=== PATIENT | female | born 1945 | race Caucasian/White ===

== ENCOUNTER 2016-10-13 21:28 | Inpatient (IN) | payer MEDICARE, MEDICAID ==
[2016-10-13 22:49] VITALS: BP 110/52
[2016-10-13] MEDS ORDERED: Pneumococcal Vaccine 0.5 mL Vial IM ONE (23:46)
[2016-10-13] MEDS ORDERED: Influenza Vaccine 0.5 mL Syr IM ONE (23:46)
[2016-10-14] MEDS ORDERED: Guaifenesin DM 10 ML UDC PO PRN (10:22)
[2016-10-14] MEDS ORDERED: PROCHLORPERAZINE MALEATE 10 MG PO PRN (10:22)
[2016-10-14 11:06] LABS: HEMATOCRIT 29.3 % (35.0-45.0); HEMOGLOBIN 9.6 gm/dL (11.7-16.1); MEAN CELL VOLUME 95.2 fl (81-100); MEAN CORPUSCULAR HEMOGLOBIN 31.3 pg (27.0-31.0); MEAN CORPUSCULAR HGB CONC 32.8 pg (28.0-36.0); PLATELET COUNT 193 Th/cmm (150-400); RED BLOOD COUNT 3.08 Mil/cmm (3.80-5.20); RED CELL DISTRIBUTION WIDTH 22.4 % (11.5-20.0); WHITE BLOOD COUNT 9.4 Th/cmm (4.8-10.8)
[2016-10-14 11:29] LABS: ALB/GLOB RATIO 1.5 (1.0-1.8); ANION GAP 11.7 (7.0-16.0); BILIRUBIN,TOTAL 0.9 mg/dL (0.3-1.0); BUN/CREATININE RATIO 9.5; CALCIUM SERUM 7.9 mg/dL (8.6-10.3); CARBON DIOXIDE 28.8 mEq/L (21.0-31.0); CREATININE - SERUM 2.1 mg/dL (0.6-1.2); POTASSIUM SERUM 4.5 mEq/L (3.5-5.1)
[2016-10-14] MEDS ORDERED: INSULIN ASPART, RECOMBINANT 100 UNITS/ML SUBQ SCH (11:30)
[2016-10-14 12:05] LABS: TSH 7.87 uIU/ml (0.34-5.60)
[2016-10-14] MEDS: Hydrocodone/APAP 5mg/325mg Tab PO PRN ×2 (12:50→16:39)
[2016-10-14 13:22] LABS: URINE COLOR BROWN; URINE GLUCOSE (UA) NEGATIVE (NEGATIVE)
[2016-10-14 13:23] LABS: URINE AMORPHOUS SEDIMENT FEW URATES (NONE SEEN); URINE BACTERIA NONE SEEN /hpf (NONE SEEN); URINE BILIRUBIN SMALL (NEGATIVE); URINE BLOOD TRACE (NEGATIVE); URINE EPITHELIAL CELLS OCCASIONAL /lpf (FEW); URINE KETONE TRACE mg/dL (NEGATIVE); URINE PH 5.5; URINE PROTEIN 100 mg/dL (NEGATIVE); URINE RBC 0-1 /hpf (0-5); URINE UROBILINOGEN 0.2 E.U./dL (0.2 - 1.0)
[2016-10-14 13:58] LABS: ANISOCYTOSIS 1+; BAND NEUTROPHILE 7 % (0-10); NEUTROPHILS 80 % (40-80); PLATELET ESTIMATE ADEQUATE (NORMAL); PLATELET MORPHOLOGY GIANT PLATELETS SEEN (NORMAL); TOTAL CELLS COUNTED 100
[2016-10-14] MEDS: cefTRIAXone 1 GM in Sodium Chloride 0.9% 50 ML IV SCH (17:30)
[2016-10-14] MEDS: metroNIDAZOLE 500mg/NS 100mL 500 MG/100 ML BAG IV SCH ×2 (18:00→23:27)
[2016-10-14] MEDS: INSULIN ASPART SLIDING SCALE 100 UNITS/ML UNIT SUBQ SCH ×2 (18:52→21:00)
[2016-10-15] MEDS: Hydrocodone/APAP 5mg/325mg Tab PO PRN ×4 (01:15→21:26)
--- NOTE | 2016-10-15 01:35 | Consultation ---
ATTENDING: Bienvenido Zhang M.D. SET UP MECHANIC HEADING MACHINES: Benson Harvey M.D. REASON FOR CONSULTATION: Electrolyte imbalance and fluid management. HISTORY OF PRESENT ILLNESS: This is a 70-year-old female with past medical history of end-stage renal disease, on hemodialysis, who was transferred from [place] to [facility] for further management of decompensating CHF. A few hours prior to admission, the patient developed shortness of breath. ____ were notified. Her O2 sat in the field was 80% with a blood sugar of 37. She was placed on 5 liter oxygen, but remained hypoxic. She was then transported to [place] [facility]. Chest x-ray revealed bilateral effusions, left greater than right, suggestive of congestive heart failure. She was placed on non-rebreather mask at 10 liters. She was started on Fortaz/gentamicin/vancomycin/Flagyl. She was dialyzed at [place]. Her condition then stabilized, and she was transported to [facility]. PAST MEDICAL HISTORY: 1. End-stage renal disease, on hemodialysis. 2. Type 2 diabetes mellitus. 3. Essential hypertension. 4. Anemia of chronic kidney disease. 5. Right toe gangrene. 6. History is decompensating CHF. 7. Hypothyroidism. 8. GERD. 9. Diabetic neuropathy. 10. Peripheral arterial disease. PAST SURGICAL HISTORY: Status post creation of left AV fistula. CURRENT MEDICATIONS: She is currently on prochlorperazine, acetaminophen, aspirin, docusate sodium, Epogen, folic acid, guaifenesin, hydrocodone APAP, insulin aspart, levothyroxine, pantoprazole, senna, and vitamin B complex with C. ALLERGIES: No known drug allergies. SOCIAL AND FAMILY HISTORY: I was unable to obtain directly from the patient because of language problem. At the same time, the patient also is quite drowsy. REVIEW OF SYSTEMS: CONSTITUTIONAL: Again, I was unable to decipher directly from the patient. The patient has been weak. Appetite had been poor. HEENT: No mention of headaches, no dizziness. CARDIORESPIRATORY: The patient came in because of respiratory distress. There was no mention of any cough, chest pain, or palpitations. No diaphoresis. She has a history of hypertension and decompensating CHF in the past. GASTROINTESTINAL: No nausea or vomiting, abdominal pain or cramping, hematemesis, melena, hematochezia, and no diarrhea. ENDOCRINE: She has a history of diabetes and hypothyroidism. GENITOURINARY: No dyslipidemia. HEMATOLOGIC: She has anemia, more likely of chronic kidney disease. She also has peripheral arterial disease. NEUROPSYCH: No syncopal episode, no seizure activity. She has diabetic neuropathy. PHYSICAL EXAMINATION: GENERAL: The patient is arousable, but drowsy, not in any form of distress. VITAL SIGNS: Blood pressure is 97/47, pulse 75, and temperature 97.1 degrees. SKIN: Good turgor, warm, no rash, no jaundice appreciated. HEENT: Head is normocephalic and atraumatic. Eyes: Extraocular muscles intact. Pupils are equal, round, and reactive to light and accommodates. Anicteric sclerae, pale conjunctivae. Nose: Midline nasal septum. Mouth: Moist mucosa with poor dentition. NECK: Supple, no adenopathy, no thyromegaly, no bruits. Trachea palpated in the midline. CHEST AND CVS: S1, S2. No rub, murmur, nor gallop appreciated. Point of maximal impulse in fifth intercostal space, left midclavicular line. No abdominal or femoral bruits appreciated. LUNGS: Equal expansion. Minimal use of accessory muscles. No supraclavicular retractions. Few rhonchi, some rales at the bases, but no wheezes appreciated. BREASTS: Symmetrical, without any discharge. ABDOMEN: Flat, soft. Positive for bowel sounds. No bruits either diastolic or systolic. RECTAL: Deferred because she is ruled out ____. MUSCULOSKELETAL: No effusions present in her joints, but unable to assess her range of motion. EXTREMITIES: She has edema on her left upper extremity, very good bruits and thrill over her left AV fistula. She has +1 bilateral feet edema. NEUROLOGIC: As mentioned, the patient is quite drowsy and also due to communication, unable to proceed with my neuro exam. LABORATORY DATA: Revealed sodium 129, potassium 4.5, chloride 93, bicarbonate 28, BUN 20, creatinine 2.1, glucose 149, albumin 3.2, calcium 7.9, ammonia 50, and TSH 7.87. White count 9.4, hemoglobin 9.6, hematocrit 29.3, polys 80%, platelets 193,000. Recent chest x-ray showed stable bilateral pulmonary edema, bilateral effusions with left lower consolidation versus atelectasis. IMPRESSION: 1. End-stage renal disease, on hemodialysis. 2. Acute decompensation of chronic congestive heart failure. 3. Acute respiratory failure secondary to end-stage renal disease, on hemodialysis. 4. Type 2 diabetes mellitus with chronic kidney disease. 5. Essential hypertension with chronic kidney disease. 6. Anemia of chronic kidney disease. 7. Left lower lobe hospital-acquired pneumonia. 8. Hypothyroidism. 9. Gastroesophageal reflux disease. 10. Diabetic neuropathy. 11. Peripheral arterial disease. 12. Chronic hyponatremia secondary to end-stage renal disease. PLAN: 1. Hemodialysis in a.m. 2. Fluid restriction. 3. Serial chest x-ray. 4. Follow up echo. 5. Follow up cultures. 6. Continue antibiotics. 7. Increase levothyroxine dose. Thank you Dr. Zhang for this consult. I will follow the patient closely with you. JOB# [id number]
[2016-10-15] MEDS: metroNIDAZOLE 500mg/NS 100mL 500 MG/100 ML BAG IV SCH ×3 (05:34→21:12)
[2016-10-15 05:46] LABS: HEMATOCRIT 30.8 % (35.0-45.0); HEMOGLOBIN 10.1 gm/dL (11.7-16.1); MEAN CELL VOLUME 94.4 fl (81-100); MEAN CORPUSCULAR HEMOGLOBIN 30.9 pg (27.0-31.0); MEAN CORPUSCULAR HGB CONC 32.7 pg (28.0-36.0); MEAN PLATELET VOLUME 9.1 fl; PLATELET COUNT 191 Th/cmm (150-400); RED BLOOD COUNT 3.26 Mil/cmm (3.80-5.20); RED CELL DISTRIBUTION WIDTH 21.5 % (11.5-20.0); WHITE BLOOD COUNT 9.8 Th/cmm (4.8-10.8)
[2016-10-15 06:12] LABS: ANION GAP 13.3 (7.0-16.0); BUN/CREATININE RATIO 9.6; CALCIUM SERUM 8.6 mg/dL (8.6-10.3); CARBON DIOXIDE 27.5 mEq/L (21.0-31.0); CREATININE - SERUM 2.4 mg/dL (0.6-1.2); POTASSIUM SERUM 4.8 mEq/L (3.5-5.1)
[2016-10-15] MEDS ORDERED: Levothyroxine 0.025 Mg Tab PO SCH (06:30)
[2016-10-15] MEDS: Vitamin B Complex w/Vitamin C Tab PO SCH (08:25)
[2016-10-15] MEDS: Pantoprazole 40 mg EC Tab PO SCH (08:25)
[2016-10-15] MEDS: INSULIN ASPART SLIDING SCALE 100 UNITS/ML UNIT SUBQ SCH ×4 (08:33→21:23)
[2016-10-15] MEDS ORDERED: Non-Formulary Item 1 EA (Pantoprazole Sodium [Protonix] 20 MG) PO SCH (09:00)
[2016-10-15] MEDS ORDERED: Non-Formulary Item 1 EA (Epoetin Alfa [Procrit] 10,000 UNIT) SQ SCH (09:00)
[2016-10-15 09:14] LABS: BAND NEUTROPHILE 2 % (0-10); NEUTROPHILS 79 % (40-80); TOTAL CELLS COUNTED 100
[2016-10-15 09:15] LABS: ANISOCYTOSIS 1+; PLATELET ESTIMATE ADEQUATE (NORMAL); PLATELET MORPHOLOGY NORMAL (NORMAL)
--- NOTE | 2016-10-15 09:44 | Diagnostic Imaging Report ---
CHEST X-RAY: AP view INDICATION: CHF, pneumonia COMPARISON: None FINDINGS: Moderate to large left effusion and moderate right effusion is noted with multifocal bilateral infiltrates. Right midlung opacity is noted. Cardiomegaly is noted with atherosclerosis. Left upper extremity vascular stent is noted. Degenerative changes of the spine are noted. IMPRESSION: Bilateral effusions, left larger the right, with extensive multifocal infiltrates. Findings may be due to a combination of CHF and/or pneumonia. Follow-up is recommended to ensure resolution. Right midlung opacity possibly due to fluid in the fission adjacent infiltrates. Other etiologies such as a pulmonary nodule is considered less slightly, however, follow-up is recommended to ensure resolution. Cardiomegaly and atherosclerotic vascular disease.
--- NOTE | 2016-10-15 13:10 | Diagnostic Imaging Report ---
Right lower extremity arterial Doppler study HISTORY: Peripheral arterial disease COMPARISON: None Technique: Longitudinal and transverse sonographic images of the right lower extremity arteries were obtained with doppler analysis. FINDINGS: Exam of the right side demonstrates diffuse moderate to severe atherosclerotic vascular disease. There is monophasic flow extending from the right mid superficial femoral artery to the tibialis arteries. The right dorsalis pedis artery was not detected. There is a right lower extremity subcutaneous edema is noted. Right ankle brachial index was not able to be obtained as blood pressures were not able to be obtained in the ankle region. IMPRESSION: Findings sales donor recruitment representative of moderate to severe atherosclerotic vascular disease, greatest distally. The right dorsalis pedis artery was not visualized. Severe stenosis or occlusion cannot be excluded. Please correlate clinically. If indicated. CT angiography of the lower extremities may also be obtained.
[2016-10-15] MEDS: Epoetin Alfa 20000 Units/mL Vial SUBQ SCH (15:06)
[2016-10-15] MEDS: cefTRIAXone 1 GM in Sodium Chloride 0.9% 50 ML IV SCH (16:21)
--- NOTE | 2016-10-15 18:32 | General Progress Note ---
Subjective - Review of Systems Service Date: 10/15/16 Subjective: awake, nauseaus Objective - Results Result Diagrams: 10/15/16 05:17 10/15/16 05:17 Recent Labs: Laboratory Last Values WBC 9.8 Th/cmm (4.8-10.8) 10/15/16 05:17 RBC 3.26 Mil/cmm (3.80-5.20) L 10/15/16 05:17 Hgb 10.1 gm/dL (11.7-16.1) L 10/15/16 05:17 Hct 30.8 % (35.0-45.0) L 10/15/16 05:17 MCV 94.4 fl (81-100) 10/15/16 05:17 MCH 30.9 pg (27.0-31.0) 10/15/16 05:17 MCHC Differential 32.7 pg (28.0-36.0) 10/15/16 05:17 RDW 21.5 % (11.5-20.0) H 10/15/16 05:17 Plt Count 191 Th/cmm (150-400) 10/15/16 05:17 MPV 9.1 fl 10/15/16 05:17 Band Neutrophils % 2 % (0-10) 10/15/16 05:17 Neutrophils (Manual) 79 % (40-80) 10/15/16 05:17 Lymphocytes 7 % (20-50) L 10/15/16 05:17 Monocytes 12 % (2-10) H 10/15/16 05:17 Eosinophils Not Reportable 10/15/16 05:17 Nucleated RBCs 1.0 % (0-0) H 10/14/16 10:40 Platelet Estimate ADEQUATE (NORMAL) 10/15/16 05:17 Platelet Morphology NORMAL (NORMAL) 10/15/16 05:17 Anisocytosis 1+ 10/15/16 05:17 RBC Morph Micro Appear ABNORMAL (NORMAL) 10/15/16 05:17 Sodium 129 mEq/L (136-145) L 10/15/16 05:17 Potassium 4.8 mEq/L (3.5-5.1) 10/15/16 05:17 Chloride 93 mEq/L (98-107) L 10/15/16 05:17 Carbon Dioxide 27.5 mEq/L (21.0-31.0) 10/15/16 05:17 Anion Gap 13.3 (7.0-16.0) 10/15/16 05:17 BUN 23 mg/dL (7-25) 10/15/16 05:17 Creatinine 2.4 mg/dL (0.6-1.2) H 10/15/16 05:17 Est GFR ( Amer) 25.7 ml/min 10/15/16 05:17 Est GFR (Non-Af Amer) 21.3 ml/min 10/15/16 05:17 BUN/Creatinine Ratio 9.6 10/15/16 05:17 Glucose 84 mg/dL (70-105) 10/15/16 05:17 POC Glucose 106 MG/DL (70 - 105) H 10/15/16 16:18 Hemoglobin A1c % 6.9 % (4.0-6.0) H 10/15/16 05:17 Calcium 8.6 mg/dL (8.6-10.3) 10/15/16 05:17 Total Bilirubin 0.9 mg/dL (0.3-1.0) 10/14/16 10:40 AST 12 U/L (13-39) L 10/14/16 10:40 ALT 7 U/L (7-52) 10/14/16 10:40 Alkaline Phosphatase 87 U/L (34-104) 10/14/16 10:40 Ammonia 50 umol/L (16-53) 10/14/16 10:40 Total Protein 5.4 gm/dL (6.0-8.3) L 10/14/16 10:40 Albumin 3.2 gm/dL (3.7-5.3) L 10/14/16 10:40 Globulin 2.2 gm/dL 10/14/16 10:40 Albumin/Globulin Ratio 1.5 (1.0-1.8) 10/14/16 10:40 Triglycerides 119 mg/dL (<150) 10/14/16 10:40 Cholesterol 80 mg/dL (<200) 10/14/16 10:40 LDL Cholesterol Direct 26 mg/dL (75-193) L 10/14/16 10:40 HDL Cholesterol 33 mg/dL (23-92) 10/14/16 10:40 TSH 7.87 uIU/ml (0.34-5.60) H 10/14/16 10:40 Urine Source CATH 10/14/16 06:00 Urine Color BROWN 10/14/16 06:00 Urine Clarity SL. CLOUDY (CLEAR) 10/14/16 06:00 Urine pH 5.5 10/14/16 06:00 Ur Specific [place] 1.025 (1.005-1.030) 10/14/16 06:00 Urine Protein 100 mg/dL (NEGATIVE) H 10/14/16 06:00 Urine Glucose (UA) NEGATIVE mg/dL (NEGATIVE) 10/14/16 06:00 Urine Ketones TRACE mg/dL (NEGATIVE) 10/14/16 06:00 Urine Blood TRACE (NEGATIVE) 10/14/16 06:00 Urine Nitrate NEGATIVE (NEGATIVE) 10/14/16 06:00 Urine Bilirubin SMALL (NEGATIVE) H 10/14/16 06:00 Urine Urobilinogen 0.2 E.U./dL (0.2 - 1.0) 10/14/16 06:00 Ur Leukocyte Esterase NEGATIVE (NEGATIVE) 10/14/16 06:00 Urine RBC 0-1 /hpf (0-5) 10/14/16 06:00 Urine WBC 2-5 /hpf (0-5) 10/14/16 06:00 Ur Epithelial Cells OCCASIONAL /lpf (FEW) 10/14/16 06:00 Amorphous Sediment FEW URATES (NONE SEEN) 10/14/16 06:00 Urine Bacteria NONE SEEN /hpf (NONE SEEN) 10/14/16 06:00 - Physical Exam Vitals and I&O: Vital Signs Temp 97.7 F 10/15/16 15:44 Pulse 76 10/15/16 15:44 Resp 18 10/15/16 15:44 BP 107/49 10/15/16 15:44 Pulse Ox 99 10/15/16 12:47 Intake & Output 10/14/16 10/15/16 10/15/16 18:59 06:59 18:59 Intake Total 150 450 Output Total 75 Balance 75 450 Intake: Intake, IV Amount 50 300 cefTRIAXone 1 gm In 50 Sodium Chloride 0.9% 50 ml @ 100 mls/hr IV Q24HR [facility] Rx#:[id number] metroNIDAZOLE 500mg/NS 300 100mL 500 mg In 100 ml @ 100 mls/hr IV Q8HR [facility] Rx #:[id number] Oral 100 150 Output: Urine 75 Other: # Voids 1 1 # Bowel Movements 0 0 Active Medications: Current Medications Acetaminophen (Tylenol) 650 mg PO Q4HR PRN PRN Reason: fever/pain Stop: 12/13/16 01:20 Last Admin: 10/14/16 09:03 Dose: 650 mg Acetaminophen/Hydrocodone Bitart (Dexter 5mg/325mg) 1 tab PO Q3H PRN PRN Reason: moderate pain (4-6) Stop: 12/13/16 10:21 Last Admin: 10/15/16 10:43 Dose: 1 tab Aspirin (Ecotrin) 81 mg PO QAM [facility] Stop: 12/14/16 08:59 Last Admin: 10/15/16 08:25 Dose: 81 mg Docusate Sodium (Colace) 100 mg PO BID [facility] Stop: 12/13/16 16:59 Last Admin: 10/15/16 16:21 Dose: 100 mg Epoetin [place] (Epogen) 10,000 units SUBQ MWF@1500 [facility] Stop: 12/14/16 14:59 Last Admin: 10/15/16 15:06 Dose: 10,000 units Folic Acid (Folate) 1 mg PO DAILY [facility] Stop: 12/14/16 08:59 Last Admin: 10/15/16 08:25 Dose: 1 mg Guaifenesin/Dextromethorphan (Robitussin Dm) 10 ml PO Q4HR PRN PRN Reason: Cough Stop: 12/13/16 10:21 Ceftriaxone Sodium 1 gm/ (Sodium Chloride) 50 mls @ 100 mls/hr IV Q24HR [facility] Stop: 12/13/16 15:59 Last Admin: 10/15/16 16:21 Dose: 100 mls/hr Metronidazole (Flagyl) 500 mg in 100 mls @ 100 mls/hr IV Q8HR [facility] Stop: 12/13/16 15:59 Last Admin: 10/15/16 13:03 Dose: 100 mls/hr Insulin Aspart (Novolog Insulin Sliding Scale) 0 units SUBQ ACHS [facility] PRN Reason: Protocol Stop: 12/13/16 16:29 Last Admin: 10/15/16 16:30 Dose: Not Given Levothyroxine Sodium (Synthroid) 0.05 mg PO QDAC [facility] Stop: 12/14/16 06:29 Miscellaneous (Clinical Monitoring) 1 ea [facility] PRN PRN PRN Reason: RENAL DOSING Stop: 12/13/16 13:45 Miscellaneous (Vancomycin Iv Per Pharmacy) 1 ea [facility] PRN [facility] Stop: 12/14/16 09:29 Pantoprazole Sodium (Protonix) 40 mg PO DAILY [facility] Stop: 12/14/16 08:59 Last Admin: 10/15/16 08:25 Dose: 40 mg Prochlorperazine Maleate (Compazine) 10 mg PO Q6H PRN PRN Reason: Nausea / Vomiting Stop: 12/13/16 10:39 Last Admin: 10/15/16 18:26 Dose: 10 mg Senna (Senna) 17.2 mg PO HS [facility] Stop: 12/13/16 20:59 Last Admin: 10/14/16 21:29 Dose: 17.2 mg Vitamin B Complex/Vit C/Folic Acid (Vitamin B Complex W/Vitamin C) 1 tab PO DAILY [facility] Stop: 12/14/16 08:59 Last Admin: 10/15/16 08:25 Dose: 1 tab General: Alert, Cooperative, Mild distress HEENT: Atraumatic, PERRLA, EOMI Neck: Supple, +2 carotid pulse wo bruit Cardiovascular: Regular rate, Normal S1, Normal S2 Lungs: Other (scattered rhonchi) Abdomen: Bowel sounds, Soft Extremities: no Edema Neurological: Normal speech, Strength at 5/5 X4 ext Skin: no Rash Psych/Mental Status: Mood NL Assessment/Plan - Assessment Assessment: ESRD on HD acute decomp CHF acute resp failure type 2 dm ess htn anemia of ckd LLL HAP hypothyroid PAD chronic hyponatremia - Plan Plan: HD as scheduled serial CXR fluid restriction f/u echo
--- NOTE | 2016-10-15 19:35 | History & Physical ---
HISTORY OF PRESENT ILLNESS: A 70-year-old female, well-known to me. The patient is known to have history of hypertension, history of heart failure, history of diabetes, history of anemia, history of toe gangrene, history of hypothyroidism, history of GERD, history of neuropathy, history of peripheral ____ desaturated, pneumonia and CHF. She was taken to [facility]. From there, she has been admitted to [facility] for further continuation of care. The patient has bilateral pleural effusion. PAST MEDICAL HISTORY: As enumerated above. PAST SURGICAL HISTORY: Left AV fistula. MEDICATIONS: The patient is on multiple medications, see the reconciliation sheet. PHYSICAL EXAMINATION: GENERAL: Alert, oriented, emaciated female patient. VITAL SIGNS: Noted in the chart. HEAD: Normal. ENT: Normal. LUNGS: Bilateral rales. CARDIOVASCULAR SYSTEM: S1, S2 heard. ABDOMEN: Soft. EXTREMITIES: ____ pitting edema. LABORATORY DATA: BUN was 20, creatinine 2.1, sodium was 129. The patient's chest x-ray, bilateral pleural effusion. DIAGNOSES: 1. Congestive heart failure. 2. Bilateral pleural effusion. 3. End-stage renal disease. 4. Acute on chronic congestive heart failure, systolic failure. 5. History of diabetes. 6. History of hypertension. 7. History of anemia. 8. History of hypothyroidism. 9. History of gastroesophageal reflux disease. 10. History of ____ neuropathy. 11. Peripheral ____ disease. 12. Hyponatremia secondary to volume expansion. PLAN: The patient is going to be treated with dialysis as well as we will call ID doctor, Dr. Nick Abdalla to see the patient, we will follow the patient ____. JOB# [id number]
--- NOTE | 2016-10-15 21:36 | Cardiology ---
ECHOCARDIOGRAM The patient of Dr. Zhang. M-MODE ECHOCARDIOGRAM: Mitral valve, anterior leaflet of the mitral valve shows decreased excursion, EF velocity. Posterior leaflet of the mitral valve shows decreased excursion. Left ventricular posterior wall shows increased thickness, decreased excursion. Interventricular septum shows increased thickness, decreased excursion, ejection fraction 15%. Left atrium normal. Aortic root showed normal dimension, normal excursion of aortic leaflets. CONCLUSION: Cardiomyopathy, ejection fraction 15%, mild hypertrophy of the left ventricle. 2D ECHO: Long-axis view shows enlarged left ventricular cavity with minimal hypertrophy of the left ventricle, ejection fraction 15%. Left atrium normal. Aortic root showed normal dimension, normal excursion of aortic leaflets. Short-axis view of mitral valve normal. Short-axis view of aortic valve normal. Apical four-chamber view shows enlarged left ventricular cavity with decreased ejection fraction, minimal hypertrophy of the left ventricle, left atrium normal, right ventricular cavity, right atrium normal, no pericardial effusion. CONCLUSION: Minimal hypertrophy of the left ventricle, ejection fraction 15%. Doppler study shows mild mitral regurgitation, tricuspid regurgitation, moderate aortic regurgitation, and moderate mitral regurgitation. JOB# [id number]
[2016-10-16] MEDS: Hydrocodone/APAP 5mg/325mg Tab PO PRN ×4 (01:20→22:22)
--- NOTE | 2016-10-16 04:35 | Consultation ---
REFERRING PHYSICIAN: Dr. Zhang. REASON FOR CONSULTATION: Pneumonia. HISTORY OF PRESENT ILLNESS: The patient is a 70-year-old female with a past medical history of diabetes mellitus type 2, CKD stage V, on hemodialysis, CHF, hypothyroidism, was getting treatment for pneumonia at nursing facility. At the nursing facility, she became hypoxic with a shortness of breath. Her oxygen saturation dropped to 80% and accucheck glucose was 37. The patient was put on 5 L/minute nasal cannula and her oxygen saturation went up to 88% to 89%. She was taken to the [facility]. On initial evaluation, the patient's temperature was 95.1 degree Fahrenheit and WBC count was 12,300. Lactate was 1.9. A chest x-ray showed bilateral pleural effusion, cannot rule out underlying consolidation or atelectasis. The patient was diagnosed with pneumonia versus CHF and the patient was transferred to [facility] for further care. The patient was resumed on Rocephin. So far, the patient has no fever. ID consult was called for further antibiotic management. PAST MEDICAL HISTORY: Includes CKD stage V, on hemodialysis, diabetes mellitus type 2, cardiomyopathy, hypertension, right toe gangrene, CHF, hypothyroidism, GERD, neuropathic pain, peripheral vascular disease, recent diagnosis of pneumonia. PAST SURGICAL HISTORY: AV shunt in left upper extremity. SOCIAL HISTORY: The patient lives in a nursing facility. No history of smoking, alcohol or drug use. FAMILY HISTORY: Not available. ALLERGIES: NKDA. MEDICATIONS: As per medication reconciliation sheet. Current antibiotic includes Rocephin. REVIEW OF SYSTEMS: The patient is a poor historian. So far, the patient has no fever, no chills. The patient had hypoxic episode with shortness of breath. PHYSICAL EXAMINATION: CURRENT VITAL SIGNS: Shows temperature is 97 degrees Fahrenheit, pulse 78, respirations 18, blood pressure is 117/53. GENERAL: The patient is comfortable, lying in the bed, not in acute distress. HEENT: Head is normocephalic, atraumatic. Oral cavity moist, pink tongue. Eyes: Pallor is present, no icterus. Pupils PERRLA, EOMI. NECK: Supple, no JVD, no carotid bruit. Trachea in midline. CHEST: Bilateral breath sounds. No crackles, no wheezing. HEART: S1, S2 within normal limits. Regular rhythm. No murmur, no gallop. ABDOMEN: Soft, nontender, nondistended. Bowel sounds present. EXTREMITIES: No cyanosis, no clubbing, no edema. SKIN: The patient has darkening of the toe of the right foot. The patient has an AV shunt in the left arm. NEUROLOGIC: Alert and awake. LABORATORY DATA: Her current lab shows WBC count is 9800, hemoglobin 10.1, platelets are 191,000. Sodium is 129, potassium 4.8, chloride 93, bicarbonate is 27, BUN is 23, creatinine 2.4, glucose is 84. Urinalysis showed nitrite negative, leukoesterase negative. Blood cultures show no growth. Chest x-ray from [facility] showed bilateral pleural effusion, was on the left, cannot rule out underlying consolidation or atelectasis. Probable pseudotumor along the right minor fissure due to fluid collection, suspect CHF. IMPRESSION: 1. Right toe cellulitis, likely due to peripheral arterial disease. 2. Suspect pneumonia. 3. Congestive heart failure. 4. Respiratory failure, improved. 5. Diabetes mellitus, type 2. 6. Hypertension. 7. Chronic kidney disease, stage V, on hemodialysis. 8. Anemia of chronic disease. RECOMMENDATIONS: We will check Doppler ultrasound of right lower extremity. Continue vancomycin IV and continue Rocephin. Thank you, Dr. Zhang, for involving me taking care of this patient. JOB# [id number] [place]
--- NOTE | 2016-10-16 04:56 | Consultation ---
The patient of Dr. Zhang. HISTORY AND PHYSICAL: This is a 70-year-old female patient brought to the Emergency Room at [place] for shortness of breath, was gradually deteriorated. The patient was found to have congestive heart failure. The patient is transferred to [facility]. PAST MEDICAL HISTORY: Congestive heart failure, systolic dysfunction, cardiomyopathy, ejection fraction 15%-20%, diabetes mellitus type 2, diabetic CKD stage V, end-stage renal disease on dialysis, diabetic peripheral vascular disease with right toe gangrene, hypertension, iron deficiency anemia, hypothyroidism, diabetic peripheral neuropathy, and left lower lobe pneumonia. FAMILY HISTORY: Unremarkable. SOCIAL HISTORY: No history of smoking, alcohol abuse. ALLERGIES: No known allergies. PHYSICAL EXAMINATION: VITAL SIGNS: Blood pressure 150/80, pulse 88, and respirations 28. HEAD: Normocephalic. No lumps or bumps. EYES: Pupils are equal and reactive to light. Fundi show AV nicking, sclerae white, and conjunctivae pink. NECK: Carotid 2+. Normal upstroke. JVD 10 cm above the sternal angle. Thyroid not palpable. Lymph nodes not palpable. CHEST: Shows increased AP diameter. No kyphosis, scoliosis. LUNGS: Bilateral rales. Decreased breath sounds in both the bases. HEART: PMI in sixth intercostal space with lateral to midclavicular line. S1, S2, S3, S4, systolic murmur grade 2/6, lower left sternal border radiating to the left axilla. ABDOMEN: Soft. Liver and spleen not palpable. No organomegaly. Bowel sounds active. NEUROLOGIC: Peripheral neuropathy. EXTREMITIES: Peripheral pulses feeble. Right toe gangrene. CLINICAL IMPRESSION: Congestive heart failure, systolic dysfunction, cardiomyopathy, ischemic, diabetes mellitus type 2, diabetic chronic kidney disease stage V, end-stage renal disease on dialysis, diabetic peripheral vascular disease with right toe gangrene, diabetic peripheral neuropathy, hypertension, iron deficiency anemia, secondary to chronic kidney disease stage V, hypothyroidism, and left lower lobe pneumonia. The patient had an echocardiogram which showed ejection fraction 10%-15% with mild LVH, mild tricuspid regurgitation, moderate mitral regurgitation, and moderate aortic regurgitation. The patient to have aggressive dialysis. JOB# [id number]
[2016-10-16] MEDS: metroNIDAZOLE 500mg/NS 100mL 500 MG/100 ML BAG IV SCH ×3 (05:11→20:52)
[2016-10-16] MEDS: Levothyroxine 0.025 Mg Tab PO SCH (06:49)
[2016-10-16 07:30] LABS: ANION GAP 13.5 (7.0-16.0); CALCIUM SERUM 8.7 mg/dL (8.6-10.3); CARBON DIOXIDE 26.6 mEq/L (21.0-31.0); POTASSIUM SERUM 4.1 mEq/L (3.5-5.1)
[2016-10-16 08:11] LABS: HEP B CORE IGM Negative (Negative); HEP C ANTIBODY <0.1 s/co ratio (0.0-0.9)
--- NOTE | 2016-10-16 08:45 | Diagnostic Imaging Report ---
Portable chest x-ray HISTORY: Shortness of breath Compared with the prior exam of 10/15/2016, persistent cardiomegaly and bilateral pleural effusions. Additional findings consistent cardiac decompensation. Increasing density seen in the right perihilar region. Superimposed pneumonia cannot be excluded. Clinical correlation needed. IMPRESSION: 1. Persistent cardiomegaly with bilateral pleural effusions and findings consistent with congestive heart failure 2. Increasing density in the right perihilar region. Pneumonia cannot be excluded. Clinical correlation and follow-up is needed.
[2016-10-16] MEDS: Vitamin B Complex w/Vitamin C Tab PO SCH (09:12)
[2016-10-16] MEDS: Pantoprazole 40 mg EC Tab PO SCH (09:12)
[2016-10-16] MEDS: INSULIN ASPART SLIDING SCALE 100 UNITS/ML UNIT SUBQ SCH ×4 (09:14→20:52)
--- NOTE | 2016-10-16 10:58 | General Progress Note ---
Subjective - Review of Systems Service Date: 10/16/16 Objective - Results Result Diagrams: 10/15/16 05:17 10/16/16 06:50 Recent Labs: Laboratory Last Values WBC 9.8 Th/cmm (4.8-10.8) 10/15/16 05:17 RBC 3.26 Mil/cmm (3.80-5.20) L 10/15/16 05:17 Hgb 10.1 gm/dL (11.7-16.1) L 10/15/16 05:17 Hct 30.8 % (35.0-45.0) L 10/15/16 05:17 MCV 94.4 fl (81-100) 10/15/16 05:17 MCH 30.9 pg (27.0-31.0) 10/15/16 05:17 MCHC Differential 32.7 pg (28.0-36.0) 10/15/16 05:17 RDW 21.5 % (11.5-20.0) H 10/15/16 05:17 Plt Count 191 Th/cmm (150-400) 10/15/16 05:17 MPV 9.1 fl 10/15/16 05:17 Band Neutrophils % 2 % (0-10) 10/15/16 05:17 Neutrophils (Manual) 79 % (40-80) 10/15/16 05:17 Lymphocytes 7 % (20-50) L 10/15/16 05:17 Monocytes 12 % (2-10) H 10/15/16 05:17 Eosinophils Not Reportable 10/15/16 05:17 Nucleated RBCs 1.0 % (0-0) H 10/14/16 10:40 Platelet Estimate ADEQUATE (NORMAL) 10/15/16 05:17 Platelet Morphology NORMAL (NORMAL) 10/15/16 05:17 Anisocytosis 1+ 10/15/16 05:17 RBC Morph Micro Appear ABNORMAL (NORMAL) 10/15/16 05:17 Sodium 136 mEq/L (136-145) 10/16/16 06:50 Potassium 4.1 mEq/L (3.5-5.1) 10/16/16 06:50 Chloride 100 mEq/L (98-107) 10/16/16 06:50 Carbon Dioxide 26.6 mEq/L (21.0-31.0) 10/16/16 06:50 Anion Gap 13.5 (7.0-16.0) 10/16/16 06:50 BUN 16 mg/dL (7-25) 10/16/16 06:50 Creatinine 2.0 mg/dL (0.6-1.2) H 10/16/16 06:50 Est GFR ( Amer) 31.8 ml/min 10/16/16 06:50 Est GFR (Non-Af Amer) 26.3 ml/min 10/16/16 06:50 BUN/Creatinine Ratio 8.0 10/16/16 06:50 Glucose 82 mg/dL (70-105) 10/16/16 06:50 POC Glucose 91 MG/DL (70 - 105) 10/16/16 06:51 Hemoglobin A1c % 6.9 % (4.0-6.0) H 10/15/16 05:17 Calcium 8.7 mg/dL (8.6-10.3) 10/16/16 06:50 Total Bilirubin 0.9 mg/dL (0.3-1.0) 10/14/16 10:40 AST 12 U/L (13-39) L 10/14/16 10:40 ALT 7 U/L (7-52) 10/14/16 10:40 Alkaline Phosphatase 87 U/L (34-104) 10/14/16 10:40 Ammonia 50 umol/L (16-53) 10/14/16 10:40 Total Protein 5.4 gm/dL (6.0-8.3) L 10/14/16 10:40 Albumin 3.2 gm/dL (3.7-5.3) L 10/14/16 10:40 Globulin 2.2 gm/dL 10/14/16 10:40 Albumin/Globulin Ratio 1.5 (1.0-1.8) 10/14/16 10:40 Triglycerides 119 mg/dL (<150) 10/14/16 10:40 Cholesterol 80 mg/dL (<200) 10/14/16 10:40 LDL Cholesterol Direct 26 mg/dL (75-193) L 10/14/16 10:40 HDL Cholesterol 33 mg/dL (23-92) 10/14/16 10:40 TSH 7.87 uIU/ml (0.34-5.60) H 10/14/16 10:40 Urine Source CATH 10/14/16 06:00 Urine Color BROWN 10/14/16 06:00 Urine Clarity SL. CLOUDY (CLEAR) 10/14/16 06:00 Urine pH 5.5 10/14/16 06:00 Ur Specific [place] 1.025 (1.005-1.030) 10/14/16 06:00 Urine Protein 100 mg/dL (NEGATIVE) H 10/14/16 06:00 Urine Glucose (UA) NEGATIVE mg/dL (NEGATIVE) 10/14/16 06:00 Urine Ketones TRACE mg/dL (NEGATIVE) 10/14/16 06:00 Urine Blood TRACE (NEGATIVE) 10/14/16 06:00 Urine Nitrate NEGATIVE (NEGATIVE) 10/14/16 06:00 Urine Bilirubin SMALL (NEGATIVE) H 10/14/16 06:00 Urine Urobilinogen 0.2 E.U./dL (0.2 - 1.0) 10/14/16 06:00 Ur Leukocyte Esterase NEGATIVE (NEGATIVE) 10/14/16 06:00 Urine RBC 0-1 /hpf (0-5) 10/14/16 06:00 Urine WBC 2-5 /hpf (0-5) 10/14/16 06:00 Ur Epithelial Cells OCCASIONAL /lpf (FEW) 10/14/16 06:00 Amorphous Sediment FEW URATES (NONE SEEN) 10/14/16 06:00 Urine Bacteria NONE SEEN /hpf (NONE SEEN) 10/14/16 06:00 Random Vancomycin 20.8 ug/mL (5.0-40.0) 10/16/16 06:50 Hepatitis A IgM Ab Negative (Negative) 10/15/16 05:17 Hep Bs Antigen Negative (Negative) 10/15/16 05:17 Hep B Core IgM Ab Negative (Negative) 10/15/16 05:17 Hepatitis C Antibody <0.1 s/co ratio (0.0-0.9) 10/15/16 05:17 - Physical Exam Vitals and I&O: Vital Signs Temp 97 F 10/16/16 04:00 Pulse 81 10/16/16 04:00 Resp 18 10/16/16 04:00 BP 124/54 10/16/16 04:00 Pulse Ox 99 10/16/16 04:00 Intake & Output 10/15/16 10/16/16 10/16/16 18:59 06:59 18:59 Intake Total 900 200 Output Total 2700 Balance -1800 200 Intake: Intake, IV Amount 100 200 metroNIDAZOLE 500mg/NS 100 200 100mL 500 mg In 100 ml @ 100 mls/hr IV Q8HR [facility] Rx #:[id number] Oral 800 Output: Other 2700 Active Medications: Current Medications Acetaminophen (Tylenol) 650 mg PO Q4HR PRN PRN Reason: fever/pain Stop: 12/13/16 01:20 Last Admin: 10/14/16 09:03 Dose: 650 mg Acetaminophen/Hydrocodone Bitart ([place] 5mg/325mg) 1 tab PO Q3H PRN PRN Reason: moderate pain (4-6) Stop: 12/13/16 10:21 Last Admin: 10/16/16 09:12 Dose: 1 tab Aspirin (Ecotrin) 81 mg PO QAM [facility] Stop: 12/14/16 08:59 Last Admin: 10/16/16 09:12 Dose: 81 mg Docusate Sodium (Colace) 100 mg PO BID [facility] Stop: 12/13/16 16:59 Last Admin: 10/16/16 09:12 Dose: 100 mg Epoetin [place] (Epogen) 10,000 units SUBQ MWF@1500 [facility] Stop: 12/14/16 14:59 Last Admin: 10/15/16 15:06 Dose: 10,000 units Folic Acid (Folate) 1 mg PO DAILY [facility] Stop: 12/14/16 08:59 Last Admin: 10/16/16 09:12 Dose: 1 mg Guaifenesin/Dextromethorphan (Robitussin Dm) 10 ml PO Q4HR PRN PRN Reason: Cough Stop: 12/13/16 10:21 Ceftriaxone Sodium 1 gm/ (Sodium Chloride) 50 mls @ 100 mls/hr IV Q24HR [facility] Stop: 12/13/16 15:59 Last Admin: 10/15/16 16:21 Dose: 100 mls/hr Metronidazole (Flagyl) 500 mg in 100 mls @ 100 mls/hr IV Q8HR [facility] Stop: 12/13/16 15:59 Last Infusion: 10/16/16 06:11 Dose: Infused Vancomycin HCl 1 gm/ Sodium (Chloride) 250 mls @ 165 mls/hr IV ONCE ONE Stop: 12/24/16 22:30 Insulin Aspart (Novolog Insulin Sliding Scale) 0 units SUBQ ACHS [facility] PRN Reason: Protocol Stop: 12/13/16 16:29 Last Admin: 10/16/16 09:14 Dose: Not Given Levothyroxine Sodium (Synthroid) 0.05 mg PO QDAC [facility] Stop: 12/14/16 06:29 Last Admin: 10/16/16 06:49 Dose: 0.05 mg Miscellaneous (Clinical Monitoring) 1 [facility] PRN PRN PRN Reason: RENAL DOSING Stop: 12/13/16 13:45 Miscellaneous (Vancomycin Iv Per Pharmacy) 1 [facility] PRN [facility] Stop: 12/14/16 09:29 Pantoprazole Sodium (Protonix) 40 mg PO DAILY [facility] Stop: 12/14/16 08:59 Last Admin: 10/16/16 09:12 Dose: 40 mg Prochlorperazine Maleate (Compazine) 10 mg PO Q6H PRN PRN Reason: Nausea / Vomiting Stop: 12/13/16 10:39 Last Admin: 10/15/16 18:26 Dose: 10 mg Senna (Senna) 17.2 mg PO HS [facility] Stop: 12/13/16 20:59 Last Admin: 10/15/16 21:30 Dose: 17.2 mg Vitamin B Complex/Vit C/Folic Acid (Vitamin B Complex W/Vitamin C) 1 tab PO DAILY [facility] Stop: 12/14/16 08:59 Last Admin: 10/16/16 09:12 Dose: 1 tab
--- NOTE | 2016-10-16 14:44 | General Progress Note ---
Subjective - Review of Systems Service Date: 10/16/16 Subjective: awake, nauseaus, still w/ abd. pain Objective - Results Result Diagrams: 10/15/16 05:17 10/16/16 06:50 Recent Labs: Laboratory Last Values WBC 9.8 Th/cmm (4.8-10.8) 10/15/16 05:17 RBC 3.26 Mil/cmm (3.80-5.20) L 10/15/16 05:17 Hgb 10.1 gm/dL (11.7-16.1) L 10/15/16 05:17 Hct 30.8 % (35.0-45.0) L 10/15/16 05:17 MCV 94.4 fl (81-100) 10/15/16 05:17 MCH 30.9 pg (27.0-31.0) 10/15/16 05:17 MCHC Differential 32.7 pg (28.0-36.0) 10/15/16 05:17 RDW 21.5 % (11.5-20.0) H 10/15/16 05:17 Plt Count 191 Th/cmm (150-400) 10/15/16 05:17 MPV 9.1 fl 10/15/16 05:17 Band Neutrophils % 2 % (0-10) 10/15/16 05:17 Neutrophils (Manual) 79 % (40-80) 10/15/16 05:17 Lymphocytes 7 % (20-50) L 10/15/16 05:17 Monocytes 12 % (2-10) H 10/15/16 05:17 Eosinophils Not Reportable 10/15/16 05:17 Nucleated RBCs 1.0 % (0-0) H 10/14/16 10:40 Platelet Estimate ADEQUATE (NORMAL) 10/15/16 05:17 Platelet Morphology NORMAL (NORMAL) 10/15/16 05:17 Anisocytosis 1+ 10/15/16 05:17 RBC Morph Micro Appear ABNORMAL (NORMAL) 10/15/16 05:17 Sodium 136 mEq/L (136-145) 10/16/16 06:50 Potassium 4.1 mEq/L (3.5-5.1) 10/16/16 06:50 Chloride 100 mEq/L (98-107) 10/16/16 06:50 Carbon Dioxide 26.6 mEq/L (21.0-31.0) 10/16/16 06:50 Anion Gap 13.5 (7.0-16.0) 10/16/16 06:50 BUN 16 mg/dL (7-25) 10/16/16 06:50 Creatinine 2.0 mg/dL (0.6-1.2) H 10/16/16 06:50 Est GFR ( Amer) 31.8 ml/min 10/16/16 06:50 Est GFR (Non-Af Amer) 26.3 ml/min 10/16/16 06:50 BUN/Creatinine Ratio 8.0 10/16/16 06:50 Glucose 82 mg/dL (70-105) 10/16/16 06:50 POC Glucose 157 MG/DL (70 - 105) H 10/16/16 13:02 Hemoglobin A1c % 6.9 % (4.0-6.0) H 10/15/16 05:17 Calcium 8.7 mg/dL (8.6-10.3) 10/16/16 06:50 Total Bilirubin 0.9 mg/dL (0.3-1.0) 10/14/16 10:40 AST 12 U/L (13-39) L 10/14/16 10:40 ALT 7 U/L (7-52) 10/14/16 10:40 Alkaline Phosphatase 87 U/L (34-104) 10/14/16 10:40 Ammonia 50 umol/L (16-53) 10/14/16 10:40 Total Protein 5.4 gm/dL (6.0-8.3) L 10/14/16 10:40 Albumin 3.2 gm/dL (3.7-5.3) L 10/14/16 10:40 Globulin 2.2 gm/dL 10/14/16 10:40 Albumin/Globulin Ratio 1.5 (1.0-1.8) 10/14/16 10:40 Triglycerides 119 mg/dL (<150) 10/14/16 10:40 Cholesterol 80 mg/dL (<200) 10/14/16 10:40 LDL Cholesterol Direct 26 mg/dL (75-193) L 10/14/16 10:40 HDL Cholesterol 33 mg/dL (23-92) 10/14/16 10:40 TSH 7.87 uIU/ml (0.34-5.60) H 10/14/16 10:40 Urine Source CATH 10/14/16 06:00 Urine Color BROWN 10/14/16 06:00 Urine Clarity SL. CLOUDY (CLEAR) 10/14/16 06:00 Urine pH 5.5 10/14/16 06:00 Ur Specific [place] 1.025 (1.005-1.030) 10/14/16 06:00 Urine Protein 100 mg/dL (NEGATIVE) H 10/14/16 06:00 Urine Glucose (UA) NEGATIVE mg/dL (NEGATIVE) 10/14/16 06:00 Urine Ketones TRACE mg/dL (NEGATIVE) 10/14/16 06:00 Urine Blood TRACE (NEGATIVE) 10/14/16 06:00 Urine Nitrate NEGATIVE (NEGATIVE) 10/14/16 06:00 Urine Bilirubin SMALL (NEGATIVE) H 10/14/16 06:00 Urine Urobilinogen 0.2 E.U./dL (0.2 - 1.0) 10/14/16 06:00 Ur Leukocyte Esterase NEGATIVE (NEGATIVE) 10/14/16 06:00 Urine RBC 0-1 /hpf (0-5) 10/14/16 06:00 Urine WBC 2-5 /hpf (0-5) 10/14/16 06:00 Ur Epithelial Cells OCCASIONAL /lpf (FEW) 10/14/16 06:00 Amorphous Sediment FEW URATES (NONE SEEN) 10/14/16 06:00 Urine Bacteria NONE SEEN /hpf (NONE SEEN) 10/14/16 06:00 Random Vancomycin 20.8 ug/mL (5.0-40.0) 10/16/16 06:50 Hepatitis A IgM Ab Negative (Negative) 10/15/16 05:17 Hep Bs Antigen Negative (Negative) 10/15/16 05:17 Hep B Core IgM Ab Negative (Negative) 10/15/16 05:17 Hepatitis C Antibody <0.1 s/co ratio (0.0-0.9) 10/15/16 05:17 - Physical Exam Vitals and I&O: Vital Signs Temp 97 F 10/16/16 12:00 Pulse 79 10/16/16 12:00 Resp 19 10/16/16 12:00 BP 118/56 10/16/16 12:00 Pulse Ox 100 10/16/16 12:00 Intake & Output 10/15/16 10/16/16 10/16/16 18:59 06:59 18:59 Intake Total 900 200 150 Output Total 2700 Balance -1800 200 150 Intake: Intake, IV Amount 100 200 metroNIDAZOLE 500mg/NS 100 200 100mL 500 mg In 100 ml @ 100 mls/hr IV Q8HR [facility] Rx #:[id number] Oral 800 150 Output: Other 2700 Active Medications: Current Medications Acetaminophen (Tylenol) 650 mg PO Q4HR PRN PRN Reason: fever/pain Stop: 12/13/16 01:20 Last Admin: 10/14/16 09:03 Dose: 650 mg Acetaminophen/Hydrocodone Bitart ([place] 5mg/325mg) 1 tab PO Q3H PRN PRN Reason: moderate pain (4-6) Stop: 12/13/16 10:21 Last Admin: 10/16/16 09:12 Dose: 1 tab Aspirin (Ecotrin) 81 mg PO QAM [facility] Stop: 12/14/16 08:59 Last Admin: 10/16/16 09:12 Dose: 81 mg Docusate Sodium (Colace) 100 mg PO BID [facility] Stop: 12/13/16 16:59 Last Admin: 10/16/16 09:12 Dose: 100 mg Epoetin [place] (Epogen) 10,000 units SUBQ MWF@1500 [facility] Stop: 12/14/16 14:59 Last Admin: 10/15/16 15:06 Dose: 10,000 units Folic Acid (Folate) 1 mg PO DAILY [facility] Stop: 12/14/16 08:59 Last Admin: 10/16/16 09:12 Dose: 1 mg Guaifenesin/Dextromethorphan (Robitussin Dm) 10 ml PO Q4HR PRN PRN Reason: Cough Stop: 12/13/16 10:21 Ceftriaxone Sodium 1 gm/ (Sodium Chloride) 50 mls @ 100 mls/hr IV Q24HR [facility] Stop: 12/13/16 15:59 Last Admin: 10/15/16 16:21 Dose: 100 mls/hr Metronidazole (Flagyl) 500 mg in 100 mls @ 100 mls/hr IV Q8HR [facility] Stop: 12/13/16 15:59 Last Admin: 10/16/16 12:59 Dose: 100 mls/hr Vancomycin HCl 1 gm/ Sodium (Chloride) 250 mls @ 165 mls/hr IV ONCE ONE Stop: 10/16/16 22:30 Insulin Aspart (Novolog Insulin Sliding Scale) 0 units SUBQ ACHS [facility] PRN Reason: Protocol Stop: 12/13/16 16:29 Last Admin: 10/16/16 13:04 Dose: 2 units Levothyroxine Sodium (Synthroid) 0.05 mg PO QDAC [facility] Stop: 12/14/16 06:29 Last Admin: 10/16/16 06:49 Dose: 0.05 mg Miscellaneous (Clinical Monitoring) 1 [facility] PRN PRN PRN Reason: RENAL DOSING Stop: 12/13/16 13:45 Miscellaneous (Vancomycin Iv Per Pharmacy) 1 [facility] PRN [facility] Stop: 12/14/16 09:29 Pantoprazole Sodium (Protonix) 40 mg PO DAILY [facility] Stop: 12/14/16 08:59 Last Admin: 10/16/16 09:12 Dose: 40 mg Prochlorperazine Maleate (Compazine) 10 mg PO Q6H PRN PRN Reason: Nausea / Vomiting Stop: 12/13/16 10:39 Last Admin: 10/15/16 18:26 Dose: 10 mg Senna (Senna) 17.2 mg PO HS [facility] Stop: 12/13/16 20:59 Last Admin: 10/15/16 21:30 Dose: 17.2 mg Vitamin B Complex/Vit C/Folic Acid (Vitamin B Complex W/Vitamin C) 1 tab PO DAILY [facility] Stop: 12/14/16 08:59 Last Admin: 10/16/16 09:12 Dose: 1 tab General: Alert, Moderate distress HEENT: Atraumatic, PERRLA, EOMI, Mucous membr. moist/pink Neck: Supple, +2 carotid pulse wo bruit Cardiovascular: Normal S1, Normal S2 Lungs: Other (occ. rhonchi) Abdomen: Bowel sounds, Soft Extremities: Edema Neurological: Sensation intact Skin: no Rash Psych/Mental Status: Other (confused) Assessment/Plan - Assessment Assessment: ESRD on HD acute decomp CHF acute resp failure type 2 dm ess htn anemia of ckd LLL HAP hypothyroid PAD chronic hyponatremia abd. pain - Plan Plan: HD in am due to persistent chf on cxr serial CXR fluid restriction f/u echo
[2016-10-16] MEDS: cefTRIAXone 1 GM in Sodium Chloride 0.9% 50 ML IV SCH (15:50)
--- NOTE | 2016-10-16 23:59 | Admit Criteria Form ---
Admit Criteria Forms - Admit Criteria Diagnosis: HEART FAILURE: COMMON COMPLICATIONS Clinical Indications for Inpatient Care (Place 'X' for any and all applicable criteria): Ongoing inpatient care may be indicated for heart failure with ANY ONE of the following (1)(2)(3)(4)(5): [ ]I. Ongoing need for care for primary condition requiring frequent therapy adjustments because of changes in cardiac function (eg, drug dosage changes for drugs that are renally metabolized) [ ]II. New-onset heart failure [ ]III. Heart failure with decreased urine output not responsive to attempts to optimize volume status [ ]IV. Acute cardiac ischemia causing or associated with failure [ x]V. Complications of heart failure, including ANY ONE of the following: [ ]a) Pericardial effusion [ x]b) Symptomatic pleural effusion [ ]c) O2 saturation <90% or PO2 < 60 mm Hg (8.0 kPa) on room air or require baseline supplemental O2 [ ]d) Tachypnea [ ]e) Dyspnea [ ]f) Syncope [ ]g) Change in mental status [ ]h) Acute renal insufficiency that is severe (reduction of more than 50% in estimated glomerular filtration rate from baseline) or progressive reduction of more than 25% in estimated glomerular filtration rate from baseline, with creatinine continuing to rise) [ ]i) Hemodynamic instability [ ]j) Anasarca [ ]k) Clinically significant metabolic abnormalities due to heart failure (eg, new-onset metabolic acidosis) Extended stay beyond goal length of stay for primary condition may be needed until ALL of the following are present(1)(3): [ ]a) Stable and effective diuretic regimen established (or patient on stable dialysis regimen if in chronic renal failure) [ ]b) Breathing comfortably at rest [ ]c) Saturation of arterial oxygen greater than 90% or at acceptable baseline [ ]d) Pulmonary edema absent or improved [ ]e) Hemodynamic stability [ ]f) Volume status acceptable on oral medication [ ]g) Peripheral or sacral edema absent or improved [ ]h) Renal function stable and manageable at a lower level of care [ ]i) Complications (eg, pleural effusion) resolved or manageable at a lower level of care [ ]j) Patient or caregiver has received written discharge instructions or educational material addressing activity level, diet, discharge medications, follow-up appointment, weight monitoring, and what to do if symptoms worsen The original [facility] [employer] content created by Hilario Adams has been revised. The portions of the content which have been revised are identified through the use of italic text or in bold, and Hilario Adams has neither reviewed nor approved the modified material.All other unmodified content is copyright Hilario Adams. Please see references footnoted in the original Hilario Adams edition 2016
[2016-10-17] MEDS: metroNIDAZOLE 500mg/NS 100mL 500 MG/100 ML BAG IV SCH ×3 (05:19→21:47)
[2016-10-17] MEDS: Levothyroxine 0.025 Mg Tab PO SCH (05:50)
[2016-10-17] MEDS: INSULIN ASPART SLIDING SCALE 100 UNITS/ML UNIT SUBQ SCH ×3 (06:34→16:36)
[2016-10-17 07:19] LABS: BNP > 5000.0 pg/mL (5.0-100.0)
[2016-10-17 07:20] LABS: ANION GAP 13.2 (7.0-16.0); BUN - UREA NITROGEN 22 mg/dL (7-25); BUN/CREATININE RATIO 9.2; CALCIUM SERUM 8.8 mg/dL (8.6-10.3); CARBON DIOXIDE 24.1 mEq/L (21.0-31.0); CHLORIDE 100 mEq/L (98-107); CREATININE - SERUM 2.4 mg/dL (0.6-1.2); GLUCOSE 106 mg/dL (70-105); POTASSIUM SERUM 4.3 mEq/L (3.5-5.1); SODIUM SERUM 133 mEq/L (136-145)
[2016-10-17] MEDS: Vitamin B Complex w/Vitamin C Tab PO SCH (08:28)
[2016-10-17] MEDS: Pantoprazole 40 mg EC Tab PO SCH (08:28)
--- NOTE | 2016-10-17 10:44 | Diagnostic Imaging Report ---
KUB abdominal film HISTORY: Pain Exam demonstrates a nonspecific gas pattern of nondilated bowel. Stool noted within the colon. No free intraperitoneal air. Small calcifications seen in the lower pelvis most likely related phleboliths. Atherosclerotic vascular calcification also noted. IMPRESSION: 1. No acute radiographic abnormalities 2. Atherosclerotic vascular
--- NOTE | 2016-10-17 12:23 | General Progress Note ---
Subjective - Review of Systems Service Date: 10/17/16 Subjective: right big toe pain and discoloration for several months (info by patient) arterial study: severe PVD right lower extremity needs CT angiogram, but creatinine is 2.4 suggest Nephrology clearance prior to CTA Objective - Results Result Diagrams: 10/15/16 05:17 10/17/16 06:50 Recent Labs: Laboratory Last Values WBC 9.8 Th/cmm (4.8-10.8) 10/15/16 05:17 RBC 3.26 Mil/cmm (3.80-5.20) L 10/15/16 05:17 Hgb 10.1 gm/dL (11.7-16.1) L 10/15/16 05:17 Hct 30.8 % (35.0-45.0) L 10/15/16 05:17 MCV 94.4 fl (81-100) 10/15/16 05:17 MCH 30.9 pg (27.0-31.0) 10/15/16 05:17 MCHC Differential 32.7 pg (28.0-36.0) 10/15/16 05:17 RDW 21.5 % (11.5-20.0) H 10/15/16 05:17 Plt Count 191 Th/cmm (150-400) 10/15/16 05:17 MPV 9.1 fl 10/15/16 05:17 Band Neutrophils % 2 % (0-10) 10/15/16 05:17 Neutrophils (Manual) 79 % (40-80) 10/15/16 05:17 Lymphocytes 7 % (20-50) L 10/15/16 05:17 Monocytes 12 % (2-10) H 10/15/16 05:17 Eosinophils Not Reportable 10/15/16 05:17 Nucleated RBCs 1.0 % (0-0) H 10/14/16 10:40 Platelet Estimate ADEQUATE (NORMAL) 10/15/16 05:17 Platelet Morphology NORMAL (NORMAL) 10/15/16 05:17 Anisocytosis 1+ 10/15/16 05:17 RBC Morph Micro Appear ABNORMAL (NORMAL) 10/15/16 05:17 Sodium 133 mEq/L (136-145) L 10/17/16 06:50 Potassium 4.3 mEq/L (3.5-5.1) 10/17/16 06:50 Chloride 100 mEq/L (98-107) 10/17/16 06:50 Carbon Dioxide 24.1 mEq/L (21.0-31.0) 10/17/16 06:50 Anion Gap 13.2 (7.0-16.0) 10/17/16 06:50 BUN 22 mg/dL (7-25) 10/17/16 06:50 Creatinine 2.4 mg/dL (0.6-1.2) H 10/17/16 06:50 Est GFR ( Amer) 25.7 ml/min 10/17/16 06:50 Est GFR (Non-Af Amer) 21.3 ml/min 10/17/16 06:50 BUN/Creatinine Ratio 9.2 10/17/16 06:50 Glucose 106 mg/dL (70-105) H 10/17/16 06:50 POC Glucose 163 MG/DL (70 - 105) H 10/17/16 11:11 Hemoglobin A1c % 6.9 % (4.0-6.0) H 10/15/16 05:17 Calcium 8.8 mg/dL (8.6-10.3) 10/17/16 06:50 Total Bilirubin 0.9 mg/dL (0.3-1.0) 10/14/16 10:40 AST 12 U/L (13-39) L 10/14/16 10:40 ALT 7 U/L (7-52) 10/14/16 10:40 Alkaline Phosphatase 87 U/L (34-104) 10/14/16 10:40 Ammonia 50 umol/L (16-53) 10/14/16 10:40 B-Natriuretic Peptide > 5000.0 pg/mL (5.0-100.0) H 10/17/16 06:50 Total Protein 5.4 gm/dL (6.0-8.3) L 10/14/16 10:40 Albumin 3.2 gm/dL (3.7-5.3) L 10/14/16 10:40 Globulin 2.2 gm/dL 10/14/16 10:40 Albumin/Globulin Ratio 1.5 (1.0-1.8) 10/14/16 10:40 Triglycerides 119 mg/dL (<150) 10/14/16 10:40 Cholesterol 80 mg/dL (<200) 10/14/16 10:40 LDL Cholesterol Direct 26 mg/dL (75-193) L 10/14/16 10:40 HDL Cholesterol 33 mg/dL (23-92) 10/14/16 10:40 TSH 7.87 uIU/ml (0.34-5.60) H 10/14/16 10:40 Urine Source CATH 10/14/16 06:00 Urine Color BROWN 10/14/16 06:00 Urine Clarity SL. CLOUDY (CLEAR) 10/14/16 06:00 Urine pH 5.5 10/14/16 06:00 Ur Specific [place] 1.025 (1.005-1.030) 10/14/16 06:00 Urine Protein 100 mg/dL (NEGATIVE) H 10/14/16 06:00 Urine Glucose (UA) NEGATIVE mg/dL (NEGATIVE) 10/14/16 06:00 Urine Ketones TRACE mg/dL (NEGATIVE) 10/14/16 06:00 Urine Blood TRACE (NEGATIVE) 10/14/16 06:00 Urine Nitrate NEGATIVE (NEGATIVE) 10/14/16 06:00 Urine Bilirubin SMALL (NEGATIVE) H 10/14/16 06:00 Urine Urobilinogen 0.2 E.U./dL (0.2 - 1.0) 10/14/16 06:00 Ur Leukocyte Esterase NEGATIVE (NEGATIVE) 10/14/16 06:00 Urine RBC 0-1 /hpf (0-5) 10/14/16 06:00 Urine WBC 2-5 /hpf (0-5) 10/14/16 06:00 Ur Epithelial Cells OCCASIONAL /lpf (FEW) 10/14/16 06:00 Amorphous Sediment FEW URATES (NONE SEEN) 10/14/16 06:00 Urine Bacteria NONE SEEN /hpf (NONE SEEN) 10/14/16 06:00 Random Vancomycin 20.8 ug/mL (5.0-40.0) 10/16/16 06:50 Hepatitis A IgM Ab Negative (Negative) 10/15/16 05:17 Hep Bs Antigen Negative (Negative) 10/15/16 05:17 Hep B Core IgM Ab Negative (Negative) 10/15/16 05:17 Hepatitis C Antibody <0.1 s/co ratio (0.0-0.9) 10/15/16 05:17 - Physical Exam Vitals and I&O: Vital Signs Temp 98.8 F 10/17/16 11:21 Pulse 79 10/17/16 11:21 Resp 19 10/17/16 11:21 BP 119/69 10/17/16 11:21 Pulse Ox 98 10/17/16 11:21 Intake & Output 10/16/16 10/17/16 10/17/16 18:59 06:59 18:59 Intake Total 250 320 Balance 250 320 Intake: Intake, IV Amount 100 200 metroNIDAZOLE 500mg/NS 100 200 100mL 500 mg In 100 ml @ 100 mls/hr IV Q8HR [facility] Rx #:[id number] Oral 150 120 Other: # Voids 0 Stool Characteristics Soft Formed Brown Active Medications: Current Medications Acetaminophen (Tylenol) 650 mg PO Q4HR PRN PRN Reason: fever/pain Stop: 12/13/16 01:20 Last Admin: 10/14/16 09:03 Dose: 650 mg Acetaminophen/Hydrocodone Bitart ([place] 5mg/325mg) 1 tab PO Q3H PRN PRN Reason: moderate pain (4-6) Stop: 12/13/16 10:21 Last Admin: 10/16/16 22:22 Dose: 1 tab Aspirin (Ecotrin) 81 mg PO QAM [facility] Stop: 12/14/16 08:59 Last Admin: 10/17/16 08:28 Dose: 81 mg Docusate Sodium (Colace) 100 mg PO BID [facility] Stop: 12/13/16 16:59 Last Admin: 10/17/16 08:28 Dose: 100 mg Epoetin [place] (Epogen) 10,000 units SUBQ MWF@1500 [facility] Stop: 12/14/16 14:59 Last Admin: 10/15/16 15:06 Dose: 10,000 units Folic Acid (Folate) 1 mg PO DAILY [facility] Stop: 12/14/16 08:59 Last Admin: 10/17/16 08:28 Dose: 1 mg Guaifenesin/Dextromethorphan (Robitussin Dm) 10 ml PO Q4HR PRN PRN Reason: Cough Stop: 12/13/16 10:21 Ceftriaxone Sodium 1 gm/ (Sodium Chloride) 50 mls @ 100 mls/hr IV Q24HR [facility] Stop: 12/13/16 15:59 Last Admin: 10/16/16 15:50 Dose: 100 mls/hr Metronidazole (Flagyl) 500 mg in 100 mls @ 100 mls/hr IV Q8HR [facility] Stop: 12/13/16 15:59 Last Infusion: 10/17/16 06:19 Dose: Infused Insulin Aspart (Novolog Insulin Sliding Scale) 0 units SUBQ ACHS [facility] PRN Reason: Protocol Stop: 12/13/16 16:29 Last Admin: 10/17/16 06:34 Dose: Not Given Levothyroxine Sodium (Synthroid) 0.05 mg PO QDAC [facility] Stop: 12/14/16 06:29 Last Admin: 10/17/16 05:50 Dose: 0.05 mg Miscellaneous (Clinical Monitoring) 1 ea MC PRN PRN PRN Reason: RENAL DOSING Stop: 12/13/16 13:45 Pantoprazole Sodium (Protonix) 40 mg PO DAILY [facility] Stop: 12/14/16 08:59 Last Admin: 10/17/16 08:28 Dose: 40 mg Prochlorperazine Maleate (Compazine) 10 mg PO Q6H PRN PRN Reason: Nausea / Vomiting Stop: 12/13/16 10:39 Last Admin: 10/15/16 18:26 Dose: 10 mg Senna (Senna) 17.2 mg PO HS [facility] Stop: 12/13/16 20:59 Last Admin: 10/16/16 20:52 Dose: 17.2 mg Vitamin B Complex/Vit C/Folic Acid (Vitamin B Complex W/Vitamin C) 1 tab PO DAILY [facility] Stop: 12/14/16 08:59 Last Admin: 10/17/16 08:28 Dose: 1 tab
[2016-10-17] MEDS: Hydrocodone/APAP 5mg/325mg Tab PO PRN ×2 (14:52→21:48)
--- NOTE | 2016-10-17 16:37 | General Progress Note ---
Subjective - Review of Systems Service Date: 10/17/16 Objective - Results Result Diagrams: 10/15/16 05:17 10/17/16 06:50 Recent Labs: Laboratory Last Values WBC 9.8 Th/cmm (4.8-10.8) 10/15/16 05:17 RBC 3.26 Mil/cmm (3.80-5.20) L 10/15/16 05:17 Hgb 10.1 gm/dL (11.7-16.1) L 10/15/16 05:17 Hct 30.8 % (35.0-45.0) L 10/15/16 05:17 MCV 94.4 fl (81-100) 10/15/16 05:17 MCH 30.9 pg (27.0-31.0) 10/15/16 05:17 MCHC Differential 32.7 pg (28.0-36.0) 10/15/16 05:17 RDW 21.5 % (11.5-20.0) H 10/15/16 05:17 Plt Count 191 Th/cmm (150-400) 10/15/16 05:17 MPV 9.1 fl 10/15/16 05:17 Band Neutrophils % 2 % (0-10) 10/15/16 05:17 Neutrophils (Manual) 79 % (40-80) 10/15/16 05:17 Lymphocytes 7 % (20-50) L 10/15/16 05:17 Monocytes 12 % (2-10) H 10/15/16 05:17 Eosinophils Not Reportable 10/15/16 05:17 Nucleated RBCs 1.0 % (0-0) H 10/14/16 10:40 Platelet Estimate ADEQUATE (NORMAL) 10/15/16 05:17 Platelet Morphology NORMAL (NORMAL) 10/15/16 05:17 Anisocytosis 1+ 10/15/16 05:17 RBC Morph Micro Appear ABNORMAL (NORMAL) 10/15/16 05:17 Sodium 133 mEq/L (136-145) L 10/17/16 06:50 Potassium 4.3 mEq/L (3.5-5.1) 10/17/16 06:50 Chloride 100 mEq/L (98-107) 10/17/16 06:50 Carbon Dioxide 24.1 mEq/L (21.0-31.0) 10/17/16 06:50 Anion Gap 13.2 (7.0-16.0) 10/17/16 06:50 BUN 22 mg/dL (7-25) 10/17/16 06:50 Creatinine 2.4 mg/dL (0.6-1.2) H 10/17/16 06:50 Est GFR ( Amer) 25.7 ml/min 10/17/16 06:50 Est GFR (Non-Af Amer) 21.3 ml/min 10/17/16 06:50 BUN/Creatinine Ratio 9.2 10/17/16 06:50 Glucose 106 mg/dL (70-105) H 10/17/16 06:50 POC Glucose 152 MG/DL (70 - 105) H 10/17/16 16:22 Hemoglobin A1c % 6.9 % (4.0-6.0) H 10/15/16 05:17 Calcium 8.8 mg/dL (8.6-10.3) 10/17/16 06:50 Total Bilirubin 0.9 mg/dL (0.3-1.0) 10/14/16 10:40 AST 12 U/L (13-39) L 10/14/16 10:40 ALT 7 U/L (7-52) 10/14/16 10:40 Alkaline Phosphatase 87 U/L (34-104) 10/14/16 10:40 Ammonia 50 umol/L (16-53) 10/14/16 10:40 B-Natriuretic Peptide > 5000.0 pg/mL (5.0-100.0) H 10/17/16 06:50 Total Protein 5.4 gm/dL (6.0-8.3) L 10/14/16 10:40 Albumin 3.2 gm/dL (3.7-5.3) L 10/14/16 10:40 Globulin 2.2 gm/dL 10/14/16 10:40 Albumin/Globulin Ratio 1.5 (1.0-1.8) 10/14/16 10:40 Triglycerides 119 mg/dL (<150) 10/14/16 10:40 Cholesterol 80 mg/dL (<200) 10/14/16 10:40 LDL Cholesterol Direct 26 mg/dL (75-193) L 10/14/16 10:40 HDL Cholesterol 33 mg/dL (23-92) 10/14/16 10:40 TSH 7.87 uIU/ml (0.34-5.60) H 10/14/16 10:40 Urine Source CATH 10/14/16 06:00 Urine Color BROWN 10/14/16 06:00 Urine Clarity SL. CLOUDY (CLEAR) 10/14/16 06:00 Urine pH 5.5 10/14/16 06:00 Ur Specific [place] 1.025 (1.005-1.030) 10/14/16 06:00 Urine Protein 100 mg/dL (NEGATIVE) H 10/14/16 06:00 Urine Glucose (UA) NEGATIVE mg/dL (NEGATIVE) 10/14/16 06:00 Urine Ketones TRACE mg/dL (NEGATIVE) 10/14/16 06:00 Urine Blood TRACE (NEGATIVE) 10/14/16 06:00 Urine Nitrate NEGATIVE (NEGATIVE) 10/14/16 06:00 Urine Bilirubin SMALL (NEGATIVE) H 10/14/16 06:00 Urine Urobilinogen 0.2 E.U./dL (0.2 - 1.0) 10/14/16 06:00 Ur Leukocyte Esterase NEGATIVE (NEGATIVE) 10/14/16 06:00 Urine RBC 0-1 /hpf (0-5) 10/14/16 06:00 Urine WBC 2-5 /hpf (0-5) 10/14/16 06:00 Ur Epithelial Cells OCCASIONAL /lpf (FEW) 10/14/16 06:00 Amorphous Sediment FEW URATES (NONE SEEN) 10/14/16 06:00 Urine Bacteria NONE SEEN /hpf (NONE SEEN) 10/14/16 06:00 Random Vancomycin 20.8 ug/mL (5.0-40.0) 10/16/16 06:50 Hepatitis A IgM Ab Negative (Negative) 10/15/16 05:17 Hep Bs Antigen Negative (Negative) 10/15/16 05:17 Hep B Core IgM Ab Negative (Negative) 10/15/16 05:17 Hepatitis C Antibody <0.1 s/co ratio (0.0-0.9) 10/15/16 05:17 - Physical Exam Vitals and I&O: Vital Signs Temp 98.6 F 10/17/16 15:34 Pulse 81 10/17/16 15:34 Resp 19 10/17/16 15:34 BP 105/54 10/17/16 15:34 Pulse Ox 97 10/17/16 15:34 Intake & Output 10/16/16 10/17/16 10/17/16 18:59 06:59 18:59 Intake Total 250 320 100 Balance 250 320 100 Intake: Intake, IV Amount 100 200 100 metroNIDAZOLE 500mg/NS 100 200 100 100mL 500 mg In 100 ml @ 100 mls/hr IV Q8HR COUNT INCLUDES THE [facility] Rx #:[id number] Oral 150 120 Other: # Voids 0 Stool Characteristics Soft Formed Brown Active Medications: Current Medications Acetaminophen (Tylenol) 650 mg PO Q4HR PRN PRN Reason: fever/pain Stop: 12/13/16 01:20 Last Admin: 10/14/16 09:03 Dose: 650 mg Acetaminophen/Hydrocodone Bitart ([place] 5mg/325mg) 1 tab PO Q3H PRN PRN Reason: moderate pain (4-6) Stop: 12/13/16 10:21 Last Admin: 10/17/16 14:52 Dose: 1 tab Aspirin (Ecotrin) 81 mg PO QAM COUNT INCLUDES THE [facility] Stop: 12/14/16 08:59 Last Admin: 10/17/16 08:28 Dose: 81 mg Docusate Sodium (Colace) 100 mg PO BID COUNT INCLUDES THE [facility] Stop: 12/13/16 16:59 Last Admin: 10/17/16 08:28 Dose: 100 mg Epoetin [place] (Epogen) 10,000 units SUBQ MWF@1500 COUNT [facility]CLUDES [facility] Stop: 12/14/16 14:59 Last Admin: 10/15/16 15:06 Dose: 10,000 units Folic Acid (Folate) 1 mg PO DAILY COUNT INCLUDES [facility] Stop: 12/14/16 08:59 Last Admin: 10/17/16 08:28 Dose: 1 mg Guaifenesin/Dextromethorphan (Robitussin Dm) 10 ml PO Q4HR PRN PRN Reason: Cough Stop: 12/13/16 10:21 Ceftriaxone Sodium 1 gm/ (Sodium Chloride) 50 mls @ 100 mls/hr IV Q24HR COUNT INCLUDES THE [facility] Stop: 12/13/16 15:59 Last Admin: 10/16/16 15:50 Dose: 100 mls/hr Metronidazole (Flagyl) 500 mg in 100 mls @ 100 mls/hr IV Q8HR COUNT INCLUDES THE [facility] Stop: 12/13/16 15:59 Last Infusion: 10/17/16 13:57 Dose: Infused Insulin Aspart (Novolog Insulin Sliding Scale) 0 units SUBQ ACHS [facility] PRN Reason: Protocol Stop: 12/13/16 16:29 Last Admin: 10/17/16 12:27 Dose: 2 units Levothyroxine Sodium (Synthroid) 0.05 mg PO QDAC [facility] Stop: 12/14/16 06:29 Last Admin: 10/17/16 05:50 Dose: 0.05 mg Miscellaneous (Clinical Monitoring) 1 ea MC PRN PRN PRN Reason: RENAL DOSING Stop: 12/13/16 13:45 Pantoprazole Sodium (Protonix) 40 mg PO DAILY [facility] Stop: 12/14/16 08:59 Last Admin: 10/17/16 08:28 Dose: 40 mg Prochlorperazine Maleate (Compazine) 10 mg PO Q6H PRN PRN Reason: Nausea / Vomiting Stop: 12/13/16 10:39 Last Admin: 10/15/16 18:26 Dose: 10 mg Senna (Senna) 17.2 mg PO HS [facility] Stop: 12/13/16 20:59 Last Admin: 10/16/16 20:52 Dose: 17.2 mg Vitamin B Complex/Vit C/Folic Acid (Vitamin B Complex W/Vitamin C) 1 tab PO DAILY [facility] Stop: 12/14/16 08:59 Last Admin: 10/17/16 08:28 Dose: 1 tab General: No acute distress HEENT: Atraumatic Neck: Supple, JVD Cardiovascular: Regular rate Lungs: Clear to auscultation
--- NOTE | 2016-10-17 17:06 | General Progress Note ---
Subjective - Review of Systems Service Date: 10/17/16 Subjective: sleeping, comfortable today, being dialyzed Objective - Results Result Diagrams: 10/15/16 05:17 10/17/16 06:50 Recent Labs: Laboratory Last Values WBC 9.8 Th/cmm (4.8-10.8) 10/15/16 05:17 RBC 3.26 Mil/cmm (3.80-5.20) L 10/15/16 05:17 Hgb 10.1 gm/dL (11.7-16.1) L 10/15/16 05:17 Hct 30.8 % (35.0-45.0) L 10/15/16 05:17 MCV 94.4 fl (81-100) 10/15/16 05:17 MCH 30.9 pg (27.0-31.0) 10/15/16 05:17 MCHC Differential 32.7 pg (28.0-36.0) 10/15/16 05:17 RDW 21.5 % (11.5-20.0) H 10/15/16 05:17 Plt Count 191 Th/cmm (150-400) 10/15/16 05:17 MPV 9.1 fl 10/15/16 05:17 Band Neutrophils % 2 % (0-10) 10/15/16 05:17 Neutrophils (Manual) 79 % (40-80) 10/15/16 05:17 Lymphocytes 7 % (20-50) L 10/15/16 05:17 Monocytes 12 % (2-10) H 10/15/16 05:17 Eosinophils Not Reportable 10/15/16 05:17 Nucleated RBCs 1.0 % (0-0) H 10/14/16 10:40 Platelet Estimate ADEQUATE (NORMAL) 10/15/16 05:17 Platelet Morphology NORMAL (NORMAL) 10/15/16 05:17 Anisocytosis 1+ 10/15/16 05:17 RBC Morph Micro Appear ABNORMAL (NORMAL) 10/15/16 05:17 Sodium 133 mEq/L (136-145) L 10/17/16 06:50 Potassium 4.3 mEq/L (3.5-5.1) 10/17/16 06:50 Chloride 100 mEq/L (98-107) 10/17/16 06:50 Carbon Dioxide 24.1 mEq/L (21.0-31.0) 10/17/16 06:50 Anion Gap 13.2 (7.0-16.0) 10/17/16 06:50 BUN 22 mg/dL (7-25) 10/17/16 06:50 Creatinine 2.4 mg/dL (0.6-1.2) H 10/17/16 06:50 Est GFR ( Amer) 25.7 ml/min 10/17/16 06:50 Est GFR (Non-Af Amer) 21.3 ml/min 10/17/16 06:50 BUN/Creatinine Ratio 9.2 10/17/16 06:50 Glucose 106 mg/dL (70-105) H 10/17/16 06:50 POC Glucose 152 MG/DL (70 - 105) H 10/17/16 16:22 Hemoglobin A1c % 6.9 % (4.0-6.0) H 10/15/16 05:17 Calcium 8.8 mg/dL (8.6-10.3) 10/17/16 06:50 Total Bilirubin 0.9 mg/dL (0.3-1.0) 10/14/16 10:40 AST 12 U/L (13-39) L 10/14/16 10:40 ALT 7 U/L (7-52) 10/14/16 10:40 Alkaline Phosphatase 87 U/L (34-104) 10/14/16 10:40 Ammonia 50 umol/L (16-53) 10/14/16 10:40 B-Natriuretic Peptide > 5000.0 pg/mL (5.0-100.0) H 10/17/16 06:50 Total Protein 5.4 gm/dL (6.0-8.3) L 10/14/16 10:40 Albumin 3.2 gm/dL (3.7-5.3) L 10/14/16 10:40 Globulin 2.2 gm/dL 10/14/16 10:40 Albumin/Globulin Ratio 1.5 (1.0-1.8) 10/14/16 10:40 Triglycerides 119 mg/dL (<150) 10/14/16 10:40 Cholesterol 80 mg/dL (<200) 10/14/16 10:40 LDL Cholesterol Direct 26 mg/dL (75-193) L 10/14/16 10:40 HDL Cholesterol 33 mg/dL (23-92) 10/14/16 10:40 TSH 7.87 uIU/ml (0.34-5.60) H 10/14/16 10:40 Urine Source CATH 10/14/16 06:00 Urine Color BROWN 10/14/16 06:00 Urine Clarity SL. CLOUDY (CLEAR) 10/14/16 06:00 Urine pH 5.5 10/14/16 06:00 Ur Specific [place] 1.025 (1.005-1.030) 10/14/16 06:00 Urine Protein 100 mg/dL (NEGATIVE) H 10/14/16 06:00 Urine Glucose (UA) NEGATIVE mg/dL (NEGATIVE) 10/14/16 06:00 Urine Ketones TRACE mg/dL (NEGATIVE) 10/14/16 06:00 Urine Blood TRACE (NEGATIVE) 10/14/16 06:00 Urine Nitrate NEGATIVE (NEGATIVE) 10/14/16 06:00 Urine Bilirubin SMALL (NEGATIVE) H 10/14/16 06:00 Urine Urobilinogen 0.2 E.U./dL (0.2 - 1.0) 10/14/16 06:00 Ur Leukocyte Esterase NEGATIVE (NEGATIVE) 10/14/16 06:00 Urine RBC 0-1 /hpf (0-5) 10/14/16 06:00 Urine WBC 2-5 /hpf (0-5) 10/14/16 06:00 Ur Epithelial Cells OCCASIONAL /lpf (FEW) 10/14/16 06:00 Amorphous Sediment FEW URATES (NONE SEEN) 10/14/16 06:00 Urine Bacteria NONE SEEN /hpf (NONE SEEN) 10/14/16 06:00 Random Vancomycin 20.8 ug/mL (5.0-40.0) 10/16/16 06:50 Hepatitis A IgM Ab Negative (Negative) 10/15/16 05:17 Hep Bs Antigen Negative (Negative) 10/15/16 05:17 Hep B Core IgM Ab Negative (Negative) 10/15/16 05:17 Hepatitis C Antibody <0.1 s/co ratio (0.0-0.9) 10/15/16 05:17 - Physical Exam Vitals and I&O: Vital Signs Temp 98.6 F 10/17/16 15:34 Pulse 81 10/17/16 15:34 Resp 19 10/17/16 15:34 BP 105/54 10/17/16 15:34 Pulse Ox 97 10/17/16 15:34 Intake & Output 10/16/16 10/17/16 10/17/16 18:59 06:59 18:59 Intake Total 250 320 100 Balance 250 320 100 Intake: Intake, IV Amount 100 200 100 metroNIDAZOLE 500mg/NS 100 200 100 100mL 500 mg In 100 ml @ 100 mls/hr IV Q8HR [facility] Rx #:[id number] Oral 150 120 Other: # Voids 0 Stool Characteristics Soft Formed Brown Active Medications: Current Medications Acetaminophen (Tylenol) 650 mg PO Q4HR PRN PRN Reason: fever/pain Stop: 12/13/16 01:20 Last Admin: 10/14/16 09:03 Dose: 650 mg Acetaminophen/Hydrocodone Bitart ([place] 5mg/325mg) 1 tab PO Q3H PRN PRN Reason: moderate pain (4-6) Stop: 12/13/16 10:21 Last Admin: 10/17/16 14:52 Dose: 1 tab Aspirin (Ecotrin) 81 mg PO QAM [facility] Stop: 12/14/16 08:59 Last Admin: 10/17/16 08:28 Dose: 81 mg Docusate Sodium (Colace) 100 mg PO BID [facility] Stop: 12/13/16 16:59 Last Admin: 10/17/16 08:28 Dose: 100 mg Epoetin [place] (Epogen) 10,000 units SUBQ MWF@1500 [facility] Stop: 12/14/16 14:59 Last Admin: 10/15/16 15:06 Dose: 10,000 units Folic Acid (Folate) 1 mg PO DAILY [facility] Stop: 12/14/16 08:59 Last Admin: 10/17/16 08:28 Dose: 1 mg Guaifenesin/Dextromethorphan (Robitussin Dm) 10 ml PO Q4HR PRN PRN Reason: Cough Stop: 12/13/16 10:21 Ceftriaxone Sodium 1 gm/ (Sodium Chloride) 50 mls @ 100 mls/hr IV Q24HR [facility] Stop: 12/13/16 15:59 Last Admin: 10/16/16 15:50 Dose: 100 mls/hr Metronidazole (Flagyl) 500 mg in 100 mls @ 100 mls/hr IV Q8HR [facility] Stop: 12/13/16 15:59 Last Infusion: 10/17/16 13:57 Dose: Infused Insulin Aspart (Novolog Insulin Sliding Scale) 0 units SUBQ ACHS [facility] PRN Reason: Protocol Stop: 12/13/16 16:29 Last Admin: 10/17/16 16:36 Dose: 2 units Levothyroxine Sodium (Synthroid) 0.05 mg PO QDAC [facility] Stop: 12/14/16 06:29 Last Admin: 10/17/16 05:50 Dose: 0.05 mg Miscellaneous (Clinical Monitoring) 1 ea MC PRN PRN PRN Reason: RENAL DOSING Stop: 12/13/16 13:45 Pantoprazole Sodium (Protonix) 40 mg PO DAILY [facility] Stop: 12/14/16 08:59 Last Admin: 10/17/16 08:28 Dose: 40 mg Prochlorperazine Maleate (Compazine) 10 mg PO Q6H PRN PRN Reason: Nausea / Vomiting Stop: 12/13/16 10:39 Last Admin: 10/15/16 18:26 Dose: 10 mg Senna (Senna) 17.2 mg PO HS [facility] Stop: 12/13/16 20:59 Last Admin: 10/16/16 20:52 Dose: 17.2 mg Vitamin B Complex/Vit C/Folic Acid (Vitamin B Complex W/Vitamin C) 1 tab PO DAILY [facility] Stop: 12/14/16 08:59 Last Admin: 10/17/16 08:28 Dose: 1 tab General: No acute distress HEENT: Atraumatic, PERRLA, EOMI Neck: Supple, +2 carotid pulse wo bruit Cardiovascular: Regular rate, Normal S1, Normal S2 Lungs: Other (scattered rhonchi) Abdomen: Bowel sounds, Soft Extremities: no Edema Neurological: Normal gait Skin: no Rash Psych/Mental Status: Mood NL Assessment/Plan - Assessment Assessment: ESRD on HD acute decomp CHF acute resp failure type 2 dm ess htn anemia of ckd LLL HAP hypothyroid PAD w/ right toe discoloration chronic hyponatremia abd. pain - Plan Plan: HD in am due to persistent chf on cxr serial CXR fluid restriction f/u echo
[2016-10-17] MEDS: cefTRIAXone 1 GM in Sodium Chloride 0.9% 50 ML IV SCH (17:11)
[2016-10-18] MEDS: Hydrocodone/APAP 5mg/325mg Tab PO PRN ×4 (03:50→21:52)
[2016-10-18] MEDS: metroNIDAZOLE 500mg/NS 100mL 500 MG/100 ML BAG IV SCH ×3 (05:35→21:52)
[2016-10-18] MEDS: Levothyroxine 0.025 Mg Tab PO SCH (05:36)
[2016-10-18] MEDS: INSULIN ASPART SLIDING SCALE 100 UNITS/ML UNIT SUBQ SCH ×5 (05:47→21:25)
--- NOTE | 2016-10-18 08:56 | Infectious Disease Prog Note ---
Infectious Disease Subjective - Review of Systems Service Date: 10/18/16 Subjective: There is no fever. reviewed the previous notes. Infectious Disease Objective - Results Result Diagrams: 10/15/16 05:17 10/17/16 06:50 Recent Labs: Laboratory Last Values WBC 9.8 Th/cmm (4.8-10.8) 10/15/16 05:17 RBC 3.26 Mil/cmm (3.80-5.20) L 10/15/16 05:17 Hgb 10.1 gm/dL (11.7-16.1) L 10/15/16 05:17 Hct 30.8 % (35.0-45.0) L 10/15/16 05:17 MCV 94.4 fl (81-100) 10/15/16 05:17 MCH 30.9 pg (27.0-31.0) 10/15/16 05:17 MCHC Differential 32.7 pg (28.0-36.0) 10/15/16 05:17 RDW 21.5 % (11.5-20.0) H 10/15/16 05:17 Plt Count 191 Th/cmm (150-400) 10/15/16 05:17 MPV 9.1 fl 10/15/16 05:17 Band Neutrophils % 2 % (0-10) 10/15/16 05:17 Neutrophils (Manual) 79 % (40-80) 10/15/16 05:17 Lymphocytes 7 % (20-50) L 10/15/16 05:17 Monocytes 12 % (2-10) H 10/15/16 05:17 Eosinophils Not Reportable 10/15/16 05:17 Nucleated RBCs 1.0 % (0-0) H 10/14/16 10:40 Platelet Estimate ADEQUATE (NORMAL) 10/15/16 05:17 Platelet Morphology NORMAL (NORMAL) 10/15/16 05:17 Anisocytosis 1+ 10/15/16 05:17 RBC Morph Micro Appear ABNORMAL (NORMAL) 10/15/16 05:17 Sodium 133 mEq/L (136-145) L 10/17/16 06:50 Potassium 4.3 mEq/L (3.5-5.1) 10/17/16 06:50 Chloride 100 mEq/L (98-107) 10/17/16 06:50 Carbon Dioxide 24.1 mEq/L (21.0-31.0) 10/17/16 06:50 Anion Gap 13.2 (7.0-16.0) 10/17/16 06:50 BUN 22 mg/dL (7-25) 10/17/16 06:50 Creatinine 2.4 mg/dL (0.6-1.2) H 10/17/16 06:50 Est GFR ( Amer) 25.7 ml/min 10/17/16 06:50 Est GFR (Non-Af Amer) 21.3 ml/min 10/17/16 06:50 BUN/Creatinine Ratio 9.2 10/17/16 06:50 Glucose 106 mg/dL (70-105) H 10/17/16 06:50 POC Glucose 80 MG/DL (70 - 105) 10/18/16 07:40 Hemoglobin A1c % 6.9 % (4.0-6.0) H 10/15/16 05:17 Calcium 8.8 mg/dL (8.6-10.3) 10/17/16 06:50 Total Bilirubin 0.9 mg/dL (0.3-1.0) 10/14/16 10:40 AST 12 U/L (13-39) L 10/14/16 10:40 ALT 7 U/L (7-52) 10/14/16 10:40 Alkaline Phosphatase 87 U/L (34-104) 10/14/16 10:40 Ammonia 50 umol/L (16-53) 10/14/16 10:40 B-Natriuretic Peptide > 5000.0 pg/mL (5.0-100.0) H 10/17/16 06:50 Total Protein 5.4 gm/dL (6.0-8.3) L 10/14/16 10:40 Albumin 3.2 gm/dL (3.7-5.3) L 10/14/16 10:40 Globulin 2.2 gm/dL 10/14/16 10:40 Albumin/Globulin Ratio 1.5 (1.0-1.8) 10/14/16 10:40 Triglycerides 119 mg/dL (<150) 10/14/16 10:40 Cholesterol 80 mg/dL (<200) 10/14/16 10:40 LDL Cholesterol Direct 26 mg/dL (75-193) L 10/14/16 10:40 HDL Cholesterol 33 mg/dL (23-92) 10/14/16 10:40 TSH 7.87 uIU/ml (0.34-5.60) H 10/14/16 10:40 Urine Source CATH 10/14/16 06:00 Urine Color BROWN 10/14/16 06:00 Urine Clarity SL. CLOUDY (CLEAR) 10/14/16 06:00 Urine pH 5.5 10/14/16 06:00 Ur Specific [place] 1.025 (1.005-1.030) 10/14/16 06:00 Urine Protein 100 mg/dL (NEGATIVE) H 10/14/16 06:00 Urine Glucose (UA) NEGATIVE mg/dL (NEGATIVE) 10/14/16 06:00 Urine Ketones TRACE mg/dL (NEGATIVE) 10/14/16 06:00 Urine Blood TRACE (NEGATIVE) 10/14/16 06:00 Urine Nitrate NEGATIVE (NEGATIVE) 10/14/16 06:00 Urine Bilirubin SMALL (NEGATIVE) H 10/14/16 06:00 Urine Urobilinogen 0.2 E.U./dL (0.2 - 1.0) 10/14/16 06:00 Ur Leukocyte Esterase NEGATIVE (NEGATIVE) 10/14/16 06:00 Urine RBC 0-1 /hpf (0-5) 10/14/16 06:00 Urine WBC 2-5 /hpf (0-5) 10/14/16 06:00 Ur Epithelial Cells OCCASIONAL /lpf (FEW) 10/14/16 06:00 Amorphous Sediment FEW URATES (NONE SEEN) 10/14/16 06:00 Urine Bacteria NONE SEEN /hpf (NONE SEEN) 10/14/16 06:00 Random Vancomycin 20.8 ug/mL (5.0-40.0) 10/16/16 06:50 Hepatitis A IgM Ab Negative (Negative) 10/15/16 05:17 Hep Bs Antigen Negative (Negative) 10/15/16 05:17 Hep B Core IgM Ab Negative (Negative) 10/15/16 05:17 Hepatitis C Antibody <0.1 s/co ratio (0.0-0.9) 10/15/16 05:17 - Physical Exam Vitals and I&O: Vital Signs Temp 97.0 F 10/18/16 08:00 Pulse 82 12/26/16 08:00 Resp 16 10/18/16 08:00 BP 112/52 10/18/16 08:00 Pulse Ox 100 10/18/16 08:00 Intake & Output 10/17/16 10/18/16 10/18/16 18:59 06:59 18:59 Intake Total 450 250 Balance 450 250 Intake: Intake, IV Amount 150 100 cefTRIAXone 1 gm In 50 Sodium Chloride 0.9% 50 ml @ 100 mls/hr IV Q24HR [facility] Rx#:[id number] metroNIDAZOLE 500mg/NS 100 100 100mL 500 mg In 100 ml @ 100 mls/hr IV Q8HR [facility] Rx #:[id number] Oral 300 150 Other: # Voids 2 Active Medications: Current Medications Acetaminophen (Tylenol) 650 mg PO Q4HR PRN PRN Reason: fever/pain Stop: 12/13/16 01:20 Last Admin: 10/14/16 09:03 Dose: 650 mg Acetaminophen/Hydrocodone Bitart ([place] 5mg/325mg) 1 tab PO Q3H PRN PRN Reason: moderate pain (4-6) Stop: 12/13/16 10:21 Last Admin: 10/18/16 03:50 Dose: 1 tab Aspirin (Ecotrin) 81 mg PO QAM [facility] Stop: 12/14/16 08:59 Last Admin: 10/17/16 08:28 Dose: 81 mg Docusate Sodium (Colace) 100 mg PO BID [facility] Stop: 12/13/16 16:59 Last Admin: 10/17/16 17:11 Dose: 100 mg Epoetin [place] (Epogen) 10,000 units SUBQ MWF@1500 [facility] Stop: 12/14/16 14:59 Last Admin: 10/15/16 15:06 Dose: 10,000 units Folic Acid (Folate) 1 mg PO DAILY [facility] Stop: 12/14/16 08:59 Last Admin: 10/17/16 08:28 Dose: 1 mg Guaifenesin/Dextromethorphan (Robitussin Dm) 10 ml PO Q4HR PRN PRN Reason: Cough Stop: 12/13/16 10:21 Ceftriaxone Sodium 1 gm/ (Sodium Chloride) 50 mls @ 100 mls/hr IV Q24HR [facility] Stop: 12/13/16 15:59 Last Infusion: 10/17/16 18:15 Dose: Infused Metronidazole (Flagyl) 500 mg in 100 mls @ 100 mls/hr IV Q8HR [facility] Stop: 12/13/16 15:59 Last Admin: 10/18/16 05:35 Dose: 100 mls/hr Insulin Aspart (Novolog Insulin Sliding Scale) 0 units SUBQ ACHS [facility] PRN Reason: Protocol Stop: 12/13/16 16:29 Last Admin: 10/18/16 08:23 Dose: Not Given Levothyroxine Sodium (Synthroid) 0.05 mg PO QDAC [facility] Stop: 12/14/16 06:29 Last Admin: 10/18/16 05:36 Dose: 0.05 mg Miscellaneous (Clinical Monitoring) 1 ea MC PRN PRN PRN Reason: RENAL DOSING Stop: 12/13/16 13:45 Pantoprazole Sodium (Protonix) 40 mg PO DAILY FILIBERTO Stop: 12/14/16 08:59 Last Admin: 10/17/16 08:28 Dose: 40 mg Prochlorperazine Maleate (Compazine) 10 mg PO Q6H PRN PRN Reason: Nausea / Vomiting Stop: 12/13/16 10:39 Last Admin: 10/15/16 18:26 Dose: 10 mg Senna (Senna) 17.2 mg PO HS FILIBERTO Stop: 12/13/16 20:59 Last Admin: 10/17/16 21:48 Dose: 17.2 mg Vitamin B Complex/Vit C/Folic Acid (Vitamin B Complex W/Vitamin C) 1 tab PO DAILY FILIBERTO Stop: 12/14/16 08:59 Last Admin: 10/17/16 08:28 Dose: 1 tab General: no acute distress, well developed, well nourished HEENT: atraumatic, normocephalic, PERRLA, EOMI, moist mucous membrane Neck: supple Cardiovascular: S1S2, regular Lungs: clear to auscultation bilaterally, clear to percussion Abdomen: soft, no tender, no guarding Extremities: other (Right big toe necrotic ulcer.), no cyanosis, no clubbing, no edema Neurological: awake, alert Skin: intact Infectious Disease Assmt/Plan - Assessment Assessment: Impression: 1. Right big toe cellulitis. 2/2 PAD. 2. R pneumonia. 3. CHF. 4. CKD 5 on HD. 5. DM2 - Plan Plan: Continue vanco IV and rocephin. CTA suggested by Dr Martinez. Surgery consultation is appreciated.
[2016-10-18] MEDS: Vitamin B Complex w/Vitamin C Tab PO SCH (09:48)
[2016-10-18] MEDS: Pantoprazole 40 mg EC Tab PO SCH (09:48)
--- NOTE | 2016-10-18 12:56 | General Progress Note ---
Subjective - Review of Systems Service Date: 10/18/16 Subjective: patient lethargic, arousable, no sob. Objective - Results Result Diagrams: 10/15/16 05:17 10/17/16 06:50 Recent Labs: Laboratory Last Values WBC 9.8 Th/cmm (4.8-10.8) 10/15/16 05:17 RBC 3.26 Mil/cmm (3.80-5.20) L 10/15/16 05:17 Hgb 10.1 gm/dL (11.7-16.1) L 10/15/16 05:17 Hct 30.8 % (35.0-45.0) L 10/15/16 05:17 MCV 94.4 fl (81-100) 10/15/16 05:17 MCH 30.9 pg (27.0-31.0) 10/15/16 05:17 MCHC Differential 32.7 pg (28.0-36.0) 10/15/16 05:17 RDW 21.5 % (11.5-20.0) H 10/15/16 05:17 Plt Count 191 Th/cmm (150-400) 10/15/16 05:17 MPV 9.1 fl 10/15/16 05:17 Band Neutrophils % 2 % (0-10) 10/15/16 05:17 Neutrophils (Manual) 79 % (40-80) 10/15/16 05:17 Lymphocytes 7 % (20-50) L 10/15/16 05:17 Monocytes 12 % (2-10) H 10/15/16 05:17 Eosinophils Not Reportable 10/15/16 05:17 Nucleated RBCs 1.0 % (0-0) H 10/14/16 10:40 Platelet Estimate ADEQUATE (NORMAL) 10/15/16 05:17 Platelet Morphology NORMAL (NORMAL) 10/15/16 05:17 Anisocytosis 1+ 10/15/16 05:17 RBC Morph Micro Appear ABNORMAL (NORMAL) 10/15/16 05:17 Sodium 133 mEq/L (136-145) L 10/17/16 06:50 Potassium 4.3 mEq/L (3.5-5.1) 10/17/16 06:50 Chloride 100 mEq/L (98-107) 10/17/16 06:50 Carbon Dioxide 24.1 mEq/L (21.0-31.0) 10/17/16 06:50 Anion Gap 13.2 (7.0-16.0) 10/17/16 06:50 BUN 22 mg/dL (7-25) 10/17/16 06:50 Creatinine 2.4 mg/dL (0.6-1.2) H 10/17/16 06:50 Est GFR ( Amer) 25.7 ml/min 10/17/16 06:50 Est GFR (Non-Af Amer) 21.3 ml/min 10/17/16 06:50 BUN/Creatinine Ratio 9.2 10/17/16 06:50 Glucose 106 mg/dL (70-105) H 10/17/16 06:50 POC Glucose 102 MG/DL (70 - 105) 10/18/16 12:27 Hemoglobin A1c % 6.9 % (4.0-6.0) H 10/15/16 05:17 Calcium 8.8 mg/dL (8.6-10.3) 10/17/16 06:50 Total Bilirubin 0.9 mg/dL (0.3-1.0) 10/14/16 10:40 AST 12 U/L (13-39) L 10/14/16 10:40 ALT 7 U/L (7-52) 10/14/16 10:40 Alkaline Phosphatase 87 U/L (34-104) 10/14/16 10:40 Ammonia 50 umol/L (16-53) 10/14/16 10:40 B-Natriuretic Peptide > 5000.0 pg/mL (5.0-100.0) H 10/17/16 06:50 Total Protein 5.4 gm/dL (6.0-8.3) L 10/14/16 10:40 Albumin 3.2 gm/dL (3.7-5.3) L 10/14/16 10:40 Globulin 2.2 gm/dL 10/14/16 10:40 Albumin/Globulin Ratio 1.5 (1.0-1.8) 10/14/16 10:40 Triglycerides 119 mg/dL (<150) 10/14/16 10:40 Cholesterol 80 mg/dL (<200) 10/14/16 10:40 LDL Cholesterol Direct 26 mg/dL (75-193) L 10/14/16 10:40 HDL Cholesterol 33 mg/dL (23-92) 10/14/16 10:40 TSH 7.87 uIU/ml (0.34-5.60) H 10/14/16 10:40 Urine Source CATH 10/14/16 06:00 Urine Color BROWN 10/14/16 06:00 Urine Clarity SL. CLOUDY (CLEAR) 10/14/16 06:00 Urine pH 5.5 10/14/16 06:00 Ur Specific [place] 1.025 (1.005-1.030) 10/14/16 06:00 Urine Protein 100 mg/dL (NEGATIVE) H 10/14/16 06:00 Urine Glucose (UA) NEGATIVE mg/dL (NEGATIVE) 10/14/16 06:00 Urine Ketones TRACE mg/dL (NEGATIVE) 10/14/16 06:00 Urine Blood TRACE (NEGATIVE) 10/14/16 06:00 Urine Nitrate NEGATIVE (NEGATIVE) 10/14/16 06:00 Urine Bilirubin SMALL (NEGATIVE) H 10/14/16 06:00 Urine Urobilinogen 0.2 E.U./dL (0.2 - 1.0) 10/14/16 06:00 Ur Leukocyte Esterase NEGATIVE (NEGATIVE) 10/14/16 06:00 Urine RBC 0-1 /hpf (0-5) 10/14/16 06:00 Urine WBC 2-5 /hpf (0-5) 10/14/16 06:00 Ur Epithelial Cells OCCASIONAL /lpf (FEW) 10/14/16 06:00 Amorphous Sediment FEW URATES (NONE SEEN) 10/14/16 06:00 Urine Bacteria NONE SEEN /hpf (NONE SEEN) 10/14/16 06:00 Random Vancomycin 20.8 ug/mL (5.0-40.0) 10/16/16 06:50 Hepatitis A IgM Ab Negative (Negative) 10/15/16 05:17 Hep Bs Antigen Negative (Negative) 10/15/16 05:17 Hep B Core IgM Ab Negative (Negative) 10/15/16 05:17 Hepatitis C Antibody <0.1 s/co ratio (0.0-0.9) 10/15/16 05:17 - Physical Exam Vitals and I&O: Vital Signs Temp 97.7 F 10/18/16 12:00 Pulse 87 10/18/16 12:00 Resp 16 10/18/16 12:00 BP 114/49 10/18/16 12:00 Pulse Ox 100 10/18/16 12:00 Intake & Output 10/17/16 10/18/16 10/18/16 18:59 06:59 18:59 Intake Total 450 250 Balance 450 250 Intake: Intake, IV Amount 150 100 cefTRIAXone 1 gm In 50 Sodium Chloride 0.9% 50 ml @ 100 mls/hr IV Q24HR [facility] Rx#:[id number] metroNIDAZOLE 500mg/NS 100 100 100mL 500 mg In 100 ml @ 100 mls/hr IV Q8HR [facility] Rx #:[id number] Oral 300 150 Other: # Voids 2 Stool Characteristics Soft Active Medications: Current Medications Acetaminophen (Tylenol) 650 mg PO Q4HR PRN PRN Reason: fever/pain Stop: 12/13/16 01:20 Last Admin: 10/14/16 09:03 Dose: 650 mg Acetaminophen/Hydrocodone Bitart ([place] 5mg/325mg) 1 tab PO Q3H PRN PRN Reason: moderate pain (4-6) Stop: 12/13/16 10:21 Last Admin: 10/18/16 11:21 Dose: 1 tab Aspirin (Ecotrin) 81 mg PO QAM [facility] Stop: 12/14/16 08:59 Last Admin: 10/18/16 09:48 Dose: 81 mg Docusate Sodium (Colace) 100 mg PO BID [facility] Stop: 12/13/16 16:59 Last Admin: 10/18/16 09:48 Dose: 100 mg Epoetin [place] (Epogen) 10,000 units SUBQ MWF@1500 [facility] Stop: 12/14/16 14:59 Last Admin: 10/15/16 15:06 Dose: 10,000 units Folic Acid (Folate) 1 mg PO DAILY [facility] Stop: 12/14/16 08:59 Last Admin: 10/18/16 09:48 Dose: 1 mg Guaifenesin/Dextromethorphan (Robitussin Dm) 10 ml PO Q4HR PRN PRN Reason: Cough Stop: 12/13/16 10:21 Ceftriaxone Sodium 1 gm/ (Sodium Chloride) 50 mls @ 100 mls/hr IV Q24HR [facility] Stop: 12/13/16 15:59 Last Infusion: 10/17/16 18:15 Dose: Infused Metronidazole (Flagyl) 500 mg in 100 mls @ 100 mls/hr IV Q8HR [facility] Stop: 12/13/16 15:59 Last Admin: 10/18/16 05:35 Dose: 100 mls/hr Insulin Aspart (Novolog Insulin Sliding Scale) 0 units SUBQ ACHS [facility] PRN Reason: Protocol Stop: 12/13/16 16:29 Last Admin: 10/18/16 08:23 Dose: Not Given Levothyroxine Sodium (Synthroid) 0.05 mg PO QDAC [facility] Stop: 12/14/16 06:29 Last Admin: 10/18/16 05:36 Dose: 0.05 mg Miscellaneous (Clinical Monitoring) 1 ea MC PRN PRN PRN Reason: RENAL DOSING Stop: 12/13/16 13:45 Pantoprazole Sodium (Protonix) 40 mg PO DAILY [facility] Stop: 12/14/16 08:59 Last Admin: 10/18/16 09:48 Dose: 40 mg Prochlorperazine Maleate (Compazine) 10 mg PO Q6H PRN PRN Reason: Nausea / Vomiting Stop: 12/13/16 10:39 Last Admin: 10/15/16 18:26 Dose: 10 mg Senna (Senna) 17.2 mg PO HS [facility] Stop: 12/13/16 20:59 Last Admin: 10/17/16 21:48 Dose: 17.2 mg Vitamin B Complex/Vit C/Folic Acid (Vitamin B Complex W/Vitamin C) 1 tab PO DAILY [facility] Stop: 12/14/16 08:59 Last Admin: 10/18/16 09:48 Dose: 1 tab General: Other (lethargic) HEENT: Atraumatic Neck: Supple Cardiovascular: Regular rate, Normal S1, Normal S2 Lungs: Clear to auscultation, Normal air movement Abdomen: Bowel sounds Assessment/Plan - Assessment Assessment: 1. Right big toe cellulitis. 2/2 PAD. 2. R pneumonia. 3. CHF. 4. CKD 5 on HD. 5. DM2 - Plan Plan: if cta cannot be done, consider vq scan, appreciate consults reccomendation continue ivabx as per id cbc/bmp in am continue current plan of care
[2016-10-18] MEDS: Epoetin Alfa 20000 Units/mL Vial SUBQ SCH (14:57)
--- NOTE | 2016-10-18 15:08 | General Progress Note ---
Subjective - Review of Systems Service Date: 10/18/16 Subjective: sleeping, comfortable today, being dialyzed Objective - Results Result Diagrams: 10/15/16 05:17 10/17/16 06:50 Recent Labs: Laboratory Last Values WBC 9.8 Th/cmm (4.8-10.8) 10/15/16 05:17 RBC 3.26 Mil/cmm (3.80-5.20) L 10/15/16 05:17 Hgb 10.1 gm/dL (11.7-16.1) L 10/15/16 05:17 Hct 30.8 % (35.0-45.0) L 10/15/16 05:17 MCV 94.4 fl (81-100) 10/15/16 05:17 MCH 30.9 pg (27.0-31.0) 10/15/16 05:17 MCHC Differential 32.7 pg (28.0-36.0) 10/15/16 05:17 RDW 21.5 % (11.5-20.0) H 10/15/16 05:17 Plt Count 191 Th/cmm (150-400) 10/15/16 05:17 MPV 9.1 fl 10/15/16 05:17 Band Neutrophils % 2 % (0-10) 10/15/16 05:17 Neutrophils (Manual) 79 % (40-80) 10/15/16 05:17 Lymphocytes 7 % (20-50) L 10/15/16 05:17 Monocytes 12 % (2-10) H 10/15/16 05:17 Eosinophils Not Reportable 10/15/16 05:17 Nucleated RBCs 1.0 % (0-0) H 10/14/16 10:40 Platelet Estimate ADEQUATE (NORMAL) 10/15/16 05:17 Platelet Morphology NORMAL (NORMAL) 10/15/16 05:17 Anisocytosis 1+ 10/15/16 05:17 RBC Morph Micro Appear ABNORMAL (NORMAL) 10/15/16 05:17 Sodium 133 mEq/L (136-145) L 10/17/16 06:50 Potassium 4.3 mEq/L (3.5-5.1) 10/17/16 06:50 Chloride 100 mEq/L (98-107) 10/17/16 06:50 Carbon Dioxide 24.1 mEq/L (21.0-31.0) 10/17/16 06:50 Anion Gap 13.2 (7.0-16.0) 10/17/16 06:50 BUN 22 mg/dL (7-25) 10/17/16 06:50 Creatinine 2.4 mg/dL (0.6-1.2) H 10/17/16 06:50 Est GFR ( Amer) 25.7 ml/min 10/17/16 06:50 Est GFR (Non-Af Amer) 21.3 ml/min 10/17/16 06:50 BUN/Creatinine Ratio 9.2 10/17/16 06:50 Glucose 106 mg/dL (70-105) H 10/17/16 06:50 POC Glucose 102 MG/DL (70 - 105) 10/18/16 12:27 Hemoglobin A1c % 6.9 % (4.0-6.0) H 10/15/16 05:17 Calcium 8.8 mg/dL (8.6-10.3) 10/17/16 06:50 Total Bilirubin 0.9 mg/dL (0.3-1.0) 10/14/16 10:40 AST 12 U/L (13-39) L 10/14/16 10:40 ALT 7 U/L (7-52) 10/14/16 10:40 Alkaline Phosphatase 87 U/L (34-104) 10/14/16 10:40 Ammonia 50 umol/L (16-53) 10/14/16 10:40 B-Natriuretic Peptide > 5000.0 pg/mL (5.0-100.0) H 10/17/16 06:50 Total Protein 5.4 gm/dL (6.0-8.3) L 10/14/16 10:40 Albumin 3.2 gm/dL (3.7-5.3) L 10/14/16 10:40 Globulin 2.2 gm/dL 10/14/16 10:40 Albumin/Globulin Ratio 1.5 (1.0-1.8) 10/14/16 10:40 Triglycerides 119 mg/dL (<150) 10/14/16 10:40 Cholesterol 80 mg/dL (<200) 10/14/16 10:40 LDL Cholesterol Direct 26 mg/dL (75-193) L 10/14/16 10:40 HDL Cholesterol 33 mg/dL (23-92) 10/14/16 10:40 TSH 7.87 uIU/ml (0.34-5.60) H 10/14/16 10:40 Urine Source CATH 10/14/16 06:00 Urine Color BROWN 10/14/16 06:00 Urine Clarity SL. CLOUDY (CLEAR) 10/14/16 06:00 Urine pH 5.5 10/14/16 06:00 Ur Specific [place] 1.025 (1.005-1.030) 10/14/16 06:00 Urine Protein 100 mg/dL (NEGATIVE) H 10/14/16 06:00 Urine Glucose (UA) NEGATIVE mg/dL (NEGATIVE) 10/14/16 06:00 Urine Ketones TRACE mg/dL (NEGATIVE) 10/14/16 06:00 Urine Blood TRACE (NEGATIVE) 10/14/16 06:00 Urine Nitrate NEGATIVE (NEGATIVE) 10/14/16 06:00 Urine Bilirubin SMALL (NEGATIVE) H 10/14/16 06:00 Urine Urobilinogen 0.2 E.U./dL (0.2 - 1.0) 10/14/16 06:00 Ur Leukocyte Esterase NEGATIVE (NEGATIVE) 10/14/16 06:00 Urine RBC 0-1 /hpf (0-5) 10/14/16 06:00 Urine WBC 2-5 /hpf (0-5) 10/14/16 06:00 Ur Epithelial Cells OCCASIONAL /lpf (FEW) 10/14/16 06:00 Amorphous Sediment FEW URATES (NONE SEEN) 10/14/16 06:00 Urine Bacteria NONE SEEN /hpf (NONE SEEN) 10/14/16 06:00 Random Vancomycin 20.8 ug/mL (5.0-40.0) 10/16/16 06:50 Hepatitis A IgM Ab Negative (Negative) 10/15/16 05:17 Hep Bs Antigen Negative (Negative) 10/15/16 05:17 Hep B Core IgM Ab Negative (Negative) 10/15/16 05:17 Hepatitis C Antibody <0.1 s/co ratio (0.0-0.9) 10/15/16 05:17 - Physical Exam Vitals and I&O: Vital Signs Temp 97.7 F 10/18/16 12:00 Pulse 87 10/18/16 12:00 Resp 16 10/18/16 12:00 BP 114/49 10/18/16 12:00 Pulse Ox 100 10/18/16 12:00 Intake & Output 10/17/16 10/18/16 10/18/16 18:59 06:59 18:59 Intake Total 450 250 Balance 450 250 Intake: Intake, IV Amount 150 100 cefTRIAXone 1 gm In 50 Sodium Chloride 0.9% 50 ml @ 100 mls/hr IV Q24HR [facility] Rx#:[id number] metroNIDAZOLE 500mg/NS 100 100 100mL 500 mg In 100 ml @ 100 mls/hr IV Q8HR [facility] Rx #:[id number] Oral 300 150 Other: # Voids 2 Stool Characteristics Soft Active Medications: Current Medications Acetaminophen (Tylenol) 650 mg PO Q4HR PRN PRN Reason: fever/pain Stop: 12/13/16 01:20 Last Admin: 10/14/16 09:03 Dose: 650 mg Acetaminophen/Hydrocodone Bitart ([place] 5mg/325mg) 1 tab PO Q3H PRN PRN Reason: moderate pain (4-6) Stop: 12/13/16 10:21 Last Admin: 10/18/16 11:21 Dose: 1 tab Aspirin (Ecotrin) 81 mg PO QAM [facility] Stop: 12/14/16 08:59 Last Admin: 10/18/16 09:48 Dose: 81 mg Docusate Sodium (Colace) 100 mg PO BID [facility] Stop: 12/13/16 16:59 Last Admin: 10/18/16 09:48 Dose: 100 mg Epoetin [place] (Epogen) 10,000 units SUBQ MWF@1500 [facility] Stop: 12/14/16 14:59 Last Admin: 10/15/16 15:06 Dose: 10,000 units Folic Acid (Folate) 1 mg PO DAILY [facility] Stop: 12/14/16 08:59 Last Admin: 10/18/16 09:48 Dose: 1 mg Guaifenesin/Dextromethorphan (Robitussin Dm) 10 ml PO Q4HR PRN PRN Reason: Cough Stop: 12/13/16 10:21 Ceftriaxone Sodium 1 gm/ (Sodium Chloride) 50 mls @ 100 mls/hr IV Q24HR [facility] Stop: 12/13/16 15:59 Last Infusion: 10/17/16 18:15 Dose: Infused Metronidazole (Flagyl) 500 mg in 100 mls @ 100 mls/hr IV Q8HR [facility] Stop: 12/13/16 15:59 Last Admin: 10/18/16 05:35 Dose: 100 mls/hr Insulin Aspart (Novolog Insulin Sliding Scale) 0 units SUBQ ACHS [facility] PRN Reason: Protocol Stop: 12/13/16 16:29 Last Admin: 10/18/16 11:32 Dose: Not Given Levothyroxine Sodium (Synthroid) 0.05 mg PO QDAC [facility] Stop: 12/14/16 06:29 Last Admin: 10/18/16 05:36 Dose: 0.05 mg Miscellaneous (Clinical Monitoring) 1 ea MC PRN PRN PRN Reason: RENAL DOSING Stop: 12/13/16 13:45 Pantoprazole Sodium (Protonix) 40 mg PO DAILY [facility] Stop: 12/14/16 08:59 Last Admin: 10/18/16 09:48 Dose: 40 mg Prochlorperazine Maleate (Compazine) 10 mg PO Q6H PRN PRN Reason: Nausea / Vomiting Stop: 12/13/16 10:39 Last Admin: 10/15/16 18:26 Dose: 10 mg Senna (Senna) 17.2 mg PO HS [facility] Stop: 12/13/16 20:59 Last Admin: 10/17/16 21:48 Dose: 17.2 mg Vitamin B Complex/Vit C/Folic Acid (Vitamin B Complex W/Vitamin C) 1 tab PO DAILY [facility] Stop: 12/14/16 08:59 Last Admin: 10/18/16 09:48 Dose: 1 tab General: No acute distress HEENT: Atraumatic, Mucous membr. moist/pink Neck: Supple, +2 carotid pulse wo bruit Cardiovascular: Regular rate, Normal S1, Normal S2 Lungs: Other (rhonchi) Abdomen: Bowel sounds, Soft Extremities: no Edema Neurological: Normal tone Skin: no Rash Psych/Mental Status: Mood NL Assessment/Plan - Assessment Assessment: ESRD on HD acute decomp CHF acute resp failure type 2 dm ess htn anemia of ckd LLL HAP hypothyroid PAD w/ right toe discoloration chronic hyponatremia abd. pain - Plan Plan: currnetly being dialyzed & tolerating it well serial CXR fluid restriction f/u echo OK for CTA on dialysis days, next on tue
[2016-10-18] MEDS: cefTRIAXone 1 GM in Sodium Chloride 0.9% 50 ML IV SCH (18:07)
[2016-10-19] MEDS: Hydrocodone/APAP 5mg/325mg Tab PO PRN ×3 (00:51→21:18)
[2016-10-19] MEDS: metroNIDAZOLE 500mg/NS 100mL 500 MG/100 ML BAG IV SCH ×3 (05:50→21:18)
[2016-10-19] MEDS: Levothyroxine 0.025 Mg Tab PO SCH (06:12)
[2016-10-19] MEDS: INSULIN ASPART SLIDING SCALE 100 UNITS/ML UNIT SUBQ SCH ×2 (07:05→21:36)
[2016-10-19 07:18] LABS: HEMATOCRIT 32.8 % (35.0-45.0); HEMOGLOBIN 10.8 gm/dL (11.7-16.1); MEAN CELL VOLUME 95.6 fl (81-100); MEAN CORPUSCULAR HEMOGLOBIN 31.5 pg (27.0-31.0); MEAN CORPUSCULAR HGB CONC 32.9 pg (28.0-36.0); MEAN PLATELET VOLUME 9.1 fl; PLATELET COUNT 173 Th/cmm (150-400); RED BLOOD COUNT 3.43 Mil/cmm (3.80-5.20); RED CELL DISTRIBUTION WIDTH 21.6 % (11.5-20.0); WHITE BLOOD COUNT 9.2 Th/cmm (4.8-10.8)
[2016-10-19 07:29] LABS: BUN/CREATININE RATIO 7.8; CALCIUM SERUM 8.7 mg/dL (8.6-10.3); CARBON DIOXIDE 26.1 mEq/L (21.0-31.0); CREATININE - SERUM 1.8 mg/dL (0.6-1.2); POTASSIUM SERUM 4.1 mEq/L (3.5-5.1)
[2016-10-19 08:33] LABS: BAND NEUTROPHILE 3 % (0-10); BASOPHIL 2 % (0-3); EOSINOPHIL 3 % (0-5); NEUTROPHILS 81 % (40-80); TOTAL CELLS COUNTED 100
[2016-10-19 08:34] LABS: ANISOCYTOSIS 1+; PLATELET ESTIMATE ADEQUATE (NORMAL); PLATELET MORPHOLOGY GIANT PLATELETS SEEN (NORMAL)
--- NOTE | 2016-10-19 11:56 | Diagnostic Imaging Report ---
Portable chest x-ray HISTORY: Shortness of breath Compared with prior exam of 10/16/2016, persistent opacification of the left lower hemithorax consistent with a pleural effusion. Evidence of a persistent small right pleural effusion. The heart is enlarged. There does appear to be pulmonary vascular redistribution consistent cardiac consultation. Slight decrease in right perihilar density that appears related to fluid within the minor fissure. IMPRESSION: 1. Little change in findings consistent with congestive heart failure associated with bilateral pleural effusions.
--- NOTE | 2016-10-19 12:45 | Infectious Disease Prog Note ---
Infectious Disease Subjective - Review of Systems Service Date: 10/19/16 Subjective: There is no fever. Infectious Disease Objective - Results Result Diagrams: 10/19/16 06:40 10/19/16 06:40 Recent Labs: Laboratory Last Values WBC 9.2 Th/cmm (4.8-10.8) 10/19/16 06:40 RBC 3.43 Mil/cmm (3.80-5.20) L 10/19/16 06:40 Hgb 10.8 gm/dL (11.7-16.1) L 10/19/16 06:40 Hct 32.8 % (35.0-45.0) L 10/19/16 06:40 MCV 95.6 fl (81-100) 10/19/16 06:40 MCH 31.5 pg (27.0-31.0) H 10/19/16 06:40 MCHC Differential 32.9 pg (28.0-36.0) 10/19/16 06:40 RDW 21.6 % (11.5-20.0) H 10/19/16 06:40 Plt Count 173 Th/cmm (150-400) 10/19/16 06:40 MPV 9.1 fl 10/19/16 06:40 Band Neutrophils % 3 % (0-10) 10/19/16 06:40 Neutrophils (Manual) 81 % (40-80) H 10/19/16 06:40 Lymphocytes 5 % (20-50) L 10/19/16 06:40 Monocytes 6 % (2-10) 10/19/16 06:40 Eosinophils 3 % (0-5) 10/19/16 06:40 Basophils 2 % (0-3) 10/19/16 06:40 Nucleated RBCs 1.0 % (0-0) H 10/14/16 10:40 Platelet Estimate ADEQUATE (NORMAL) 10/19/16 06:40 Platelet Morphology GIANT PLATELETS SEEN (NORMAL) 10/19/16 06:40 Anisocytosis 1+ 10/19/16 06:40 RBC Morph Micro Appear ABNORMAL (NORMAL) 10/19/16 06:40 Sodium 134 mEq/L (136-145) L 10/19/16 06:40 Potassium 4.1 mEq/L (3.5-5.1) 10/19/16 06:40 Chloride 99 mEq/L (98-107) 10/19/16 06:40 Carbon Dioxide 26.1 mEq/L (21.0-31.0) 10/19/16 06:40 Anion Gap 13.0 (7.0-16.0) 10/19/16 06:40 BUN 14 mg/dL (7-25) 10/19/16 06:40 Creatinine 1.8 mg/dL (0.6-1.2) H 10/19/16 06:40 Est GFR ( Amer) 35.9 ml/min 10/19/16 06:40 Est GFR (Non-Af Amer) 29.7 ml/min 10/19/16 06:40 BUN/Creatinine Ratio 7.8 10/19/16 06:40 Glucose 117 mg/dL (70-105) H 10/19/16 06:40 POC Glucose 114 MG/DL (70 - 105) H 10/19/16 12:18 Hemoglobin A1c % 6.9 % (4.0-6.0) H 10/15/16 05:17 Calcium 8.7 mg/dL (8.6-10.3) 10/19/16 06:40 Total Bilirubin 0.9 mg/dL (0.3-1.0) 10/14/16 10:40 AST 12 U/L (13-39) L 10/14/16 10:40 ALT 7 U/L (7-52) 10/14/16 10:40 Alkaline Phosphatase 87 U/L (34-104) 10/14/16 10:40 Ammonia 50 umol/L (16-53) 10/14/16 10:40 B-Natriuretic Peptide > 5000.0 pg/mL (5.0-100.0) H 10/17/16 06:50 Total Protein 5.4 gm/dL (6.0-8.3) L 10/14/16 10:40 Albumin 3.2 gm/dL (3.7-5.3) L 10/14/16 10:40 Globulin 2.2 gm/dL 10/14/16 10:40 Albumin/Globulin Ratio 1.5 (1.0-1.8) 10/14/16 10:40 Triglycerides 119 mg/dL (<150) 10/14/16 10:40 Cholesterol 80 mg/dL (<200) 10/14/16 10:40 LDL Cholesterol Direct 26 mg/dL (75-193) L 10/14/16 10:40 HDL Cholesterol 33 mg/dL (23-92) 10/14/16 10:40 TSH 7.87 uIU/ml (0.34-5.60) H 10/14/16 10:40 Urine Source CATH 10/14/16 06:00 Urine Color BROWN 10/14/16 06:00 Urine Clarity SL. CLOUDY (CLEAR) 10/14/16 06:00 Urine pH 5.5 10/14/16 06:00 Ur Specific [place] 1.025 (1.005-1.030) 10/14/16 06:00 Urine Protein 100 mg/dL (NEGATIVE) H 10/14/16 06:00 Urine Glucose (UA) NEGATIVE mg/dL (NEGATIVE) 10/14/16 06:00 Urine Ketones TRACE mg/dL (NEGATIVE) 10/14/16 06:00 Urine Blood TRACE (NEGATIVE) 10/14/16 06:00 Urine Nitrate NEGATIVE (NEGATIVE) 10/14/16 06:00 Urine Bilirubin SMALL (NEGATIVE) H 10/14/16 06:00 Urine Urobilinogen 0.2 E.U./dL (0.2 - 1.0) 10/14/16 06:00 Ur Leukocyte Esterase NEGATIVE (NEGATIVE) 10/14/16 06:00 Urine RBC 0-1 /hpf (0-5) 10/14/16 06:00 Urine WBC 2-5 /hpf (0-5) 10/14/16 06:00 Ur Epithelial Cells OCCASIONAL /lpf (FEW) 10/14/16 06:00 Amorphous Sediment FEW URATES (NONE SEEN) 10/14/16 06:00 Urine Bacteria NONE SEEN /hpf (NONE SEEN) 10/14/16 06:00 Random Vancomycin 20.8 ug/mL (5.0-40.0) 10/16/16 06:50 Hepatitis A IgM Ab Negative (Negative) 10/15/16 05:17 Hep Bs Antigen Negative (Negative) 10/15/16 05:17 Hep B Core IgM Ab Negative (Negative) 10/15/16 05:17 Hepatitis C Antibody <0.1 s/co ratio (0.0-0.9) 10/15/16 05:17 - Physical Exam Vitals and I&O: Vital Signs Temp 97.6 F 10/19/16 12:00 Pulse 86 10/19/16 12:00 Resp 17 10/19/16 12:00 BP 109/68 10/19/16 12:00 Pulse Ox 100 10/19/16 12:00 Intake & Output 10/18/16 10/19/16 10/19/16 18:59 06:59 18:59 Intake Total 820 250 Output Total 3000 Balance -2180 250 Intake: Intake, IV Amount 100 100 metroNIDAZOLE 500mg/NS 100 100 100mL 500 mg In 100 ml @ 100 mls/hr IV Q8HR [facility] Rx #:[id number] Oral 720 150 Output: Hemodialysis 3000 Other: # Voids 2 3 # Bowel Movements 2 Stool Characteristics Soft Soft Formed Formed Active Medications: Current Medications Acetaminophen (Tylenol) 650 mg PO Q4HR PRN PRN Reason: fever/pain Stop: 12/13/16 01:20 Last Admin: 10/14/16 09:03 Dose: 650 mg Acetaminophen/Hydrocodone Bitart ([place] 5mg/325mg) 1 tab PO Q3H PRN PRN Reason: moderate pain (4-6) Stop: 12/13/16 10:21 Last Admin: 10/19/16 00:51 Dose: 1 tab Aspirin (Ecotrin) 81 mg PO QAM [facility] Stop: 12/14/16 08:59 Last Admin: 10/18/16 09:48 Dose: 81 mg Docusate Sodium (Colace) 100 mg PO BID [facility] Stop: 12/13/16 16:59 Last Admin: 10/18/16 17:58 Dose: 100 mg Epoetin [place] (Epogen) 10,000 units SUBQ MWF@1500 [facility] Stop: 12/14/16 14:59 Last Admin: 10/18/16 14:57 Dose: 10,000 units Folic Acid (Folate) 1 mg PO DAILY [facility] Stop: 12/14/16 08:59 Last Admin: 10/18/16 09:48 Dose: 1 mg Guaifenesin/Dextromethorphan (Robitussin Dm) 10 ml PO Q4HR PRN PRN Reason: Cough Stop: 12/13/16 10:21 Ceftriaxone Sodium 1 gm/ (Sodium Chloride) 50 mls @ 100 mls/hr IV Q24HR [facility] Stop: 12/13/16 15:59 Last Admin: 10/18/16 18:07 Dose: 100 mls/hr Metronidazole (Flagyl) 500 mg in 100 mls @ 100 mls/hr IV Q8HR [facility] Stop: 12/13/16 15:59 Last Admin: 10/19/16 05:50 Dose: 100 mls/hr Insulin Aspart (Novolog Insulin Sliding Scale) 0 units SUBQ ACHS [facility] PRN Reason: Protocol Stop: 12/13/16 16:29 Last Admin: 10/19/16 07:05 Dose: Not Given Levothyroxine Sodium (Synthroid) 0.05 mg PO QDAC [facility] Stop: 12/19/16 06:29 Miscellaneous (Clinical Monitoring) 1 ea MC PRN PRN PRN Reason: RENAL DOSING Stop: 12/13/16 13:45 Pantoprazole Sodium (Protonix) 40 mg PO DAILY [facility] Stop: 12/14/16 08:59 Last Admin: 10/18/16 09:48 Dose: 40 mg Prochlorperazine Maleate (Compazine) 10 mg PO Q6H PRN PRN Reason: Nausea / Vomiting Stop: 12/13/16 10:39 Last Admin: 10/18/16 17:58 Dose: 10 mg Senna (Senna) 17.2 mg PO HS [facility] Stop: 12/13/16 20:59 Last Admin: 10/18/16 21:52 Dose: 17.2 mg Vitamin B Complex/Vit C/Folic Acid (Vitamin B Complex W/Vitamin C) 1 tab PO DAILY [facility] Stop: 12/14/16 08:59 Last Admin: 10/18/16 09:48 Dose: 1 tab General: no acute distress, well developed, well nourished HEENT: atraumatic, normocephalic, PERRLA, EOMI, moist mucous membrane Neck: supple, no thyromegaly, no lymphadenopathy Cardiovascular: S1S2, regular Lungs: clear to auscultation bilaterally, clear to percussion Abdomen: soft, no tender, no distended Extremities: no cyanosis, no clubbing, no edema Neurological: awake, alert Skin: intact Infectious Disease Assmt/Plan - Assessment Assessment: Impression: 1. Right big toe cellulitis. 2/2 PAD. 2. R pneumonia. 3. CHF. 4. CKD 5 on HD. 5. DM2 - Plan Plan: Continue vanco IV and rocephin. CTA suggested by Dr Martinez.
[2016-10-19] MEDS: cefTRIAXone 1 GM in Sodium Chloride 0.9% 50 ML IV SCH (15:00)
--- NOTE | 2016-10-19 15:59 | Diagnostic Imaging Report ---
Radionuclide perfusion/ventilation lung scan HISTORY: Shortness of breath 4.9 mCi technetium macroaggregated albumin was used for the perfusion portion of the study. 40.0 mCi technetium DTPA aerosol was used for the ventilation portion of the exam. The exam demonstrates evidence of cardiomegaly that corresponds to changes noted on today's earlier chest radiograph. Perfusion images demonstrate uniform activity throughout both lungs. No segmental defects identified on the ventilation images. There are no perfusion/ventilation mismatches. No definite evidence of pulmonary embolism. IMPRESSION: 1. No definite scintigraphic evidence of pulmonary embolism 2. Findings consistent with radiographically reported cardiomegaly
[2016-10-19] MEDS ORDERED: IOHEXOL 350mg/mL 100mL Bottle IVP ONE (16:09)
--- NOTE | 2016-10-19 16:38 | General Progress Note ---
Subjective - Review of Systems Service Date: 10/19/16 Subjective: sleeping, still has abd discomfort Objective - Results Result Diagrams: 10/19/16 06:40 10/19/16 06:40 Recent Labs: Laboratory Last Values WBC 9.2 Th/cmm (4.8-10.8) 10/19/16 06:40 RBC 3.43 Mil/cmm (3.80-5.20) L 10/19/16 06:40 Hgb 10.8 gm/dL (11.7-16.1) L 10/19/16 06:40 Hct 32.8 % (35.0-45.0) L 10/19/16 06:40 MCV 95.6 fl (81-100) 10/19/16 06:40 MCH 31.5 pg (27.0-31.0) H 10/19/16 06:40 MCHC Differential 32.9 pg (28.0-36.0) 10/19/16 06:40 RDW 21.6 % (11.5-20.0) H 10/19/16 06:40 Plt Count 173 Th/cmm (150-400) 10/19/16 06:40 MPV 9.1 fl 10/19/16 06:40 Band Neutrophils % 3 % (0-10) 10/19/16 06:40 Neutrophils (Manual) 81 % (40-80) H 10/19/16 06:40 Lymphocytes 5 % (20-50) L 10/19/16 06:40 Monocytes 6 % (2-10) 10/19/16 06:40 Eosinophils 3 % (0-5) 10/19/16 06:40 Basophils 2 % (0-3) 10/19/16 06:40 Nucleated RBCs 1.0 % (0-0) H 10/14/16 10:40 Platelet Estimate ADEQUATE (NORMAL) 10/19/16 06:40 Platelet Morphology GIANT PLATELETS SEEN (NORMAL) 10/19/16 06:40 Anisocytosis 1+ 10/19/16 06:40 RBC Morph Micro Appear ABNORMAL (NORMAL) 10/19/16 06:40 Sodium 134 mEq/L (136-145) L 10/19/16 06:40 Potassium 4.1 mEq/L (3.5-5.1) 10/19/16 06:40 Chloride 99 mEq/L (98-107) 10/19/16 06:40 Carbon Dioxide 26.1 mEq/L (21.0-31.0) 10/19/16 06:40 Anion Gap 13.0 (7.0-16.0) 10/19/16 06:40 BUN 14 mg/dL (7-25) 10/19/16 06:40 Creatinine 1.8 mg/dL (0.6-1.2) H 10/19/16 06:40 Est GFR ( Amer) 35.9 ml/min 10/19/16 06:40 Est GFR (Non-Af Amer) 29.7 ml/min 10/19/16 06:40 BUN/Creatinine Ratio 7.8 10/19/16 06:40 Glucose 117 mg/dL (70-105) H 10/19/16 06:40 POC Glucose 114 MG/DL (70 - 105) H 10/19/16 12:18 Hemoglobin A1c % 6.9 % (4.0-6.0) H 10/15/16 05:17 Calcium 8.7 mg/dL (8.6-10.3) 10/19/16 06:40 Total Bilirubin 0.9 mg/dL (0.3-1.0) 10/14/16 10:40 AST 12 U/L (13-39) L 10/14/16 10:40 ALT 7 U/L (7-52) 10/14/16 10:40 Alkaline Phosphatase 87 U/L (34-104) 10/14/16 10:40 Ammonia 50 umol/L (16-53) 10/14/16 10:40 B-Natriuretic Peptide > 5000.0 pg/mL (5.0-100.0) H 10/17/16 06:50 Total Protein 5.4 gm/dL (6.0-8.3) L 10/14/16 10:40 Albumin 3.2 gm/dL (3.7-5.3) L 10/14/16 10:40 Globulin 2.2 gm/dL 10/14/16 10:40 Albumin/Globulin Ratio 1.5 (1.0-1.8) 10/14/16 10:40 Triglycerides 119 mg/dL (<150) 10/14/16 10:40 Cholesterol 80 mg/dL (<200) 12/22/16 10:40 LDL Cholesterol Direct 26 mg/dL (75-193) L 10/14/16 10:40 HDL Cholesterol 33 mg/dL (23-92) 10/14/16 10:40 TSH 7.87 uIU/ml (0.34-5.60) H 10/14/16 10:40 Urine Source CATH 10/14/16 06:00 Urine Color BROWN 10/14/16 06:00 Urine Clarity SL. CLOUDY (CLEAR) 10/14/16 06:00 Urine pH 5.5 10/14/16 06:00 Ur Specific [place] 1.025 (1.005-1.030) 10/14/16 06:00 Urine Protein 100 mg/dL (NEGATIVE) H 10/14/16 06:00 Urine Glucose (UA) NEGATIVE mg/dL (NEGATIVE) 10/14/16 06:00 Urine Ketones TRACE mg/dL (NEGATIVE) 10/14/16 06:00 Urine Blood TRACE (NEGATIVE) 10/14/16 06:00 Urine Nitrate NEGATIVE (NEGATIVE) 10/14/16 06:00 Urine Bilirubin SMALL (NEGATIVE) H 10/14/16 06:00 Urine Urobilinogen 0.2 E.U./dL (0.2 - 1.0) 10/14/16 06:00 Ur Leukocyte Esterase NEGATIVE (NEGATIVE) 10/14/16 06:00 Urine RBC 0-1 /hpf (0-5) 10/14/16 06:00 Urine WBC 2-5 /hpf (0-5) 10/14/16 06:00 Ur Epithelial Cells OCCASIONAL /lpf (FEW) 10/14/16 06:00 Amorphous Sediment FEW URATES (NONE SEEN) 10/14/16 06:00 Urine Bacteria NONE SEEN /hpf (NONE SEEN) 10/14/16 06:00 Random Vancomycin 20.8 ug/mL (5.0-40.0) 10/16/16 06:50 Hepatitis A IgM Ab Negative (Negative) 10/15/16 05:17 Hep Bs Antigen Negative (Negative) 10/15/16 05:17 Hep B Core IgM Ab Negative (Negative) 10/15/16 05:17 Hepatitis C Antibody <0.1 s/co ratio (0.0-0.9) 10/15/16 05:17 - Physical Exam Vitals and I&O: Vital Signs Temp 98.0 F 10/19/16 16:00 Pulse 88 10/19/16 16:00 Resp 17 10/19/16 16:00 BP 107/49 10/19/16 16:00 Pulse Ox 100 10/19/16 16:00 Intake & Output 10/18/16 10/19/16 10/19/16 18:59 06:59 18:59 Intake Total 870 350 Output Total 3000 Balance -2130 350 Intake: Intake, IV Amount 150 200 cefTRIAXone 1 gm In 50 Sodium Chloride 0.9% 50 ml @ 100 mls/hr IV Q24HR [facility] Rx#:[id number] metroNIDAZOLE 500mg/NS 100 200 100mL 500 mg In 100 ml @ 100 mls/hr IV Q8HR [facility] Rx #:[id number] Oral 720 150 Output: Hemodialysis 3000 Other: # Voids 2 3 # Bowel Movements 2 Stool Characteristics Soft Soft Formed Formed Active Medications: Current Medications Acetaminophen (Tylenol) 650 mg PO Q4HR PRN PRN Reason: fever/pain Stop: 12/13/16 01:20 Last Admin: 10/14/16 09:03 Dose: 650 mg Acetaminophen/Hydrocodone Bitart ([place] 5mg/325mg) 1 tab PO Q3H PRN PRN Reason: moderate pain (4-6) Stop: 12/13/16 10:21 Last Admin: 10/19/16 00:51 Dose: 1 tab Aspirin (Ecotrin) 81 mg PO QAM [facility] Stop: 12/14/16 08:59 Last Admin: 10/18/16 09:48 Dose: 81 mg Docusate Sodium (Colace) 100 mg PO BID [facility] Stop: 12/13/16 16:59 Last Admin: 10/18/16 17:58 Dose: 100 mg Epoetin [place] (Epogen) 10,000 units SUBQ MWF@1500 [facility] Stop: 12/14/16 14:59 Last Admin: 10/18/16 14:57 Dose: 10,000 units Folic Acid (Folate) 1 mg PO DAILY [facility] Stop: 12/14/16 08:59 Last Admin: 10/18/16 09:48 Dose: 1 mg Guaifenesin/Dextromethorphan (Robitussin Dm) 10 ml PO Q4HR PRN PRN Reason: Cough Stop: 12/13/16 10:21 Ceftriaxone Sodium 1 gm/ (Sodium Chloride) 50 mls @ 100 mls/hr IV Q24HR [facility] Stop: 12/13/16 15:59 Last Admin: 10/19/16 15:00 Dose: 100 mls/hr Metronidazole (Flagyl) 500 mg in 100 mls @ 100 mls/hr IV Q8HR [facility] Stop: 12/13/16 15:59 Last Admin: 10/19/16 13:00 Dose: 100 mls/hr Insulin Aspart (Novolog Insulin Sliding Scale) 0 units SUBQ ACHS [facility] PRN Reason: Protocol Stop: 12/13/16 16:29 Last Admin: 10/19/16 07:05 Dose: Not Given Levothyroxine Sodium (Synthroid) 0.05 mg PO QDAC [facility] Stop: 12/19/16 06:29 Miscellaneous (Clinical Monitoring) 1 ea MC PRN PRN PRN Reason: RENAL DOSING Stop: 12/13/16 13:45 Pantoprazole Sodium (Protonix) 40 mg PO DAILY [facility] Stop: 12/14/16 08:59 Last Admin: 10/18/16 09:48 Dose: 40 mg Prochlorperazine Maleate (Compazine) 10 mg PO Q6H PRN PRN Reason: Nausea / Vomiting Stop: 12/13/16 10:39 Last Admin: 10/18/16 17:58 Dose: 10 mg Senna (Senna) 17.2 mg PO HS [facility] Stop: 12/13/16 20:59 Last Admin: 10/18/16 21:52 Dose: 17.2 mg Vitamin B Complex/Vit C/Folic Acid (Vitamin B Complex W/Vitamin C) 1 tab PO DAILY [facility] Stop: 12/14/16 08:59 Last Admin: 10/18/16 09:48 Dose: 1 tab General: Mild distress HEENT: Atraumatic, Mucous membr. moist/pink Neck: Supple, +2 carotid pulse wo bruit Cardiovascular: Regular rate, Normal S1, Normal S2 Lungs: Other (few rhonchi) Abdomen: Bowel sounds, Soft, no Tender Extremities: no Edema Neurological: Other (drowsy) Skin: no Rash Assessment/Plan - Assessment Assessment: ESRD on HD acute decomp CHF acute resp failure type 2 dm ess htn anemia of ckd LLL HAP hypothyroid PAD w/ right toe discoloration chronic hyponatremia abd. pain etio? - Plan Plan: schedule for dialysis in am serial CXR fluid restriction f/u echo for CTA today had BM x2 yesterday lung scan negative
[2016-10-20] MEDS: Hydrocodone/APAP 5mg/325mg Tab PO PRN ×3 (00:10→21:28)
--- NOTE | 2016-10-20 05:03 | Infectious Disease Prog Note ---
Infectious Disease Subjective - Review of Systems Service Date: 10/20/16 Subjective: There is no fever. Infectious Disease Objective - Results Result Diagrams: 10/19/16 06:40 10/19/16 06:40 Recent Labs: Laboratory Last Values WBC 9.2 Th/cmm (4.8-10.8) 10/19/16 06:40 RBC 3.43 Mil/cmm (3.80-5.20) L 10/19/16 06:40 Hgb 10.8 gm/dL (11.7-16.1) L 10/19/16 06:40 Hct 32.8 % (35.0-45.0) L 10/19/16 06:40 MCV 95.6 fl (81-100) 10/19/16 06:40 MCH 31.5 pg (27.0-31.0) H 10/19/16 06:40 MCHC Differential 32.9 pg (28.0-36.0) 10/19/16 06:40 RDW 21.6 % (11.5-20.0) H 10/19/16 06:40 Plt Count 173 Th/cmm (150-400) 10/19/16 06:40 MPV 9.1 fl 10/19/16 06:40 Band Neutrophils % 3 % (0-10) 10/19/16 06:40 Neutrophils (Manual) 81 % (40-80) H 10/19/16 06:40 Lymphocytes 5 % (20-50) L 10/19/16 06:40 Monocytes 6 % (2-10) 10/19/16 06:40 Eosinophils 3 % (0-5) 10/19/16 06:40 Basophils 2 % (0-3) 10/19/16 06:40 Nucleated RBCs 1.0 % (0-0) H 10/14/16 10:40 Platelet Estimate ADEQUATE (NORMAL) 10/19/16 06:40 Platelet Morphology GIANT PLATELETS SEEN (NORMAL) 10/19/16 06:40 Anisocytosis 1+ 10/19/16 06:40 RBC Morph Micro Appear ABNORMAL (NORMAL) 10/19/16 06:40 Sodium 134 mEq/L (136-145) L 10/19/16 06:40 Potassium 4.1 mEq/L (3.5-5.1) 10/19/16 06:40 Chloride 99 mEq/L (98-107) 10/19/16 06:40 Carbon Dioxide 26.1 mEq/L (21.0-31.0) 10/19/16 06:40 Anion Gap 13.0 (7.0-16.0) 10/19/16 06:40 BUN 14 mg/dL (7-25) 10/19/16 06:40 Creatinine 1.8 mg/dL (0.6-1.2) H 10/19/16 06:40 Est GFR ( Amer) 35.9 ml/min 10/19/16 06:40 Est GFR (Non-Af Amer) 29.7 ml/min 10/19/16 06:40 BUN/Creatinine Ratio 7.8 10/19/16 06:40 Glucose 117 mg/dL (70-105) H 10/19/16 06:40 POC Glucose 162 MG/DL (70 - 105) H 10/19/16 21:31 Hemoglobin A1c % 6.9 % (4.0-6.0) H 10/15/16 05:17 Calcium 8.7 mg/dL (8.6-10.3) 10/19/16 06:40 Total Bilirubin 0.9 mg/dL (0.3-1.0) 10/14/16 10:40 AST 12 U/L (13-39) L 10/14/16 10:40 ALT 7 U/L (7-52) 10/14/16 10:40 Alkaline Phosphatase 87 U/L (34-104) 10/14/16 10:40 Ammonia 50 umol/L (16-53) 10/14/16 10:40 B-Natriuretic Peptide > 5000.0 pg/mL (5.0-100.0) H 10/17/16 06:50 Total Protein 5.4 gm/dL (6.0-8.3) L 10/14/16 10:40 Albumin 3.2 gm/dL (3.7-5.3) L 10/14/16 10:40 Globulin 2.2 gm/dL 10/14/16 10:40 Albumin/Globulin Ratio 1.5 (1.0-1.8) 10/14/16 10:40 Triglycerides 119 mg/dL (<150) 10/14/16 10:40 Cholesterol 80 mg/dL (<200) 10/14/16 10:40 LDL Cholesterol Direct 26 mg/dL (75-193) L 10/14/16 10:40 HDL Cholesterol 33 mg/dL (23-92) 10/14/16 10:40 TSH 7.87 uIU/ml (0.34-5.60) H 10/14/16 10:40 Urine Source CATH 10/14/16 06:00 Urine Color BROWN 10/14/16 06:00 Urine Clarity SL. CLOUDY (CLEAR) 10/14/16 06:00 Urine pH 5.5 10/14/16 06:00 Ur Specific [place] 1.025 (1.005-1.030) 10/14/16 06:00 Urine Protein 100 mg/dL (NEGATIVE) H 10/14/16 06:00 Urine Glucose (UA) NEGATIVE mg/dL (NEGATIVE) 10/14/16 06:00 Urine Ketones TRACE mg/dL (NEGATIVE) 10/14/16 06:00 Urine Blood TRACE (NEGATIVE) 10/14/16 06:00 Urine Nitrate NEGATIVE (NEGATIVE) 10/14/16 06:00 Urine Bilirubin SMALL (NEGATIVE) H 10/14/16 06:00 Urine Urobilinogen 0.2 E.U./dL (0.2 - 1.0) 10/14/16 06:00 Ur Leukocyte Esterase NEGATIVE (NEGATIVE) 10/14/16 06:00 Urine RBC 0-1 /hpf (0-5) 10/14/16 06:00 Urine WBC 2-5 /hpf (0-5) 10/14/16 06:00 Ur Epithelial Cells OCCASIONAL /lpf (FEW) 10/14/16 06:00 Amorphous Sediment FEW URATES (NONE SEEN) 10/14/16 06:00 Urine Bacteria NONE SEEN /hpf (NONE SEEN) 10/14/16 06:00 Random Vancomycin 20.8 ug/mL (5.0-40.0) 10/16/16 06:50 Hepatitis A IgM Ab Negative (Negative) 10/15/16 05:17 Hep Bs Antigen Negative (Negative) 10/15/16 05:17 Hep B Core IgM Ab Negative (Negative) 10/15/16 05:17 Hepatitis C Antibody <0.1 s/co ratio (0.0-0.9) 10/15/16 05:17 - Physical Exam Vitals and I&O: Vital Signs Temp 97.9 F 10/20/16 04:00 Pulse 89 10/20/16 04:00 Resp 19 10/20/16 04:00 BP 112/58 10/20/16 04:00 Pulse Ox 98 10/20/16 00:00 Intake & Output 10/19/16 10/19/16 10/20/16 06:59 18:59 06:59 Intake Total 350 450 Balance 350 450 Intake: Intake, IV Amount 200 100 metroNIDAZOLE 500mg/NS 200 100 100mL 500 mg In 100 ml @ 100 mls/hr IV Q8HR [facility] Rx #:[id number] Oral 150 350 Other: # Voids 3 2 # Bowel Movements 1 Stool Characteristics Soft Soft Formed Active Medications: Current Medications Acetaminophen (Tylenol) 650 mg PO Q4HR PRN PRN Reason: fever/pain Stop: 12/13/16 01:20 Last Admin: 10/14/16 09:03 Dose: 650 mg Acetaminophen/Hydrocodone Bitart ([place] 5mg/325mg) 1 tab PO Q3H PRN PRN Reason: moderate pain (4-6) Stop: 12/13/16 10:21 Last Admin: 10/20/16 00:10 Dose: 1 tab Aspirin (Ecotrin) 81 mg PO QAM [facility] Stop: 12/14/16 08:59 Last Admin: 10/18/16 09:48 Dose: 81 mg Docusate Sodium (Colace) 100 mg PO BID [facility] Stop: 12/13/16 16:59 Last Admin: 10/19/16 16:40 Dose: 100 mg Epoetin [place] (Epogen) 10,000 units SUBQ MWF@1500 [facility] Stop: 12/14/16 14:59 Last Admin: 10/18/16 14:57 Dose: 10,000 units Folic Acid (Folate) 1 mg PO DAILY [facility] Stop: 12/14/16 08:59 Last Admin: 10/18/16 09:48 Dose: 1 mg Guaifenesin/Dextromethorphan (Robitussin Dm) 10 ml PO Q4HR PRN PRN Reason: Cough Stop: 12/13/16 10:21 Ceftriaxone Sodium 1 gm/ (Sodium Chloride) 50 mls @ 100 mls/hr IV Q24HR [facility] Stop: 12/13/16 15:59 Last Admin: 10/19/16 15:00 Dose: 100 mls/hr Metronidazole (Flagyl) 500 mg in 100 mls @ 100 mls/hr IV Q8HR [facility] Stop: 12/13/16 15:59 Last Admin: 10/19/16 21:18 Dose: 100 mls/hr Insulin Aspart (Novolog Insulin Sliding Scale) 0 units SUBQ ACHS [facility] PRN Reason: Protocol Stop: 12/13/16 16:29 Last Admin: 10/19/16 21:36 Dose: Not Given Levothyroxine Sodium (Synthroid) 0.05 mg PO QDAC [facility] Stop: 12/19/16 06:29 Miscellaneous (Clinical Monitoring) 1 ea MC PRN PRN PRN Reason: RENAL DOSING Stop: 12/13/16 13:45 Pantoprazole Sodium (Protonix) 40 mg PO DAILY [facility] Stop: 12/14/16 08:59 Last Admin: 10/18/16 09:48 Dose: 40 mg Prochlorperazine Maleate (Compazine) 10 mg PO Q6H PRN PRN Reason: Nausea / Vomiting Stop: 12/13/16 10:39 Last Admin: 10/18/16 17:58 Dose: 10 mg Senna (Senna) 17.2 mg PO HS [facility] Stop: 12/13/16 20:59 Last Admin: 10/19/16 21:18 Dose: 17.2 mg Vitamin B Complex/Vit C/Folic Acid (Vitamin B Complex W/Vitamin C) 1 tab PO DAILY [facility] Stop: 12/14/16 08:59 Last Admin: 10/18/16 09:48 Dose: 1 tab General: no acute distress, well developed, well nourished HEENT: atraumatic, normocephalic, PERRLA, EOMI Neck: supple Cardiovascular: S1S2, regular Lungs: clear to auscultation bilaterally, clear to percussion Abdomen: soft, no tender, no distended Extremities: other (right Big discolored distally.), no cyanosis, no clubbing, no edema Neurological: awake, alert, other (confused.) Infectious Disease Assmt/Plan - Assessment Assessment: Impression: 1. Right big toe cellulitis. 2/2 PAD. 2. R pneumonia. 3. CHF. 4. CKD 5 on HD. 5. DM2 - Plan Plan: Continue vanco IV and rocephin. CTA suggested by Dr Martinez.
[2016-10-20] MEDS: metroNIDAZOLE 500mg/NS 100mL 500 MG/100 ML BAG IV SCH ×3 (05:30→21:24)
[2016-10-20] MEDS: Levothyroxine 0.05 Mg Tab PO SCH (06:04)
[2016-10-20] MEDS: INSULIN ASPART SLIDING SCALE 100 UNITS/ML UNIT SUBQ SCH ×4 (06:51→21:25)
[2016-10-20] MEDS: Pantoprazole 40 mg EC Tab PO SCH (09:04)
[2016-10-20] MEDS: Vitamin B Complex w/Vitamin C Tab PO SCH (09:05)
--- NOTE | 2016-10-20 14:03 | General Progress Note ---
Subjective - Review of Systems Service Date: 10/20/16 Subjective: awake, less tacypnea, still has abd pain Objective - Results Result Diagrams: 10/19/16 06:40 10/19/16 06:40 Recent Labs: Laboratory Last Values WBC 9.2 Th/cmm (4.8-10.8) 10/19/16 06:40 RBC 3.43 Mil/cmm (3.80-5.20) L 10/19/16 06:40 Hgb 10.8 gm/dL (11.7-16.1) L 10/19/16 06:40 Hct 32.8 % (35.0-45.0) L 10/19/16 06:40 MCV 95.6 fl (81-100) 10/19/16 06:40 MCH 31.5 pg (27.0-31.0) H 10/19/16 06:40 MCHC Differential 32.9 pg (28.0-36.0) 10/19/16 06:40 RDW 21.6 % (11.5-20.0) H 10/19/16 06:40 Plt Count 173 Th/cmm (150-400) 10/19/16 06:40 MPV 9.1 fl 10/19/16 06:40 Band Neutrophils % 3 % (0-10) 10/19/16 06:40 Neutrophils (Manual) 81 % (40-80) H 10/19/16 06:40 Lymphocytes 5 % (20-50) L 10/19/16 06:40 Monocytes 6 % (2-10) 10/19/16 06:40 Eosinophils 3 % (0-5) 10/19/16 06:40 Basophils 2 % (0-3) 10/19/16 06:40 Nucleated RBCs 1.0 % (0-0) H 10/14/16 10:40 Platelet Estimate ADEQUATE (NORMAL) 10/19/16 06:40 Platelet Morphology GIANT PLATELETS SEEN (NORMAL) 10/19/16 06:40 Anisocytosis 1+ 10/19/16 06:40 RBC Morph Micro Appear ABNORMAL (NORMAL) 10/19/16 06:40 Sodium 134 mEq/L (136-145) L 10/19/16 06:40 Potassium 4.1 mEq/L (3.5-5.1) 10/19/16 06:40 Chloride 99 mEq/L (98-107) 10/19/16 06:40 Carbon Dioxide 26.1 mEq/L (21.0-31.0) 10/19/16 06:40 Anion Gap 13.0 (7.0-16.0) 10/19/16 06:40 BUN 14 mg/dL (7-25) 10/19/16 06:40 Creatinine 1.8 mg/dL (0.6-1.2) H 10/19/16 06:40 Est GFR ( Amer) 35.9 ml/min 10/19/16 06:40 Est GFR (Non-Af Amer) 29.7 ml/min 10/19/16 06:40 BUN/Creatinine Ratio 7.8 10/19/16 06:40 Glucose 117 mg/dL (70-105) H 10/19/16 06:40 POC Glucose 141 MG/DL (70 - 105) H 10/20/16 11:41 Hemoglobin A1c % 6.9 % (4.0-6.0) H 10/15/16 05:17 Calcium 8.7 mg/dL (8.6-10.3) 10/19/16 06:40 Total Bilirubin 0.9 mg/dL (0.3-1.0) 10/14/16 10:40 AST 12 U/L (13-39) L 10/14/16 10:40 ALT 7 U/L (7-52) 10/14/16 10:40 Alkaline Phosphatase 87 U/L (34-104) 10/14/16 10:40 Ammonia 50 umol/L (16-53) 10/14/16 10:40 B-Natriuretic Peptide > 5000.0 pg/mL (5.0-100.0) H 10/17/16 06:50 Total Protein 5.4 gm/dL (6.0-8.3) L 10/14/16 10:40 Albumin 3.2 gm/dL (3.7-5.3) L 10/14/16 10:40 Globulin 2.2 gm/dL 10/14/16 10:40 Albumin/Globulin Ratio 1.5 (1.0-1.8) 10/14/16 10:40 Triglycerides 119 mg/dL (<150) 10/14/16 10:40 Cholesterol 80 mg/dL (<200) 10/14/16 10:40 LDL Cholesterol Direct 26 mg/dL (75-193) L 10/14/16 10:40 HDL Cholesterol 33 mg/dL (23-92) 10/14/16 10:40 TSH 7.87 uIU/ml (0.34-5.60) H 10/14/16 10:40 Urine Source CATH 10/14/16 06:00 Urine Color BROWN 10/14/16 06:00 Urine Clarity SL. CLOUDY (CLEAR) 10/14/16 06:00 Urine pH 5.5 10/14/16 06:00 Ur Specific [place] 1.025 (1.005-1.030) 10/14/16 06:00 Urine Protein 100 mg/dL (NEGATIVE) H 10/14/16 06:00 Urine Glucose (UA) NEGATIVE mg/dL (NEGATIVE) 10/14/16 06:00 Urine Ketones TRACE mg/dL (NEGATIVE) 10/14/16 06:00 Urine Blood TRACE (NEGATIVE) 10/14/16 06:00 Urine Nitrate NEGATIVE (NEGATIVE) 10/14/16 06:00 Urine Bilirubin SMALL (NEGATIVE) H 10/14/16 06:00 Urine Urobilinogen 0.2 E.U./dL (0.2 - 1.0) 10/14/16 06:00 Ur Leukocyte Esterase NEGATIVE (NEGATIVE) 10/14/16 06:00 Urine RBC 0-1 /hpf (0-5) 10/14/16 06:00 Urine WBC 2-5 /hpf (0-5) 10/14/16 06:00 Ur Epithelial Cells OCCASIONAL /lpf (FEW) 10/14/16 06:00 Amorphous Sediment FEW URATES (NONE SEEN) 10/14/16 06:00 Urine Bacteria NONE SEEN /hpf (NONE SEEN) 10/14/16 06:00 Random Vancomycin 20.8 ug/mL (5.0-40.0) 10/16/16 06:50 Hepatitis A IgM Ab Negative (Negative) 10/15/16 05:17 Hep Bs Antigen Negative (Negative) 10/15/16 05:17 Hep B Core IgM Ab Negative (Negative) 10/15/16 05:17 Hepatitis C Antibody <0.1 s/co ratio (0.0-0.9) 10/15/16 05:17 - Physical Exam Vitals and I&O: Vital Signs Temp 97.0 F 10/20/16 11:53 Pulse 81 10/20/16 11:53 Resp 17 10/20/16 12:00 BP 114/55 10/20/16 11:53 Pulse Ox 100 10/20/16 11:53 Intake & Output 10/19/16 10/20/16 10/20/16 18:59 06:59 18:59 Intake Total 450 350 Balance 450 350 Intake: Intake, IV Amount 100 200 metroNIDAZOLE 500mg/NS 100 200 100mL 500 mg In 100 ml @ 100 mls/hr IV Q8HR [facility] Rx #:[id number] Oral 350 150 Other: # Voids 2 # Bowel Movements 1 Stool Characteristics Soft Active Medications: Current Medications Acetaminophen (Tylenol) 650 mg PO Q4HR PRN PRN Reason: fever/pain Stop: 12/13/16 01:20 Last Admin: 10/14/16 09:03 Dose: 650 mg Acetaminophen/Hydrocodone Bitart ([place] 5mg/325mg) 1 tab PO Q3H PRN PRN Reason: moderate pain (4-6) Stop: 12/13/16 10:21 Last Admin: 10/20/16 09:04 Dose: 1 tab Aspirin (Ecotrin) 81 mg PO QAM [facility] Stop: 12/14/16 08:59 Last Admin: 10/20/16 09:04 Dose: 81 mg Docusate Sodium (Colace) 100 mg PO BID [facility] Stop: 12/13/16 16:59 Last Admin: 10/20/16 09:05 Dose: 100 mg Epoetin [place] (Epogen) 10,000 units SUBQ MWF@1500 [facility] Stop: 12/14/16 14:59 Last Admin: 10/18/16 14:57 Dose: 10,000 units Folic Acid (Folate) 1 mg PO DAILY [facility] Stop: 12/14/16 08:59 Last Admin: 10/20/16 09:05 Dose: 1 mg Guaifenesin/Dextromethorphan (Robitussin Dm) 10 ml PO Q4HR PRN PRN Reason: Cough Stop: 12/13/16 10:21 Ceftriaxone Sodium 1 gm/ (Sodium Chloride) 50 mls @ 100 mls/hr IV Q24HR [facility] Stop: 12/13/16 15:59 Last Admin: 10/19/16 15:00 Dose: 100 mls/hr Metronidazole (Flagyl) 500 mg in 100 mls @ 100 mls/hr IV Q8HR [facility] Stop: 12/13/16 15:59 Last Admin: 10/20/16 13:00 Dose: 100 mls/hr Insulin Aspart (Novolog Insulin Sliding Scale) 0 units SUBQ ACHS [facility] PRN Reason: Protocol Stop: 12/13/16 16:29 Last Admin: 10/20/16 13:00 Dose: Not Given Levothyroxine Sodium (Synthroid) 0.05 mg PO QDAC [facility] Stop: 12/19/16 06:29 Last Admin: 10/20/16 06:04 Dose: 0.05 mg Miscellaneous (Clinical Monitoring) 1 ea MC PRN PRN PRN Reason: RENAL DOSING Stop: 12/13/16 13:45 Pantoprazole Sodium (Protonix) 40 mg PO DAILY [facility] Stop: 12/14/16 08:59 Last Admin: 10/20/16 09:04 Dose: 40 mg Prochlorperazine Maleate (Compazine) 10 mg PO Q6H PRN PRN Reason: Nausea / Vomiting Stop: 12/13/16 10:39 Last Admin: 10/18/16 17:58 Dose: 10 mg Senna (Senna) 17.2 mg PO HS [facility] Stop: 12/13/16 20:59 Last Admin: 10/19/16 21:18 Dose: 17.2 mg Vitamin B Complex/Vit C/Folic Acid (Vitamin B Complex W/Vitamin C) 1 tab PO DAILY [facility] Stop: 12/14/16 08:59 Last Admin: 10/20/16 09:05 Dose: 1 tab General: Alert, Mild distress HEENT: Atraumatic, Mucous membr. moist/pink Neck: Supple, +2 carotid pulse wo bruit Cardiovascular: Regular rate, Normal S1, Normal S2 Lungs: Other (scattered rhonchi) Abdomen: Bowel sounds, Soft, Tender Extremities: no Edema Neurological: Normal tone Skin: no Rash Assessment/Plan - Assessment Assessment: ESRD on HD acute decomp CHF acute resp failure type 2 dm ess htn anemia of ckd LLL HAP hypothyroid PAD w/ right toe discoloration chronic hyponatremia abd. pain etio? - Plan Plan: schedule for dialysis today serial CXR fluid restriction f/u echo for abd ct scan had BM x2 yesterday lung scan negative
[2016-10-20] MEDS: Epoetin Alfa 20000 Units/mL Vial SUBQ SCH (15:46)
[2016-10-20] MEDS: cefTRIAXone 1 GM in Sodium Chloride 0.9% 50 ML IV SCH (16:33)
[2016-10-21] MEDS: metroNIDAZOLE 500mg/NS 100mL 500 MG/100 ML BAG IV SCH ×3 (04:38→20:39)
[2016-10-21] MEDS: Levothyroxine 0.05 Mg Tab PO SCH (05:46)
[2016-10-21] MEDS: INSULIN ASPART SLIDING SCALE 100 UNITS/ML UNIT SUBQ SCH ×4 (06:32→20:40)
[2016-10-21] MEDS: Vitamin B Complex w/Vitamin C Tab PO SCH (08:29)
[2016-10-21] MEDS: Pantoprazole 40 mg EC Tab PO SCH (08:29)
--- NOTE | 2016-10-21 10:46 | Diagnostic Imaging Report ---
CT scan abdomen without intravenous contrast HISTORY: Pain Total DLP equals 323 CTDI equals 8.8 Axial sections were obtained from the xiphoid process down to the iliac crest. Limited sections through the lower chest demonstrate cardiomegaly. Atherosclerotic and severe coronary artery calcification is noted. There are bilateral pleural effusions (left greater than right). Parenchymal density with air bronchograms noted in the right lower lobe associated with a loculated air collection in the right lower hemithorax. Etiology uncertain. Neoplastic or inflammatory change cannot be excluded. The liver exhibits a homogeneous parenchyma. No focal lesions. The spleen appears normal. Small amount of ascites is seen. No definite abnormality seen in the region of the pancreas. Extensive atherosclerotic vascular calcification noted. Vascular calcification seen in the medullary regions of the kidneys. No hydronephrosis. IMPRESSION: 1. Evidence of bilateral pleural effusions and infiltrates with loculated air collections in the right lower hemithorax. Inflammatory or neoplastic change cannot be excluded. A dedicated CT scan of the chest with provide for further assessment and evaluation. 2. Cardiomegaly with evidence of severe coronary artery and after hepatic vascular disease 3. Small amount of ascites 4. Haziness throughout the subcutaneous fatty tissues of the abdomen consistent with anasarca.
[2016-10-21] MEDS: Hydrocodone/APAP 5mg/325mg Tab PO PRN (12:03)
[2016-10-21] MEDS ORDERED: IOHEXOL 350mg/mL 100mL Bottle IVP ONE (12:13)
--- NOTE | 2016-10-21 12:29 | Consultation ---
REFERRING PHYSICIAN: Bienvenido Zhang M.D. REASON FOR CONSULTATION: Gangrene, right big toe. Thank you for referring this patient to me. HISTORY OF PRESENT ILLNESS: This is a 70-year-old female who was admitted. I was consulted for gangrene of the right big toe. Per information from the patient, this has been going on for several months. She claims pain in the area. PAST MEDICAL HISTORY: Includes hypertension, heart failure, diabetes, anemia, hypothyroidism, GERD, neuropathy. LABORATORY STUDIES: On this admission, the laboratory studies showed the WBC known to be normal, hemoglobin is 10.1 grams. The chemistry shows elevation in both BUN and creatinine. The patient underwent a Doppler arterial study and this shows severe peripheral vascular disease bilaterally, worse on the right side. PHYSICAL EXAMINATION: There is early gangrene of the right big toe with loss of the nail. There is dusky discoloration of dorsal and plantar aspect of the forefoot. Pedal pulses are not palpable. The femoral pulses are weakly palpable, ____ bilaterally negative. IMPRESSION: 1. Peripheral vascular disease. 2. Gangrene, right big toe. RECOMMENDATION: CT angiogram will be recommended and depending on the results of the study, will recommend appropriate treatment. Thank you for this consultation. [facility] [id number]
[2016-10-21] MEDS: cefTRIAXone 1 GM in Sodium Chloride 0.9% 50 ML IV SCH (15:43)
--- NOTE | 2016-10-21 16:29 | General Progress Note ---
Subjective - Review of Systems Service Date: 10/21/16 Subjective: awake, less tacypnea, still has abd pain nonspecific Objective - Results Result Diagrams: 10/19/16 06:40 10/19/16 06:40 Recent Labs: Laboratory Last Values WBC 9.2 Th/cmm (4.8-10.8) 10/19/16 06:40 RBC 3.43 Mil/cmm (3.80-5.20) L 10/19/16 06:40 Hgb 10.8 gm/dL (11.7-16.1) L 10/19/16 06:40 Hct 32.8 % (35.0-45.0) L 10/19/16 06:40 MCV 95.6 fl (81-100) 10/19/16 06:40 MCH 31.5 pg (27.0-31.0) H 10/19/16 06:40 MCHC Differential 32.9 pg (28.0-36.0) 10/19/16 06:40 RDW 21.6 % (11.5-20.0) H 10/19/16 06:40 Plt Count 173 Th/cmm (150-400) 10/19/16 06:40 MPV 9.1 fl 10/19/16 06:40 Band Neutrophils % 3 % (0-10) 10/19/16 06:40 Neutrophils (Manual) 81 % (40-80) H 10/19/16 06:40 Lymphocytes 5 % (20-50) L 10/19/16 06:40 Monocytes 6 % (2-10) 10/19/16 06:40 Eosinophils 3 % (0-5) 10/19/16 06:40 Basophils 2 % (0-3) 10/19/16 06:40 Nucleated RBCs 1.0 % (0-0) H 10/14/16 10:40 Platelet Estimate ADEQUATE (NORMAL) 10/19/16 06:40 Platelet Morphology GIANT PLATELETS SEEN (NORMAL) 10/19/16 06:40 Anisocytosis 1+ 10/19/16 06:40 RBC Morph Micro Appear ABNORMAL (NORMAL) 10/19/16 06:40 Sodium 134 mEq/L (136-145) L 10/19/16 06:40 Potassium 4.1 mEq/L (3.5-5.1) 10/19/16 06:40 Chloride 99 mEq/L (98-107) 10/19/16 06:40 Carbon Dioxide 26.1 mEq/L (21.0-31.0) 10/19/16 06:40 Anion Gap 13.0 (7.0-16.0) 10/19/16 06:40 BUN 14 mg/dL (7-25) 10/19/16 06:40 Creatinine 1.8 mg/dL (0.6-1.2) H 10/19/16 06:40 Est GFR ( Amer) 35.9 ml/min 10/19/16 06:40 Est GFR (Non-Af Amer) 29.7 ml/min 10/19/16 06:40 BUN/Creatinine Ratio 7.8 10/19/16 06:40 Glucose 117 mg/dL (70-105) H 10/19/16 06:40 POC Glucose 228 MG/DL (70 - 105) H 10/21/16 16:19 Hemoglobin A1c % 6.9 % (4.0-6.0) H 10/15/16 05:17 Calcium 8.7 mg/dL (8.6-10.3) 10/19/16 06:40 Total Bilirubin 0.9 mg/dL (0.3-1.0) 10/14/16 10:40 AST 12 U/L (13-39) L 10/14/16 10:40 ALT 7 U/L (7-52) 10/14/16 10:40 Alkaline Phosphatase 87 U/L (34-104) 10/14/16 10:40 Ammonia 50 umol/L (16-53) 10/14/16 10:40 B-Natriuretic Peptide > 5000.0 pg/mL (5.0-100.0) H 10/17/16 06:50 Total Protein 5.4 gm/dL (6.0-8.3) L 10/14/16 10:40 Albumin 3.2 gm/dL (3.7-5.3) L 10/14/16 10:40 Globulin 2.2 gm/dL 10/14/16 10:40 Albumin/Globulin Ratio 1.5 (1.0-1.8) 10/14/16 10:40 Triglycerides 119 mg/dL (<150) 10/14/16 10:40 Cholesterol 80 mg/dL (<200) 10/14/16 10:40 LDL Cholesterol Direct 26 mg/dL (75-193) L 10/14/16 10:40 HDL Cholesterol 33 mg/dL (23-92) 10/14/16 10:40 TSH 7.87 uIU/ml (0.34-5.60) H 10/14/16 10:40 Urine Source CATH 10/14/16 06:00 Urine Color BROWN 10/14/16 06:00 Urine Clarity SL. CLOUDY (CLEAR) 10/14/16 06:00 Urine pH 5.5 10/14/16 06:00 Ur Specific [place] 1.025 (1.005-1.030) 10/14/16 06:00 Urine Protein 100 mg/dL (NEGATIVE) H 10/14/16 06:00 Urine Glucose (UA) NEGATIVE mg/dL (NEGATIVE) 10/14/16 06:00 Urine Ketones TRACE mg/dL (NEGATIVE) 10/14/16 06:00 Urine Blood TRACE (NEGATIVE) 10/14/16 06:00 Urine Nitrate NEGATIVE (NEGATIVE) 10/14/16 06:00 Urine Bilirubin SMALL (NEGATIVE) H 10/14/16 06:00 Urine Urobilinogen 0.2 E.U./dL (0.2 - 1.0) 10/14/16 06:00 Ur Leukocyte Esterase NEGATIVE (NEGATIVE) 10/14/16 06:00 Urine RBC 0-1 /hpf (0-5) 10/14/16 06:00 Urine WBC 2-5 /hpf (0-5) 10/14/16 06:00 Ur Epithelial Cells OCCASIONAL /lpf (FEW) 10/14/16 06:00 Amorphous Sediment FEW URATES (NONE SEEN) 10/14/16 06:00 Urine Bacteria NONE SEEN /hpf (NONE SEEN) 10/14/16 06:00 Random Vancomycin 20.8 ug/mL (5.0-40.0) 10/16/16 06:50 Hepatitis A IgM Ab Negative (Negative) 10/15/16 05:17 Hep Bs Antigen Negative (Negative) 10/15/16 05:17 Hep B Core IgM Ab Negative (Negative) 10/15/16 05:17 Hepatitis C Antibody <0.1 s/co ratio (0.0-0.9) 10/15/16 05:17 - Physical Exam Vitals and I&O: Vital Signs Temp 99.4 F 10/21/16 15:34 Pulse 87 10/21/16 15:34 Resp 20 10/21/16 15:34 BP 116/51 10/21/16 15:34 Pulse Ox 99 10/21/16 15:34 Intake & Output 10/20/16 10/21/16 10/21/16 18:59 06:59 18:59 Intake Total 500 320 100 Balance 500 320 100 Intake: Intake, IV Amount 150 200 100 cefTRIAXone 1 gm In 50 Sodium Chloride 0.9% 50 ml @ 100 mls/hr IV Q24HR [facility] Rx#:[id number] metroNIDAZOLE 500mg/NS 100 200 100 100mL 500 mg In 100 ml @ 100 mls/hr IV Q8HR [facility] Rx #:[id number] Oral 350 120 Other: # Voids 1 # Bowel Movements 0 Active Medications: Current Medications Acetaminophen (Tylenol) 650 mg PO Q4HR PRN PRN Reason: fever/pain Stop: 12/13/16 01:20 Last Admin: 10/14/16 09:03 Dose: 650 mg Acetaminophen/Hydrocodone Bitart ([place] 5mg/325mg) 1 tab PO Q3H PRN PRN Reason: moderate pain (4-6) Stop: 12/13/16 10:21 Last Admin: 10/21/16 12:03 Dose: 1 tab Aspirin (Ecotrin) 81 mg PO QAM [facility] Stop: 12/14/16 08:59 Last Admin: 10/21/16 08:29 Dose: 81 mg Docusate Sodium (Colace) 100 mg PO BID [facility] Stop: 12/13/16 16:59 Last Admin: 10/21/16 08:29 Dose: 100 mg Epoetin [place] (Epogen) 10,000 units SUBQ MWF@1500 [facility] Stop: 12/14/16 14:59 Last Admin: 10/20/16 15:46 Dose: 10,000 units Folic Acid (Folate) 1 mg PO DAILY [facility] Stop: 12/14/16 08:59 Last Admin: 10/21/16 08:29 Dose: 1 mg Guaifenesin/Dextromethorphan (Robitussin Dm) 10 ml PO Q4HR PRN PRN Reason: Cough Stop: 12/13/16 10:21 Ceftriaxone Sodium 1 gm/ (Sodium Chloride) 50 mls @ 100 mls/hr IV Q24HR [facility] Stop: 12/13/16 15:59 Last Admin: 10/21/16 15:43 Dose: 100 mls/hr Metronidazole (Flagyl) 500 mg in 100 mls @ 100 mls/hr IV Q8HR [facility] Stop: 12/13/16 15:59 Last Infusion: 10/21/16 13:50 Dose: Infused Insulin Aspart (Novolog Insulin Sliding Scale) 0 units SUBQ ACHS [facility] PRN Reason: Protocol Stop: 12/13/16 16:29 Last Admin: 10/21/16 12:03 Dose: 4 units Levothyroxine Sodium (Synthroid) 0.05 mg PO QDAC [facility] Stop: 12/19/16 06:29 Last Admin: 10/21/16 05:46 Dose: 0.05 mg Miscellaneous (Clinical Monitoring) 1 ea MC PRN PRN PRN Reason: RENAL DOSING Stop: 12/13/16 13:45 Pantoprazole Sodium (Protonix) 40 mg PO DAILY [facility] Stop: 12/14/16 08:59 Last Admin: 10/21/16 08:29 Dose: 40 mg Prochlorperazine Maleate (Compazine) 10 mg PO Q6H PRN PRN Reason: Nausea / Vomiting Stop: 12/13/16 10:39 Last Admin: 10/18/16 17:58 Dose: 10 mg Senna (Senna) 17.2 mg PO HS [facility] Stop: 12/13/16 20:59 Last Admin: 10/20/16 21:24 Dose: 17.2 mg Vitamin B Complex/Vit C/Folic Acid (Vitamin B Complex W/Vitamin C) 1 tab PO DAILY [facility] Stop: 12/14/16 08:59 Last Admin: 10/21/16 08:29 Dose: 1 tab General: Alert, Mild distress HEENT: Atraumatic, Mucous membr. moist/pink Neck: Supple, +2 carotid pulse wo bruit Cardiovascular: Regular rate, Normal S1, Normal S2 Lungs: Other (few rhonchi) Abdomen: Bowel sounds, Soft, no Tender Extremities: no Edema Neurological: Normal tone, Sensation intact Skin: no Rash Assessment/Plan - Assessment Assessment: ESRD on HD acute decomp systolic CHF acute resp failure type 2 dm ess htn anemia of ckd LLL HAP hypothyroid PAD w/ right toe discoloration chronic hyponatremia abd. pain etio? - Plan Plan: schedule for dialysis in am serial CXR fluid restriction
--- NOTE | 2016-10-21 20:57 | Infectious Disease Prog Note ---
Infectious Disease Subjective - Review of Systems Service Date: 10/21/16 Subjective: There is no fever. Infectious Disease Objective - Results Result Diagrams: 10/19/16 06:40 10/19/16 06:40 Recent Labs: Laboratory Last Values WBC 9.2 Th/cmm (4.8-10.8) 10/19/16 06:40 RBC 3.43 Mil/cmm (3.80-5.20) L 10/19/16 06:40 Hgb 10.8 gm/dL (11.7-16.1) L 10/19/16 06:40 Hct 32.8 % (35.0-45.0) L 10/19/16 06:40 MCV 95.6 fl (81-100) 10/19/16 06:40 MCH 31.5 pg (27.0-31.0) H 10/19/16 06:40 MCHC Differential 32.9 pg (28.0-36.0) 10/19/16 06:40 RDW 21.6 % (11.5-20.0) H 10/19/16 06:40 Plt Count 173 Th/cmm (150-400) 10/19/16 06:40 MPV 9.1 fl 10/19/16 06:40 Band Neutrophils % 3 % (0-10) 10/19/16 06:40 Neutrophils (Manual) 81 % (40-80) H 10/19/16 06:40 Lymphocytes 5 % (20-50) L 10/19/16 06:40 Monocytes 6 % (2-10) 10/19/16 06:40 Eosinophils 3 % (0-5) 10/19/16 06:40 Basophils 2 % (0-3) 10/19/16 06:40 Nucleated RBCs 1.0 % (0-0) H 10/14/16 10:40 Platelet Estimate ADEQUATE (NORMAL) 10/19/16 06:40 Platelet Morphology GIANT PLATELETS SEEN (NORMAL) 10/19/16 06:40 Anisocytosis 1+ 10/19/16 06:40 RBC Morph Micro Appear ABNORMAL (NORMAL) 10/19/16 06:40 Sodium 134 mEq/L (136-145) L 10/19/16 06:40 Potassium 4.1 mEq/L (3.5-5.1) 10/19/16 06:40 Chloride 99 mEq/L (98-107) 10/19/16 06:40 Carbon Dioxide 26.1 mEq/L (21.0-31.0) 10/19/16 06:40 Anion Gap 13.0 (7.0-16.0) 10/19/16 06:40 BUN 14 mg/dL (7-25) 10/19/16 06:40 Creatinine 1.8 mg/dL (0.6-1.2) H 10/19/16 06:40 Est GFR ( Amer) 35.9 ml/min 10/19/16 06:40 Est GFR (Non-Af Amer) 29.7 ml/min 10/19/16 06:40 BUN/Creatinine Ratio 7.8 10/19/16 06:40 Glucose 117 mg/dL (70-105) H 10/19/16 06:40 POC Glucose 129 MG/DL (70 - 105) H 10/21/16 20:14 Hemoglobin A1c % 6.9 % (4.0-6.0) H 10/15/16 05:17 Calcium 8.7 mg/dL (8.6-10.3) 10/19/16 06:40 Total Bilirubin 0.9 mg/dL (0.3-1.0) 10/14/16 10:40 AST 12 U/L (13-39) L 10/14/16 10:40 ALT 7 U/L (7-52) 10/14/16 10:40 Alkaline Phosphatase 87 U/L (34-104) 10/14/16 10:40 Ammonia 50 umol/L (16-53) 10/14/16 10:40 B-Natriuretic Peptide > 5000.0 pg/mL (5.0-100.0) H 10/17/16 06:50 Total Protein 5.4 gm/dL (6.0-8.3) L 10/14/16 10:40 Albumin 3.2 gm/dL (3.7-5.3) L 10/14/16 10:40 Globulin 2.2 gm/dL 10/14/16 10:40 Albumin/Globulin Ratio 1.5 (1.0-1.8) 10/14/16 10:40 Triglycerides 119 mg/dL (<150) 10/14/16 10:40 Cholesterol 80 mg/dL (<200) 10/14/16 10:40 LDL Cholesterol Direct 26 mg/dL (75-193) L 10/14/16 10:40 HDL Cholesterol 33 mg/dL (23-92) 10/14/16 10:40 TSH 7.87 uIU/ml (0.34-5.60) H 10/14/16 10:40 Urine Source CATH 10/14/16 06:00 Urine Color BROWN 10/14/16 06:00 Urine Clarity SL. CLOUDY (CLEAR) 10/14/16 06:00 Urine pH 5.5 10/14/16 06:00 Ur Specific [place] 1.025 (1.005-1.030) 10/14/16 06:00 Urine Protein 100 mg/dL (NEGATIVE) H 10/14/16 06:00 Urine Glucose (UA) NEGATIVE mg/dL (NEGATIVE) 10/14/16 06:00 Urine Ketones TRACE mg/dL (NEGATIVE) 10/14/16 06:00 Urine Blood TRACE (NEGATIVE) 10/14/16 06:00 Urine Nitrate NEGATIVE (NEGATIVE) 10/14/16 06:00 Urine Bilirubin SMALL (NEGATIVE) H 10/14/16 06:00 Urine Urobilinogen 0.2 E.U./dL (0.2 - 1.0) 10/14/16 06:00 Ur Leukocyte Esterase NEGATIVE (NEGATIVE) 10/14/16 06:00 Urine RBC 0-1 /hpf (0-5) 10/14/16 06:00 Urine WBC 2-5 /hpf (0-5) 10/14/16 06:00 Ur Epithelial Cells OCCASIONAL /lpf (FEW) 10/14/16 06:00 Amorphous Sediment FEW URATES (NONE SEEN) 10/14/16 06:00 Urine Bacteria NONE SEEN /hpf (NONE SEEN) 10/14/16 06:00 Random Vancomycin 20.8 ug/mL (5.0-40.0) 10/16/16 06:50 Hepatitis A IgM Ab Negative (Negative) 10/15/16 05:17 Hep Bs Antigen Negative (Negative) 10/15/16 05:17 Hep B Core IgM Ab Negative (Negative) 10/15/16 05:17 Hepatitis C Antibody <0.1 s/co ratio (0.0-0.9) 10/15/16 05:17 - Physical Exam Vitals and I&O: Vital Signs Temp 99.4 F 10/21/16 15:34 Pulse 87 10/21/16 15:34 Resp 18 10/21/16 16:00 BP 116/51 10/21/16 15:34 Pulse Ox 99 10/21/16 15:34 Intake & Output 10/21/16 10/21/16 10/22/16 06:59 18:59 06:59 Intake Total 320 150 Balance 320 150 Intake: Intake, IV Amount 200 150 cefTRIAXone 1 gm In 50 Sodium Chloride 0.9% 50 ml @ 100 mls/hr IV Q24HR [facility] Rx#:[id number] metroNIDAZOLE 500mg/NS 200 100 100mL 500 mg In 100 ml @ 100 mls/hr IV Q8HR [facility] Rx #:[id number] Oral 120 Active Medications: Current Medications Acetaminophen (Tylenol) 650 mg PO Q4HR PRN PRN Reason: fever/pain Stop: 12/13/16 01:20 Last Admin: 10/14/16 09:03 Dose: 650 mg Acetaminophen/Hydrocodone Bitart ([place] 5mg/325mg) 1 tab PO Q3H PRN PRN Reason: moderate pain (4-6) Stop: 12/13/16 10:21 Last Admin: 10/21/16 12:03 Dose: 1 tab Aspirin (Ecotrin) 81 mg PO QAM [facility] Stop: 12/14/16 08:59 Last Admin: 10/21/16 08:29 Dose: 81 mg Docusate Sodium (Colace) 100 mg PO BID [facility] Stop: 12/13/16 16:59 Last Admin: 10/21/16 16:34 Dose: 100 mg Epoetin [place] (Epogen) 10,000 units SUBQ MWF@1500 [facility] Stop: 12/14/16 14:59 Last Admin: 10/20/16 15:46 Dose: 10,000 units Folic Acid (Folate) 1 mg PO DAILY [facility] Stop: 12/14/16 08:59 Last Admin: 10/21/16 08:29 Dose: 1 mg Guaifenesin/Dextromethorphan (Robitussin Dm) 10 ml PO Q4HR PRN PRN Reason: Cough Stop: 12/13/16 10:21 Ceftriaxone Sodium 1 gm/ (Sodium Chloride) 50 mls @ 100 mls/hr IV Q24HR [facility] Stop: 12/13/16 15:59 Last Infusion: 10/21/16 16:45 Dose: Infused Metronidazole (Flagyl) 500 mg in 100 mls @ 100 mls/hr IV Q8HR [facility] Stop: 12/13/16 15:59 Last Admin: 10/21/16 20:39 Dose: 100 mls/hr Insulin Aspart (Novolog Insulin Sliding Scale) 0 units SUBQ ACHS [facility] PRN Reason: Protocol Stop: 12/13/16 16:29 Last Admin: 10/21/16 20:40 Dose: Not Given Levothyroxine Sodium (Synthroid) 0.05 mg PO QDAC [facility] Stop: 12/19/16 06:29 Last Admin: 10/21/16 05:46 Dose: 0.05 mg Miscellaneous (Clinical Monitoring) 1 ea MC PRN PRN PRN Reason: RENAL DOSING Stop: 12/13/16 13:45 Pantoprazole Sodium (Protonix) 40 mg PO DAILY [facility] Stop: 12/14/16 08:59 Last Admin: 10/21/16 08:29 Dose: 40 mg Prochlorperazine Maleate (Compazine) 10 mg PO Q6H PRN PRN Reason: Nausea / Vomiting Stop: 12/13/16 10:39 Last Admin: 10/18/16 17:58 Dose: 10 mg Senna (Senna) 17.2 mg PO HS [facility] Stop: 12/13/16 20:59 Last Admin: 10/21/16 20:39 Dose: 17.2 mg Vitamin B Complex/Vit C/Folic Acid (Vitamin B Complex W/Vitamin C) 1 tab PO DAILY [facility] Stop: 12/14/16 08:59 Last Admin: 10/21/16 08:29 Dose: 1 tab General: no acute distress, well developed, well nourished HEENT: atraumatic, normocephalic, PERRLA, EOMI Neck: supple, other, no thyromegaly, no lymphadenopathy Cardiovascular: S1S2, regular Lungs: no clear to auscultation bilaterally, no clear to percussion, no crackles Abdomen: soft, no tender, no distended Extremities: other (right big toe necrotic change.), no cyanosis, no clubbing, no edema Neurological: awake, alert Infectious Disease Assmt/Plan - Assessment Assessment: Impression: 1. Right big toe cellulitis. 2/2 PAD. 2. R pneumonia with air. 3. CHF. 4. CKD 5 on HD. 5. DM2 - Plan Plan: Continue vanco IV and rocephin. CTA. Pulmonary consult.
[2016-10-22] MEDS: Hydrocodone/APAP 5mg/325mg Tab PO PRN ×5 (00:02→21:32)
[2016-10-22] MEDS: metroNIDAZOLE 500mg/NS 100mL 500 MG/100 ML BAG IV SCH ×3 (04:53→21:32)
[2016-10-22] MEDS: Levothyroxine 0.05 Mg Tab PO SCH (06:05)
[2016-10-22] MEDS: INSULIN ASPART SLIDING SCALE 100 UNITS/ML UNIT SUBQ SCH ×4 (06:33→21:43)
[2016-10-22] MEDS: Pantoprazole 40 mg EC Tab PO SCH (09:01)
[2016-10-22] MEDS: Vitamin B Complex w/Vitamin C Tab PO SCH (09:01)
--- NOTE | 2016-10-22 12:54 | General Progress Note ---
Subjective - Review of Systems Service Date: 10/22/16 (ct angio done with pvd results pending) Objective - Results Result Diagrams: 10/19/16 06:40 10/19/16 06:40 Recent Labs: Laboratory Last Values WBC 9.2 Th/cmm (4.8-10.8) 10/19/16 06:40 RBC 3.43 Mil/cmm (3.80-5.20) L 10/19/16 06:40 Hgb 10.8 gm/dL (11.7-16.1) L 10/19/16 06:40 Hct 32.8 % (35.0-45.0) L 10/19/16 06:40 MCV 95.6 fl (81-100) 10/19/16 06:40 MCH 31.5 pg (27.0-31.0) H 10/19/16 06:40 MCHC Differential 32.9 pg (28.0-36.0) 10/19/16 06:40 RDW 21.6 % (11.5-20.0) H 10/19/16 06:40 Plt Count 173 Th/cmm (150-400) 10/19/16 06:40 MPV 9.1 fl 10/19/16 06:40 Band Neutrophils % 3 % (0-10) 10/19/16 06:40 Neutrophils (Manual) 81 % (40-80) H 10/19/16 06:40 Lymphocytes 5 % (20-50) L 10/19/16 06:40 Monocytes 6 % (2-10) 10/19/16 06:40 Eosinophils 3 % (0-5) 10/19/16 06:40 Basophils 2 % (0-3) 10/19/16 06:40 Nucleated RBCs 1.0 % (0-0) H 10/14/16 10:40 Platelet Estimate ADEQUATE (NORMAL) 10/19/16 06:40 Platelet Morphology GIANT PLATELETS SEEN (NORMAL) 10/19/16 06:40 Anisocytosis 1+ 10/19/16 06:40 RBC Morph Micro Appear ABNORMAL (NORMAL) 10/19/16 06:40 Sodium 134 mEq/L (136-145) L 10/19/16 06:40 Potassium 4.1 mEq/L (3.5-5.1) 10/19/16 06:40 Chloride 99 mEq/L (98-107) 10/19/16 06:40 Carbon Dioxide 26.1 mEq/L (21.0-31.0) 10/19/16 06:40 Anion Gap 13.0 (7.0-16.0) 10/19/16 06:40 BUN 14 mg/dL (7-25) 10/19/16 06:40 Creatinine 1.8 mg/dL (0.6-1.2) H 10/19/16 06:40 Est GFR ( Amer) 35.9 ml/min 10/19/16 06:40 Est GFR (Non-Af Amer) 29.7 ml/min 10/19/16 06:40 BUN/Creatinine Ratio 7.8 10/19/16 06:40 Glucose 117 mg/dL (70-105) H 10/19/16 06:40 POC Glucose 89 MG/DL (70 - 105) 10/22/16 12:34 Hemoglobin A1c % 6.9 % (4.0-6.0) H 10/15/16 05:17 Calcium 8.7 mg/dL (8.6-10.3) 10/19/16 06:40 Total Bilirubin 0.9 mg/dL (0.3-1.0) 10/14/16 10:40 AST 12 U/L (13-39) L 10/14/16 10:40 ALT 7 U/L (7-52) 10/14/16 10:40 Alkaline Phosphatase 87 U/L (34-104) 10/14/16 10:40 Ammonia 50 umol/L (16-53) 10/14/16 10:40 B-Natriuretic Peptide > 5000.0 pg/mL (5.0-100.0) H 10/17/16 06:50 Total Protein 5.4 gm/dL (6.0-8.3) L 10/14/16 10:40 Albumin 3.2 gm/dL (3.7-5.3) L 10/14/16 10:40 Globulin 2.2 gm/dL 10/14/16 10:40 Albumin/Globulin Ratio 1.5 (1.0-1.8) 10/14/16 10:40 Triglycerides 119 mg/dL (<150) 10/14/16 10:40 Cholesterol 80 mg/dL (<200) 10/14/16 10:40 LDL Cholesterol Direct 26 mg/dL (75-193) L 10/14/16 10:40 HDL Cholesterol 33 mg/dL (23-92) 10/14/16 10:40 TSH 7.87 uIU/ml (0.34-5.60) H 10/14/16 10:40 Urine Source CATH 10/14/16 06:00 Urine Color BROWN 10/14/16 06:00 Urine Clarity SL. CLOUDY (CLEAR) 10/14/16 06:00 Urine pH 5.5 10/14/16 06:00 Ur Specific [place] 1.025 (1.005-1.030) 10/14/16 06:00 Urine Protein 100 mg/dL (NEGATIVE) H 10/14/16 06:00 Urine Glucose (UA) NEGATIVE mg/dL (NEGATIVE) 10/14/16 06:00 Urine Ketones TRACE mg/dL (NEGATIVE) 10/14/16 06:00 Urine Blood TRACE (NEGATIVE) 10/14/16 06:00 Urine Nitrate NEGATIVE (NEGATIVE) 10/14/16 06:00 Urine Bilirubin SMALL (NEGATIVE) H 10/14/16 06:00 Urine Urobilinogen 0.2 E.U./dL (0.2 - 1.0) 10/14/16 06:00 Ur Leukocyte Esterase NEGATIVE (NEGATIVE) 10/14/16 06:00 Urine RBC 0-1 /hpf (0-5) 10/14/16 06:00 Urine WBC 2-5 /hpf (0-5) 10/14/16 06:00 Ur Epithelial Cells OCCASIONAL /lpf (FEW) 10/14/16 06:00 Amorphous Sediment FEW URATES (NONE SEEN) 10/14/16 06:00 Urine Bacteria NONE SEEN /hpf (NONE SEEN) 10/14/16 06:00 Random Vancomycin 20.8 ug/mL (5.0-40.0) 10/16/16 06:50 Hepatitis A IgM Ab Negative (Negative) 10/15/16 05:17 Hep Bs Antigen Negative (Negative) 10/15/16 05:17 Hep B Core IgM Ab Negative (Negative) 10/15/16 05:17 Hepatitis C Antibody <0.1 s/co ratio (0.0-0.9) 10/15/16 05:17 - Physical Exam Vitals and I&O: Vital Signs Temp 97.2 F 10/22/16 07:41 Pulse 81 10/22/16 07:41 Resp 18 10/22/16 08:00 BP 126/64 10/22/16 07:41 Pulse Ox 100 10/22/16 07:41 Intake & Output 10/21/16 10/22/16 10/22/16 18:59 06:59 18:59 Intake Total 150 500 Balance 150 500 Intake: Intake, IV Amount 150 200 cefTRIAXone 1 gm In 50 Sodium Chloride 0.9% 50 ml @ 100 mls/hr IV Q24HR [facility] Rx#:[id number] metroNIDAZOLE 500mg/NS 100 200 100mL 500 mg In 100 ml @ 100 mls/hr IV Q8HR [facility] Rx #:[id number] Oral 300 Other: # Voids 1 # Bowel Movements 1 Active Medications: Current Medications Acetaminophen (Tylenol) 650 mg PO Q4HR PRN PRN Reason: fever/pain Stop: 12/13/16 01:20 Last Admin: 10/14/16 09:03 Dose: 650 mg Acetaminophen/Hydrocodone Bitart ([place] 5mg/325mg) 1 tab PO Q3H PRN PRN Reason: moderate pain (4-6) Stop: 12/13/16 10:21 Last Admin: 10/22/16 12:40 Dose: 1 tab Aspirin (Ecotrin) 81 mg PO QAM [facility] Stop: 12/14/16 08:59 Last Admin: 10/22/16 09:01 Dose: 81 mg Docusate Sodium (Colace) 100 mg PO BID [facility] Stop: 12/13/16 16:59 Last Admin: 10/22/16 09:01 Dose: 100 mg Epoetin [place] (Epogen) 10,000 units SUBQ MWF@1500 [facility] Stop: 12/14/16 14:59 Last Admin: 10/20/16 15:46 Dose: 10,000 units Folic Acid (Folate) 1 mg PO DAILY [facility] Stop: 12/14/16 08:59 Last Admin: 10/22/16 09:01 Dose: 1 mg Guaifenesin/Dextromethorphan (Robitussin Dm) 10 ml PO Q4HR PRN PRN Reason: Cough Stop: 12/13/16 10:21 Ceftriaxone Sodium 1 gm/ (Sodium Chloride) 50 mls @ 100 mls/hr IV Q24HR [facility] Stop: 12/13/16 15:59 Last Infusion: 10/21/16 16:45 Dose: Infused Metronidazole (Flagyl) 500 mg in 100 mls @ 100 mls/hr IV Q8HR FILIBERTO Stop: 12/13/16 15:59 Last Admin: 10/22/16 12:40 Dose: 100 mls/hr Insulin Aspart (Novolog Insulin Sliding Scale) 0 units SUBQ ACHS FILIBERTO PRN Reason: Protocol Stop: 12/13/16 16:29 Last Admin: 10/22/16 12:35 Dose: Not Given Levothyroxine Sodium (Synthroid) 0.05 mg PO QDAC FILIBERTO Stop: 12/19/16 06:29 Last Admin: 10/22/16 06:05 Dose: 0.05 mg Miscellaneous (Clinical Monitoring) 1 ea PRN PRN PRN Reason: RENAL DOSING Stop: 12/13/16 13:45 Pantoprazole Sodium (Protonix) 40 mg PO DAILY FILIBERTO Stop: 12/14/16 08:59 Last Admin: 10/22/16 09:01 Dose: 40 mg Prochlorperazine Maleate (Compazine) 10 mg PO Q6H PRN PRN Reason: Nausea / Vomiting Stop: 12/13/16 10:39 Last Admin: 10/22/16 00:02 Dose: 10 mg Senna (Senna) 17.2 mg PO HS [facility] Stop: 12/13/16 20:59 Last Admin: 10/21/16 20:39 Dose: 17.2 mg Vitamin B Complex/Vit C/Folic Acid (Vitamin B Complex W/Vitamin C) 1 tab PO DAILY FILIBERTO Stop: 12/14/16 08:59 Last Admin: 10/22/16 09:01 Dose: 1 tab General: No acute distress Neck: Supple Cardiovascular: Regular rate Abdomen: Bowel sounds (normal) Neurological: Other (bedridden) Assessment/Plan - Plan Plan: hemodialysis today diet adjusted to regular no restriction
--- NOTE | 2016-10-22 14:30 | Diagnostic Imaging Report ---
CT angiogram of the lower extremities with intravenous contrast (CTA) HISTORY: Gangrene right first toe, peripheral vascular disease Total DLP equals 957 CTDI equals 44.0 Following administration of intravenous contrast, axial sections were obtained at the level of the diaphragm down through the ankle regions. The exam demonstrates diffuse multifocal atherosclerotic plaque throughout the abdominal aorta. No aneurysm is seen. Focal calcification noted at the origin of the celiac axis and renal arteries. Calcified atherosclerotic plaque results in moderate to severe narrowing at the origin of the right common iliac artery (70%). Severe narrowing (greater than 80%) noted at the origin of the right superficial femoral artery. Diffuse atherosclerotic plaque noted through the remainder of the superficial femoral artery with moderate to severe generalized narrowing. Focal calcified plaque noted within the right popliteal artery region resulting in greater that 70% narrowing. Diffuse atherosclerotic changes noted through the distal portion of the right posterior tibial artery. Calcified plaque noted at the origin of the left common iliac artery. Severe narrowing noted at the origin of the left superficial femoral artery (greater than 70%). Relatively severe diffuse atherosclerotic changes with a marked decrease in overall caliber seen through the left superficial femoral artery. There is patency of the right popliteal artery. Very little opacification consistent with severe narrowing and possible occlusion noted through the left posterior tibial artery. IMPRESSION: 1. Relatively severe diffuse bilateral atherosclerotic changes through the arterial systems of both legs. Findings somewhat more pronounced at the origins of the superficial femoral arteries particularly on the right side. Severe narrowing also noted at the origin of the right common iliac artery. 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 2. Multifocal diffuse atherosclerotic changes throughout the abdominal aorta
--- NOTE | 2016-10-22 14:39 | Diagnostic Imaging Report ---
CT scan of the chest without intravenous contrast HISTORY: Pneumonia Total DLP equals 315 CTDI equals 11.0 Axial sections were obtained from the level above the clavicles down to level below the diaphragm. There is marked cardiomegaly. Coronary artery and atherosclerotic vascular calcification is noted. There is a moderate left pleural effusion. Small right pleural effusion and pleural thickening noted about the right hemithorax. There is an approximate 4.9 x 3.7 cm somewhat multilocular air collection within the right lower lobe. Somewhat irregular margins. However, a discrete mass cannot be clearly outlined. Adjacent extensive abnormal parenchymal density/infiltrate noted in the right lower lobe. The findings result in obscuration of the margins of the adjacent right hilum. Parenchymal density suggesting atelectasis noted in the left lower lobe with obliteration of the left lower lobe bronchus and narrowing of the right upper lobe bronchus. Additional mild hazy infiltrates seen through the remainder of the lungs. IMPRESSION: 1. Loculated air collection within the right lower lobe consistent with cavitation. Etiology uncertain. Findings may be associated with neoplastic or inflammatory change. Associated extensive parenchymal density/infiltrate noted throughout the right lower lobe along with obscuration of the margins of the right hilum. 2. Parenchymal density within the left perihilar and left lower lobe regions suggesting atelectasis associated with a moderate to large left pleural effusion. Obscuration of the lower margins of the left hilum with virtual complete obscuration of the left lower lobe bronchus. 3. Marked cardiomegaly with evidence of coronary artery and atherosclerotic vascular disease. Congestive heart failure cannot be excluded.
[2016-10-22] MEDS ORDERED: Promethazine DM 6.25/15mg-5mL 5 ML SYR PO PRN (15:20)
[2016-10-22] MEDS: Epoetin Alfa 20000 Units/mL Vial SUBQ SCH (18:10)
[2016-10-22] MEDS: cefTRIAXone 1 GM in Sodium Chloride 0.9% 50 ML IV SCH (18:12)
[2016-10-23] MEDS: Hydrocodone/APAP 5mg/325mg Tab PO PRN ×2 (01:52→17:50)
[2016-10-23] MEDS: HYDROmorphone 1 mg/mL 1mL Syr IVP PRN ×2 (03:00→20:08)
[2016-10-23 05:23] LABS: HEMATOCRIT 31.3 % (35.0-45.0); HEMOGLOBIN 10.2 gm/dL (11.7-16.1); MEAN CELL VOLUME 95.4 fl (81-100); MEAN CORPUSCULAR HEMOGLOBIN 31.1 pg (27.0-31.0); MEAN CORPUSCULAR HGB CONC 32.6 pg (28.0-36.0); MEAN PLATELET VOLUME 9.2 fl; PLATELET COUNT 183 Th/cmm (150-400); RED BLOOD COUNT 3.28 Mil/cmm (3.80-5.20); RED CELL DISTRIBUTION WIDTH 21.2 % (11.5-20.0)
[2016-10-23 05:26] LABS: INR 1.78 (0.5-1.4); PROTHROMBIN TIME (TEST) 18.3 SECONDS (9.5-11.5); WHITE BLOOD COUNT 11.5 Th/cmm (4.8-10.8)
[2016-10-23 05:36] LABS: ALB/GLOB RATIO 0.8 (1.0-1.8); ANION GAP 8.1 (7.0-16.0); BILIRUBIN,TOTAL 0.8 mg/dL (0.3-1.0); BUN/CREATININE RATIO 11.1; CALCIUM SERUM 8.8 mg/dL (8.6-10.3); CARBON DIOXIDE 26.9 mEq/L (21.0-31.0); CREATININE - SERUM 1.9 mg/dL (0.6-1.2)
[2016-10-23] MEDS: metroNIDAZOLE 500mg/NS 100mL 500 MG/100 ML BAG IV SCH ×3 (05:54→20:56)
[2016-10-23] MEDS: Levothyroxine 0.05 Mg Tab PO SCH (05:54)
[2016-10-23 06:06] LABS: BAND NEUTROPHILE 3 % (0-10); NEUTROPHILS 85 % (40-80); TOTAL CELLS COUNTED 100
[2016-10-23 06:09] LABS: PLATELET ESTIMATE ADEQUATE (NORMAL); PLATELET MORPHOLOGY GIANT PLATELETS SEEN (NORMAL)
[2016-10-23] MEDS ORDERED: Thrombin, Bovine 5,000 IU Vial TP ONE ×2 (07:28→07:50)
[2016-10-23] MEDS ORDERED: Dextrose 50% 50 mL Abboject IVP ONE ×2 (07:35→07:38)
[2016-10-23] MEDS ORDERED: Lidocaine Mpf 1% 10 mL Amp EPI ONE (07:50)
[2016-10-23] MEDS ORDERED: Bupivacaine 0.75% 10 mL Vial INJ ONE (07:50)
[2016-10-23] MEDS ORDERED: Gelatin Sponge 100cm Spg TP ONE (07:50)
[2016-10-23] MEDS: INSULIN ASPART SLIDING SCALE 100 UNITS/ML UNIT SUBQ SCH ×3 (07:54→20:58)
[2016-10-23] MEDS ORDERED: Meperidine 25 mg/mL 1mL Syr IVP PRN (08:49)
[2016-10-23] MEDS ORDERED: Lactated Ringer 1,000 ML IV SCH (09:00)
[2016-10-23] MEDS: Vitamin B Complex w/Vitamin C Tab PO SCH (09:32)
[2016-10-23] MEDS: Pantoprazole 40 mg EC Tab PO SCH (09:32)
--- NOTE | 2016-10-23 12:53 | Operative Report ---
PREOPERATIVE DIAGNOSES: 1. Ischemia, right foot. 2. Early gangrenous change, right big toe. 3. Severe peripheral vascular disease, bilateral. 4. 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 5. Diabetes mellitus. 6. Hypertension. 7. Congestive heart failure. POSTOPERATIVE DIAGNOSES: 1. Ischemia, right foot. 2. Early gangrenous change, right big toe. 3. Severe peripheral vascular disease, bilateral. 4. 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 5. Diabetes mellitus. 6. Hypertension. 7. Congestive heart failure. OPERATION DONE: 1. Left femoral to right femoral bypass graft (8 mm [place]-Jac). 2. Exploration of the right popliteal artery. SURGEON: Alexandru Martinez MD ANESTHESIA: Spinal. ANESTHESIOLOGIST: Nicola Gaitan M.D. ESTIMATED BLOOD LOSS: 50 mL. Informed consent discussed with the sister regarding the need to try and improve circulation to the right lower extremity to prevent gangrene of the right foot. Photographs were taken prior to surgery. Informed consent was given regarding possible complications in this elderly female with multiple comorbidities. DETAILS OF PROCEDURE: The patient was given spinal anesthesia. Both groin and right lower extremity were prepped with Betadine and draped in appropriate manner. An incision was made in the right groin exposing the proximal portion of the superficial femoral artery and the common femoral artery. There was ____ spot at the common femoral artery level just proximal to the deep femoral. A separate incision was made in the left groin, exposing the common femoral artery, which had excellent pulsatile flow and was soft in its anterior wall. Then, 3000 units of heparin were given intravenously. The left common femoral artery was occluded proximally and distally and an arteriotomy was made in its anterior wall. The [place]-Jac graft was cut in angle to fit the arteriotomy and 6-0 [place]-Jac suture in continuous fashion was used to complete this anastomosis. Following release of clamps, there was no leaking at the anastomosis and additional Gelfoam silk and thrombin was applied over the region. The right common femoral artery was occluded proximal and distal. An arteriotomy was made in its anterior wall. The [place]-Jac graft was cut in an angle to fit the arteriotomy and 6-0 [place]-Jac suture in continuous fashion was used to complete this anastomosis. The right popliteal artery was exposed, but was found to be heavily calcified and suitable for bypass. Following satisfactory hemostasis, the incisions were closed with running suture of 3-0 Vicryl subcutaneously and the skin was closed with 4-0 Vicryl. Dermabond and 2 x 2 and Op-Site were applied over this. There appeared to be some improvement in the distal circulation, particularly in the foot. [facility]# [id number]
[2016-10-23] MEDS: cefTRIAXone 1 GM in Sodium Chloride 0.9% 50 ML IV SCH (15:22)
--- NOTE | 2016-10-23 15:33 | Infectious Disease Prog Note ---
Infectious Disease Subjective - Review of Systems Service Date: 10/23/16 Subjective: There is no fever. operative note by Dr Martinez reviewed. Patient underwent left to right femoral bypass graft placement. Infectious Disease Objective - Results Result Diagrams: 10/23/16 04:50 10/23/16 04:50 Recent Labs: Laboratory Last Values WBC 11.5 Th/cmm (4.8-10.8) H D 10/23/16 04:50 RBC 3.28 Mil/cmm (3.80-5.20) L 10/23/16 04:50 Hgb 10.2 gm/dL (11.7-16.1) L 10/23/16 04:50 Hct 31.3 % (35.0-45.0) L 10/23/16 04:50 MCV 95.4 fl (81-100) 10/23/16 04:50 MCH 31.1 pg (27.0-31.0) H 10/23/16 04:50 MCHC Differential 32.6 pg (28.0-36.0) 10/23/16 04:50 RDW 21.2 % (11.5-20.0) H 10/23/16 04:50 Plt Count 183 Th/cmm (150-400) 10/23/16 04:50 MPV 9.2 fl 10/23/16 04:50 Band Neutrophils % 3 % (0-10) 10/23/16 04:50 Neutrophils (Manual) 85 % (40-80) H 10/23/16 04:50 Lymphocytes 6 % (20-50) L 10/23/16 04:50 Monocytes 6 % (2-10) 10/23/16 04:50 Eosinophils Not Reportable 10/23/16 04:50 Basophils 2 % (0-3) 10/19/16 06:40 Nucleated RBCs 1.0 % (0-0) H 10/23/16 04:50 Platelet Estimate ADEQUATE (NORMAL) 10/23/16 04:50 Platelet Morphology GIANT PLATELETS SEEN (NORMAL) 10/23/16 04:50 Anisocytosis 1+ 10/19/16 06:40 RBC Morph Micro Appear ABNORMAL (NORMAL) 10/23/16 04:50 PT 18.3 SECONDS (9.5-11.5) H 10/23/16 04:50 INR 1.78 (0.5-1.4) H 10/23/16 04:50 PTT (Actin FS) 34.8 SECONDS (26.0-38.0) 10/23/16 04:50 Sodium 137 mEq/L (136-145) 10/23/16 04:50 Potassium 4.0 mEq/L (3.5-5.1) 10/23/16 04:50 Chloride 106 mEq/L (98-107) 10/23/16 04:50 Carbon Dioxide 26.9 mEq/L (21.0-31.0) 10/23/16 04:50 Anion Gap 8.1 (7.0-16.0) 10/23/16 04:50 BUN 21 mg/dL (7-25) 10/23/16 04:50 Creatinine 1.9 mg/dL (0.6-1.2) H 10/23/16 04:50 Est GFR ( Amer) 33.7 ml/min 10/23/16 04:50 Est GFR (Non-Af Amer) 27.9 ml/min 10/23/16 04:50 BUN/Creatinine Ratio 11.1 10/23/16 04:50 Glucose 67 mg/dL (70-105) L 10/23/16 04:50 POC Glucose 81 MG/DL (70 - 105) 10/23/16 12:16 Hemoglobin A1c % 6.9 % (4.0-6.0) H 10/15/16 05:17 Calcium 8.8 mg/dL (8.6-10.3) 10/23/16 04:50 Total Bilirubin 0.8 mg/dL (0.3-1.0) 10/23/16 04:50 AST 12 U/L (13-39) L 10/23/16 04:50 ALT 6 U/L (7-52) L 10/23/16 04:50 Alkaline Phosphatase 123 U/L (34-104) H 10/23/16 04:50 Ammonia 50 umol/L (16-53) 10/14/16 10:40 B-Natriuretic Peptide > 5000.0 pg/mL (5.0-100.0) H 10/17/16 06:50 Total Protein 6.4 gm/dL (6.0-8.3) 10/23/16 04:50 Albumin 2.9 gm/dL (3.7-5.3) L 10/23/16 04:50 Globulin 3.5 gm/dL 10/23/16 04:50 Albumin/Globulin Ratio 0.8 (1.0-1.8) L 10/23/16 04:50 Triglycerides 119 mg/dL (<150) 10/14/16 10:40 Cholesterol 80 mg/dL (<200) 10/14/16 10:40 LDL Cholesterol Direct 26 mg/dL (75-193) L 10/14/16 10:40 HDL Cholesterol 33 mg/dL (23-92) 10/14/16 10:40 TSH 7.87 uIU/ml (0.34-5.60) H 10/14/16 10:40 Urine Source CATH 10/14/16 06:00 Urine Color BROWN 10/14/16 06:00 Urine Clarity SL. CLOUDY (CLEAR) 10/14/16 06:00 Urine pH 5.5 10/14/16 06:00 Ur Specific [place] 1.025 (1.005-1.030) 10/14/16 06:00 Urine Protein 100 mg/dL (NEGATIVE) H 10/14/16 06:00 Urine Glucose (UA) NEGATIVE mg/dL (NEGATIVE) 10/14/16 06:00 Urine Ketones TRACE mg/dL (NEGATIVE) 10/14/16 06:00 Urine Blood TRACE (NEGATIVE) 10/14/16 06:00 Urine Nitrate NEGATIVE (NEGATIVE) 10/14/16 06:00 Urine Bilirubin SMALL (NEGATIVE) H 10/14/16 06:00 Urine Urobilinogen 0.2 E.U./dL (0.2 - 1.0) 10/14/16 06:00 Ur Leukocyte Esterase NEGATIVE (NEGATIVE) 10/14/16 06:00 Urine RBC 0-1 /hpf (0-5) 10/14/16 06:00 Urine WBC 2-5 /hpf (0-5) 10/14/16 06:00 Ur Epithelial Cells OCCASIONAL /lpf (FEW) 10/14/16 06:00 Amorphous Sediment FEW URATES (NONE SEEN) 10/14/16 06:00 Urine Bacteria NONE SEEN /hpf (NONE SEEN) 10/14/16 06:00 Random Vancomycin 20.8 ug/mL (5.0-40.0) 10/16/16 06:50 Hepatitis A IgM Ab Negative (Negative) 10/15/16 05:17 Hep Bs Antigen Negative (Negative) 10/15/16 05:17 Hep B Core IgM Ab Negative (Negative) 10/15/16 05:17 Hepatitis C Antibody <0.1 s/co ratio (0.0-0.9) 10/15/16 05:17 - Physical Exam Vitals and I&O: Vital Signs Temp 96.8 F 10/23/16 13:00 Pulse 81 10/23/16 13:00 Resp 13 10/23/16 13:00 BP 116/46 10/23/16 13:00 Pulse Ox 98 10/23/16 13:00 Intake & Output 10/22/16 10/23/16 10/23/16 18:59 06:59 18:59 Intake Total 100 850 100 Balance 100 850 100 Intake: Intake, IV Amount 100 250 100 cefTRIAXone 1 gm In 50 Sodium Chloride 0.9% 50 ml @ 100 mls/hr IV Q24HR [facility] Rx#:[id number] metroNIDAZOLE 500mg/NS 100 200 100 100mL 500 mg In 100 ml @ 100 mls/hr IV Q8HR [facility] Rx #:[id number] Oral 600 Active Medications: Current Medications Acetaminophen (Tylenol) 650 mg PO Q4HR PRN PRN Reason: fever/pain Stop: 12/13/16 01:20 Last Admin: 10/14/16 09:03 Dose: 650 mg Acetaminophen/Hydrocodone Bitart ([place] 5mg/325mg) 1 tab PO Q3H PRN PRN Reason: moderate pain (4-6) Stop: 12/13/16 10:21 Last Admin: 10/23/16 01:52 Dose: 1 tab Aspirin (Ecotrin) 81 mg PO QAM [facility] Stop: 12/14/16 08:59 Last Admin: 10/23/16 09:32 Dose: Not Given Cilostazol (Pletal) 100 mg PO BID [facility] Stop: 12/22/16 16:59 Docusate Sodium (Colace) 100 mg PO BID [facility] Stop: 12/13/16 16:59 Last Admin: 10/23/16 09:32 Dose: Not Given Epoetin [place] (Epogen) 10,000 units SUBQ MWF@1500 [facility] Stop: 12/14/16 14:59 Last Admin: 10/22/16 18:10 Dose: 10,000 units Folic Acid (Folate) 1 mg PO DAILY [facility] Stop: 12/14/16 08:59 Last Admin: 10/23/16 09:32 Dose: Not Given Hydromorphone HCl (Dilaudid) 1 mg IVP Q3HR PRN PRN Reason: Severe Pain Stop: 12/22/16 02:42 Last Admin: 10/23/16 03:00 Dose: 1 mg Ceftriaxone Sodium 1 gm/ (Sodium Chloride) 50 mls @ 100 mls/hr IV Q24HR [facility] Stop: 12/13/16 15:59 Last Admin: 10/23/16 15:22 Dose: 100 mls/hr Metronidazole (Flagyl) 500 mg in 100 mls @ 100 mls/hr IV Q8HR [facility] Stop: 12/13/16 15:59 Last Infusion: 10/23/16 14:00 Dose: Infused Lactated Ringer's (Lactated Ringer) 1,000 mls @ 0 mls/hr IV .Q0M [facility] PRN Reason: TKO Stop: 10/24/16 08:59 Insulin Aspart (Novolog Insulin Sliding Scale) 0 units SUBQ ACHS [facility] PRN Reason: Protocol Stop: 12/13/16 16:29 Last Admin: 10/23/16 07:54 Dose: Not Given Levothyroxine Sodium (Synthroid) 0.05 mg PO QDAC [facility] Stop: 12/19/16 06:29 Last Admin: 10/23/16 05:54 Dose: Not Given Meperidine HCl (Demerol) 25 mg IVP UD PRN PRN Reason: POST-OP PAIN Stop: 10/24/16 08:48 Miscellaneous (Clinical Monitoring) 1 ea MC PRN PRN PRN Reason: RENAL DOSING Stop: 12/13/16 13:45 Pantoprazole Sodium (Protonix) 40 mg PO DAILY [facility] Stop: 12/14/16 08:59 Last Admin: 10/23/16 09:32 Dose: Not Given Prochlorperazine Maleate (Compazine) 10 mg PO Q6H PRN PRN Reason: Nausea / Vomiting Stop: 12/13/16 10:39 Last Admin: 10/22/16 00:02 Dose: 10 mg Promethazine HCl/Dextromethorphan (Phenergan Dm 6.25/15mg-5 Ml) 5 ml PO BID PRN PRN Reason: Cough Stop: 12/21/16 15:19 Senna (Senna) 17.2 mg PO HS [facility] Stop: 12/13/16 20:59 Last Admin: 10/22/16 21:32 Dose: 17.2 mg Vitamin B Complex/Vit C/Folic Acid (Vitamin B Complex W/Vitamin C) 1 tab PO DAILY [facility] Stop: 12/14/16 08:59 Last Admin: 10/23/16 09:32 Dose: Not Given General: no acute distress, well developed, well nourished HEENT: atraumatic, normocephalic, PERRLA Neck: supple, no thyromegaly Cardiovascular: S1S2, regular Lungs: clear to percussion, crackles Abdomen: soft, no tender, no distended Extremities: other (gangrenous right big toe.), no cyanosis, no clubbing Neurological: awake, alert Skin: intact Infectious Disease Assmt/Plan - Assessment Assessment: Impression: 1. Right big toe cellulitis. 2/2 PAD. 2. R pneumonia with air. 3. CHF. 4. CKD 5 on HD. 5. DM2 6. 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 - Plan Plan: Continue vanco IV and rocephin. Pulmonary consult.
--- NOTE | 2016-10-23 16:58 | Infectious Disease Prog Note ---
Infectious Disease Subjective - Review of Systems Service Date: 10/23/16 Subjective: There is no fever. operative note by Dr Martinez reviewed. Patient underwent left to right femoral bypass graft placement. Infectious Disease Objective - Results Result Diagrams: 10/23/16 04:50 10/23/16 04:50 Recent Labs: Laboratory Last Values WBC 11.5 Th/cmm (4.8-10.8) H D 10/23/16 04:50 RBC 3.28 Mil/cmm (3.80-5.20) L 10/23/16 04:50 Hgb 10.2 gm/dL (11.7-16.1) L 10/23/16 04:50 Hct 31.3 % (35.0-45.0) L 10/23/16 04:50 MCV 95.4 fl (81-100) 10/23/16 04:50 MCH 31.1 pg (27.0-31.0) H 10/23/16 04:50 MCHC Differential 32.6 pg (28.0-36.0) 10/23/16 04:50 RDW 21.2 % (11.5-20.0) H 10/23/16 04:50 Plt Count 183 Th/cmm (150-400) 10/23/16 04:50 MPV 9.2 fl 10/23/16 04:50 Band Neutrophils % 3 % (0-10) 10/23/16 04:50 Neutrophils (Manual) 85 % (40-80) H 10/23/16 04:50 Lymphocytes 6 % (20-50) L 10/23/16 04:50 Monocytes 6 % (2-10) 10/23/16 04:50 Eosinophils Not Reportable 10/23/16 04:50 Basophils 2 % (0-3) 10/19/16 06:40 Nucleated RBCs 1.0 % (0-0) H 10/23/16 04:50 Platelet Estimate ADEQUATE (NORMAL) 10/23/16 04:50 Platelet Morphology GIANT PLATELETS SEEN (NORMAL) 10/23/16 04:50 Anisocytosis 1+ 10/19/16 06:40 RBC Morph Micro Appear ABNORMAL (NORMAL) 10/23/16 04:50 PT 18.3 SECONDS (9.5-11.5) H 10/23/16 04:50 INR 1.78 (0.5-1.4) H 10/23/16 04:50 PTT (Actin FS) 34.8 SECONDS (26.0-38.0) 10/23/16 04:50 Sodium 137 mEq/L (136-145) 10/23/16 04:50 Potassium 4.0 mEq/L (3.5-5.1) 10/23/16 04:50 Chloride 106 mEq/L (98-107) 10/23/16 04:50 Carbon Dioxide 26.9 mEq/L (21.0-31.0) 10/23/16 04:50 Anion Gap 8.1 (7.0-16.0) 10/23/16 04:50 BUN 21 mg/dL (7-25) 10/23/16 04:50 Creatinine 1.9 mg/dL (0.6-1.2) H 10/23/16 04:50 Est GFR ( Amer) 33.7 ml/min 10/23/16 04:50 Est GFR (Non-Af Amer) 27.9 ml/min 10/23/16 04:50 BUN/Creatinine Ratio 11.1 10/23/16 04:50 Glucose 67 mg/dL (70-105) L 10/23/16 04:50 POC Glucose 81 MG/DL (70 - 105) 10/23/16 12:16 Hemoglobin A1c % 6.9 % (4.0-6.0) H 10/15/16 05:17 Calcium 8.8 mg/dL (8.6-10.3) 10/23/16 04:50 Total Bilirubin 0.8 mg/dL (0.3-1.0) 10/23/16 04:50 AST 12 U/L (13-39) L 10/23/16 04:50 ALT 6 U/L (7-52) L 10/23/16 04:50 Alkaline Phosphatase 123 U/L (34-104) H 10/23/16 04:50 Ammonia 50 umol/L (16-53) 10/14/16 10:40 B-Natriuretic Peptide > 5000.0 pg/mL (5.0-100.0) H 10/17/16 06:50 Total Protein 6.4 gm/dL (6.0-8.3) 10/23/16 04:50 Albumin 2.9 gm/dL (3.7-5.3) L 10/23/16 04:50 Globulin 3.5 gm/dL 10/23/16 04:50 Albumin/Globulin Ratio 0.8 (1.0-1.8) L 10/23/16 04:50 Triglycerides 119 mg/dL (<150) 10/14/16 10:40 Cholesterol 80 mg/dL (<200) 10/14/16 10:40 LDL Cholesterol Direct 26 mg/dL (75-193) L 10/14/16 10:40 HDL Cholesterol 33 mg/dL (23-92) 10/14/16 10:40 TSH 7.87 uIU/ml (0.34-5.60) H 10/14/16 10:40 Urine Source CATH 10/14/16 06:00 Urine Color BROWN 10/14/16 06:00 Urine Clarity SL. CLOUDY (CLEAR) 10/14/16 06:00 Urine pH 5.5 10/14/16 06:00 Ur Specific [place] 1.025 (1.005-1.030) 10/14/16 06:00 Urine Protein 100 mg/dL (NEGATIVE) H 10/14/16 06:00 Urine Glucose (UA) NEGATIVE mg/dL (NEGATIVE) 10/14/16 06:00 Urine Ketones TRACE mg/dL (NEGATIVE) 10/14/16 06:00 Urine Blood TRACE (NEGATIVE) 10/14/16 06:00 Urine Nitrate NEGATIVE (NEGATIVE) 10/14/16 06:00 Urine Bilirubin SMALL (NEGATIVE) H 10/14/16 06:00 Urine Urobilinogen 0.2 E.U./dL (0.2 - 1.0) 10/14/16 06:00 Ur Leukocyte Esterase NEGATIVE (NEGATIVE) 10/14/16 06:00 Urine RBC 0-1 /hpf (0-5) 10/14/16 06:00 Urine WBC 2-5 /hpf (0-5) 10/14/16 06:00 Ur Epithelial Cells OCCASIONAL /lpf (FEW) 10/14/16 06:00 Amorphous Sediment FEW URATES (NONE SEEN) 10/14/16 06:00 Urine Bacteria NONE SEEN /hpf (NONE SEEN) 10/14/16 06:00 Random Vancomycin 20.8 ug/mL (5.0-40.0) 10/16/16 06:50 Hepatitis A IgM Ab Negative (Negative) 10/15/16 05:17 Hep Bs Antigen Negative (Negative) 10/15/16 05:17 Hep B Core IgM Ab Negative (Negative) 10/15/16 05:17 Hepatitis C Antibody <0.1 s/co ratio (0.0-0.9) 10/15/16 05:17 - Physical Exam Vitals and I&O: Vital Signs Temp 96.8 F 10/23/16 16:00 Pulse 84 10/23/16 16:00 Resp 20 10/23/16 16:00 BP 117/54 10/23/16 16:00 Pulse Ox 96 10/23/16 16:00 Intake & Output 10/22/16 10/23/16 10/23/16 18:59 06:59 18:59 Intake Total 100 850 100 Balance 100 850 100 Intake: Intake, IV Amount 100 250 100 cefTRIAXone 1 gm In 50 Sodium Chloride 0.9% 50 ml @ 100 mls/hr IV Q24HR [facility] Rx#:[id number] metroNIDAZOLE 500mg/NS 100 200 100 100mL 500 mg In 100 ml @ 100 mls/hr IV Q8HR [facility] Rx #:[id number] Oral 600 Active Medications: Current Medications Acetaminophen (Tylenol) 650 mg PO Q4HR PRN PRN Reason: fever/pain Stop: 12/13/16 01:20 Last Admin: 10/14/16 09:03 Dose: 650 mg Acetaminophen/Hydrocodone Bitart ([place] 5mg/325mg) 1 tab PO Q3H PRN PRN Reason: moderate pain (4-6) Stop: 12/13/16 10:21 Last Admin: 10/23/16 01:52 Dose: 1 tab Aspirin (Ecotrin) 81 mg PO QAM [facility] Stop: 12/14/16 08:59 Last Admin: 10/23/16 09:32 Dose: Not Given Cilostazol (Pletal) 100 mg PO BID [facility] Stop: 12/22/16 16:59 Docusate Sodium (Colace) 100 mg PO BID [facility] Stop: 12/13/16 16:59 Last Admin: 10/23/16 09:32 Dose: Not Given Epoetin [place] (Epogen) 10,000 units SUBQ MWF@1500 [facility] Stop: 12/14/16 14:59 Last Admin: 10/22/16 18:10 Dose: 10,000 units Folic Acid (Folate) 1 mg PO DAILY [facility] Stop: 12/14/16 08:59 Last Admin: 10/23/16 09:32 Dose: Not Given Hydromorphone HCl (Dilaudid) 1 mg IVP Q3HR PRN PRN Reason: Severe Pain Stop: 12/22/16 02:42 Last Admin: 10/23/16 03:00 Dose: 1 mg Ceftriaxone Sodium 1 gm/ (Sodium Chloride) 50 mls @ 100 mls/hr IV Q24HR [facility] Stop: 12/13/16 15:59 Last Admin: 10/23/16 15:22 Dose: 100 mls/hr Metronidazole (Flagyl) 500 mg in 100 mls @ 100 mls/hr IV Q8HR [facility] Stop: 12/13/16 15:59 Last Infusion: 10/23/16 14:00 Dose: Infused Lactated Ringer's (Lactated Ringer) 1,000 mls @ 0 mls/hr IV .Q0M [facility] PRN Reason: TKO Stop: 10/24/16 08:59 Insulin Aspart (Novolog Insulin Sliding Scale) 0 units SUBQ ACHS [facility] PRN Reason: Protocol Stop: 12/13/16 16:29 Last Admin: 10/23/16 07:54 Dose: Not Given Levothyroxine Sodium (Synthroid) 0.05 mg PO QDAC [facility] Stop: 12/19/16 06:29 Last Admin: 10/23/16 05:54 Dose: Not Given Meperidine HCl (Demerol) 25 mg IVP UD PRN PRN Reason: POST-OP PAIN Stop: 10/24/16 08:48 Miscellaneous (Clinical Monitoring) 1 ea MC PRN PRN PRN Reason: RENAL DOSING Stop: 12/13/16 13:45 Miscellaneous (Vancomycin Iv Per Pharmacy) 1 ea MC PRN PRN PRN Reason: PROTOCOL Stop: 12/22/16 16:17 Pantoprazole Sodium (Protonix) 40 mg PO DAILY [facility] Stop: 12/14/16 08:59 Last Admin: 10/23/16 09:32 Dose: Not Given Prochlorperazine Maleate (Compazine) 10 mg PO Q6H PRN PRN Reason: Nausea / Vomiting Stop: 12/13/16 10:39 Last Admin: 10/22/16 00:02 Dose: 10 mg Promethazine HCl/Dextromethorphan (Phenergan Dm 6.25/15mg-5 Ml) 5 ml PO BID PRN PRN Reason: Cough Stop: 12/21/16 15:19 Senna (Senna) 17.2 mg PO HS [facility] Stop: 12/13/16 20:59 Last Admin: 10/22/16 21:32 Dose: 17.2 mg Vitamin B Complex/Vit C/Folic Acid (Vitamin B Complex W/Vitamin C) 1 tab PO DAILY [facility] Stop: 12/14/16 08:59 Last Admin: 10/23/16 09:32 Dose: Not Given General: no acute distress, well developed, well nourished HEENT: atraumatic, normocephalic, PERRLA, EOMI Neck: supple Cardiovascular: S1S2, regular Lungs: clear to percussion, crackles Abdomen: soft, no tender, no distended Extremities: other (right bit toe cold with avulsionof nail/), no cyanosis, no clubbing, no edema Neurological: other (Sedated.) Skin: intact Infectious Disease Assmt/Plan - Assessment Assessment: Impression: 1. Right big toe cellulitis. 2/2 PAD. 2. R pneumonia with air, cavity. 3. CHF. 4. CKD 5 on HD. 5. DM2 6. 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 - Plan Plan: Continue vanco IV and rocephin. DW Dr Georges and agreed with his plan to rule out TB. Check TB gold quantiferon.
[2016-10-24] MEDS: HYDROmorphone 1 mg/mL 1mL Syr IVP PRN ×3 (00:46→15:21)
[2016-10-24] MEDS: metroNIDAZOLE 500mg/NS 100mL 500 MG/100 ML BAG IV SCH ×3 (05:00→21:24)
[2016-10-24 05:16] LABS: ANION GAP 13.1 (7.0-16.0); BUN/CREATININE RATIO 10.8; CALCIUM SERUM 8.7 mg/dL (8.6-10.3); CARBON DIOXIDE 25.2 mEq/L (21.0-31.0); CREATININE - SERUM 2.4 mg/dL (0.6-1.2); POTASSIUM SERUM 4.3 mEq/L (3.5-5.1)
[2016-10-24] MEDS: Levothyroxine 0.05 Mg Tab PO SCH (06:22)
[2016-10-24] MEDS: INSULIN ASPART SLIDING SCALE 100 UNITS/ML UNIT SUBQ SCH ×5 (07:43→23:36)
[2016-10-24] MEDS: Pantoprazole 40 mg EC Tab PO SCH (08:52)
[2016-10-24] MEDS: Vitamin B Complex w/Vitamin C Tab PO SCH (08:53)
--- NOTE | 2016-10-24 10:26 | Consultation ---
The patient is a patient of Dr. Zhang. Thank you very much for this consultation. HISTORY OF PRESENT ILLNESS: This is a 70-year-old female who was admitted with pneumonia and peripheral vascular disease. She underwent femoral bypass surgery, appears to be doing okay, has some congestion on and off apparently. Had CT of the chest showed possible cavitation in the right lower lobe. The patient has history of hypertension and anemia, peripheral vascular disease and CHF. SOCIAL HISTORY: No history of smoking or drinking. History of end-stage renal disease, on dialysis. PHYSICAL EXAMINATION: GENERAL: Awake and alert, in no acute distress. VITAL SIGNS: Blood pressure is 96.8, pulse 74, respirations 20, blood pressure 117/54 and saturations is 96%. HEENT: Atraumatic and normocephalic. Eyes: Pupils react to light and accommodation. Ear, nose and throat, normal. NECK: Supple. No JVD. CHEST: There are rhonchi bilaterally. HEART: Regular rate and rhythm. ABDOMEN: Soft. EXTREMITIES: No edema. CT of the chest reviewed shows bilateral infiltrates more right lower lobe area. There is no air fluid level, questionable cavitation, not too obvious. The WBC 11.5, hemoglobin 10.2, hematocrit 31.3 and platelets 183. Sodium is 34, potassium 4.0, BUN 21 and creatinine 1.9. IMPRESSION: 1. This is a 70-year-old female with end-stage renal disease, on dialysis. 2. status post femoral bypass surgery. 3. Pneumonia, possibly staph infection likely tuberculosis exacerbation. PLAN: 1. Add vancomycin. 2. Sputum culture. 3. Infectious disease f/u discussed with Dr. Nick Abdalla case. Will get AFB smear as well. Thank you very much. We will follow the patient with you. JOB# [id number] OSWALDO
[2016-10-24] MEDS: Hydrocodone/APAP 5mg/325mg Tab PO PRN (10:27)
[2016-10-24] MEDS: cefTRIAXone 1 GM in Sodium Chloride 0.9% 50 ML IV SCH (17:00)
[2016-10-24] MEDS: D5-0.45NS 1,000 ML IV SCH (18:16)
[2016-10-25] MEDS: metroNIDAZOLE 500mg/NS 100mL 500 MG/100 ML BAG IV SCH (05:18)
[2016-10-25] MEDS: Hydrocodone/APAP 5mg/325mg Tab PO PRN ×3 (05:19→18:16)
[2016-10-25 05:39] LABS: RED BLOOD COUNT 3.16 Mil/cmm (3.80-5.20); WHITE BLOOD COUNT 12.9 Th/cmm (4.8-10.8)
[2016-10-25 05:45] LABS: HEMATOCRIT 29.9 % (35.0-45.0); HEMOGLOBIN 9.8 gm/dL (11.7-16.1); MEAN CELL VOLUME 94.8 fl (81-100); MEAN CORPUSCULAR HEMOGLOBIN 30.9 pg (27.0-31.0); MEAN CORPUSCULAR HGB CONC 32.6 pg (28.0-36.0); MEAN PLATELET VOLUME 9.3 fl; PLATELET COUNT 196 Th/cmm (150-400); RED CELL DISTRIBUTION WIDTH 21.2 % (11.5-20.0)
[2016-10-25 06:02] LABS: ALB/GLOB RATIO 0.8 (1.0-1.8); ANION GAP 13.2 (7.0-16.0); BILIRUBIN,TOTAL 0.8 mg/dL (0.3-1.0); BUN/CREATININE RATIO 11.5; CALCIUM SERUM 8.4 mg/dL (8.6-10.3); CARBON DIOXIDE 23.4 mEq/L (21.0-31.0); CREATININE - SERUM 2.6 mg/dL (0.6-1.2); POTASSIUM SERUM 4.6 mEq/L (3.5-5.1)
[2016-10-25] MEDS: Levothyroxine 0.05 Mg Tab PO SCH (06:02)
[2016-10-25] MEDS: INSULIN ASPART SLIDING SCALE 100 UNITS/ML UNIT SUBQ SCH ×4 (07:08→21:21)
[2016-10-25 07:41] LABS: ANISOCYTOSIS 1+; BAND NEUTROPHILE 1 % (0-10); EOSINOPHIL 0 % (0-5); NEUTROPHILS 78 % (40-80); PLATELET ESTIMATE ADEQUATE (NORMAL); PLATELET MORPHOLOGY GIANT PLATELETS SEEN (NORMAL); TOTAL CELLS COUNTED 100
[2016-10-25 07:45] LABS: POLYCHROMASIA 1+
[2016-10-25] MEDS: Vitamin B Complex w/Vitamin C Tab PO SCH (08:37)
[2016-10-25] MEDS: Pantoprazole 40 mg EC Tab PO SCH (08:37)
--- NOTE | 2016-10-25 09:38 | Diagnostic Imaging Report ---
CHEST X-RAY: AP view INDICATION: Shortness of breath COMPARISON: Chest x-ray 10/19/[address] 10/22/2016 FINDINGS: Findings of CHF are seen with bilateral effusions left larger right and probable fluid within the right seizures. Right basal cavitation is again noted. Cardiomegaly is noted with atherosclerosis. IMPRESSION: Persistent CHF, multifocal infiltrates and bilateral effusions. Right basal cavitation as seen on recent CT chest examination. Cardiomegaly.
[2016-10-25] MEDS: D5-0.45NS 1,000 ML IV SCH (11:14)
--- NOTE | 2016-10-25 11:39 | Infectious Disease Prog Note ---
Infectious Disease Subjective - Review of Systems Service Date: 10/25/16 Subjective: There is no fever. Doing well. Infectious Disease Objective - Results Result Diagrams: 10/25/16 05:20 10/25/16 05:20 Recent Labs: Laboratory Last Values WBC 12.9 Th/cmm (4.8-10.8) H 10/25/16 05:20 RBC 3.16 Mil/cmm (3.80-5.20) L 10/25/16 05:20 Hgb 9.8 gm/dL (11.7-16.1) L 10/25/16 05:20 Hct 29.9 % (35.0-45.0) L 10/25/16 05:20 MCV 94.8 fl (81-100) 10/25/16 05:20 MCH 30.9 pg (27.0-31.0) 10/25/16 05:20 MCHC Differential 32.6 pg (28.0-36.0) 10/25/16 05:20 RDW 21.2 % (11.5-20.0) H 10/25/16 05:20 Plt Count 196 Th/cmm (150-400) 10/25/16 05:20 MPV 9.3 fl 10/25/16 05:20 Band Neutrophils % 1 % (0-10) 10/25/16 05:20 Neutrophils (Manual) 78 % (40-80) 10/25/16 05:20 Lymphocytes 11 % (20-50) L 10/25/16 05:20 Monocytes 10 % (2-10) 10/25/16 05:20 Eosinophils 0 % (0-5) 10/25/16 05:20 Basophils 2 % (0-3) 10/19/16 06:40 Nucleated RBCs 1.0 % (0-0) H 10/25/16 05:20 Platelet Estimate ADEQUATE (NORMAL) 10/25/16 05:20 Platelet Morphology GIANT PLATELETS SEEN (NORMAL) 10/25/16 05:20 Polychromasia 1+ 10/25/16 05:20 Anisocytosis 1+ 10/25/16 05:20 RBC Morph Micro Appear ABNORMAL (NORMAL) 10/25/16 05:20 PT 18.3 SECONDS (9.5-11.5) H 10/23/16 04:50 INR 1.78 (0.5-1.4) H 10/23/16 04:50 PTT (Actin FS) 34.8 SECONDS (26.0-38.0) 10/23/16 04:50 Sodium 132 mEq/L (136-145) L 10/25/16 05:20 Potassium 4.6 mEq/L (3.5-5.1) 10/25/16 05:20 Chloride 100 mEq/L (98-107) 10/25/16 05:20 Carbon Dioxide 23.4 mEq/L (21.0-31.0) 10/25/16 05:20 Anion Gap 13.2 (7.0-16.0) 10/25/16 05:20 BUN 30 mg/dL (7-25) H 10/25/16 05:20 Creatinine 2.6 mg/dL (0.6-1.2) H 10/25/16 05:20 Est GFR ( Amer) 23.5 ml/min 10/25/16 05:20 Est GFR (Non-Af Amer) 19.4 ml/min 10/25/16 05:20 BUN/Creatinine Ratio 11.5 10/25/16 05:20 Glucose 123 mg/dL (70-105) H 10/25/16 05:20 POC Glucose 228 MG/DL (70 - 105) H 10/25/16 11:12 Hemoglobin A1c % 6.9 % (4.0-6.0) H 10/15/16 05:17 Calcium 8.4 mg/dL (8.6-10.3) L 10/25/16 05:20 Total Bilirubin 0.8 mg/dL (0.3-1.0) 10/25/16 05:20 AST 13 U/L (13-39) 10/25/16 05:20 ALT 6 U/L (7-52) L 10/25/16 05:20 Alkaline Phosphatase 99 U/L (34-104) 10/25/16 05:20 Ammonia 50 umol/L (16-53) 10/14/16 10:40 B-Natriuretic Peptide > 5000.0 pg/mL (5.0-100.0) H 10/17/16 06:50 Total Protein 5.8 gm/dL (6.0-8.3) L 10/25/16 05:20 Albumin 2.6 gm/dL (3.7-5.3) L 10/25/16 05:20 Globulin 3.2 gm/dL 10/25/16 05:20 Albumin/Globulin Ratio 0.8 (1.0-1.8) L 10/25/16 05:20 Triglycerides 119 mg/dL (<150) 10/14/16 10:40 Cholesterol 80 mg/dL (<200) 10/14/16 10:40 LDL Cholesterol Direct 26 mg/dL (75-193) L 10/14/16 10:40 HDL Cholesterol 33 mg/dL (23-92) 10/14/16 10:40 TSH 7.87 uIU/ml (0.34-5.60) H 10/14/16 10:40 Urine Source CATH 10/14/16 06:00 Urine Color BROWN 10/14/16 06:00 Urine Clarity SL. CLOUDY (CLEAR) 10/14/16 06:00 Urine pH 5.5 10/14/16 06:00 Ur Specific [place] 1.025 (1.005-1.030) 10/14/16 06:00 Urine Protein 100 mg/dL (NEGATIVE) H 10/14/16 06:00 Urine Glucose (UA) NEGATIVE mg/dL (NEGATIVE) 10/14/16 06:00 Urine Ketones TRACE mg/dL (NEGATIVE) 10/14/16 06:00 Urine Blood TRACE (NEGATIVE) 10/14/16 06:00 Urine Nitrate NEGATIVE (NEGATIVE) 10/14/16 06:00 Urine Bilirubin SMALL (NEGATIVE) H 10/14/16 06:00 Urine Urobilinogen 0.2 E.U./dL (0.2 - 1.0) 10/14/16 06:00 Ur Leukocyte Esterase NEGATIVE (NEGATIVE) 10/14/16 06:00 Urine RBC 0-1 /hpf (0-5) 10/14/16 06:00 Urine WBC 2-5 /hpf (0-5) 10/14/16 06:00 Ur Epithelial Cells OCCASIONAL /lpf (FEW) 10/14/16 06:00 Amorphous Sediment FEW URATES (NONE SEEN) 10/14/16 06:00 Urine Bacteria NONE SEEN /hpf (NONE SEEN) 10/14/16 06:00 Random Vancomycin 34.0 ug/mL (5.0-40.0) 10/25/16 05:30 Hepatitis A IgM Ab Negative (Negative) 10/15/16 05:17 Hep Bs Antigen Negative (Negative) 10/15/16 05:17 Hep B Core IgM Ab Negative (Negative) 10/15/16 05:17 Hepatitis C Antibody <0.1 s/co ratio (0.0-0.9) 10/15/16 05:17 - Physical Exam Vitals and I&O: Vital Signs Temp 96.4 F 10/25/16 08:00 Pulse 83 10/25/16 10:00 Resp 12 10/25/16 10:00 BP 115/37 10/25/16 10:00 Pulse Ox 100 10/25/16 10:00 Intake & Output 10/24/16 10/25/16 10/25/16 18:59 06:59 18:59 Intake Total 608 113 5181 Output Total 0 0 Balance 149 932 8693 Intake: Intake, IV Amount 492 383 6107 D5-0.45NS 1,000 ml @ 75 1000 mls/hr IV .[id number] [facility] Rx #:[id number] cefTRIAXone 1 gm In 50 Sodium Chloride 0.9% 50 ml @ 100 mls/hr IV Q24HR [facility] Rx#:[id number] metroNIDAZOLE 500mg/NS 100 100 100mL 500 mg In 100 ml @ 100 mls/hr IV Q8HR [facility] Rx #:[id number] Oral 600 100 Output: Urine 0 0 Stool 0 Other: # Voids 0 # Bowel Movements 0 106 Active Medications: Current Medications Acetaminophen (Tylenol) 650 mg PO Q4HR PRN PRN Reason: fever/pain Stop: 12/13/16 01:20 Last Admin: 10/14/16 09:03 Dose: 650 mg Acetaminophen/Hydrocodone Bitart ([place] 5mg/325mg) 1 tab PO Q3H PRN PRN Reason: moderate pain (4-6) Stop: 12/13/16 10:21 Last Admin: 10/25/16 11:15 Dose: 1 tab Aspirin (Ecotrin) 81 mg PO QAM [facility] Stop: 12/14/16 08:59 Last Admin: 10/25/16 08:37 Dose: 81 mg Cilostazol (Pletal) 100 mg PO BID [facility] Stop: 12/22/16 16:59 Last Admin: 10/25/16 08:38 Dose: 100 mg Docusate Sodium (Colace) 100 mg PO BID [facility] Stop: 12/13/16 16:59 Last Admin: 10/25/16 08:37 Dose: 100 mg Epoetin [place] (Epogen) 10,000 units SUBQ MWF@1500 [facility] Stop: 12/14/16 14:59 Last Admin: 10/22/16 18:10 Dose: 10,000 units Folic Acid (Folate) 1 mg PO DAILY [facility] Stop: 12/14/16 08:59 Last Admin: 10/25/16 08:37 Dose: 1 mg Hydromorphone HCl (Dilaudid) 1 mg IVP Q3HR PRN PRN Reason: Severe Pain Stop: 12/22/16 02:42 Last Admin: 10/24/16 15:21 Dose: 1 mg Ceftriaxone Sodium 1 gm/ (Sodium Chloride) 50 mls @ 100 mls/hr IV Q24HR [facility] Stop: 12/13/16 15:59 Last Infusion: 10/24/16 18:00 Dose: Infused Dextrose/Sodium Chloride (D5-0.45ns) 1,000 mls @ 75 mls/hr IV .[id number] [facility] Stop: 12/23/16 17:44 Last Admin: 10/25/16 11:14 Dose: 75 mls/hr Insulin Aspart (Novolog Insulin Sliding Scale) 0 units SUBQ ACHS [facility] PRN Reason: Protocol Stop: 12/13/16 16:29 Last Admin: 10/25/16 11:16 Dose: 4 units Levothyroxine Sodium (Synthroid) 0.05 mg PO QDAC [facility] Stop: 12/19/16 06:29 Last Admin: 10/25/16 06:02 Dose: 0.05 mg Miscellaneous (Clinical Monitoring) 1 ea MC PRN PRN PRN Reason: RENAL DOSING Stop: 12/13/16 13:45 Miscellaneous (Vancomycin Iv Per Pharmacy) 1 ea MC PRN PRN PRN Reason: PROTOCOL Stop: 12/22/16 16:17 Pantoprazole Sodium (Protonix) 40 mg PO DAILY [facility] Stop: 12/14/16 08:59 Last Admin: 10/25/16 08:37 Dose: 40 mg Prochlorperazine Maleate (Compazine) 10 mg PO Q6H PRN PRN Reason: Nausea / Vomiting Stop: 12/13/16 10:39 Last Admin: 10/22/16 00:02 Dose: 10 mg Promethazine HCl/Dextromethorphan (Phenergan Dm 6.25/15mg-5 Ml) 5 ml PO BID PRN PRN Reason: Cough Stop: 12/21/16 15:19 Senna (Senna) 17.2 mg PO HS [facility] Stop: 12/13/16 20:59 Last Admin: 10/24/16 21:24 Dose: 17.2 mg Vitamin B Complex/Vit C/Folic Acid (Vitamin B Complex W/Vitamin C) 1 tab PO DAILY [facility] Stop: 12/14/16 08:59 Last Admin: 10/25/16 08:37 Dose: 1 tab General: no acute distress, well developed, well nourished HEENT: atraumatic, normocephalic, PERRLA, EOMI Neck: supple, no thyromegaly, no tracheostomy Cardiovascular: S1S2, regular Lungs: clear to percussion, crackles Abdomen: soft, no tender, no distended Extremities: no cyanosis, no clubbing, no edema Neurological: awake, alert, oriented, CN 2-12 intact Skin: intact Infectious Disease Assmt/Plan - Assessment Assessment: Impression: 1. Right big toe cellulitis. 2/2 PAD. 2. R pneumonia with air, cavity. 3. CHF. 4. CKD 5 on HD. 5. DM2 6. 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 - Plan Plan: Continue vanco IV and rocephin. Follow up AFB and TB quantiferon.
--- NOTE | 2016-10-25 14:05 | General Progress Note ---
Subjective - Review of Systems Service Date: 10/25/16 (low blood pressure) Objective - Results Result Diagrams: 10/25/16 05:20 10/25/16 05:20 Recent Labs: Laboratory Last Values WBC 12.9 Th/cmm (4.8-10.8) H 10/25/16 05:20 RBC 3.16 Mil/cmm (3.80-5.20) L 10/25/16 05:20 Hgb 9.8 gm/dL (11.7-16.1) L 10/25/16 05:20 Hct 29.9 % (35.0-45.0) L 10/25/16 05:20 MCV 94.8 fl (81-100) 10/25/16 05:20 MCH 30.9 pg (27.0-31.0) 10/25/16 05:20 MCHC Differential 32.6 pg (28.0-36.0) 10/25/16 05:20 RDW 21.2 % (11.5-20.0) H 10/25/16 05:20 Plt Count 196 Th/cmm (150-400) 10/25/16 05:20 MPV 9.3 fl 10/25/16 05:20 Band Neutrophils % 1 % (0-10) 10/25/16 05:20 Neutrophils (Manual) 78 % (40-80) 10/25/16 05:20 Lymphocytes 11 % (20-50) L 10/25/16 05:20 Monocytes 10 % (2-10) 10/25/16 05:20 Eosinophils 0 % (0-5) 10/25/16 05:20 Basophils 2 % (0-3) 10/19/16 06:40 Nucleated RBCs 1.0 % (0-0) H 10/25/16 05:20 Platelet Estimate ADEQUATE (NORMAL) 10/25/16 05:20 Platelet Morphology GIANT PLATELETS SEEN (NORMAL) 10/25/16 05:20 Polychromasia 1+ 10/25/16 05:20 Anisocytosis 1+ 10/25/16 05:20 RBC Morph Micro Appear ABNORMAL (NORMAL) 10/25/16 05:20 PT 18.3 SECONDS (9.5-11.5) H 10/23/16 04:50 INR 1.78 (0.5-1.4) H 10/23/16 04:50 PTT (Actin FS) 34.8 SECONDS (26.0-38.0) 10/23/16 04:50 Sodium 132 mEq/L (136-145) L 10/25/16 05:20 Potassium 4.6 mEq/L (3.5-5.1) 10/25/16 05:20 Chloride 100 mEq/L (98-107) 10/25/16 05:20 Carbon Dioxide 23.4 mEq/L (21.0-31.0) 10/25/16 05:20 Anion Gap 13.2 (7.0-16.0) 10/25/16 05:20 BUN 30 mg/dL (7-25) H 10/25/16 05:20 Creatinine 2.6 mg/dL (0.6-1.2) H 10/25/16 05:20 Est GFR ( Amer) 23.5 ml/min 10/25/16 05:20 Est GFR (Non-Af Amer) 19.4 ml/min 10/25/16 05:20 BUN/Creatinine Ratio 11.5 10/25/16 05:20 Glucose 123 mg/dL (70-105) H 10/25/16 05:20 POC Glucose 228 MG/DL (70 - 105) H 10/25/16 11:12 Hemoglobin A1c % 6.9 % (4.0-6.0) H 10/15/16 05:17 Calcium 8.4 mg/dL (8.6-10.3) L 10/25/16 05:20 Total Bilirubin 0.8 mg/dL (0.3-1.0) 10/25/16 05:20 AST 13 U/L (13-39) 10/25/16 05:20 ALT 6 U/L (7-52) L 10/25/16 05:20 Alkaline Phosphatase 99 U/L (34-104) 10/25/16 05:20 Ammonia 50 umol/L (16-53) 10/14/16 10:40 B-Natriuretic Peptide > 5000.0 pg/mL (5.0-100.0) H 10/17/16 06:50 Total Protein 5.8 gm/dL (6.0-8.3) L 10/25/16 05:20 Albumin 2.6 gm/dL (3.7-5.3) L 10/25/16 05:20 Globulin 3.2 gm/dL 10/25/16 05:20 Albumin/Globulin Ratio 0.8 (1.0-1.8) L 10/25/16 05:20 Triglycerides 119 mg/dL (<150) 10/14/16 10:40 Cholesterol 80 mg/dL (<200) 10/14/16 10:40 LDL Cholesterol Direct 26 mg/dL (75-193) L 10/14/16 10:40 HDL Cholesterol 33 mg/dL (23-92) 10/14/16 10:40 TSH 7.87 uIU/ml (0.34-5.60) H 10/14/16 10:40 Urine Source CATH 10/14/16 06:00 Urine Color BROWN 10/14/16 06:00 Urine Clarity SL. CLOUDY (CLEAR) 10/14/16 06:00 Urine pH 5.5 10/14/16 06:00 Ur Specific [place] 1.025 (1.005-1.030) 10/14/16 06:00 Urine Protein 100 mg/dL (NEGATIVE) H 10/14/16 06:00 Urine Glucose (UA) NEGATIVE mg/dL (NEGATIVE) 10/14/16 06:00 Urine Ketones TRACE mg/dL (NEGATIVE) 10/14/16 06:00 Urine Blood TRACE (NEGATIVE) 10/14/16 06:00 Urine Nitrate NEGATIVE (NEGATIVE) 10/14/16 06:00 Urine Bilirubin SMALL (NEGATIVE) H 10/14/16 06:00 Urine Urobilinogen 0.2 E.U./dL (0.2 - 1.0) 10/14/16 06:00 Ur Leukocyte Esterase NEGATIVE (NEGATIVE) 10/14/16 06:00 Urine RBC 0-1 /hpf (0-5) 10/14/16 06:00 Urine WBC 2-5 /hpf (0-5) 10/14/16 06:00 Ur Epithelial Cells OCCASIONAL /lpf (FEW) 10/14/16 06:00 Amorphous Sediment FEW URATES (NONE SEEN) 10/14/16 06:00 Urine Bacteria NONE SEEN /hpf (NONE SEEN) 10/14/16 06:00 Random Vancomycin 34.0 ug/mL (5.0-40.0) 10/25/16 05:30 Hepatitis A IgM Ab Negative (Negative) 10/15/16 05:17 Hep Bs Antigen Negative (Negative) 10/15/16 05:17 Hep B Core IgM Ab Negative (Negative) 10/15/16 05:17 Hepatitis C Antibody <0.1 s/co ratio (0.0-0.9) 10/15/16 05:17 - Physical Exam Vitals and I&O: Vital Signs Temp 97.0 F 10/25/16 12:00 Pulse 84 10/25/16 12:00 Resp 12 10/25/16 12:00 BP 93/40 10/25/16 12:00 Pulse Ox 98 10/25/16 12:00 Intake & Output 10/24/16 10/25/16 10/25/16 18:59 06:59 18:59 Intake Total 762 153 1307 Output Total 0 0 Balance 480 327 9123 Intake: Intake, IV Amount 541 868 5830 D5-0.45NS 1,000 ml @ 75 1000 mls/hr IV .[id number] [facility] Rx #:[id number] cefTRIAXone 1 gm In 50 Sodium Chloride 0.9% 50 ml @ 100 mls/hr IV Q24HR [facility] Rx#:[id number] metroNIDAZOLE 500mg/NS 100 100 100mL 500 mg In 100 ml @ 100 mls/hr IV Q8HR [facility] Rx #:[id number] Oral 600 100 Output: Urine 0 0 Stool 0 Other: # Voids 0 # Bowel Movements 0 106 Active Medications: Current Medications Acetaminophen (Tylenol) 650 mg PO Q4HR PRN PRN Reason: fever/pain Stop: 12/13/16 01:20 Last Admin: 10/14/16 09:03 Dose: 650 mg Acetaminophen/Hydrocodone Bitart ([place] 5mg/325mg) 1 tab PO Q3H PRN PRN Reason: moderate pain (4-6) Stop: 12/13/16 10:21 Last Admin: 10/25/16 11:15 Dose: 1 tab Aspirin (Ecotrin) 81 mg PO QAM [facility] Stop: 12/14/16 08:59 Last Admin: 10/25/16 08:37 Dose: 81 mg Cilostazol (Pletal) 100 mg PO BID [facility] Stop: 12/22/16 16:59 Last Admin: 10/25/16 08:38 Dose: 100 mg Docusate Sodium (Colace) 100 mg PO BID [facility] Stop: 12/13/16 16:59 Last Admin: 10/25/16 08:37 Dose: 100 mg Epoetin [place] (Epogen) 10,000 units SUBQ MWF@1500 [facility] Stop: 12/14/16 14:59 Last Admin: 10/22/16 18:10 Dose: 10,000 units Folic Acid (Folate) 1 mg PO DAILY [facility] Stop: 12/14/16 08:59 Last Admin: 10/25/16 08:37 Dose: 1 mg Hydromorphone HCl (Dilaudid) 1 mg IVP Q3HR PRN PRN Reason: Severe Pain Stop: 12/22/16 02:42 Last Admin: 10/24/16 15:21 Dose: 1 mg Ceftriaxone Sodium 1 gm/ (Sodium Chloride) 50 mls @ 100 mls/hr IV Q24HR [facility] Stop: 12/13/16 15:59 Last Infusion: 10/24/16 18:00 Dose: Infused Dextrose/Sodium Chloride (D5-0.45ns) 1,000 mls @ 75 mls/hr IV .[id number] [facility] Stop: 12/23/16 17:44 Last Admin: 10/25/16 11:14 Dose: 75 mls/hr Albumin Human ([place] 25%) 12.5 gm in 50 mls @ 50 mls/hr IV Q6HR PRN PRN Reason: Flush Stop: 10/27/16 13:53 Insulin Aspart (Novolog Insulin Sliding Scale) 0 units SUBQ ACHS [facility] PRN Reason: Protocol Stop: 12/13/16 16:29 Last Admin: 10/25/16 11:16 Dose: 4 units Levothyroxine Sodium (Synthroid) 0.05 mg PO QDAC [facility] Stop: 12/19/16 06:29 Last Admin: 10/25/16 06:02 Dose: 0.05 mg Miscellaneous (Clinical Monitoring) 1 ea MC PRN PRN PRN Reason: RENAL DOSING Stop: 12/13/16 13:45 Miscellaneous (Vancomycin Iv Per Pharmacy) 1 ea MC PRN PRN PRN Reason: PROTOCOL Stop: 12/22/16 16:17 Pantoprazole Sodium (Protonix) 40 mg PO DAILY [facility] Stop: 12/14/16 08:59 Last Admin: 10/25/16 08:37 Dose: 40 mg Prochlorperazine Maleate (Compazine) 10 mg PO Q6H PRN PRN Reason: Nausea / Vomiting Stop: 12/13/16 10:39 Last Admin: 10/22/16 00:02 Dose: 10 mg Promethazine HCl/Dextromethorphan (Phenergan Dm 6.25/15mg-5 Ml) 5 ml PO BID PRN PRN Reason: Cough Stop: 12/21/16 15:19 Senna (Senna) 17.2 mg PO HS [facility] Stop: 12/13/16 20:59 Last Admin: 10/24/16 21:24 Dose: 17.2 mg Vitamin B Complex/Vit C/Folic Acid (Vitamin B Complex W/Vitamin C) 1 tab PO DAILY [facility] Stop: 12/14/16 08:59 Last Admin: 10/25/16 08:37 Dose: 1 tab General: Cooperative, No acute distress Neck: Supple Cardiovascular: Regular rate Abdomen: Bowel sounds Neurological: Normal gait Assessment/Plan - Plan Plan: hemodialysis today for days patient not taking any fluid intake star to have fluid challencge for her blood pressure
[2016-10-25] MEDS ORDERED: Albumin 5% 12.5gm/250mL 12.5 GM/250 ML BTL IV ONE (14:25)
[2016-10-25] MEDS ORDERED: Albumin 25% 12.5gm/50mL 12.5 GM/50 ML BTL IV ONE (14:30)
[2016-10-25] MEDS: cefTRIAXone 1 GM in Sodium Chloride 0.9% 50 ML IV SCH (17:16)
[2016-10-25] MEDS: Epoetin Alfa 20000 Units/mL Vial SUBQ SCH (18:15)
[2016-10-26] MEDS: D5-0.45NS 1,000 ML IV SCH ×2 (04:05→18:24)
[2016-10-26] MEDS: HYDROmorphone 1 mg/mL 1mL Syr IVP PRN ×2 (04:06→22:31)
[2016-10-26 05:31] LABS: ANION GAP 19.3 (7.0-16.0); BUN/CREATININE RATIO 8.9; CALCIUM SERUM 8.4 mg/dL (8.6-10.3); CREATININE - SERUM 1.8 mg/dL (0.6-1.2); POTASSIUM SERUM 4.3 mEq/L (3.5-5.1)
[2016-10-26 05:34] LABS: HEMATOCRIT 27.8 % (35.0-45.0); HEMOGLOBIN 9.3 gm/dL (11.7-16.1); MEAN CORPUSCULAR HEMOGLOBIN 31.4 pg (27.0-31.0); MEAN CORPUSCULAR HGB CONC 33.4 pg (28.0-36.0); MEAN PLATELET VOLUME 9.8 fl; PLATELET COUNT 181 Th/cmm (150-400); RED BLOOD COUNT 2.95 Mil/cmm (3.80-5.20); RED CELL DISTRIBUTION WIDTH 20.3 % (11.5-20.0)
[2016-10-26] MEDS: Levothyroxine 0.05 Mg Tab PO SCH (07:11)
[2016-10-26] MEDS: INSULIN ASPART SLIDING SCALE 100 UNITS/ML UNIT SUBQ SCH ×5 (07:27→22:13)
[2016-10-26] MEDS: Vitamin B Complex w/Vitamin C Tab PO SCH (08:48)
[2016-10-26] MEDS: Pantoprazole 40 mg EC Tab PO SCH (08:48)
[2016-10-26 09:38] LABS: BAND NEUTROPHILE 3 % (0-10); NEUTROPHILS 82 % (40-80); TOTAL CELLS COUNTED 100
[2016-10-26 09:39] LABS: ANISOCYTOSIS 1+
[2016-10-26 09:40] LABS: PLATELET ESTIMATE ADEQUATE (NORMAL); PLATELET MORPHOLOGY GIANT PLATELETS SEEN (NORMAL)
--- NOTE | 2016-10-26 11:57 | Diagnostic Imaging Report ---
Radionuclide 3 phase bone scan of the feet and ankles HISTORY: Osteomyelitis 22.8 mCi technetium MDP was used in the exam. Initial perfusion and subsequent blood pool and delayed images were obtained. Initial perfusion images demonstrate increased activity throughout the soft tissues of the feet and ankles consistent with hyperemia. No abnormal foci or regions of increased activity seen on blood pool and delayed images about the toes. No definite scintigraphic evidence of osteomyelitis. IMPRESSION: 1. No definite scintigraphic evidence of osteomyelitis 2. Findings suggesting generalized hyperemia throughout the soft tissues of the feet and ankles. Correlation with plain radiographs recommended of the right toes.
--- NOTE | 2016-10-26 11:58 | Diagnostic Imaging Report ---
KUB abdominal film (portable) HISTORY: Pain The exam demonstrates moderate amount of stool projecting over the right abdomen in the region of the ascending colon. Bowel gas pattern otherwise nonspecific. No free peritoneal air. Vascular calcification noted. IMPRESSION: 1. Moderate amount of stool of the right abdomen with an otherwise nonspecific bowel gas pattern. 2. Atherosclerotic vascular changes
[2016-10-26] MEDS: cefTRIAXone 1 GM in Sodium Chloride 0.9% 50 ML IV SCH (16:00)
--- NOTE | 2016-10-27 03:56 | Consultation ---
GASTROINTESTINAL CONSULT REFERRING PHYSICIAN: Dr. Zhang. REASON FOR CONSULTATION: Fecal impaction. HISTORY OF PRESENT ILLNESS: A 70-year-old female with hypertension, heart failure, diabetes, and anemia, came to the hospital with congestive heart failure. The patient's hospital course was complicated. The patient also had aggressive dialysis. She also underwent femoral bypass graft, and per staff, it did not appear to be successful. We are asked to see the patient because of her lack of bowel movement. Imaging studies showed fecal impaction and here to assess in that regard. She denies having any abdominal pain, nausea, vomiting, or GI bleeding. PAST MEDICAL HISTORY: Congestive heart failure, diabetes, chronic kidney disease, peripheral vascular disease, hypertension, iron deficiency anemia, hypothyroidism, neuropathy, and pneumonia. PAST SURGICAL HISTORY: Fem-Pop bypass. No abdominal surgeries recently. FAMILY HISTORY: Noncontributory. SOCIAL HISTORY: No tobacco, alcohol, or IV drug usage. ALLERGIES: None. CURRENT MEDICATIONS: Tylenol, [place], Ecotrin, ceftriaxone, ____, Colace, Epogen, Dilaudid, insulin, Synthroid, vancomycin, Protonix, Compazine, senna, and Phenergan. REVIEW OF SYSTEMS: Ten-point review of systems was performed and pertinent positive was the fecal incontinence, congestive heart failure, and chronic kidney disease. All other systems were otherwise negative. PHYSICAL EXAMINATION: VITAL SIGNS: Temperature 97.5, pulse of 83, breathing at a rate of 15, blood pressure 132/66, and satting 100%. GENERAL: In no apparent distress. EYES: Anicteric, normal conjunctivae. HEENT: Normocephalic and atraumatic. Moist mucous membranes. NECK: Soft, supple. CHEST: Clear. Normal effort. CARDIOVASCULAR: Regular rate and rhythm. ABDOMEN: Soft, nontender, and nondistended. Normal bowel sounds. SKIN: Warm and dry. EXTREMITIES: Reveal no cyanosis. LABORATORY DATA: Show white count 11, hemoglobin 9.3, and platelets of 181,000. T-bilirubin is 0.8. AST is 13, ALT is 6, and alkaline phosphatase is 99. KUB showed stool in the colon. IMPRESSION: This is a 70-year-old female with fecal impaction, likely due to her state with congestive heart failure and the multitude of medications that she is on and her postoperative state. At this point, we will continue her current management with medications to help alleviate her constipation with laxatives. If symptoms do not improve, may have to use more stronger laxatives. With regards to colonoscopy, she may need one, but currently, she is in isolation for possible tuberculosis. This can be planned either as an inpatient or as an outpatient and especially if she has not had one done before. PLAN: 1. Provide with laxatives. 2. Consider colonoscopy when the patient's pulmonary status has improved. Thank you for allowing me to participate. Please call me if you have any questions. JOB# [id number]
[2016-10-27 05:37] LABS: HEMOGLOBIN 11.2 gm/dL (11.7-16.1); MEAN CELL VOLUME 95.5 fl (81-100); MEAN CORPUSCULAR HEMOGLOBIN 31.4 pg (27.0-31.0); MEAN CORPUSCULAR HGB CONC 32.8 pg (28.0-36.0); MEAN PLATELET VOLUME 9.8 fl; PLATELET COUNT 167 Th/cmm (150-400); RED BLOOD COUNT 3.59 Mil/cmm (3.80-5.20); RED CELL DISTRIBUTION WIDTH 21.3 % (11.5-20.0); WHITE BLOOD COUNT 10.6 Th/cmm (4.8-10.8)
[2016-10-27 05:41] LABS: HEMATOCRIT 34.2 % (35.0-45.0)
[2016-10-27 06:09] LABS: ALB/GLOB RATIO 0.9 (1.0-1.8); ANION GAP 13.5 (7.0-16.0); BILIRUBIN,DIRECT 0.26 mg/dL (0.0-0.2); BILIRUBIN,TOTAL 1.1 mg/dL (0.3-1.0); CALCIUM SERUM 8.8 mg/dL (8.6-10.3); CARBON DIOXIDE 22.2 mEq/L (21.0-31.0); POTASSIUM SERUM 4.7 mEq/L (3.5-5.1)
[2016-10-27] MEDS: HYDROmorphone 1 mg/mL 1mL Syr IVP PRN (06:39)
[2016-10-27] MEDS: Levothyroxine 0.05 Mg Tab PO SCH (06:39)
[2016-10-27] MEDS: INSULIN ASPART SLIDING SCALE 100 UNITS/ML UNIT SUBQ SCH ×4 (06:52→21:53)
[2016-10-27 07:55] LABS: ANISOCYTOSIS 1+; BAND NEUTROPHILE 6 % (0-10); EOSINOPHIL 1 % (0-5); METAMYELOCYTE 1 % (0-0); NEUTROPHILS 82 % (40-80); PLATELET ESTIMATE ADEQUATE (NORMAL); PLATELET MORPHOLOGY PLATELET CLUMPS SEEN (NORMAL); TOTAL CELLS COUNTED 100
[2016-10-27] MEDS: Pantoprazole 40 mg EC Tab PO SCH (09:34)
--- NOTE | 2016-10-27 09:43 | Progress Notes ---
PROBLEMS: 1. Abnormal chest x-ray. 2. Possibly congestive heart failure. 3. Mild cachexia, questionable chronic obstructive pulmonary disease. SYMPTOMS: The patient is mumbling, no specific new symptom ____ the patient and the patient is not in any acute respiratory distress, currently on airborne isolation. OBJECTIVE: VITAL SIGNS: The patient's recorded vitals: Temperature is 97.5, pulse is 84. ENT: Shows no new changes. CHEST: Shows diminished air entry with occasional rhonchi. HEART: Regular. ABDOMEN: Soft, nontender. LABORATORY DATA: White count is 11,000, hemoglobin 9.3 and sugar is high side and microbiology, so far there is no growth, no MRSA and acid fast samples, AFB stain and culture is currently pending and x 2 sample smears have been negative. ASSESSMENT: 1. The patient is clinically stable, main problem is chronic obstructive pulmonary disease. 2. Questionable cavitary area. 3. Doubt acid fast as acid fast samples x 3 smears is negative. PLANS AND SUGGESTIONS: We will continue current treatment. We will discontinue isolation. We will leave it up to ID. We will repeat blood gases and ABG tomorrow morning and see how it is and go from there. JOB# [id number]
[2016-10-27 10:10] LABS: ABG SOURCE ARTERIAL; ALLEN TEST Positive; BE(B) -0.5 mmol/L (-3.0-3.0); FIO2 28; HCO3 27.3 mmol/L (20.0-26.0); pH 7.28 (7.35-7.45)
--- NOTE | 2016-10-27 11:13 | Diagnostic Imaging Report ---
CHEST X-RAY: AP view INDICATION: Effusion, pneumonia COMPARISON: 10/25/2016 FINDINGS: Bilateral effusions are seen with CHF and nodular opacity of the right midlung. Cardiomegaly is noted with atherosclerosis. IMPRESSION: No significant change in CHF and bilateral infiltrates. Nodular opacity right midlung is seen possibly fluid within the major fissure. Follow-up is recommended. Cardiomegaly and atherosclerotic vascular disease.
[2016-10-27] MEDS: Hydrocodone/APAP 5mg/325mg Tab PO PRN (11:27)
--- NOTE | 2016-10-27 11:27 | Diagnostic Imaging Report ---
Left upper extremity DVT study HISTORY: Worsening edema COMPARISON: None Technique: Longitudinal and transverse sonographic images of the left upper extremity veins were obtained with doppler analysis. FINDINGS: There is patency of the left jugular, subclavian, axial, brachial and cephalic veins. The left basilic vein was not visualized. Compressibly and augmentation of the visualized veins was demonstrated with no DVT formation. IMPRESSION: Nonvisualization of the left basilic vein, which is a superficial vein. Otherwise no DVT was visualized.
--- NOTE | 2016-10-27 11:59 | Infectious Disease Prog Note ---
Infectious Disease Subjective - Review of Systems Service Date: 10/27/16 Subjective: There is no fever. Doing well. Infectious Disease Objective - Results Result Diagrams: 10/27/16 04:52 10/27/16 04:52 Recent Labs: Laboratory Last Values WBC 10.6 Th/cmm (4.8-10.8) 10/27/16 04:52 RBC 3.59 Mil/cmm (3.80-5.20) L 10/27/16 04:52 Hgb 11.2 gm/dL (11.7-16.1) L 10/27/16 04:52 Hct 34.2 % (35.0-45.0) L D 10/27/16 04:52 MCV 95.5 fl (81-100) 10/27/16 04:52 MCH 31.4 pg (27.0-31.0) H 10/27/16 04:52 MCHC Differential 32.8 pg (28.0-36.0) 10/27/16 04:52 RDW 21.3 % (11.5-20.0) H 10/27/16 04:52 Plt Count 167 Th/cmm (150-400) 10/27/16 04:52 MPV 9.8 fl 10/27/16 04:52 Band Neutrophils % 6 % (0-10) 10/27/16 04:52 Neutrophils (Manual) 82 % (40-80) H 10/27/16 04:52 Lymphocytes 3 % (20-50) L 10/27/16 04:52 Monocytes 7 % (2-10) 10/27/16 04:52 Eosinophils 1 % (0-5) 10/27/16 04:52 Basophils 2 % (0-3) 10/19/16 06:40 Metamyelocytes 1 % (0-0) H 10/27/16 04:52 Nucleated RBCs 2.0 % (0-0) H 10/27/16 04:52 Platelet Estimate ADEQUATE (NORMAL) 10/27/16 04:52 Platelet Morphology PLATELET CLUMPS SEEN (NORMAL) 10/27/16 04:52 Polychromasia 1+ 10/25/16 05:20 Anisocytosis 1+ 10/27/16 04:52 RBC Morph Micro Appear ABNORMAL (NORMAL) 10/27/16 04:52 PT 18.3 SECONDS (9.5-11.5) H 10/23/16 04:50 INR 1.78 (0.5-1.4) H 10/23/16 04:50 PTT (Actin FS) 34.8 SECONDS (26.0-38.0) 10/23/16 04:50 Specimen Source ARTERIAL 10/27/16 09:50 Sample Site RIGHT BRACH 10/27/16 09:50 pH 7.28 (7.35-7.45) L 10/27/16 09:50 pCO2 58.0 mmHg (35.0-45.0) H* 10/27/16 09:50 pO2 82.0 mmHg (80.0-100.0) 10/27/16 09:50 HCO3 27.3 mmol/L (20.0-26.0) H 10/27/16 09:50 Base Excess -0.5 mmol/L (-3.0-3.0) 10/27/16 09:50 O2 Saturation 94.0 % (92.0-100.0) 10/27/16 09:50 Sanjeev Test Positive 10/27/16 09:50 Vent Rate NA 10/27/16 09:50 Inspired O2 28 10/27/16 09:50 Tidal Volume NA 10/27/16 09:50 PEEP NA 10/27/16 09:50 Pressure (ins/psv/peep) NA 10/27/16 09:50 Critical Value DONN TURNER [employer] 10/27/16 09:50 Sodium 129 mEq/L (136-145) L 10/27/16 04:52 Potassium 4.7 mEq/L (3.5-5.1) 10/27/16 04:52 Chloride 98 mEq/L (98-107) 10/27/16 04:52 Carbon Dioxide 22.2 mEq/L (21.0-31.0) 10/27/16 04:52 Anion Gap 13.5 (7.0-16.0) 10/27/16 04:52 BUN 20 mg/dL (7-25) 10/27/16 04:52 Creatinine 2.0 mg/dL (0.6-1.2) H 10/27/16 04:52 Est GFR ( Amer) 31.8 ml/min 10/27/16 04:52 Est GFR (Non-Af Amer) 26.3 ml/min 10/27/16 04:52 BUN/Creatinine Ratio 10.0 10/27/16 04:52 Glucose 126 mg/dL (70-105) H 10/27/16 04:52 POC Glucose 118 MG/DL (70 - 105) H 10/27/16 06:49 Hemoglobin A1c % 6.9 % (4.0-6.0) H 10/15/16 05:17 Calcium 8.8 mg/dL (8.6-10.3) 10/27/16 04:52 Total Bilirubin 1.1 mg/dL (0.3-1.0) H 10/27/16 04:52 Direct Bilirubin 0.26 mg/dL (0.0-0.2) H 10/27/16 04:52 AST 19 U/L (13-39) 10/27/16 04:52 ALT 5 U/L (7-52) L 10/27/16 04:52 Alkaline Phosphatase 102 U/L (34-104) 10/27/16 04:52 Ammonia 50 umol/L (16-53) 10/14/16 10:40 B-Natriuretic Peptide > 5000.0 pg/mL (5.0-100.0) H 10/17/16 06:50 Total Protein 6.4 gm/dL (6.0-8.3) 10/27/16 04:52 Albumin 3.1 gm/dL (3.7-5.3) L 10/27/16 04:52 Globulin 3.3 gm/dL 10/27/16 04:52 Albumin/Globulin Ratio 0.9 (1.0-1.8) L 10/27/16 04:52 Triglycerides 119 mg/dL (<150) 10/14/16 10:40 Cholesterol 80 mg/dL (<200) 10/14/16 10:40 LDL Cholesterol Direct 26 mg/dL (75-193) L 10/14/16 10:40 HDL Cholesterol 33 mg/dL (23-92) 10/14/16 10:40 TSH 7.87 uIU/ml (0.34-5.60) H 10/14/16 10:40 Urine Source CATH 10/14/16 06:00 Urine Color BROWN 10/14/16 06:00 Urine Clarity SL. CLOUDY (CLEAR) 10/14/16 06:00 Urine pH 5.5 10/14/16 06:00 Ur Specific [place] 1.025 (1.005-1.030) 10/14/16 06:00 Urine Protein 100 mg/dL (NEGATIVE) H 10/14/16 06:00 Urine Glucose (UA) NEGATIVE mg/dL (NEGATIVE) 10/14/16 06:00 Urine Ketones TRACE mg/dL (NEGATIVE) 10/14/16 06:00 Urine Blood TRACE (NEGATIVE) 10/14/16 06:00 Urine Nitrate NEGATIVE (NEGATIVE) 10/14/16 06:00 Urine Bilirubin SMALL (NEGATIVE) H 10/14/16 06:00 Urine Urobilinogen 0.2 E.U./dL (0.2 - 1.0) 10/14/16 06:00 Ur Leukocyte Esterase NEGATIVE (NEGATIVE) 10/14/16 06:00 Urine RBC 0-1 /hpf (0-5) 10/14/16 06:00 Urine WBC 2-5 /hpf (0-5) 10/14/16 06:00 Ur Epithelial Cells OCCASIONAL /lpf (FEW) 10/14/16 06:00 Amorphous Sediment FEW URATES (NONE SEEN) 10/14/16 06:00 Urine Bacteria NONE SEEN /hpf (NONE SEEN) 10/14/16 06:00 Vancomycin Trough 20.9 ug/mL (10-20) H 10/26/16 09:35 Random Vancomycin 34.0 ug/mL (5.0-40.0) 10/25/16 05:30 Hepatitis A IgM Ab Negative (Negative) 10/15/16 05:17 Hep Bs Antigen Negative (Negative) 10/15/16 05:17 Hep B Core IgM Ab Negative (Negative) 10/15/16 05:17 Hepatitis C Antibody <0.1 s/co ratio (0.0-0.9) 10/15/16 05:17 TB (QFT) Gold In Tube Negative (Negative) 10/24/16 16:00 TB Test (QFT) Mitogen 3.00 IU/mL 10/24/16 16:00 TB Test (QFT) Antigen 0.05 IU/mL 10/24/16 16:00 TB Test Antigen - Nil <0.00 IU/mL 10/24/16 16:00 TB Test TB - Nil 0.06 IU/mL 10/24/16 16:00 TB Test (QFT) Interp (()) 10/24/16 16:00 - Physical Exam Vitals and I&O: Vital Signs Temp 95.2 F 10/27/16 08:15 Pulse 74 10/27/16 10:25 Resp 20 10/27/16 10:25 BP 164/82 10/27/16 08:15 Pulse Ox 96 10/27/16 10:25 Intake & Output 10/26/16 10/27/16 10/27/16 18:59 06:59 18:59 Intake Total 1370 Output Total 0 Balance 1370 Intake: Intake, IV Amount 1050 D5-0.45NS 1,000 ml @ 75 1000 mls/hr IV .[id number] [facility] Rx #:[id number] cefTRIAXone 1 gm In 50 Sodium Chloride 0.9% 50 ml @ 100 mls/hr IV Q24HR [facility] Rx#:[id number] Oral 320 Output: Urine 0 Other: # Bowel Movements 1 Stool Characteristics Soft Active Medications: Current Medications Acetaminophen (Tylenol) 650 mg PO Q4HR PRN PRN Reason: fever/pain Stop: 12/13/16 01:20 Last Admin: 10/14/16 09:03 Dose: 650 mg Acetaminophen/Hydrocodone Bitart ([place] 5mg/325mg) 1 tab PO Q3H PRN PRN Reason: moderate pain (4-6) Stop: 12/13/16 10:21 Last Admin: 10/27/16 11:27 Dose: 1 tab Aspirin (Ecotrin) 81 mg PO QAM [facility] Stop: 12/14/16 08:59 Last Admin: 10/27/16 09:34 Dose: 81 mg Cilostazol (Pletal) 100 mg PO BID [facility] Stop: 12/22/16 16:59 Last Admin: 10/27/16 09:33 Dose: 100 mg Docusate Sodium (Colace) 100 mg PO BID [facility] Stop: 12/13/16 16:59 Last Admin: 10/27/16 09:33 Dose: 100 mg Epoetin [place] (Epogen) 10,000 units SUBQ MWF@1500 [facility] Stop: 12/14/16 14:59 Last Admin: 10/25/16 18:15 Dose: 10,000 units Folic Acid (Folate) 1 mg PO DAILY [facility] Stop: 12/14/16 08:59 Last Admin: 10/27/16 09:34 Dose: 1 mg Hydromorphone HCl (Dilaudid) 1 mg IVP Q3HR PRN PRN Reason: Severe Pain Stop: 12/22/16 02:42 Last Admin: 10/27/16 06:39 Dose: 1 mg Ceftriaxone Sodium 1 gm/ (Sodium Chloride) 50 mls @ 100 mls/hr IV Q24HR [facility] Stop: 12/13/16 15:59 Last Infusion: 10/26/16 17:00 Dose: Infused Dextrose/Sodium Chloride (D5-0.45ns) 1,000 mls @ 75 mls/hr IV .[id number] [facility] Stop: 12/23/16 17:44 Last Admin: 10/26/16 18:24 Dose: 75 mls/hr Insulin Aspart (Novolog Insulin Sliding Scale) 0 units SUBQ ACHS [facility] PRN Reason: Protocol Stop: 12/13/16 16:29 Last Admin: 10/27/16 11:32 Dose: 2 units Levothyroxine Sodium (Synthroid) 0.05 mg PO QDAC [facility] Stop: 12/19/16 06:29 Last Admin: 10/27/16 06:39 Dose: 0.05 mg Miscellaneous (Clinical Monitoring) 1 ea [facility] PRN PRN PRN Reason: RENAL DOSING Stop: 12/13/16 13:45 Miscellaneous (Vancomycin Iv Per Pharmacy) 1 ea PRN PRN PRN Reason: PROTOCOL Stop: 12/22/16 16:17 Pantoprazole Sodium (Protonix) 40 mg PO DAILY [facility] Stop: 12/14/16 08:59 Last Admin: 10/27/16 09:34 Dose: 40 mg Prochlorperazine Maleate (Compazine) 10 mg PO Q6H PRN PRN Reason: Nausea / Vomiting Stop: 12/13/16 10:39 Last Admin: 10/22/16 00:02 Dose: 10 mg Promethazine HCl/Dextromethorphan (Phenergan Dm 6.25/15mg-5 Ml) 5 ml PO BID PRN PRN Reason: Cough Stop: 12/21/16 15:19 Senna (Senna) 17.2 mg PO HS [facility] Stop: 12/13/16 20:59 Last Admin: 10/26/16 22:00 Dose: 17.2 mg Vitamin B Complex/Vit C/Folic Acid (Vitamin B Complex W/Vitamin C) 1 tab PO DAILY [facility] Stop: 12/14/16 08:59 Last Admin: 10/26/16 08:48 Dose: 1 tab General: no acute distress, well developed, well nourished HEENT: atraumatic, normocephalic, PERRLA, EOMI Neck: supple, other, no thyromegaly, no lymphadenopathy Cardiovascular: S1S2, regular Lungs: clear to percussion, crackles, other (decreased breath osunds./) Abdomen: soft, no tender, no distended Extremities: other (cyanotic right big toe.), no cyanosis, no clubbing, no edema Neurological: awake, alert, oriented - Procedures Procedures: Procedures Procedure Code Date ART BYP FEMORAL-FEMORAL 28775 10/13/16 BYPASS L FEM ART TO R FEMOR A WITH SYNTH SUB, OPEN APPROACH [id number] 10/13/16 COMPOSITE BYP GRFT PROS&VEIN [id number] 10/13/16 Infectious Disease Assmt/Plan - Assessment Assessment: Impression: 1. Right big toe cellulitis. 2/2 PAD. 2. R pneumonia with air, cavity. 3. CHF. 4. CKD 5 on HD. 5. DM2 6. 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 7. abdominal pain. - Plan Plan: Continue vanco IV and rocephin. Follow up AFB and TB quantiferon. Check HIV test. GI consult appreciated.
--- NOTE | 2016-10-27 13:41 | General Progress Note ---
Subjective - Review of Systems Service Date: 10/27/16 Subjective: more awake, less tacypnea, less abd discomfort Objective - Results Result Diagrams: 10/27/16 04:52 10/27/16 04:52 Recent Labs: Laboratory Last Values WBC 10.6 Th/cmm (4.8-10.8) 10/27/16 04:52 RBC 3.59 Mil/cmm (3.80-5.20) L 10/27/16 04:52 Hgb 11.2 gm/dL (11.7-16.1) L 10/27/16 04:52 Hct 34.2 % (35.0-45.0) L D 10/27/16 04:52 MCV 95.5 fl (81-100) 10/27/16 04:52 MCH 31.4 pg (27.0-31.0) H 10/27/16 04:52 MCHC Differential 32.8 pg (28.0-36.0) 10/27/16 04:52 RDW 21.3 % (11.5-20.0) H 10/27/16 04:52 Plt Count 167 Th/cmm (150-400) 10/27/16 04:52 MPV 9.8 fl 10/27/16 04:52 Band Neutrophils % 6 % (0-10) 10/27/16 04:52 Neutrophils (Manual) 82 % (40-80) H 10/27/16 04:52 Lymphocytes 3 % (20-50) L 10/27/16 04:52 Monocytes 7 % (2-10) 10/27/16 04:52 Eosinophils 1 % (0-5) 10/27/16 04:52 Basophils 2 % (0-3) 10/19/16 06:40 Metamyelocytes 1 % (0-0) H 10/27/16 04:52 Nucleated RBCs 2.0 % (0-0) H 10/27/16 04:52 Platelet Estimate ADEQUATE (NORMAL) 10/27/16 04:52 Platelet Morphology PLATELET CLUMPS SEEN (NORMAL) 10/27/16 04:52 Polychromasia 1+ 10/25/16 05:20 Anisocytosis 1+ 10/27/16 04:52 RBC Morph Micro Appear ABNORMAL (NORMAL) 10/27/16 04:52 PT 18.3 SECONDS (9.5-11.5) H 10/23/16 04:50 INR 1.78 (0.5-1.4) H 10/23/16 04:50 PTT (Actin FS) 34.8 SECONDS (26.0-38.0) 10/23/16 04:50 Specimen Source ARTERIAL 10/27/16 09:50 Sample Site RIGHT BRACH 10/27/16 09:50 pH 7.28 (7.35-7.45) L 10/27/16 09:50 pCO2 58.0 mmHg (35.0-45.0) H* 10/27/16 09:50 pO2 82.0 mmHg (80.0-100.0) 10/27/16 09:50 HCO3 27.3 mmol/L (20.0-26.0) H 10/27/16 09:50 Base Excess -0.5 mmol/L (-3.0-3.0) 10/27/16 09:50 O2 Saturation 94.0 % (92.0-100.0) 10/27/16 09:50 Sanjeev Test Positive 10/27/16 09:50 Vent Rate NA 10/27/16 09:50 Inspired O2 28 10/27/16 09:50 Tidal Volume NA 10/27/16 09:50 PEEP NA 10/27/16 09:50 Pressure (ins/psv/peep) NA 10/27/16 09:50 Critical Value DONN TURNER MOVEMAN 10/27/16 09:50 Sodium 129 mEq/L (136-145) L 10/27/16 04:52 Potassium 4.7 mEq/L (3.5-5.1) 10/27/16 04:52 Chloride 98 mEq/L (98-107) 10/27/16 04:52 Carbon Dioxide 22.2 mEq/L (21.0-31.0) 10/27/16 04:52 Anion Gap 13.5 (7.0-16.0) 10/27/16 04:52 BUN 20 mg/dL (7-25) 10/27/16 04:52 Creatinine 2.0 mg/dL (0.6-1.2) H 10/27/16 04:52 Est GFR ( Amer) 31.8 ml/min 10/27/16 04:52 Est GFR (Non-Af Amer) 26.3 ml/min 10/27/16 04:52 BUN/Creatinine Ratio 10.0 10/27/16 04:52 Glucose 126 mg/dL (70-105) H 10/27/16 04:52 POC Glucose 118 MG/DL (70 - 105) H 10/27/16 06:49 Hemoglobin A1c % 6.9 % (4.0-6.0) H 10/15/16 05:17 Calcium 8.8 mg/dL (8.6-10.3) 10/27/16 04:52 Total Bilirubin 1.1 mg/dL (0.3-1.0) H 10/27/16 04:52 Direct Bilirubin 0.26 mg/dL (0.0-0.2) H 10/27/16 04:52 AST 19 U/L (13-39) 10/27/16 04:52 ALT 5 U/L (7-52) L 10/27/16 04:52 Alkaline Phosphatase 102 U/L (34-104) 10/27/16 04:52 Ammonia 50 umol/L (16-53) 10/14/16 10:40 B-Natriuretic Peptide > 5000.0 pg/mL (5.0-100.0) H 10/17/16 06:50 Total Protein 6.4 gm/dL (6.0-8.3) 10/27/16 04:52 Albumin 3.1 gm/dL (3.7-5.3) L 10/27/16 04:52 Globulin 3.3 gm/dL 10/27/16 04:52 Albumin/Globulin Ratio 0.9 (1.0-1.8) L 10/27/16 04:52 Triglycerides 119 mg/dL (<150) 10/14/16 10:40 Cholesterol 80 mg/dL (<200) 10/14/16 10:40 LDL Cholesterol Direct 26 mg/dL (75-193) L 10/14/16 10:40 HDL Cholesterol 33 mg/dL (23-92) 10/14/16 10:40 TSH 7.87 uIU/ml (0.34-5.60) H 10/14/16 10:40 Urine Source CATH 10/14/16 06:00 Urine Color BROWN 10/14/16 06:00 Urine Clarity SL. CLOUDY (CLEAR) 10/14/16 06:00 Urine pH 5.5 10/14/16 06:00 Ur Specific [place] 1.025 (1.005-1.030) 10/14/16 06:00 Urine Protein 100 mg/dL (NEGATIVE) H 10/14/16 06:00 Urine Glucose (UA) NEGATIVE mg/dL (NEGATIVE) 10/14/16 06:00 Urine Ketones TRACE mg/dL (NEGATIVE) 10/14/16 06:00 Urine Blood TRACE (NEGATIVE) 10/14/16 06:00 Urine Nitrate NEGATIVE (NEGATIVE) 10/14/16 06:00 Urine Bilirubin SMALL (NEGATIVE) H 10/14/16 06:00 Urine Urobilinogen 0.2 E.U./dL (0.2 - 1.0) 10/14/16 06:00 Ur Leukocyte Esterase NEGATIVE (NEGATIVE) 10/14/16 06:00 Urine RBC 0-1 /hpf (0-5) 10/14/16 06:00 Urine WBC 2-5 /hpf (0-5) 10/14/16 06:00 Ur Epithelial Cells OCCASIONAL /lpf (FEW) 10/14/16 06:00 Amorphous Sediment FEW URATES (NONE SEEN) 10/14/16 06:00 Urine Bacteria NONE SEEN /hpf (NONE SEEN) 10/14/16 06:00 Vancomycin Trough 20.9 ug/mL (10-20) H 10/26/16 09:35 Random Vancomycin 34.0 ug/mL (5.0-40.0) 10/25/16 05:30 Hepatitis A IgM Ab Negative (Negative) 10/15/16 05:17 Hep Bs Antigen Negative (Negative) 10/15/16 05:17 Hep B Core IgM Ab Negative (Negative) 10/15/16 05:17 Hepatitis C Antibody <0.1 s/co ratio (0.0-0.9) 10/15/16 05:17 HIV 1&2 Antibody Screen NEGATIVE (NEG) 10/27/16 04:52 TB (QFT) Gold In Tube Negative (Negative) 10/24/16 16:00 TB Test (QFT) Mitogen 3.00 IU/mL 10/24/16 16:00 TB Test (QFT) Antigen 0.05 IU/mL 10/24/16 16:00 TB Test Antigen - Nil <0.00 IU/mL 10/24/16 16:00 TB Test TB - Nil 0.06 IU/mL 10/24/16 16:00 TB Test (QFT) Interp (()) 10/24/16 16:00 - Physical Exam Vitals and I&O: Vital Signs Temp 95.2 F 10/27/16 08:15 Pulse 74 10/27/16 10:25 Resp 20 10/27/16 10:25 BP 164/82 10/27/16 08:15 Pulse Ox 96 10/27/16 10:25 Intake & Output 10/26/16 10/27/16 10/27/16 18:59 06:59 18:59 Intake Total 1370 Output Total 0 Balance 1370 Intake: Intake, IV Amount 1050 D5-0.45NS 1,000 ml @ 75 1000 mls/hr IV .[id number] [facility] Rx #:[id number] cefTRIAXone 1 gm In 50 Sodium Chloride 0.9% 50 ml @ 100 mls/hr IV Q24HR [facility] Rx#:[id number] Oral 320 Output: Urine 0 Other: # Bowel Movements 1 Stool Characteristics Soft Active Medications: Current Medications Acetaminophen (Tylenol) 650 mg PO Q4HR PRN PRN Reason: fever/pain Stop: 12/13/16 01:20 Last Admin: 10/14/16 09:03 Dose: 650 mg Acetaminophen/Hydrocodone Bitart ([place] 5mg/325mg) 1 tab PO Q3H PRN PRN Reason: moderate pain (4-6) Stop: 12/13/16 10:21 Last Admin: 10/27/16 11:27 Dose: 1 tab Aspirin (Ecotrin) 81 mg PO QAM [facility] Stop: 12/14/16 08:59 Last Admin: 10/27/16 09:34 Dose: 81 mg Cilostazol (Pletal) 100 mg PO BID [facility] Stop: 12/22/16 16:59 Last Admin: 10/27/16 09:33 Dose: 100 mg Docusate Sodium (Colace) 100 mg PO BID [facility] Stop: 12/13/16 16:59 Last Admin: 10/27/16 09:33 Dose: 100 mg Epoetin [place] (Epogen) 10,000 units SUBQ MWF@1500 [facility] Stop: 12/14/16 14:59 Last Admin: 10/25/16 18:15 Dose: 10,000 units Folic Acid (Folate) 1 mg PO DAILY [facility] Stop: 12/14/16 08:59 Last Admin: 10/27/16 09:34 Dose: 1 mg Hydromorphone HCl (Dilaudid) 1 mg IVP Q3HR PRN PRN Reason: Severe Pain Stop: 12/22/16 02:42 Last Admin: 10/27/16 06:39 Dose: 1 mg Ceftriaxone Sodium 1 gm/ (Sodium Chloride) 50 mls @ 100 mls/hr IV Q24HR [facility] Stop: 12/13/16 15:59 Last Infusion: 10/26/16 17:00 Dose: Infused Insulin Aspart (Novolog Insulin Sliding Scale) 0 units SUBQ ACHS [facility] PRN Reason: Protocol Stop: 12/13/16 16:29 Last Admin: 10/27/16 11:32 Dose: 2 units Levothyroxine Sodium (Synthroid) 0.05 mg PO QDAC [facility] Stop: 12/19/16 06:29 Last Admin: 10/27/16 06:39 Dose: 0.05 mg Miscellaneous (Clinical Monitoring) 1 [facility] PRN PRN PRN Reason: RENAL DOSING Stop: 12/13/16 13:45 Miscellaneous (Vancomycin Iv Per Pharmacy) 1 [facility] PRN PRN PRN Reason: PROTOCOL Stop: 12/22/16 16:17 Pantoprazole Sodium (Protonix) 40 mg PO DAILY [facility] Stop: 12/14/16 08:59 Last Admin: 10/27/16 09:34 Dose: 40 mg Prochlorperazine Maleate (Compazine) 10 mg PO Q6H PRN PRN Reason: Nausea / Vomiting Stop: 12/13/16 10:39 Last Admin: 10/27/16 13:01 Dose: 10 mg Promethazine HCl/Dextromethorphan (Phenergan Dm 6.25/15mg-5 Ml) 5 ml PO BID PRN PRN Reason: Cough Stop: 12/21/16 15:19 Senna (Senna) 17.2 mg PO HS [facility] Stop: 12/13/16 20:59 Last Admin: 10/26/16 22:00 Dose: 17.2 mg Vitamin B Complex/Vit C/Folic Acid (Vitamin B Complex W/Vitamin C) 1 tab PO DAILY [facility] Stop: 12/14/16 08:59 Last Admin: 10/26/16 08:48 Dose: 1 tab General: Alert, Cooperative, Mild distress HEENT: Atraumatic, EOMI, Mucous membr. moist/pink Neck: Supple, +2 carotid pulse wo bruit Cardiovascular: Regular rate, Normal S1, Normal S2 Lungs: Other (few rhonchi) Abdomen: Bowel sounds, Soft Extremities: Edema (upper left ext) Neurological: Normal tone, Sensation intact Skin: no Rash Psych/Mental Status: Other (more alert) - Procedures Procedures: Procedures Procedure Code Date ART BYP FEMORAL-FEMORAL 16202 10/13/16 BYPASS L FEM ART TO R FEMOR A WITH SYNTH SUB, OPEN APPROACH [id number] 10/13/16 COMPOSITE BYP GRFT PROS&VEIN 17847 10/13/16 Assessment/Plan - Assessment Assessment: ESRD on HD acute decomp systolic CHF acute resp failure type 2 dm ess htn anemia of ckd LLL HAP hypothyroid PAD w/ right toe discoloration chronic hyponatremia abd. pain better - Plan Plan: schedule for dialysis today serial CXR fluid restriction
[2016-10-27] MEDS: Vitamin B Complex w/Vitamin C Tab PO SCH (15:34)
[2016-10-27] MEDS: cefTRIAXone 1 GM in Sodium Chloride 0.9% 50 ML IV SCH (15:34)
[2016-10-27] MEDS: Epoetin Alfa 20000 Units/mL Vial SUBQ SCH (16:55)
[2016-10-28] MEDS: Levothyroxine 0.05 Mg Tab PO SCH (06:58)
[2016-10-28 07:07] LABS: HEMATOCRIT 32.1 % (35.0-45.0); HEMOGLOBIN 10.7 gm/dL (11.7-16.1); MEAN CELL VOLUME 94.2 fl (81-100); MEAN CORPUSCULAR HEMOGLOBIN 31.3 pg (27.0-31.0); MEAN CORPUSCULAR HGB CONC 33.3 pg (28.0-36.0); MEAN PLATELET VOLUME 9.2 fl; PLATELET COUNT 165 Th/cmm (150-400); RED CELL DISTRIBUTION WIDTH 21.1 % (11.5-20.0); WHITE BLOOD COUNT 11.3 Th/cmm (4.8-10.8)
[2016-10-28 07:38] LABS: BUN/CREATININE RATIO 9.4; CALCIUM SERUM 8.9 mg/dL (8.6-10.3); CARBON DIOXIDE 24.6 mEq/L (21.0-31.0); CREATININE - SERUM 1.6 mg/dL (0.6-1.2); POTASSIUM SERUM 4.6 mEq/L (3.5-5.1)
--- NOTE | 2016-10-28 08:08 | Progress Notes ---
PULMONARY PROGRESS NOTE PROBLEM LIST: 1. Fluid overload. 2. Abnormal chest x-ray. 3. Chronic renal failure, on hemodialysis. SYMPTOMS: Nil. The patient has moved to floor. No specific new symptoms. Currently undergoing dialysis. Blood pressure is ____. Dialysis people cannot take more fluid according to the dialysis nurse. PHYSICAL EXAMINATION: GENERAL: Awake, alert, not in any acute distress. VITAL SIGNS: Temperature is 98.6, respirations 17, and saturation 99 on 2 liters of oxygen. HEENT: Examination of the oral cavity shows dry mouth, otherwise unremarkable. NECK: No nodes in the neck could be visualized. CHEST: Shows diminished air entry with occasional rhonchi. HEART: Regular. There is no gallop or murmur could be appreciated. EXTREMITIES: Shows slight trace of peripheral edema. LABORATORY DATA: The patient's pertinent laboratory studies show white count is 10.6 and hemoglobin 11.2. ABG shows mild respiratory acidemia, but otherwise unremarkable. Electrolytes shows sodium 129 and calcium is 8.8. ASSESSMENT: 1. The patient is clinically stable. I doubt any active pulmonary tuberculosis. 2. Abnormal chest x-ray, partly because of fluid overload, possibly blood if likelihood. PLANS AND SUGGESTIONS: We will discuss with Nephro. We will give aggressive dialysis and also continue rest of other treatment and see how he does and also we will discuss with ID. JOB# [id number]
[2016-10-28 08:15] LABS: BAND NEUTROPHILE 2 % (0-10); EOSINOPHIL 1 % (0-5); NEUTROPHILS 80 % (40-80); TOTAL CELLS COUNTED 100
[2016-10-28 08:16] LABS: ANISOCYTOSIS 1+; PLATELET ESTIMATE ADEQUATE (NORMAL); PLATELET MORPHOLOGY GIANT PLATELETS SEEN (NORMAL)
[2016-10-28] MEDS: INSULIN ASPART SLIDING SCALE 100 UNITS/ML UNIT SUBQ SCH ×3 (09:28→22:00)
[2016-10-28] MEDS: Vitamin B Complex w/Vitamin C Tab PO SCH (09:33)
[2016-10-28] MEDS: Pantoprazole 40 mg EC Tab PO SCH (09:33)
--- NOTE | 2016-10-28 11:16 | Diagnostic Imaging Report ---
Portable chest x-ray HISTORY: Shortness of breath Compared to prior exam of 10/27/2016, no change in bilateral pleural effusions (left greater than right). Again noted is a round density adjacent to the right hilum that may represent loculated fluid within the minor fissure. A CT scan would provide additional assessment. IMPRESSION: 1. No change in cardiomegaly along with bilateral pleural effusions (left greater than right). Findings suggest changes associated with congestive heart failure. 2. No change in the right perihilar density. This may represent loculated fluid within the minor fissure. A CT scan would provide clarification.
--- NOTE | 2016-10-28 11:23 | Diagnostic Imaging Report ---
Bilateral upper extremity Doppler venous ultrasound exam HISTORY: Pain, swelling Sonographic sector images were obtained through the venous systems of both legs. Associated Doppler data was obtained. The exam demonstrates patency of the internal jugular, subclavian, axial, brachial, cephalic veins bilaterally. The right basilic vein appears patent. The left basilic vein cannot be visualized. Findings consistent with vascular catheter noted in the region of the right basilic vein but could not be compressed. No thrombus. Normal compressibility and augmentation responses. IMPRESSION: No definite evidence of deep vein thrombophlebitis. The left basilic vein cannot be clearly visualized. The right basilic vein could not be completely evaluated due to the presence of a vascular catheter.
--- NOTE | 2016-10-28 13:19 | Diagnostic Imaging Report ---
CT scan of chest without intravenous contrast HISTORY: Mass. Total DLP equals 177 CTDI equals 5.7 Axial sections were obtained from a level above the clavicles down to level below the diaphragm. The exam is compared with the prior study of 10/22/2016. Compared with the prior exam, the heart remains markedly enlarged. Coronary artery and atherosclerotic vascular calcification is noted. The remains a moderate to large left pleural effusion. A smaller right pleural effusion is noted and essentially unchanged. Diffuse infiltrate noted through the right lower lobe along with more focal parenchymal density there is also obscuration of the margins of the right hilum. Again noted are loculated air collections within the right lower lobe. However, discrete margins associated with a defined mass is difficult to outline. Again noted is parenchymal density within the left lower lobe suggesting atelectasis also associated with obliteration of the left lower lobe bronchus. Additional hazy infiltrate is noted through the remainder of the left lung unchanged. IMPRESSION: 1. Persistent yet slightly decreased localized air collections within the right lower lobe. However, a discrete mass cannot be clearly defined. Etiology remains uncertain. Findings associated with a neoplastic or inflammatory etiology cannot be excluded. 2. Persistent extensive parenchymal density noted throughout the right lower lobe associated with obscuration of the margins of the right hilum. 3. No significant change in parenchymal density within the left perihilar and left lower lobe regions suggesting atelectasis associated with a moderate to large left pleural effusion. Virtual complete obscuration of the left lower lobe bronchus. 4. Persistent marked cardiomegaly with evidence of coronary artery and atherosclerotic vascular disease
--- NOTE | 2016-10-28 13:24 | General Progress Note ---
Subjective - Review of Systems Service Date: 10/28/16 Subjective: more awake, less tacypnea, less abd discomfort Objective - Results Result Diagrams: 10/28/16 06:30 10/28/16 06:30 Recent Labs: Laboratory Last Values WBC 11.3 Th/cmm (4.8-10.8) H 10/28/16 06:30 RBC 3.40 Mil/cmm (3.80-5.20) L 10/28/16 06:30 Hgb 10.7 gm/dL (11.7-16.1) L 10/28/16 06:30 Hct 32.1 % (35.0-45.0) L 10/28/16 06:30 MCV 94.2 fl (81-100) 10/28/16 06:30 MCH 31.3 pg (27.0-31.0) H 10/28/16 06:30 MCHC Differential 33.3 pg (28.0-36.0) 10/28/16 06:30 RDW 21.1 % (11.5-20.0) H 10/28/16 06:30 Plt Count 165 Th/cmm (150-400) 10/28/16 06:30 MPV 9.2 fl 10/28/16 06:30 Band Neutrophils % 2 % (0-10) 10/28/16 06:30 Neutrophils (Manual) 80 % (40-80) 10/28/16 06:30 Lymphocytes 13 % (20-50) L 10/28/16 06:30 Monocytes 4 % (2-10) 10/28/16 06:30 Eosinophils 1 % (0-5) 10/28/16 06:30 Basophils 2 % (0-3) 10/19/16 06:40 Metamyelocytes 1 % (0-0) H 10/27/16 04:52 Nucleated RBCs 2.0 % (0-0) H 10/27/16 04:52 Platelet Estimate ADEQUATE (NORMAL) 10/28/16 06:30 Platelet Morphology GIANT PLATELETS SEEN (NORMAL) 10/28/16 06:30 Polychromasia 1+ 10/25/16 05:20 Anisocytosis 1+ 10/28/16 06:30 RBC Morph Micro Appear ABNORMAL (NORMAL) 10/28/16 06:30 PT 18.3 SECONDS (9.5-11.5) H 10/23/16 04:50 INR 1.78 (0.5-1.4) H 10/23/16 04:50 PTT (Actin FS) 34.8 SECONDS (26.0-38.0) 10/23/16 04:50 Specimen Source ARTERIAL 10/27/16 09:50 Sample Site RIGHT BRACH 10/27/16 09:50 pH 7.28 (7.35-7.45) L 10/27/16 09:50 pCO2 58.0 mmHg (35.0-45.0) H* 10/27/16 09:50 pO2 82.0 mmHg (80.0-100.0) 10/27/16 09:50 HCO3 27.3 mmol/L (20.0-26.0) H 10/27/16 09:50 Base Excess -0.5 mmol/L (-3.0-3.0) 10/27/16 09:50 O2 Saturation 94.0 % (92.0-100.0) 10/27/16 09:50 Sanjeev Test Positive 10/27/16 09:50 Vent Rate NA 10/27/16 09:50 Inspired O2 28 10/27/16 09:50 Tidal Volume NA 10/27/16 09:50 PEEP NA 10/27/16 09:50 Pressure (ins/psv/peep) NA 10/27/16 09:50 Critical Value [employer] 10/27/16 09:50 Sodium 133 mEq/L (136-145) L 10/28/16 06:30 Potassium 4.6 mEq/L (3.5-5.1) 10/28/16 06:30 Chloride 98 mEq/L (98-107) 10/28/16 06:30 Carbon Dioxide 24.6 mEq/L (21.0-31.0) 10/28/16 06:30 Anion Gap 15.0 (7.0-16.0) 10/28/16 06:30 BUN 15 mg/dL (7-25) 10/28/16 06:30 Creatinine 1.6 mg/dL (0.6-1.2) H 10/28/16 06:30 Est GFR ( Amer) 41.1 ml/min 10/28/16 06:30 Est GFR (Non-Af Amer) 34.0 ml/min 10/28/16 06:30 BUN/Creatinine Ratio 9.4 10/28/16 06:30 Glucose 77 mg/dL (70-105) 10/28/16 06:30 POC Glucose 134 MG/DL (70 - 105) H 10/28/16 11:31 Hemoglobin A1c % 6.9 % (4.0-6.0) H 10/15/16 05:17 Calcium 8.9 mg/dL (8.6-10.3) 10/28/16 06:30 Total Bilirubin 1.1 mg/dL (0.3-1.0) H 10/27/16 04:52 Direct Bilirubin 0.26 mg/dL (0.0-0.2) H 10/27/16 04:52 AST 19 U/L (13-39) 10/27/16 04:52 ALT 5 U/L (7-52) L 10/27/16 04:52 Alkaline Phosphatase 102 U/L (34-104) 10/27/16 04:52 Ammonia 50 umol/L (16-53) 10/14/16 10:40 B-Natriuretic Peptide > 5000.0 pg/mL (5.0-100.0) H 10/17/16 06:50 Total Protein 6.4 gm/dL (6.0-8.3) 10/27/16 04:52 Albumin 3.1 gm/dL (3.7-5.3) L 10/27/16 04:52 Globulin 3.3 gm/dL 10/27/16 04:52 Albumin/Globulin Ratio 0.9 (1.0-1.8) L 10/27/16 04:52 Triglycerides 119 mg/dL (<150) 10/14/16 10:40 Cholesterol 80 mg/dL (<200) 10/14/16 10:40 LDL Cholesterol Direct 26 mg/dL (75-193) L 10/14/16 10:40 HDL Cholesterol 33 mg/dL (23-92) 10/14/16 10:40 TSH 7.87 uIU/ml (0.34-5.60) H 10/14/16 10:40 Urine Source CATH 10/14/16 06:00 Urine Color BROWN 10/14/16 06:00 Urine Clarity SL. CLOUDY (CLEAR) 10/14/16 06:00 Urine pH 5.5 10/14/16 06:00 Ur Specific [place] 1.025 (1.005-1.030) 10/14/16 06:00 Urine Protein 100 mg/dL (NEGATIVE) H 10/14/16 06:00 Urine Glucose (UA) NEGATIVE mg/dL (NEGATIVE) 10/14/16 06:00 Urine Ketones TRACE mg/dL (NEGATIVE) 10/14/16 06:00 Urine Blood TRACE (NEGATIVE) 10/14/16 06:00 Urine Nitrate NEGATIVE (NEGATIVE) 10/14/16 06:00 Urine Bilirubin SMALL (NEGATIVE) H 10/14/16 06:00 Urine Urobilinogen 0.2 E.U./dL (0.2 - 1.0) 10/14/16 06:00 Ur Leukocyte Esterase NEGATIVE (NEGATIVE) 10/14/16 06:00 Urine RBC 0-1 /hpf (0-5) 10/14/16 06:00 Urine WBC 2-5 /hpf (0-5) 10/14/16 06:00 Ur Epithelial Cells OCCASIONAL /lpf (FEW) 10/14/16 06:00 Amorphous Sediment FEW URATES (NONE SEEN) 10/14/16 06:00 Urine Bacteria NONE SEEN /hpf (NONE SEEN) 10/14/16 06:00 Vancomycin Trough 20.9 ug/mL (10-20) H 10/26/16 09:35 Random Vancomycin 32.8 ug/mL (5.0-40.0) 10/28/16 06:30 Hepatitis A IgM Ab Negative (Negative) 10/15/16 05:17 Hep Bs Antigen Negative (Negative) 10/15/16 05:17 Hep B Core IgM Ab Negative (Negative) 10/15/16 05:17 Hepatitis C Antibody <0.1 s/co ratio (0.0-0.9) 10/15/16 05:17 HIV 1&2 Antibody Screen NEGATIVE (NEG) 10/27/16 04:52 TB (QFT) Gold In Tube Negative (Negative) 10/24/16 16:00 TB Test (QFT) Mitogen 3.00 IU/mL 10/24/16 16:00 TB Test (QFT) Antigen 0.05 IU/mL 10/24/16 16:00 TB Test Antigen - Nil <0.00 IU/mL 10/24/16 16:00 TB Test TB - Nil 0.06 IU/mL 10/24/16 16:00 TB Test (QFT) Interp (()) 10/24/16 16:00 - Physical Exam Vitals and I&O: Vital Signs Temp 98.6 F 10/28/16 08:27 Pulse 98 10/28/16 08:27 Resp 17 10/28/16 08:27 BP 94/37 10/28/16 08:27 Pulse Ox 98 10/28/16 08:27 Intake & Output 10/27/16 10/28/16 10/28/16 18:59 06:59 18:59 Intake Total 770 50 Balance 770 50 Intake: Intake, IV Amount 50 [id number] 1 gm In 50 Sodium Chloride 0.9% 50 ml @ 100 mls/hr IV Q24HR [facility] Rx#:[id number] Oral 720 50 Other: # Voids 3 # Bowel Movements 0 Active Medications: Current Medications Acetaminophen (Tylenol) 650 mg PO Q4HR PRN PRN Reason: fever/pain Stop: 12/13/16 01:20 Last Admin: 10/14/16 09:03 Dose: 650 mg Acetaminophen/Hydrocodone Bitart ([place] 5mg/325mg) 1 tab PO Q3H PRN PRN Reason: moderate pain (4-6) Stop: 12/13/16 10:21 Last Admin: 10/27/16 11:27 Dose: 1 tab Aspirin (Ecotrin) 81 mg PO QAM [facility] Stop: 12/14/16 08:59 Last Admin: 10/28/16 09:33 Dose: 81 mg Cilostazol (Pletal) 100 mg PO BID [facility] Stop: 12/22/16 16:59 Last Admin: 10/28/16 09:34 Dose: 100 mg Docusate Sodium (Colace) 100 mg PO BID [facility] Stop: 12/13/16 16:59 Last Admin: 10/28/16 09:34 Dose: 100 mg Epoetin [place] (Epogen) 10,000 units SUBQ MWF@1500 [facility] Stop: 12/14/16 14:59 Last Admin: 10/27/16 16:55 Dose: Not Given Folic Acid (Folate) 1 mg PO DAILY [facility] Stop: 12/14/16 08:59 Last Admin: 10/28/16 09:34 Dose: 1 mg Hydromorphone HCl (Dilaudid) 1 mg IVP Q3HR PRN PRN Reason: Severe Pain Stop: 12/22/16 02:42 Last Admin: 10/27/16 06:39 Dose: 1 mg Ceftriaxone Sodium 1 gm/ (Sodium Chloride) 50 mls @ 100 mls/hr IV Q24HR FILIBERTO Stop: 12/13/16 15:59 Last Infusion: 10/27/16 16:56 Dose: Infused Insulin Aspart (Novolog Insulin Sliding Scale) 0 units SUBQ ACHS FILIBERTO PRN Reason: Protocol Stop: 12/13/16 16:29 Last Admin: 10/28/16 09:28 Dose: Not Given Levothyroxine Sodium (Synthroid) 0.05 mg PO QDAC FILIBERTO Stop: 12/19/16 06:29 Last Admin: 10/28/16 06:58 Dose: 0.05 mg Miscellaneous (Clinical Monitoring) 1 [facility] PRN PRN PRN Reason: RENAL DOSING Stop: 12/13/16 13:45 Miscellaneous (Vancomycin Iv Per Pharmacy) 1 [facility] PRN PRN PRN Reason: PROTOCOL Stop: 12/22/16 16:17 Pantoprazole Sodium (Protonix) 40 mg PO DAILY FILIBERTO Stop: 12/14/16 08:59 Last Admin: 10/28/16 09:33 Dose: 40 mg Polyethylene Glycol (Miralax) 17 gm PO DAILY FILIBERTO Stop: 12/28/16 08:59 Prochlorperazine Maleate (Compazine) 10 mg PO Q6H PRN PRN Reason: Nausea / Vomiting Stop: 12/13/16 10:39 Last Admin: 10/27/16 13:01 Dose: 10 mg Promethazine HCl/Dextromethorphan (Phenergan Dm 6.25/15mg-5 Ml) 5 ml PO BID PRN PRN Reason: Cough Stop: 12/21/16 15:19 Senna (Senna) 17.2 mg PO HS FILIBERTO Stop: 12/13/16 20:59 Last Admin: 10/27/16 21:48 Dose: 17.2 mg Vitamin B Complex/Vit C/Folic Acid (Vitamin B Complex W/Vitamin C) 1 tab PO DAILY FILIBERTO Stop: 12/14/16 08:59 Last Admin: 10/28/16 09:33 Dose: 1 tab General: Alert, No acute distress HEENT: Atraumatic, Mucous membr. moist/pink Neck: Supple, +2 carotid pulse wo bruit Cardiovascular: Regular rate, Normal S1, Normal S2 Lungs: Other (rhonchi, rales) Abdomen: Bowel sounds, Soft, no Tender Extremities: no Edema - Procedures Procedures: Procedures Procedure Code Date ART BYP FEMORAL-FEMORAL 20788 10/13/16 BYPASS L FEM ART TO R FEMOR A WITH SYNTH SUB, OPEN APPROACH [id number] 10/13/16 COMPOSITE BYP GRFT PROS&VEIN [id number] 10/13/16 Assessment/Plan - Assessment Assessment: ESRD on HD acute decomp systolic CHF acute resp failure type 2 dm ess htn anemia of ckd LLL HAP hypothyroid PAD w/ right toe discoloration chronic hyponatremia abd. pain better Left Fem-Pop bypass - Plan Plan: schedule for dialysis in am, aware of cr. of 1.6 but still w/ persistent chf serial CXR fluid restriction
[2016-10-28 14:15] LABS: HCO3 27.2 mmol/L (20.0-26.0); pH 7.38 (7.35-7.45)
[2016-10-28 14:16] LABS: ABG SOURCE Arterial; ALLEN TEST Positive; BE(B) 1.6 mmol/L (-3.0-3.0); FIO2 28; MECH VT AN
[2016-10-28] MEDS: HYDROmorphone 1 mg/mL 1mL Syr IVP PRN (14:38)
[2016-10-28] MEDS: cefTRIAXone 1 GM in Sodium Chloride 0.9% 50 ML IV SCH (16:59)
--- NOTE | 2016-10-29 02:08 | Progress Notes ---
PROBLEMS: 1.Abnormal chest x-ray. 2.Chronic renal failure. 3.Severe malnutrition cachexia. SYMPTOMS: Nil, feeling okay. No specific new symptoms, feeling sleepy, though and is in a ____ blanket. PHYSICAL EXAMINATION: GENERAL: Not in any acute distress. VITAL SIGNS: Temperature is 98.2, blood pressure is 120/86 earlier, saturation is 98. ENT: Shows no new changes. CHEST: Shows diminished air entry with occasional rhonchi. HEART: Regular. LABORATORY DATA: The patient's repeat CAT scan shows what appears to be more abscess on the right lower posterior segment than anything else, though underlying tumor cannot be 100% ruled out. PLANS AND SUGGESTIONS: We will continue current treatment. The patient is not a candidate at this time to do aggressive respiratory care. ____ will more stabilize including fluid overload, etc. before that might be a consideration down the line and go from there. JOB# [id number]
[2016-10-29] MEDS: HYDROmorphone 1 mg/mL 1mL Syr IVP PRN (02:27)
[2016-10-29] MEDS: Levothyroxine 0.05 Mg Tab PO SCH (06:28)
[2016-10-29] MEDS: INSULIN ASPART SLIDING SCALE 100 UNITS/ML UNIT SUBQ SCH ×4 (06:37→20:52)
[2016-10-29 07:42] LABS: ANION GAP 10.3 (7.0-16.0); CALCIUM SERUM 8.9 mg/dL (8.6-10.3); POTASSIUM SERUM 5.3 mEq/L (3.5-5.1)
[2016-10-29] MEDS: POLYETHYLENE GLYCOL 3350 17 GM PACK PO SCH (09:35)
[2016-10-29] MEDS: Pantoprazole 40 mg EC Tab PO SCH (09:35)
[2016-10-29] MEDS: Vitamin B Complex w/Vitamin C Tab PO SCH (09:35)
[2016-10-29] MEDS: Hydrocodone/APAP 5mg/325mg Tab PO PRN (09:38)
--- NOTE | 2016-10-29 13:07 | General Progress Note ---
Subjective - Review of Systems Service Date: 10/29/16 Subjective: more awake, less tacypnea, less abd discomfort Objective - Results Result Diagrams: 10/28/16 06:30 10/29/16 07:15 Recent Labs: Laboratory Last Values WBC 11.3 Th/cmm (4.8-10.8) H 10/28/16 06:30 RBC 3.40 Mil/cmm (3.80-5.20) L 10/28/16 06:30 Hgb 10.7 gm/dL (11.7-16.1) L 10/28/16 06:30 Hct 32.1 % (35.0-45.0) L 10/28/16 06:30 MCV 94.2 fl (81-100) 10/28/16 06:30 MCH 31.3 pg (27.0-31.0) H 10/28/16 06:30 MCHC Differential 33.3 pg (28.0-36.0) 10/28/16 06:30 RDW 21.1 % (11.5-20.0) H 10/28/16 06:30 Plt Count 165 Th/cmm (150-400) 10/28/16 06:30 MPV 9.2 fl 10/28/16 06:30 Band Neutrophils % 2 % (0-10) 10/28/16 06:30 Neutrophils (Manual) 80 % (40-80) 10/28/16 06:30 Lymphocytes 13 % (20-50) L 10/28/16 06:30 Monocytes 4 % (2-10) 10/28/16 06:30 Eosinophils 1 % (0-5) 10/28/16 06:30 Basophils 2 % (0-3) 10/19/16 06:40 Metamyelocytes 1 % (0-0) H 10/27/16 04:52 Nucleated RBCs 2.0 % (0-0) H 10/27/16 04:52 Platelet Estimate ADEQUATE (NORMAL) 10/28/16 06:30 Platelet Morphology GIANT PLATELETS SEEN (NORMAL) 10/28/16 06:30 Polychromasia 1+ 10/25/16 05:20 Anisocytosis 1+ 10/28/16 06:30 RBC Morph Micro Appear ABNORMAL (NORMAL) 10/28/16 06:30 PT 18.3 SECONDS (9.5-11.5) H 10/23/16 04:50 INR 1.78 (0.5-1.4) H 10/23/16 04:50 PTT (Actin FS) 34.8 SECONDS (26.0-38.0) 10/23/16 04:50 Specimen Source Arterial 10/28/16 11:53 Sample Site Right Radial 10/28/16 11:53 pH 7.38 (7.35-7.45) 10/28/16 11:53 pCO2 46.0 mmHg (35.0-45.0) H 10/28/16 11:53 pO2 62.0 mmHg (80.0-100.0) L 10/28/16 11:53 HCO3 27.2 mmol/L (20.0-26.0) H 10/28/16 11:53 Base Excess 1.6 mmol/L (-3.0-3.0) 10/28/16 11:53 O2 Saturation 91.0 % (92.0-100.0) L 10/28/16 11:53 Sanjeev Test Positive 10/28/16 11:53 Vent Rate NA 10/28/16 11:53 Inspired O2 28 10/28/16 11:53 Tidal Volume AN 10/28/16 11:53 PEEP NA 10/28/16 11:53 Pressure (ins/psv/peep) NA 10/28/16 11:53 Critical Value LZHANG 10/28/16 11:53 Sodium 128 mEq/L (136-145) L 10/29/16 07:15 Potassium 5.3 mEq/L (3.5-5.1) H 10/29/16 07:15 Chloride 99 mEq/L (98-107) 10/29/16 07:15 Carbon Dioxide 24.0 mEq/L (21.0-31.0) 10/29/16 07:15 Anion Gap 10.3 (7.0-16.0) 10/29/16 07:15 BUN 20 mg/dL (7-25) 10/29/16 07:15 Creatinine 2.0 mg/dL (0.6-1.2) H 10/29/16 07:15 Est GFR ( Amer) 31.8 ml/min 10/29/16 07:15 Est GFR (Non-Af Amer) 26.3 ml/min 10/29/16 07:15 BUN/Creatinine Ratio 10.0 10/29/16 07:15 Glucose 80 mg/dL (70-105) 10/29/16 07:15 POC Glucose 77 MG/DL (70 - 105) 10/29/16 12:22 Hemoglobin A1c % 6.9 % (4.0-6.0) H 10/15/16 05:17 Calcium 8.9 mg/dL (8.6-10.3) 10/29/16 07:15 Total Bilirubin 1.1 mg/dL (0.3-1.0) H 10/27/16 04:52 Direct Bilirubin 0.26 mg/dL (0.0-0.2) H 10/27/16 04:52 AST 19 U/L (13-39) 10/27/16 04:52 ALT 5 U/L (7-52) L 10/27/16 04:52 Alkaline Phosphatase 102 U/L (34-104) 10/27/16 04:52 Ammonia 50 umol/L (16-53) 10/14/16 10:40 B-Natriuretic Peptide > 5000.0 pg/mL (5.0-100.0) H 10/17/16 06:50 Total Protein 6.4 gm/dL (6.0-8.3) 10/27/16 04:52 Albumin 3.1 gm/dL (3.7-5.3) L 10/27/16 04:52 Globulin 3.3 gm/dL 10/27/16 04:52 Albumin/Globulin Ratio 0.9 (1.0-1.8) L 10/27/16 04:52 Triglycerides 119 mg/dL (<150) 10/14/16 10:40 Cholesterol 80 mg/dL (<200) 10/14/16 10:40 LDL Cholesterol Direct 26 mg/dL (75-193) L 10/14/16 10:40 HDL Cholesterol 33 mg/dL (23-92) 10/14/16 10:40 TSH 7.87 uIU/ml (0.34-5.60) H 10/14/16 10:40 Urine Source CATH 10/14/16 06:00 Urine Color BROWN 10/14/16 06:00 Urine Clarity SL. CLOUDY (CLEAR) 10/14/16 06:00 Urine pH 5.5 10/14/16 06:00 Ur Specific [place] 1.025 (1.005-1.030) 10/14/16 06:00 Urine Protein 100 mg/dL (NEGATIVE) H 10/14/16 06:00 Urine Glucose (UA) NEGATIVE mg/dL (NEGATIVE) 10/14/16 06:00 Urine Ketones TRACE mg/dL (NEGATIVE) 10/14/16 06:00 Urine Blood TRACE (NEGATIVE) 10/14/16 06:00 Urine Nitrate NEGATIVE (NEGATIVE) 10/14/16 06:00 Urine Bilirubin SMALL (NEGATIVE) H 10/14/16 06:00 Urine Urobilinogen 0.2 E.U./dL (0.2 - 1.0) 10/14/16 06:00 Ur Leukocyte Esterase NEGATIVE (NEGATIVE) 10/14/16 06:00 Urine RBC 0-1 /hpf (0-5) 10/14/16 06:00 Urine WBC 2-5 /hpf (0-5) 10/14/16 06:00 Ur Epithelial Cells OCCASIONAL /lpf (FEW) 10/14/16 06:00 Amorphous Sediment FEW URATES (NONE SEEN) 10/14/16 06:00 Urine Bacteria NONE SEEN /hpf (NONE SEEN) 10/14/16 06:00 Vancomycin Trough 20.9 ug/mL (10-20) H 10/26/16 09:35 Random Vancomycin 32.8 ug/mL (5.0-40.0) 10/28/16 06:30 Hepatitis A IgM Ab Negative (Negative) 10/15/16 05:17 Hep Bs Antigen Negative (Negative) 10/15/16 05:17 Hep B Core IgM Ab Negative (Negative) 10/15/16 05:17 Hepatitis C Antibody <0.1 s/co ratio (0.0-0.9) 10/15/16 05:17 HIV 1&2 Antibody Screen NEGATIVE (NEG) 10/27/16 04:52 TB (QFT) Gold In Tube Negative (Negative) 10/24/16 16:00 TB Test (QFT) Mitogen 3.00 IU/mL 10/24/16 16:00 TB Test (QFT) Antigen 0.05 IU/mL 10/24/16 16:00 TB Test Antigen - Nil <0.00 IU/mL 10/24/16 16:00 TB Test TB - Nil 0.06 IU/mL 10/24/16 16:00 TB Test (QFT) Interp (()) 10/24/16 16:00 - Physical Exam Vitals and I&O: Vital Signs Temp 97.3 F 10/29/16 04:00 Pulse 97 10/29/16 04:00 Resp 18 10/29/16 04:00 BP 113/73 10/29/16 04:00 Pulse Ox 96 10/29/16 00:00 Intake & Output 10/28/16 10/29/16 10/29/16 18:59 06:59 18:59 Intake Total 200 250 Output Total 100 Balance 100 250 Weight (lbs) 47.627 kg Intake: Oral 200 250 Output: Urine 100 Other: # Voids 2 3 Active Medications: Current Medications Acetaminophen (Tylenol) 650 mg PO Q4HR PRN PRN Reason: fever/pain Stop: 12/13/16 01:20 Last Admin: 10/14/16 09:03 Dose: 650 mg Acetaminophen/Hydrocodone Bitart ([place] 5mg/325mg) 1 tab PO Q3H PRN PRN Reason: moderate pain (4-6) Stop: 12/13/16 10:21 Last Admin: 10/29/16 09:38 Dose: 1 tab Aspirin (Ecotrin) 81 mg PO QAM [facility] Stop: 12/14/16 08:59 Last Admin: 10/29/16 09:35 Dose: 81 mg Cilostazol (Pletal) 100 mg PO BID [facility] Stop: 12/22/16 16:59 Last Admin: 10/29/16 09:35 Dose: 100 mg Docusate Sodium (Colace) 100 mg PO BID [facility] Stop: 12/13/16 16:59 Last Admin: 10/29/16 09:35 Dose: 100 mg Epoetin [place] (Epogen) 10,000 units SUBQ MWF@1500 [facility] Stop: 12/14/16 14:59 Last Admin: 10/27/16 16:55 Dose: Not Given Folic Acid (Folate) 1 mg PO DAILY [facility] Stop: 12/14/16 08:59 Last Admin: 10/29/16 09:35 Dose: 1 mg Hydromorphone HCl (Dilaudid) 1 mg IVP Q3HR PRN PRN Reason: Severe Pain Stop: 12/22/16 02:42 Last Admin: 10/29/16 02:27 Dose: 1 mg Ceftriaxone Sodium 1 gm/ (Sodium Chloride) 50 mls @ 100 mls/hr IV Q24HR FILIBERTO Stop: 12/13/16 15:59 Last Admin: 10/28/16 16:59 Dose: 100 mls/hr Insulin Aspart (Novolog Insulin Sliding Scale) 0 units SUBQ ACHS FILIBERTO PRN Reason: Protocol Stop: 12/13/16 16:29 Last Admin: 10/29/16 12:38 Dose: Not Given Levothyroxine Sodium (Synthroid) 0.05 mg PO QDAC FILIBERTO Stop: 12/19/16 06:29 Last Admin: 10/29/16 06:28 Dose: 0.05 mg Miscellaneous (Clinical Monitoring) 1 [facility] PRN PRN PRN Reason: RENAL DOSING Stop: 12/13/16 13:45 Miscellaneous (Vancomycin Iv Per Pharmacy) 1 [facility] PRN PRN PRN Reason: PROTOCOL Stop: 12/22/16 16:17 Pantoprazole Sodium (Protonix) 40 mg PO DAILY FILIBERTO Stop: 12/14/16 08:59 Last Admin: 10/29/16 09:35 Dose: 40 mg Polyethylene Glycol (Miralax) 17 gm PO DAILY FILIBERTO Stop: 12/28/16 08:59 Last Admin: 10/29/16 09:35 Dose: 17 gm Prochlorperazine Maleate (Compazine) 10 mg PO Q6H PRN PRN Reason: Nausea / Vomiting Stop: 12/13/16 10:39 Last Admin: 10/27/16 13:01 Dose: 10 mg Promethazine HCl/Dextromethorphan (Phenergan Dm 6.25/15mg-5 Ml) 5 ml PO BID PRN PRN Reason: Cough Stop: 12/21/16 15:19 Senna (Senna) 17.2 mg PO HS FILIBERTO Stop: 12/13/16 20:59 Last Admin: 10/28/16 22:05 Dose: 17.2 mg Vitamin B Complex/Vit C/Folic Acid (Vitamin B Complex W/Vitamin C) 1 tab PO DAILY FILIBERTO Stop: 12/14/16 08:59 Last Admin: 10/29/16 09:35 Dose: 1 tab General: Alert, No acute distress HEENT: Atraumatic, EOMI, Mucous membr. moist/pink Neck: Supple, Thyromegaly Cardiovascular: Regular rate, Normal S1, Normal S2 Lungs: Other (rhonchi) Abdomen: Bowel sounds, no Tender Extremities: Edema (left upper ext) - Procedures Procedures: Procedures Procedure Code Date ART BYP FEMORAL-FEMORAL 58622 10/13/16 BYPASS L FEM ART TO R FEMOR A WITH SYNTH SUB, OPEN APPROACH [id number] 10/13/16 COMPOSITE BYP GRFT PROS&VEIN [id number] 10/13/16 Assessment/Plan - Assessment Assessment: ESRD on HD acute decomp systolic CHF acute resp failure type 2 dm ess htn anemia of ckd LLL HAP hypothyroid PAD w/ right toe discoloration chronic hyponatremia abd. pain better Left Fem-Pop bypass - Plan Plan: schedule for dialysis today, aware of cr. of 2 but still w/ persistent chf serial CXR fluid restriction
--- NOTE | 2016-10-29 13:29 | General Progress Note ---
Subjective - Review of Systems Service Date: 10/29/16 Subjective: patient lethargic, arousable, no sob. Objective - Results Result Diagrams: 10/28/16 06:30 10/29/16 07:15 Recent Labs: Laboratory Last Values WBC 11.3 Th/cmm (4.8-10.8) H 10/28/16 06:30 RBC 3.40 Mil/cmm (3.80-5.20) L 10/28/16 06:30 Hgb 10.7 gm/dL (11.7-16.1) L 10/28/16 06:30 Hct 32.1 % (35.0-45.0) L 10/28/16 06:30 MCV 94.2 fl (81-100) 10/28/16 06:30 MCH 31.3 pg (27.0-31.0) H 10/28/16 06:30 MCHC Differential 33.3 pg (28.0-36.0) 10/28/16 06:30 RDW 21.1 % (11.5-20.0) H 10/28/16 06:30 Plt Count 165 Th/cmm (150-400) 10/28/16 06:30 MPV 9.2 fl 10/28/16 06:30 Band Neutrophils % 2 % (0-10) 10/28/16 06:30 Neutrophils (Manual) 80 % (40-80) 10/28/16 06:30 Lymphocytes 13 % (20-50) L 10/28/16 06:30 Monocytes 4 % (2-10) 10/28/16 06:30 Eosinophils 1 % (0-5) 10/28/16 06:30 Basophils 2 % (0-3) 10/19/16 06:40 Metamyelocytes 1 % (0-0) H 10/27/16 04:52 Nucleated RBCs 2.0 % (0-0) H 10/27/16 04:52 Platelet Estimate ADEQUATE (NORMAL) 10/28/16 06:30 Platelet Morphology GIANT PLATELETS SEEN (NORMAL) 10/28/16 06:30 Polychromasia 1+ 10/25/16 05:20 Anisocytosis 1+ 10/28/16 06:30 RBC Morph Micro Appear ABNORMAL (NORMAL) 10/28/16 06:30 PT 18.3 SECONDS (9.5-11.5) H 10/23/16 04:50 INR 1.78 (0.5-1.4) H 10/23/16 04:50 PTT (Actin FS) 34.8 SECONDS (26.0-38.0) 10/23/16 04:50 Specimen Source Arterial 10/28/16 11:53 Sample Site Right Radial 10/28/16 11:53 pH 7.38 (7.35-7.45) 10/28/16 11:53 pCO2 46.0 mmHg (35.0-45.0) H 10/28/16 11:53 pO2 62.0 mmHg (80.0-100.0) L 10/28/16 11:53 HCO3 27.2 mmol/L (20.0-26.0) H 10/28/16 11:53 Base Excess 1.6 mmol/L (-3.0-3.0) 10/28/16 11:53 O2 Saturation 91.0 % (92.0-100.0) L 10/28/16 11:53 Sanjeev Test Positive 10/28/16 11:53 Vent Rate NA 10/28/16 11:53 Inspired O2 28 10/28/16 11:53 Tidal Volume AN 10/28/16 11:53 PEEP NA 10/28/16 11:53 Pressure (ins/psv/peep) NA 10/28/16 11:53 Critical Value LZHANG 10/28/16 11:53 Sodium 128 mEq/L (136-145) L 10/29/16 07:15 Potassium 5.3 mEq/L (3.5-5.1) H 10/29/16 07:15 Chloride 99 mEq/L (98-107) 10/29/16 07:15 Carbon Dioxide 24.0 mEq/L (21.0-31.0) 10/29/16 07:15 Anion Gap 10.3 (7.0-16.0) 10/29/16 07:15 BUN 20 mg/dL (7-25) 10/29/16 07:15 Creatinine 2.0 mg/dL (0.6-1.2) H 10/29/16 07:15 Est GFR ( Amer) 31.8 ml/min 10/29/16 07:15 Est GFR (Non-Af Amer) 26.3 ml/min 10/29/16 07:15 BUN/Creatinine Ratio 10.0 10/29/16 07:15 Glucose 80 mg/dL (70-105) 10/29/16 07:15 POC Glucose 77 MG/DL (70 - 105) 10/29/16 12:22 Hemoglobin A1c % 6.9 % (4.0-6.0) H 10/15/16 05:17 Calcium 8.9 mg/dL (8.6-10.3) 10/29/16 07:15 Total Bilirubin 1.1 mg/dL (0.3-1.0) H 10/27/16 04:52 Direct Bilirubin 0.26 mg/dL (0.0-0.2) H 10/27/16 04:52 AST 19 U/L (13-39) 10/27/16 04:52 ALT 5 U/L (7-52) L 10/27/16 04:52 Alkaline Phosphatase 102 U/L (34-104) 10/27/16 04:52 Ammonia 50 umol/L (16-53) 10/14/16 10:40 B-Natriuretic Peptide > 5000.0 pg/mL (5.0-100.0) H 10/17/16 06:50 Total Protein 6.4 gm/dL (6.0-8.3) 10/27/16 04:52 Albumin 3.1 gm/dL (3.7-5.3) L 10/27/16 04:52 Globulin 3.3 gm/dL 10/27/16 04:52 Albumin/Globulin Ratio 0.9 (1.0-1.8) L 10/27/16 04:52 Triglycerides 119 mg/dL (<150) 10/14/16 10:40 Cholesterol 80 mg/dL (<200) 10/14/16 10:40 LDL Cholesterol Direct 26 mg/dL (75-193) L 10/14/16 10:40 HDL Cholesterol 33 mg/dL (23-92) 10/14/16 10:40 TSH 7.87 uIU/ml (0.34-5.60) H 10/14/16 10:40 Urine Source CATH 10/14/16 06:00 Urine Color BROWN 10/14/16 06:00 Urine Clarity SL. CLOUDY (CLEAR) 10/14/16 06:00 Urine pH 5.5 10/14/16 06:00 Ur Specific [place] 1.025 (1.005-1.030) 10/14/16 06:00 Urine Protein 100 mg/dL (NEGATIVE) H 10/14/16 06:00 Urine Glucose (UA) NEGATIVE mg/dL (NEGATIVE) 10/14/16 06:00 Urine Ketones TRACE mg/dL (NEGATIVE) 10/14/16 06:00 Urine Blood TRACE (NEGATIVE) 10/14/16 06:00 Urine Nitrate NEGATIVE (NEGATIVE) 10/14/16 06:00 Urine Bilirubin SMALL (NEGATIVE) H 10/14/16 06:00 Urine Urobilinogen 0.2 E.U./dL (0.2 - 1.0) 10/14/16 06:00 Ur Leukocyte Esterase NEGATIVE (NEGATIVE) 10/14/16 06:00 Urine RBC 0-1 /hpf (0-5) 10/14/16 06:00 Urine WBC 2-5 /hpf (0-5) 10/14/16 06:00 Ur Epithelial Cells OCCASIONAL /lpf (FEW) 10/14/16 06:00 Amorphous Sediment FEW URATES (NONE SEEN) 10/14/16 06:00 Urine Bacteria NONE SEEN /hpf (NONE SEEN) 10/14/16 06:00 Vancomycin Trough 20.9 ug/mL (10-20) H 10/26/16 09:35 Random Vancomycin 32.8 ug/mL (5.0-40.0) 10/28/16 06:30 Hepatitis A IgM Ab Negative (Negative) 10/15/16 05:17 Hep Bs Antigen Negative (Negative) 10/15/16 05:17 Hep B Core IgM Ab Negative (Negative) 10/15/16 05:17 Hepatitis C Antibody <0.1 s/co ratio (0.0-0.9) 10/15/16 05:17 HIV 1&2 Antibody Screen NEGATIVE (NEG) 10/27/16 04:52 TB (QFT) Gold In Tube Negative (Negative) 10/24/16 16:00 TB Test (QFT) Mitogen 3.00 IU/mL 10/24/16 16:00 TB Test (QFT) Antigen 0.05 IU/mL 10/24/16 16:00 TB Test Antigen - Nil <0.00 IU/mL 10/24/16 16:00 TB Test TB - Nil 0.06 IU/mL 10/24/16 16:00 TB Test (QFT) Interp (()) 10/24/16 16:00 - Physical Exam Vitals and I&O: Vital Signs Temp 97.3 F 10/29/16 04:00 Pulse 97 10/29/16 04:00 Resp 18 10/29/16 04:00 BP 113/73 10/29/16 04:00 Pulse Ox 96 10/29/16 00:00 Intake & Output 10/28/16 10/29/16 10/29/16 18:59 06:59 18:59 Intake Total 200 250 Output Total 100 Balance 100 250 Weight (lbs) 47.627 kg Intake: Oral 200 250 Output: Urine 100 Other: # Voids 2 3 Active Medications: Current Medications Acetaminophen (Tylenol) 650 mg PO Q4HR PRN PRN Reason: fever/pain Stop: 12/13/16 01:20 Last Admin: 10/14/16 09:03 Dose: 650 mg Acetaminophen/Hydrocodone Bitart ([place] 5mg/325mg) 1 tab PO Q3H PRN PRN Reason: moderate pain (4-6) Stop: 12/13/16 10:21 Last Admin: 10/29/16 09:38 Dose: 1 tab Aspirin (Ecotrin) 81 mg PO QAM [facility] Stop: 12/14/16 08:59 Last Admin: 10/29/16 09:35 Dose: 81 mg Cilostazol (Pletal) 100 mg PO BID [facility] Stop: 12/22/16 16:59 Last Admin: 10/29/16 09:35 Dose: 100 mg Docusate Sodium (Colace) 100 mg PO BID [facility] Stop: 12/13/16 16:59 Last Admin: 10/29/16 09:35 Dose: 100 mg Epoetin [place] (Epogen) 10,000 units SUBQ MWF@1500 [facility] Stop: 12/14/16 14:59 Last Admin: 10/27/16 16:55 Dose: Not Given Folic Acid (Folate) 1 mg PO DAILY [facility] Stop: 12/14/16 08:59 Last Admin: 10/29/16 09:35 Dose: 1 mg Hydromorphone HCl (Dilaudid) 1 mg IVP Q3HR PRN PRN Reason: Severe Pain Stop: 12/22/16 02:42 Last Admin: 10/29/16 02:27 Dose: 1 mg Ceftriaxone Sodium 1 gm/ (Sodium Chloride) 50 mls @ 100 mls/hr IV Q24HR [facility] Stop: 12/13/16 15:59 Last Admin: 10/28/16 16:59 Dose: 100 mls/hr Insulin Aspart (Novolog Insulin Sliding Scale) 0 units SUBQ ACHS [facility] PRN Reason: Protocol Stop: 12/13/16 16:29 Last Admin: 10/29/16 12:38 Dose: Not Given Levothyroxine Sodium (Synthroid) 0.05 mg PO QDAC [facility] Stop: 12/19/16 06:29 Last Admin: 10/29/16 06:28 Dose: 0.05 mg Miscellaneous (Clinical Monitoring) 1 ea PRN PRN PRN Reason: RENAL DOSING Stop: 12/13/16 13:45 Miscellaneous (Vancomycin Iv Per Pharmacy) 1 [facility] PRN PRN PRN Reason: PROTOCOL Stop: 12/22/16 16:17 Pantoprazole Sodium (Protonix) 40 mg PO DAILY [facility] Stop: 12/14/16 08:59 Last Admin: 10/29/16 09:35 Dose: 40 mg Polyethylene Glycol (Miralax) 17 gm PO DAILY [facility] Stop: 12/28/16 08:59 Last Admin: 10/29/16 09:35 Dose: 17 gm Prochlorperazine Maleate (Compazine) 10 mg PO Q6H PRN PRN Reason: Nausea / Vomiting Stop: 12/13/16 10:39 Last Admin: 10/27/16 13:01 Dose: 10 mg Promethazine HCl/Dextromethorphan (Phenergan Dm 6.25/15mg-5 Ml) 5 ml PO BID PRN PRN Reason: Cough Stop: 12/21/16 15:19 Senna (Senna) 17.2 mg PO HS [facility] Stop: 12/13/16 20:59 Last Admin: 10/28/16 22:05 Dose: 17.2 mg Vitamin B Complex/Vit C/Folic Acid (Vitamin B Complex W/Vitamin C) 1 tab PO DAILY [facility] Stop: 12/14/16 08:59 Last Admin: 10/29/16 09:35 Dose: 1 tab General: Moderate distress Neck: Supple Cardiovascular: Regular rate Lungs: Clear to auscultation Abdomen: Bowel sounds, Rebound Psych/Mental Status: Mental status NL - Procedures Procedures: Procedures Procedure Code Date ART BYP FEMORAL-FEMORAL 27951 10/13/16 BYPASS L FEM ART TO R FEMOR A WITH SYNTH SUB, OPEN APPROACH [id number] 10/13/16 COMPOSITE BYP GRFT PROS&VEIN 45329 10/13/16 Assessment/Plan - Problem List Patient Problems: All Active Problems dm (Acute) esrd (Acute) h/o chf (Acute) htn (Acute) non healing ulcer (Acute) sepsis (Acute) vascular insuffi (Acute) - Assessment Assessment: 1. Right big toe cellulitis. 2/2 PAD. 2. R pneumonia. 3. CHF. 4. CKD 5 on HD. 5. DM2 - Plan Plan: if cta cannot be done, consider vq scan, appreciate consults reccomendation continue ivabx as per id cbc/bmp in am continue current plan of care
[2016-10-29] MEDS ORDERED: Albumin 25% 25gm/100mL 25 GM/100 ML BTL IV SCH (13:52)
[2016-10-29] MEDS: Epoetin Alfa 20000 Units/mL Vial SUBQ SCH (15:13)
[2016-10-29] MEDS: cefTRIAXone 1 GM in Sodium Chloride 0.9% 50 ML IV SCH (16:49)
--- NOTE | 2016-10-29 20:12 | Infectious Disease Prog Note ---
Infectious Disease Subjective - Review of Systems Service Date: 10/29/16 Subjective: There is no fever. Doing well. Public health had recommended to the Infection control department to start on RIPE therapy for this patient as there is no other definite diagnosis available. Infectious Disease Objective - Results Result Diagrams: 10/28/16 06:30 10/29/16 07:15 Recent Labs: Laboratory Last Values WBC 11.3 Th/cmm (4.8-10.8) H 10/28/16 06:30 RBC 3.40 Mil/cmm (3.80-5.20) L 10/28/16 06:30 Hgb 10.7 gm/dL (11.7-16.1) L 10/28/16 06:30 Hct 32.1 % (35.0-45.0) L 10/28/16 06:30 MCV 94.2 fl (81-100) 10/28/16 06:30 MCH 31.3 pg (27.0-31.0) H 10/28/16 06:30 MCHC Differential 33.3 pg (28.0-36.0) 10/28/16 06:30 RDW 21.1 % (11.5-20.0) H 10/28/16 06:30 Plt Count 165 Th/cmm (150-400) 10/28/16 06:30 MPV 9.2 fl 10/28/16 06:30 Band Neutrophils % 2 % (0-10) 10/28/16 06:30 Neutrophils (Manual) 80 % (40-80) 10/28/16 06:30 Lymphocytes 13 % (20-50) L 10/28/16 06:30 Monocytes 4 % (2-10) 10/28/16 06:30 Eosinophils 1 % (0-5) 10/28/16 06:30 Basophils 2 % (0-3) 10/19/16 06:40 Metamyelocytes 1 % (0-0) H 10/27/16 04:52 Nucleated RBCs 2.0 % (0-0) H 10/27/16 04:52 Platelet Estimate ADEQUATE (NORMAL) 10/28/16 06:30 Platelet Morphology GIANT PLATELETS SEEN (NORMAL) 10/28/16 06:30 Polychromasia 1+ 10/25/16 05:20 Anisocytosis 1+ 10/28/16 06:30 RBC Morph Micro Appear ABNORMAL (NORMAL) 10/28/16 06:30 PT 18.3 SECONDS (9.5-11.5) H 10/23/16 04:50 INR 1.78 (0.5-1.4) H 10/23/16 04:50 PTT (Actin FS) 34.8 SECONDS (26.0-38.0) 10/23/16 04:50 Specimen Source Arterial 10/28/16 11:53 Sample Site Right Radial 10/28/16 11:53 pH 7.38 (7.35-7.45) 10/28/16 11:53 pCO2 46.0 mmHg (35.0-45.0) H 10/28/16 11:53 pO2 62.0 mmHg (80.0-100.0) L 10/28/16 11:53 HCO3 27.2 mmol/L (20.0-26.0) H 10/28/16 11:53 Base Excess 1.6 mmol/L (-3.0-3.0) 10/28/16 11:53 O2 Saturation 91.0 % (92.0-100.0) L 10/28/16 11:53 Sanjeev Test Positive 10/28/16 11:53 Vent Rate NA 10/28/16 11:53 Inspired O2 28 10/28/16 11:53 Tidal Volume AN 10/28/16 11:53 PEEP NA 10/28/16 11:53 Pressure (ins/psv/peep) NA 10/28/16 11:53 Critical Value LZHANG 10/28/16 11:53 Sodium 128 mEq/L (136-145) L 10/29/16 07:15 Potassium 5.3 mEq/L (3.5-5.1) H 10/29/16 07:15 Chloride 99 mEq/L (98-107) 10/29/16 07:15 Carbon Dioxide 24.0 mEq/L (21.0-31.0) 10/29/16 07:15 Anion Gap 10.3 (7.0-16.0) 10/29/16 07:15 BUN 20 mg/dL (7-25) 10/29/16 07:15 Creatinine 2.0 mg/dL (0.6-1.2) H 10/29/16 07:15 Est GFR ( Amer) 31.8 ml/min 10/29/16 07:15 Est GFR (Non-Af Amer) 26.3 ml/min 10/29/16 07:15 BUN/Creatinine Ratio 10.0 10/29/16 07:15 Glucose 80 mg/dL (70-105) 10/29/16 07:15 POC Glucose 111 MG/DL (70 - 105) H 10/29/16 16:46 Hemoglobin A1c % 6.9 % (4.0-6.0) H 10/15/16 05:17 Calcium 8.9 mg/dL (8.6-10.3) 10/29/16 07:15 Total Bilirubin 1.1 mg/dL (0.3-1.0) H 10/27/16 04:52 Direct Bilirubin 0.26 mg/dL (0.0-0.2) H 10/27/16 04:52 AST 19 U/L (13-39) 10/27/16 04:52 ALT 5 U/L (7-52) L 10/27/16 04:52 Alkaline Phosphatase 102 U/L (34-104) 10/27/16 04:52 Ammonia 50 umol/L (16-53) 10/14/16 10:40 B-Natriuretic Peptide > 5000.0 pg/mL (5.0-100.0) H 10/17/16 06:50 Total Protein 6.4 gm/dL (6.0-8.3) 10/27/16 04:52 Albumin 3.1 gm/dL (3.7-5.3) L 10/27/16 04:52 Globulin 3.3 gm/dL 10/27/16 04:52 Albumin/Globulin Ratio 0.9 (1.0-1.8) L 10/27/16 04:52 Triglycerides 119 mg/dL (<150) 10/14/16 10:40 Cholesterol 80 mg/dL (<200) 10/14/16 10:40 LDL Cholesterol Direct 26 mg/dL (75-193) L 10/14/16 10:40 HDL Cholesterol 33 mg/dL (23-92) 10/14/16 10:40 TSH 7.87 uIU/ml (0.34-5.60) H 10/14/16 10:40 Urine Source CATH 10/14/16 06:00 Urine Color BROWN 10/14/16 06:00 Urine Clarity SL. CLOUDY (CLEAR) 10/14/16 06:00 Urine pH 5.5 10/14/16 06:00 Ur Specific [place] 1.025 (1.005-1.030) 10/14/16 06:00 Urine Protein 100 mg/dL (NEGATIVE) H 10/14/16 06:00 Urine Glucose (UA) NEGATIVE mg/dL (NEGATIVE) 10/14/16 06:00 Urine Ketones TRACE mg/dL (NEGATIVE) 10/14/16 06:00 Urine Blood TRACE (NEGATIVE) 10/14/16 06:00 Urine Nitrate NEGATIVE (NEGATIVE) 10/14/16 06:00 Urine Bilirubin SMALL (NEGATIVE) H 10/14/16 06:00 Urine Urobilinogen 0.2 E.U./dL (0.2 - 1.0) 10/14/16 06:00 Ur Leukocyte Esterase NEGATIVE (NEGATIVE) 10/14/16 06:00 Urine RBC 0-1 /hpf (0-5) 10/14/16 06:00 Urine WBC 2-5 /hpf (0-5) 10/14/16 06:00 Ur Epithelial Cells OCCASIONAL /lpf (FEW) 10/14/16 06:00 Amorphous Sediment FEW URATES (NONE SEEN) 10/14/16 06:00 Urine Bacteria NONE SEEN /hpf (NONE SEEN) 10/14/16 06:00 Vancomycin Trough 20.9 ug/mL (10-20) H 10/26/16 09:35 Random Vancomycin 32.8 ug/mL (5.0-40.0) 10/28/16 06:30 Hepatitis A IgM Ab Negative (Negative) 10/15/16 05:17 Hep Bs Antigen Negative (Negative) 10/15/16 05:17 Hep B Core IgM Ab Negative (Negative) 10/15/16 05:17 Hepatitis C Antibody <0.1 s/co ratio (0.0-0.9) 10/15/16 05:17 HIV 1&2 Antibody Screen NEGATIVE (NEG) 10/27/16 04:52 TB (QFT) Gold In Tube Negative (Negative) 10/24/16 16:00 TB Test (QFT) Mitogen 3.00 IU/mL 10/24/16 16:00 TB Test (QFT) Antigen 0.05 IU/mL 10/24/16 16:00 TB Test Antigen - Nil <0.00 IU/mL 10/24/16 16:00 TB Test TB - Nil 0.06 IU/mL 10/24/16 16:00 TB Test (QFT) Interp (()) 10/24/16 16:00 - Physical Exam Vitals and I&O: Vital Signs Temp 97.5 F 10/29/16 16:00 Pulse 93 10/29/16 16:00 Resp 16 10/29/16 16:00 BP 158/70 10/29/16 16:00 Pulse Ox 96 10/29/16 16:00 Intake & Output 10/29/16 10/29/16 10/30/16 06:59 18:59 06:59 Intake Total 250 500 Balance 250 500 Weight (lbs) 47.627 kg Intake: Oral 250 500 Other: # Voids 3 0 # Bowel Movements 0 Active Medications: Current Medications Acetaminophen (Tylenol) 650 mg PO Q4HR PRN PRN Reason: fever/pain Stop: 12/13/16 01:20 Last Admin: 10/14/16 09:03 Dose: 650 mg Acetaminophen/Hydrocodone Bitart ([place] 5mg/325mg) 1 tab PO Q3H PRN PRN Reason: moderate pain (4-6) Stop: 12/13/16 10:21 Last Admin: 10/29/16 09:38 Dose: 1 tab Aspirin (Ecotrin) 81 mg PO QAM [facility] Stop: 12/14/16 08:59 Last Admin: 10/29/16 09:35 Dose: 81 mg Cilostazol (Pletal) 100 mg PO BID [facility] Stop: 12/22/16 16:59 Last Admin: 10/29/16 16:49 Dose: 100 mg Docusate Sodium (Colace) 100 mg PO BID [facility] Stop: 12/13/16 16:59 Last Admin: 10/29/16 16:49 Dose: 100 mg Epoetin [place] (Epogen) 10,000 units SUBQ MWF@1500 [facility] Stop: 12/14/16 14:59 Last Admin: 10/29/16 15:13 Dose: 10,000 units Ethambutol HCl (Myambutol) 800 mg PO DAILY [facility] Stop: 12/29/16 08:59 Folic Acid (Folate) 1 mg PO DAILY [facility] Stop: 12/14/16 08:59 Last Admin: 10/29/16 09:35 Dose: 1 mg Hydromorphone HCl (Dilaudid) 1 mg IVP Q3HR PRN PRN Reason: Severe Pain Stop: 12/22/16 02:42 Last Admin: 10/29/16 02:27 Dose: 1 mg Ceftriaxone Sodium 1 gm/ (Sodium Chloride) 50 mls @ 100 mls/hr IV Q24HR [facility] Stop: 12/13/16 15:59 Last Admin: 10/29/16 16:49 Dose: 100 mls/hr Insulin Aspart (Novolog Insulin Sliding Scale) 0 units SUBQ ACHS [facility] PRN Reason: Protocol Stop: 12/13/16 16:29 Last Admin: 10/29/16 17:44 Dose: Not Given Isoniazid (Inh) 300 mg PO DAILY [facility] Stop: 12/29/16 08:59 Levothyroxine Sodium (Synthroid) 0.05 mg PO QDAC [facility] Stop: 12/19/16 06:29 Last Admin: 10/29/16 06:28 Dose: 0.05 mg Miscellaneous (Clinical Monitoring) 1 ea PRN PRN PRN Reason: RENAL DOSING Stop: 12/13/16 13:45 Miscellaneous (Vancomycin Iv Per Pharmacy) 1 [facility] PRN PRN PRN Reason: PROTOCOL Stop: 12/22/16 16:17 Pantoprazole Sodium (Protonix) 40 mg PO DAILY [facility] Stop: 12/14/16 08:59 Last Admin: 10/29/16 09:35 Dose: 40 mg Polyethylene Glycol (Miralax) 17 gm PO DAILY [facility] Stop: 12/28/16 08:59 Last Admin: 10/29/16 09:35 Dose: 17 gm Prochlorperazine Maleate (Compazine) 10 mg PO Q6H PRN PRN Reason: Nausea / Vomiting Stop: 12/13/16 10:39 Last Admin: 10/27/16 13:01 Dose: 10 mg Promethazine HCl/Dextromethorphan (Phenergan Dm 6.25/15mg-5 Ml) 5 ml PO BID PRN PRN Reason: Cough Stop: 12/21/16 15:19 Pyrazinamide (Pza) 1,000 mg PO DAILY [facility] Stop: 12/29/16 08:59 Rifampin (Rifadin) 600 mg PO DAILY [facility] Stop: 12/29/16 08:59 Senna (Senna) 17.2 mg PO HS [facility] Stop: 12/13/16 20:59 Last Admin: 10/28/16 22:05 Dose: 17.2 mg Vitamin B Complex/Vit C/Folic Acid (Vitamin B Complex W/Vitamin C) 1 tab PO DAILY [facility] Stop: 12/14/16 08:59 Last Admin: 10/29/16 09:35 Dose: 1 tab General: no acute distress, cachectic HEENT: atraumatic, normocephalic, PERRLA Neck: supple Cardiovascular: S1S2, regular Lungs: clear to auscultation bilaterally, clear to percussion, other (decreased breath sounds.) Abdomen: soft, no tender, no distended Extremities: edema, other (right big toe cyanotic.), no cyanosis, no clubbing Neurological: awake, alert, other (r) Skin: intact - Procedures Procedures: Procedures Procedure Code Date ART BYP FEMORAL-FEMORAL 48613 10/13/16 BYPASS L FEM ART TO R FEMOR A WITH SYNTH SUB, OPEN APPROACH [id number] 10/13/16 COMPOSITE BYP GRFT PROS&VEIN 95885 10/13/16 Infectious Disease Assmt/Plan - Assessment Assessment: Impression: 1. Right big toe cellulitis. 2/2 PAD. 2. R pneumonia with air, cavity. 3. CHF. 4. CKD 5 on HD. 5. DM2 6. 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 7. abdominal pain. - Plan Plan: Continue vanco IV and rocephin. Follow up AFB and TB quantiferon. Check HIV test. start RIPE treatment as recommended by the public health department. May follow up on AFB smear and follow up the public health department recommendations.
--- NOTE | 2016-10-29 22:08 | Progress Notes ---
PULMONARY PROGRESS NOTE PROBLEM LIST: 1. Bilateral effusion. 2. Questionable cavity versus fluid surrounding the bleb. 3. Chronic respiratory failure with obstructive sleep apnea syndrome and possibly congestive heart failure. 4. Also, history of chronic renal failure, on hemodialysis. SYMPTOMS: Nil. She is currently being dialyzed. She is awake, very little communication, no respiratory distress, etc. PHYSICAL EXAMINATION: VITAL SIGNS: Temperature is 97.4, heart rate is in 90s, blood pressure 113/73, saturation is in 95% on 2 L of oxygen. NECK: Neck veins not visualized. CHEST: Shows diminished air entry with occasional rhonchi at the bases. HEART: Regular. ABDOMEN: Soft, nontender. LABORATORY DATA: The patient's electrolytes, sodium is 128, potassium 5.3, creatinine is 2.0. ASSESSMENT: The patient clinically is status quo, not significantly changed, continues to have abnormal chest x-ray. Main concern right now is fluid overload with chronic renal failure. PLANS AND SUGGESTIONS: I have discussed with Dr. Harvey today, needs to have aggressive dialysis even if she requires albumin and then repeat the chest x-ray after back to back dialysis for a few days and assess more parenchymal disease if there is any and go from there. JOB# [id number]
[2016-10-30] MEDS: HYDROmorphone 1 mg/mL 1mL Syr IVP PRN (02:41)
[2016-10-30] MEDS: Levothyroxine 0.05 Mg Tab PO SCH (07:01)
[2016-10-30] MEDS: INSULIN ASPART SLIDING SCALE 100 UNITS/ML UNIT SUBQ SCH ×4 (07:35→20:12)
[2016-10-30] MEDS: Vitamin B Complex w/Vitamin C Tab PO SCH (09:05)
[2016-10-30] MEDS: Pantoprazole 40 mg EC Tab PO SCH (09:17)
[2016-10-30] MEDS: POLYETHYLENE GLYCOL 3350 17 GM PACK PO SCH (09:18)
[2016-10-30] MEDS: Rifampin 300 mg Cap PO SCH (09:18)
--- NOTE | 2016-10-30 10:30 | General Progress Note ---
Subjective - Review of Systems Subjective: patient lethargic, arousable, no sob. Objective - Results Result Diagrams: 10/28/16 06:30 10/29/16 07:15 Recent Labs: Laboratory Last Values WBC 11.3 Th/cmm (4.8-10.8) H 10/28/16 06:30 RBC 3.40 Mil/cmm (3.80-5.20) L 10/28/16 06:30 Hgb 10.7 gm/dL (11.7-16.1) L 10/28/16 06:30 Hct 32.1 % (35.0-45.0) L 10/28/16 06:30 MCV 94.2 fl (81-100) 10/28/16 06:30 MCH 31.3 pg (27.0-31.0) H 10/28/16 06:30 MCHC Differential 33.3 pg (28.0-36.0) 10/28/16 06:30 RDW 21.1 % (11.5-20.0) H 10/28/16 06:30 Plt Count 165 Th/cmm (150-400) 10/28/16 06:30 MPV 9.2 fl 10/28/16 06:30 Band Neutrophils % 2 % (0-10) 10/28/16 06:30 Neutrophils (Manual) 80 % (40-80) 10/28/16 06:30 Lymphocytes 13 % (20-50) L 10/28/16 06:30 Monocytes 4 % (2-10) 10/28/16 06:30 Eosinophils 1 % (0-5) 10/28/16 06:30 Basophils 2 % (0-3) 10/19/16 06:40 Metamyelocytes 1 % (0-0) H 10/27/16 04:52 Nucleated RBCs 2.0 % (0-0) H 10/27/16 04:52 Platelet Estimate ADEQUATE (NORMAL) 10/28/16 06:30 Platelet Morphology GIANT PLATELETS SEEN (NORMAL) 10/28/16 06:30 Polychromasia 1+ 10/25/16 05:20 Anisocytosis 1+ 10/28/16 06:30 RBC Morph Micro Appear ABNORMAL (NORMAL) 10/28/16 06:30 PT 18.3 SECONDS (9.5-11.5) H 10/23/16 04:50 INR 1.78 (0.5-1.4) H 10/23/16 04:50 PTT (Actin FS) 34.8 SECONDS (26.0-38.0) 10/23/16 04:50 Specimen Source Arterial 10/28/16 11:53 Sample Site Right Radial 10/28/16 11:53 pH 7.38 (7.35-7.45) 10/28/16 11:53 pCO2 46.0 mmHg (35.0-45.0) H 10/28/16 11:53 pO2 62.0 mmHg (80.0-100.0) L 10/28/16 11:53 HCO3 27.2 mmol/L (20.0-26.0) H 10/28/16 11:53 Base Excess 1.6 mmol/L (-3.0-3.0) 10/28/16 11:53 O2 Saturation 91.0 % (92.0-100.0) L 10/28/16 11:53 Sanjeev Test Positive 10/28/16 11:53 Vent Rate NA 10/28/16 11:53 Inspired O2 28 10/28/16 11:53 Tidal Volume AN 10/28/16 11:53 PEEP NA 10/28/16 11:53 Pressure (ins/psv/peep) NA 10/28/16 11:53 Critical Value LZHANG 10/28/16 11:53 Sodium 128 mEq/L (136-145) L 10/29/16 07:15 Potassium 5.3 mEq/L (3.5-5.1) H 10/29/16 07:15 Chloride 99 mEq/L (98-107) 10/29/16 07:15 Carbon Dioxide 24.0 mEq/L (21.0-31.0) 10/29/16 07:15 Anion Gap 10.3 (7.0-16.0) 10/29/16 07:15 BUN 20 mg/dL (7-25) 10/29/16 07:15 Creatinine 2.0 mg/dL (0.6-1.2) H 10/29/16 07:15 Est GFR ( Amer) 31.8 ml/min 10/29/16 07:15 Est GFR (Non-Af Amer) 26.3 ml/min 10/29/16 07:15 BUN/Creatinine Ratio 10.0 10/29/16 07:15 Glucose 80 mg/dL (70-105) 10/29/16 07:15 POC Glucose 97 MG/DL (70 - 105) 10/30/16 07:26 Hemoglobin A1c % 6.9 % (4.0-6.0) H 10/15/16 05:17 Calcium 8.9 mg/dL (8.6-10.3) 10/29/16 07:15 Total Bilirubin 1.1 mg/dL (0.3-1.0) H 10/27/16 04:52 Direct Bilirubin 0.26 mg/dL (0.0-0.2) H 10/27/16 04:52 AST 19 U/L (13-39) 10/27/16 04:52 ALT 5 U/L (7-52) L 10/27/16 04:52 Alkaline Phosphatase 102 U/L (34-104) 10/27/16 04:52 Ammonia 50 umol/L (16-53) 10/14/16 10:40 B-Natriuretic Peptide > 5000.0 pg/mL (5.0-100.0) H 10/17/16 06:50 Total Protein 6.4 gm/dL (6.0-8.3) 10/27/16 04:52 Albumin 3.1 gm/dL (3.7-5.3) L 10/27/16 04:52 Globulin 3.3 gm/dL 10/27/16 04:52 Albumin/Globulin Ratio 0.9 (1.0-1.8) L 10/27/16 04:52 Triglycerides 119 mg/dL (<150) 10/14/16 10:40 Cholesterol 80 mg/dL (<200) 10/14/16 10:40 LDL Cholesterol Direct 26 mg/dL (75-193) L 10/14/16 10:40 HDL Cholesterol 33 mg/dL (23-92) 10/14/16 10:40 TSH 7.87 uIU/ml (0.34-5.60) H 10/14/16 10:40 Urine Source CATH 10/14/16 06:00 Urine Color BROWN 10/14/16 06:00 Urine Clarity SL. CLOUDY (CLEAR) 10/14/16 06:00 Urine pH 5.5 10/14/16 06:00 Ur Specific [place] 1.025 (1.005-1.030) 10/14/16 06:00 Urine Protein 100 mg/dL (NEGATIVE) H 10/14/16 06:00 Urine Glucose (UA) NEGATIVE mg/dL (NEGATIVE) 10/14/16 06:00 Urine Ketones TRACE mg/dL (NEGATIVE) 10/14/16 06:00 Urine Blood TRACE (NEGATIVE) 10/14/16 06:00 Urine Nitrate NEGATIVE (NEGATIVE) 10/14/16 06:00 Urine Bilirubin SMALL (NEGATIVE) H 10/14/16 06:00 Urine Urobilinogen 0.2 E.U./dL (0.2 - 1.0) 10/14/16 06:00 Ur Leukocyte Esterase NEGATIVE (NEGATIVE) 10/14/16 06:00 Urine RBC 0-1 /hpf (0-5) 10/14/16 06:00 Urine WBC 2-5 /hpf (0-5) 10/14/16 06:00 Ur Epithelial Cells OCCASIONAL /lpf (FEW) 10/14/16 06:00 Amorphous Sediment FEW URATES (NONE SEEN) 10/14/16 06:00 Urine Bacteria NONE SEEN /hpf (NONE SEEN) 10/14/16 06:00 Vancomycin Trough 20.9 ug/mL (10-20) H 10/26/16 09:35 Random Vancomycin 22.9 ug/mL (5.0-40.0) 10/30/16 06:35 Hepatitis A IgM Ab Negative (Negative) 10/15/16 05:17 Hep Bs Antigen Negative (Negative) 10/15/16 05:17 Hep B Core IgM Ab Negative (Negative) 10/15/16 05:17 Hepatitis C Antibody <0.1 s/co ratio (0.0-0.9) 10/15/16 05:17 HIV 1&2 Antibody Screen NEGATIVE (NEG) 10/27/16 04:52 TB (QFT) Gold In Tube Negative (Negative) 10/24/16 16:00 TB Test (QFT) Mitogen 3.00 IU/mL 10/24/16 16:00 TB Test (QFT) Antigen 0.05 IU/mL 10/24/16 16:00 TB Test Antigen - Nil <0.00 IU/mL 10/24/16 16:00 TB Test TB - Nil 0.06 IU/mL 10/24/16 16:00 TB Test (QFT) Interp (()) 10/24/16 16:00 - Physical Exam Vitals and I&O: Vital Signs Temp 96.8 F 10/30/16 08:14 Pulse 88 10/30/16 08:14 Resp 18 10/30/16 08:14 BP 96/73 10/30/16 08:14 Pulse Ox 97 10/30/16 08:14 Intake & Output 10/29/16 10/30/16 10/30/16 18:59 06:59 18:59 Intake Total 250 500 Balance 250 500 Weight (lbs) 47.627 kg Intake: Oral 250 500 Other: # Voids 3 3 # Bowel Movements 2 Active Medications: Current Medications Acetaminophen (Tylenol) 650 mg PO Q4HR PRN PRN Reason: fever/pain Stop: 12/13/16 01:20 Last Admin: 10/14/16 09:03 Dose: 650 mg Acetaminophen/Hydrocodone Bitart ([place] 5mg/325mg) 1 tab PO Q3H PRN PRN Reason: moderate pain (4-6) Stop: 12/13/16 10:21 Last Admin: 10/29/16 09:38 Dose: 1 tab Aspirin (Ecotrin) 81 mg PO QAM [facility] Stop: 12/14/16 08:59 Last Admin: 10/30/16 09:15 Dose: 81 mg Cilostazol (Pletal) 100 mg PO BID [facility] Stop: 12/22/16 16:59 Last Admin: 10/30/16 09:18 Dose: 100 mg Docusate Sodium (Colace) 100 mg PO BID [facility] Stop: 12/13/16 16:59 Last Admin: 10/30/16 09:16 Dose: 100 mg Epoetin [place] (Epogen) 10,000 units SUBQ MWF@1500 [facility] Stop: 12/14/16 14:59 Last Admin: 10/29/16 15:13 Dose: 10,000 units Ethambutol HCl (Myambutol) 800 mg PO DAILY [facility] Stop: 12/29/16 08:59 Last Admin: 10/30/16 09:17 Dose: 800 mg Folic Acid (Folate) 1 mg PO DAILY [facility] Stop: 12/14/16 08:59 Last Admin: 10/30/16 09:16 Dose: 1 mg Hydromorphone HCl (Dilaudid) 1 mg IVP Q3HR PRN PRN Reason: Severe Pain Stop: 12/22/16 02:42 Last Admin: 10/30/16 02:41 Dose: 1 mg Ceftriaxone Sodium 1 gm/ (Sodium Chloride) 50 mls @ 100 mls/hr IV Q24HR [facility] Stop: 12/13/16 15:59 Last Admin: 10/29/16 16:49 Dose: 100 mls/hr Insulin Aspart (Novolog Insulin Sliding Scale) 0 units SUBQ ACHS [facility] PRN Reason: Protocol Stop: 12/13/16 16:29 Last Admin: 10/30/16 07:35 Dose: Not Given Isoniazid (Inh) 300 mg PO DAILY [facility] Stop: 12/29/16 08:59 Last Admin: 10/30/16 09:15 Dose: 300 mg Levothyroxine Sodium (Synthroid) 0.05 mg PO QDAC [facility] Stop: 12/19/16 06:29 Last Admin: 10/30/16 07:01 Dose: 0.05 mg Miscellaneous (Clinical Monitoring) 1 ea PRN PRN PRN Reason: RENAL DOSING Stop: 12/13/16 13:45 Miscellaneous (Vancomycin Iv Per Pharmacy) 1 ea PRN PRN PRN Reason: PROTOCOL Stop: 12/22/16 16:17 Pantoprazole Sodium (Protonix) 40 mg PO DAILY [facility] Stop: 12/14/16 08:59 Last Admin: 10/30/16 09:17 Dose: 40 mg Polyethylene Glycol (Miralax) 17 gm PO DAILY [facility] Stop: 12/28/16 08:59 Last Admin: 10/30/16 09:18 Dose: 17 gm Prochlorperazine Maleate (Compazine) 10 mg PO Q6H PRN PRN Reason: Nausea / Vomiting Stop: 12/13/16 10:39 Last Admin: 10/27/16 13:01 Dose: 10 mg Promethazine HCl/Dextromethorphan (Phenergan Dm 6.25/15mg-5 Ml) 5 ml PO BID PRN PRN Reason: Cough Stop: 12/21/16 15:19 Pyrazinamide (Pza) 1,000 mg PO DAILY [facility] Stop: 12/29/16 08:59 Last Admin: 10/30/16 09:18 Dose: 1,000 mg Pyridoxine HCl (Vitamin B6) 50 mg PO DAILY [facility] Stop: 12/29/16 08:59 Last Admin: 10/30/16 09:17 Dose: 50 mg Rifampin (Rifadin) 600 mg PO DAILY [facility] Stop: 12/29/16 08:59 Last Admin: 10/30/16 09:18 Dose: 600 mg Senna (Senna) 17.2 mg PO HS [facility] Stop: 12/13/16 20:59 Last Admin: 10/29/16 20:47 Dose: 17.2 mg Vitamin B Complex/Vit C/Folic Acid (Vitamin B Complex W/Vitamin C) 1 tab PO DAILY [facility] Stop: 12/14/16 08:59 Last Admin: 10/29/16 09:35 Dose: 1 tab - Procedures Procedures: Procedures Procedure Code Date ART BYP FEMORAL-FEMORAL 06121 10/13/16 BYPASS L FEM ART TO R FEMOR A WITH SYNTH SUB, OPEN APPROACH [id number] 10/13/16 COMPOSITE BYP GRFT PROS&VEIN 73104 10/13/16 Assessment/Plan - Assessment Assessment: 1. Right big toe cellulitis. 2/2 PAD. 2. R pneumonia. 3. CHF. 4. CKD 5 on HD. 5. DM2 - Plan Plan: if cta cannot be done, consider vq scan, appreciate consults reccomendation continue ivabx as per id cbc/bmp in am continue current plan of care
--- NOTE | 2016-10-30 11:34 | General Progress Note ---
Subjective - Review of Systems Service Date: 10/30/16 Subjective: drowsy today, less tacypnea, less abd discomfort Objective - Results Result Diagrams: 10/28/16 06:30 10/29/16 07:15 Recent Labs: Laboratory Last Values WBC 11.3 Th/cmm (4.8-10.8) H 10/28/16 06:30 RBC 3.40 Mil/cmm (3.80-5.20) L 10/28/16 06:30 Hgb 10.7 gm/dL (11.7-16.1) L 10/28/16 06:30 Hct 32.1 % (35.0-45.0) L 10/28/16 06:30 MCV 94.2 fl (81-100) 10/28/16 06:30 MCH 31.3 pg (27.0-31.0) H 10/28/16 06:30 MCHC Differential 33.3 pg (28.0-36.0) 10/28/16 06:30 RDW 21.1 % (11.5-20.0) H 10/28/16 06:30 Plt Count 165 Th/cmm (150-400) 10/28/16 06:30 MPV 9.2 fl 10/28/16 06:30 Band Neutrophils % 2 % (0-10) 10/28/16 06:30 Neutrophils (Manual) 80 % (40-80) 10/28/16 06:30 Lymphocytes 13 % (20-50) L 10/28/16 06:30 Monocytes 4 % (2-10) 10/28/16 06:30 Eosinophils 1 % (0-5) 10/28/16 06:30 Basophils 2 % (0-3) 10/19/16 06:40 Metamyelocytes 1 % (0-0) H 10/27/16 04:52 Nucleated RBCs 2.0 % (0-0) H 10/27/16 04:52 Platelet Estimate ADEQUATE (NORMAL) 10/28/16 06:30 Platelet Morphology GIANT PLATELETS SEEN (NORMAL) 10/28/16 06:30 Polychromasia 1+ 10/25/16 05:20 Anisocytosis 1+ 10/28/16 06:30 RBC Morph Micro Appear ABNORMAL (NORMAL) 10/28/16 06:30 PT 18.3 SECONDS (9.5-11.5) H 10/23/16 04:50 INR 1.78 (0.5-1.4) H 10/23/16 04:50 PTT (Actin FS) 34.8 SECONDS (26.0-38.0) 10/23/16 04:50 Specimen Source Arterial 10/28/16 11:53 Sample Site Right Radial 10/28/16 11:53 pH 7.38 (7.35-7.45) 10/28/16 11:53 pCO2 46.0 mmHg (35.0-45.0) H 10/28/16 11:53 pO2 62.0 mmHg (80.0-100.0) L 10/28/16 11:53 HCO3 27.2 mmol/L (20.0-26.0) H 10/28/16 11:53 Base Excess 1.6 mmol/L (-3.0-3.0) 10/28/16 11:53 O2 Saturation 91.0 % (92.0-100.0) L 10/28/16 11:53 Sanjeev Test Positive 10/28/16 11:53 Vent Rate NA 10/28/16 11:53 Inspired O2 28 10/28/16 11:53 Tidal Volume AN 10/28/16 11:53 PEEP NA 10/28/16 11:53 Pressure (ins/psv/peep) NA 10/28/16 11:53 Critical Value LZHANG 10/28/16 11:53 Sodium 128 mEq/L (136-145) L 10/29/16 07:15 Potassium 5.3 mEq/L (3.5-5.1) H 10/29/16 07:15 Chloride 99 mEq/L (98-107) 10/29/16 07:15 Carbon Dioxide 24.0 mEq/L (21.0-31.0) 10/29/16 07:15 Anion Gap 10.3 (7.0-16.0) 10/29/16 07:15 BUN 20 mg/dL (7-25) 10/29/16 07:15 Creatinine 2.0 mg/dL (0.6-1.2) H 10/29/16 07:15 Est GFR ( Amer) 31.8 ml/min 10/29/16 07:15 Est GFR (Non-Af Amer) 26.3 ml/min 10/29/16 07:15 BUN/Creatinine Ratio 10.0 10/29/16 07:15 Glucose 80 mg/dL (70-105) 10/29/16 07:15 POC Glucose 97 MG/DL (70 - 105) 10/30/16 07:26 Hemoglobin A1c % 6.9 % (4.0-6.0) H 10/15/16 05:17 Calcium 8.9 mg/dL (8.6-10.3) 10/29/16 07:15 Total Bilirubin 1.1 mg/dL (0.3-1.0) H 10/27/16 04:52 Direct Bilirubin 0.26 mg/dL (0.0-0.2) H 10/27/16 04:52 AST 19 U/L (13-39) 10/27/16 04:52 ALT 5 U/L (7-52) L 10/27/16 04:52 Alkaline Phosphatase 102 U/L (34-104) 10/27/16 04:52 Ammonia 50 umol/L (16-53) 10/14/16 10:40 B-Natriuretic Peptide > 5000.0 pg/mL (5.0-100.0) H 10/17/16 06:50 Total Protein 6.4 gm/dL (6.0-8.3) 10/27/16 04:52 Albumin 3.1 gm/dL (3.7-5.3) L 10/27/16 04:52 Globulin 3.3 gm/dL 10/27/16 04:52 Albumin/Globulin Ratio 0.9 (1.0-1.8) L 10/27/16 04:52 Triglycerides 119 mg/dL (<150) 10/14/16 10:40 Cholesterol 80 mg/dL (<200) 10/14/16 10:40 LDL Cholesterol Direct 26 mg/dL (75-193) L 10/14/16 10:40 HDL Cholesterol 33 mg/dL (23-92) 10/14/16 10:40 TSH 7.87 uIU/ml (0.34-5.60) H 10/14/16 10:40 Urine Source CATH 10/14/16 06:00 Urine Color BROWN 10/14/16 06:00 Urine Clarity SL. CLOUDY (CLEAR) 10/14/16 06:00 Urine pH 5.5 10/14/16 06:00 Ur Specific [place] 1.025 (1.005-1.030) 10/14/16 06:00 Urine Protein 100 mg/dL (NEGATIVE) H 10/14/16 06:00 Urine Glucose (UA) NEGATIVE mg/dL (NEGATIVE) 10/14/16 06:00 Urine Ketones TRACE mg/dL (NEGATIVE) 10/14/16 06:00 Urine Blood TRACE (NEGATIVE) 10/14/16 06:00 Urine Nitrate NEGATIVE (NEGATIVE) 10/14/16 06:00 Urine Bilirubin SMALL (NEGATIVE) H 10/14/16 06:00 Urine Urobilinogen 0.2 E.U./dL (0.2 - 1.0) 10/14/16 06:00 Ur Leukocyte Esterase NEGATIVE (NEGATIVE) 10/14/16 06:00 Urine RBC 0-1 /hpf (0-5) 10/14/16 06:00 Urine WBC 2-5 /hpf (0-5) 10/14/16 06:00 Ur Epithelial Cells OCCASIONAL /lpf (FEW) 10/14/16 06:00 Amorphous Sediment FEW URATES (NONE SEEN) 10/14/16 06:00 Urine Bacteria NONE SEEN /hpf (NONE SEEN) 10/14/16 06:00 Vancomycin Trough 20.9 ug/mL (10-20) H 10/26/16 09:35 Random Vancomycin 22.9 ug/mL (5.0-40.0) 10/30/16 06:35 Hepatitis A IgM Ab Negative (Negative) 10/15/16 05:17 Hep Bs Antigen Negative (Negative) 10/15/16 05:17 Hep B Core IgM Ab Negative (Negative) 10/15/16 05:17 Hepatitis C Antibody <0.1 s/co ratio (0.0-0.9) 10/15/16 05:17 HIV 1&2 Antibody Screen NEGATIVE (NEG) 10/27/16 04:52 TB (QFT) Gold In Tube Negative (Negative) 10/24/16 16:00 TB Test (QFT) Mitogen 3.00 IU/mL 10/24/16 16:00 TB Test (QFT) Antigen 0.05 IU/mL 10/24/16 16:00 TB Test Antigen - Nil <0.00 IU/mL 10/24/16 16:00 TB Test TB - Nil 0.06 IU/mL 10/24/16 16:00 TB Test (QFT) Interp (()) 10/24/16 16:00 - Physical Exam Vitals and I&O: Vital Signs Temp 96.8 F 10/30/16 08:14 Pulse 88 10/30/16 08:14 Resp 18 10/30/16 08:14 BP 96/73 10/30/16 08:14 Pulse Ox 97 10/30/16 08:14 Intake & Output 10/29/16 10/30/16 10/30/16 18:59 06:59 18:59 Intake Total 250 500 Balance 250 500 Weight (lbs) 47.627 kg Intake: Oral 250 500 Other: # Voids 3 3 # Bowel Movements 2 Active Medications: Current Medications Acetaminophen (Tylenol) 650 mg PO Q4HR PRN PRN Reason: fever/pain Stop: 12/13/16 01:20 Last Admin: 10/14/16 09:03 Dose: 650 mg Acetaminophen/Hydrocodone Bitart ([place] 5mg/325mg) 1 tab PO Q3H PRN PRN Reason: moderate pain (4-6) Stop: 12/13/16 10:21 Last Admin: 10/29/16 09:38 Dose: 1 tab Aspirin (Ecotrin) 81 mg PO QAM [facility] Stop: 12/14/16 08:59 Last Admin: 10/30/16 09:15 Dose: 81 mg Cilostazol (Pletal) 100 mg PO BID [facility] Stop: 12/22/16 16:59 Last Admin: 10/30/16 09:18 Dose: 100 mg Docusate Sodium (Colace) 100 mg PO BID [facility] Stop: 12/13/16 16:59 Last Admin: 10/30/16 09:16 Dose: 100 mg Epoetin [place] (Epogen) 10,000 units SUBQ MWF@1500 [facility] Stop: 12/14/16 14:59 Last Admin: 10/29/16 15:13 Dose: 10,000 units Ethambutol HCl (Myambutol) 800 mg PO DAILY [facility] Stop: 12/29/16 08:59 Last Admin: 10/30/16 09:17 Dose: 800 mg Folic Acid (Folate) 1 mg PO DAILY [facility] Stop: 12/14/16 08:59 Last Admin: 10/30/16 09:16 Dose: 1 mg Hydromorphone HCl (Dilaudid) 1 mg IVP Q3HR PRN PRN Reason: Severe Pain Stop: 12/22/16 02:42 Last Admin: 10/30/16 02:41 Dose: 1 mg Ceftriaxone Sodium 1 gm/ (Sodium Chloride) 50 mls @ 100 mls/hr IV Q24HR [facility] Stop: 12/13/16 15:59 Last Admin: 10/29/16 16:49 Dose: 100 mls/hr Insulin Aspart (Novolog Insulin Sliding Scale) 0 units SUBQ ACHS [facility] PRN Reason: Protocol Stop: 12/13/16 16:29 Last Admin: 10/30/16 07:35 Dose: Not Given Isoniazid (Inh) 300 mg PO DAILY [facility] Stop: 12/29/16 08:59 Last Admin: 10/30/16 09:15 Dose: 300 mg Levothyroxine Sodium (Synthroid) 0.05 mg PO QDAC [facility] Stop: 12/19/16 06:29 Last Admin: 10/30/16 07:01 Dose: 0.05 mg Miscellaneous (Clinical Monitoring) 1 ea PRN PRN PRN Reason: RENAL DOSING Stop: 12/13/16 13:45 Miscellaneous (Vancomycin Iv Per Pharmacy) 1 ea PRN PRN PRN Reason: PROTOCOL Stop: 12/22/16 16:17 Pantoprazole Sodium (Protonix) 40 mg PO DAILY [facility] Stop: 12/14/16 08:59 Last Admin: 10/30/16 09:17 Dose: 40 mg Polyethylene Glycol (Miralax) 17 gm PO DAILY [facility] Stop: 12/28/16 08:59 Last Admin: 10/30/16 09:18 Dose: 17 gm Prochlorperazine Maleate (Compazine) 10 mg PO Q6H PRN PRN Reason: Nausea / Vomiting Stop: 12/13/16 10:39 Last Admin: 10/27/16 13:01 Dose: 10 mg Promethazine HCl/Dextromethorphan (Phenergan Dm 6.25/15mg-5 Ml) 5 ml PO BID PRN PRN Reason: Cough Stop: 12/21/16 15:19 Pyrazinamide (Pza) 1,000 mg PO DAILY [facility] Stop: 12/29/16 08:59 Last Admin: 10/30/16 09:18 Dose: 1,000 mg Pyridoxine HCl (Vitamin B6) 50 mg PO DAILY [facility] Stop: 12/29/16 08:59 Last Admin: 10/30/16 09:17 Dose: 50 mg Rifampin (Rifadin) 600 mg PO DAILY [facility] Stop: 12/29/16 08:59 Last Admin: 10/30/16 09:18 Dose: 600 mg Senna (Senna) 17.2 mg PO HS [facility] Stop: 12/13/16 20:59 Last Admin: 10/29/16 20:47 Dose: 17.2 mg Vitamin B Complex/Vit C/Folic Acid (Vitamin B Complex W/Vitamin C) 1 tab PO DAILY [facility] Stop: 12/14/16 08:59 Last Admin: 10/29/16 09:35 Dose: 1 tab General: No acute distress HEENT: Atraumatic, Mucous membr. moist/pink Neck: Supple, +2 carotid pulse wo bruit Cardiovascular: Regular rate, Normal S1, Normal S2 Lungs: Other (occ. rhonchi) Abdomen: Bowel sounds, Soft Extremities: no Edema Neurological: Sensation intact Skin: no Rash - Procedures Procedures: Procedures Procedure Code Date ART BYP FEMORAL-FEMORAL 95623 10/13/16 BYPASS L FEM ART TO R FEMOR A WITH SYNTH SUB, OPEN APPROACH [id number] 10/13/16 COMPOSITE BYP GRFT PROS&VEIN 28292 10/13/16 Assessment/Plan - Assessment Assessment: ESRD on HD acute decomp systolic CHF acute resp failure type 2 dm ess htn anemia of ckd LLL HAP hypothyroid PAD w/ right toe discoloration chronic hyponatremia abd. pain better Left Fem-Pop bypass - Plan Plan: schedule for dialysis in am, aware of cr. of 2 but still w/ persistent chf serial CXR fluid restriction
[2016-10-30] MEDS ORDERED: Albumin 25% 25gm/100mL 25 GM/100 ML BTL IV ONE (11:35)
[2016-10-30] MEDS: Hydrocodone/APAP 5mg/325mg Tab PO PRN ×2 (16:00→20:07)
[2016-10-30] MEDS: cefTRIAXone 1 GM in Sodium Chloride 0.9% 50 ML IV SCH (16:43)
--- NOTE | 2016-10-30 22:43 | Infectious Disease Prog Note ---
Infectious Disease Subjective - Review of Systems Service Date: 10/30/16 Subjective: There is no fever. Doing well. Infectious Disease Objective - Results Result Diagrams: 10/28/16 06:30 10/29/16 07:15 Recent Labs: Laboratory Last Values WBC 11.3 Th/cmm (4.8-10.8) H 10/28/16 06:30 RBC 3.40 Mil/cmm (3.80-5.20) L 10/28/16 06:30 Hgb 10.7 gm/dL (11.7-16.1) L 10/28/16 06:30 Hct 32.1 % (35.0-45.0) L 10/28/16 06:30 MCV 94.2 fl (81-100) 10/28/16 06:30 MCH 31.3 pg (27.0-31.0) H 10/28/16 06:30 MCHC Differential 33.3 pg (28.0-36.0) 10/28/16 06:30 RDW 21.1 % (11.5-20.0) H 10/28/16 06:30 Plt Count 165 Th/cmm (150-400) 10/28/16 06:30 MPV 9.2 fl 10/28/16 06:30 Band Neutrophils % 2 % (0-10) 10/28/16 06:30 Neutrophils (Manual) 80 % (40-80) 10/28/16 06:30 Lymphocytes 13 % (20-50) L 10/28/16 06:30 Monocytes 4 % (2-10) 10/28/16 06:30 Eosinophils 1 % (0-5) 10/28/16 06:30 Basophils 2 % (0-3) 10/19/16 06:40 Metamyelocytes 1 % (0-0) H 10/27/16 04:52 Nucleated RBCs 2.0 % (0-0) H 10/27/16 04:52 Platelet Estimate ADEQUATE (NORMAL) 10/28/16 06:30 Platelet Morphology GIANT PLATELETS SEEN (NORMAL) 10/28/16 06:30 Polychromasia 1+ 10/25/16 05:20 Anisocytosis 1+ 10/28/16 06:30 RBC Morph Micro Appear ABNORMAL (NORMAL) 10/28/16 06:30 PT 18.3 SECONDS (9.5-11.5) H 10/23/16 04:50 INR 1.78 (0.5-1.4) H 10/23/16 04:50 PTT (Actin FS) 34.8 SECONDS (26.0-38.0) 10/23/16 04:50 Specimen Source Arterial 10/28/16 11:53 Sample Site Right Radial 10/28/16 11:53 pH 7.38 (7.35-7.45) 10/28/16 11:53 pCO2 46.0 mmHg (35.0-45.0) H 10/28/16 11:53 pO2 62.0 mmHg (80.0-100.0) L 10/28/16 11:53 HCO3 27.2 mmol/L (20.0-26.0) H 10/28/16 11:53 Base Excess 1.6 mmol/L (-3.0-3.0) 10/28/16 11:53 O2 Saturation 91.0 % (92.0-100.0) L 10/28/16 11:53 Sanjeev Test Positive 10/28/16 11:53 Vent Rate NA 10/28/16 11:53 Inspired O2 28 10/28/16 11:53 Tidal Volume AN 10/28/16 11:53 PEEP NA 10/28/16 11:53 Pressure (ins/psv/peep) NA 10/28/16 11:53 Critical Value LZHANG 10/28/16 11:53 Sodium 128 mEq/L (136-145) L 10/29/16 07:15 Potassium 5.3 mEq/L (3.5-5.1) H 10/29/16 07:15 Chloride 99 mEq/L (98-107) 10/29/16 07:15 Carbon Dioxide 24.0 mEq/L (21.0-31.0) 10/29/16 07:15 Anion Gap 10.3 (7.0-16.0) 10/29/16 07:15 BUN 20 mg/dL (7-25) 10/29/16 07:15 Creatinine 2.0 mg/dL (0.6-1.2) H 10/29/16 07:15 Est GFR ( Amer) 31.8 ml/min 10/29/16 07:15 Est GFR (Non-Af Amer) 26.3 ml/min 10/29/16 07:15 BUN/Creatinine Ratio 10.0 10/29/16 07:15 Glucose 80 mg/dL (70-105) 10/29/16 07:15 POC Glucose 195 MG/DL (70 - 105) H 10/30/16 20:03 Hemoglobin A1c % 6.9 % (4.0-6.0) H 10/15/16 05:17 Calcium 8.9 mg/dL (8.6-10.3) 10/29/16 07:15 Total Bilirubin 1.1 mg/dL (0.3-1.0) H 10/27/16 04:52 Direct Bilirubin 0.26 mg/dL (0.0-0.2) H 10/27/16 04:52 AST 19 U/L (13-39) 10/27/16 04:52 ALT 5 U/L (7-52) L 10/27/16 04:52 Alkaline Phosphatase 102 U/L (34-104) 10/27/16 04:52 Ammonia 50 umol/L (16-53) 10/14/16 10:40 B-Natriuretic Peptide > 5000.0 pg/mL (5.0-100.0) H 10/17/16 06:50 Total Protein 6.4 gm/dL (6.0-8.3) 10/27/16 04:52 Albumin 3.1 gm/dL (3.7-5.3) L 10/27/16 04:52 Globulin 3.3 gm/dL 10/27/16 04:52 Albumin/Globulin Ratio 0.9 (1.0-1.8) L 10/27/16 04:52 Triglycerides 119 mg/dL (<150) 10/14/16 10:40 Cholesterol 80 mg/dL (<200) 10/14/16 10:40 LDL Cholesterol Direct 26 mg/dL (75-193) L 10/14/16 10:40 HDL Cholesterol 33 mg/dL (23-92) 10/14/16 10:40 TSH 7.87 uIU/ml (0.34-5.60) H 10/14/16 10:40 Urine Source CATH 10/14/16 06:00 Urine Color BROWN 10/14/16 06:00 Urine Clarity SL. CLOUDY (CLEAR) 10/14/16 06:00 Urine pH 5.5 10/14/16 06:00 Ur Specific [place] 1.025 (1.005-1.030) 10/14/16 06:00 Urine Protein 100 mg/dL (NEGATIVE) H 10/14/16 06:00 Urine Glucose (UA) NEGATIVE mg/dL (NEGATIVE) 10/14/16 06:00 Urine Ketones TRACE mg/dL (NEGATIVE) 10/14/16 06:00 Urine Blood TRACE (NEGATIVE) 10/14/16 06:00 Urine Nitrate NEGATIVE (NEGATIVE) 10/14/16 06:00 Urine Bilirubin SMALL (NEGATIVE) H 10/14/16 06:00 Urine Urobilinogen 0.2 E.U./dL (0.2 - 1.0) 10/14/16 06:00 Ur Leukocyte Esterase NEGATIVE (NEGATIVE) 10/14/16 06:00 Urine RBC 0-1 /hpf (0-5) 10/14/16 06:00 Urine WBC 2-5 /hpf (0-5) 10/14/16 06:00 Ur Epithelial Cells OCCASIONAL /lpf (FEW) 10/14/16 06:00 Amorphous Sediment FEW URATES (NONE SEEN) 10/14/16 06:00 Urine Bacteria NONE SEEN /hpf (NONE SEEN) 10/14/16 06:00 Vancomycin Trough 20.9 ug/mL (10-20) H 10/26/16 09:35 Random Vancomycin 22.9 ug/mL (5.0-40.0) 10/30/16 06:35 Hepatitis A IgM Ab Negative (Negative) 10/15/16 05:17 Hep Bs Antigen Negative (Negative) 10/15/16 05:17 Hep B Core IgM Ab Negative (Negative) 10/15/16 05:17 Hepatitis C Antibody <0.1 s/co ratio (0.0-0.9) 10/15/16 05:17 HIV 1&2 Antibody Screen NEGATIVE (NEG) 10/27/16 04:52 TB (QFT) Gold In Tube Negative (Negative) 10/24/16 16:00 TB Test (QFT) Mitogen 3.00 IU/mL 10/24/16 16:00 TB Test (QFT) Antigen 0.05 IU/mL 10/24/16 16:00 TB Test Antigen - Nil <0.00 IU/mL 10/24/16 16:00 TB Test TB - Nil 0.06 IU/mL 10/24/16 16:00 TB Test (QFT) Interp (()) 10/24/16 16:00 - Physical Exam Vitals and I&O: Vital Signs Temp 98.1 F 10/30/16 20:00 Pulse 84 10/30/16 20:00 Resp 18 10/30/16 20:00 BP 121/57 10/30/16 20:00 Pulse Ox 94 10/30/16 20:00 Intake & Output 10/30/16 10/30/16 10/31/16 06:59 18:59 06:59 Intake Total 500 400 Balance 500 400 Intake: Oral 500 400 Other: # Voids 3 2 # Bowel Movements 2 2 Active Medications: Current Medications Acetaminophen (Tylenol) 650 mg PO Q4HR PRN PRN Reason: fever/pain Stop: 12/13/16 01:20 Last Admin: 10/14/16 09:03 Dose: 650 mg Acetaminophen/Hydrocodone Bitart ([place] 5mg/325mg) 1 tab PO Q3H PRN PRN Reason: moderate pain (4-6) Stop: 12/13/16 10:21 Last Admin: 10/30/16 20:07 Dose: 1 tab Aspirin (Ecotrin) 81 mg PO QAM [facility] Stop: 12/14/16 08:59 Last Admin: 10/30/16 09:15 Dose: 81 mg Cilostazol (Pletal) 100 mg PO BID [facility] Stop: 12/22/16 16:59 Last Admin: 10/30/16 16:44 Dose: 100 mg Docusate Sodium (Colace) 100 mg PO BID [facility] Stop: 12/13/16 16:59 Last Admin: 10/30/16 16:44 Dose: 100 mg Ethambutol HCl (Myambutol) 800 mg PO DAILY [facility] Stop: 12/29/16 08:59 Last Admin: 10/30/16 09:17 Dose: 800 mg Folic Acid (Folate) 1 mg PO DAILY [facility] Stop: 12/14/16 08:59 Last Admin: 10/30/16 09:16 Dose: 1 mg Insulin Aspart (Novolog Insulin Sliding Scale) 0 units SUBQ ACHS [facility] PRN Reason: Protocol Stop: 12/13/16 16:29 Last Admin: 10/30/16 20:12 Dose: 2 units Isoniazid (Inh) 300 mg PO DAILY [facility] Stop: 12/29/16 08:59 Last Admin: 10/30/16 09:15 Dose: 300 mg Levothyroxine Sodium (Synthroid) 0.05 mg PO QDAC [facility] Stop: 12/19/16 06:29 Last Admin: 10/30/16 07:01 Dose: 0.05 mg Miscellaneous (Clinical Monitoring) 1 ea PRN PRN PRN Reason: RENAL DOSING Stop: 12/13/16 13:45 Miscellaneous (Vancomycin Iv Per Pharmacy) 1 [facility] PRN PRN PRN Reason: PROTOCOL Stop: 12/22/16 16:17 Pantoprazole Sodium (Protonix) 40 mg PO DAILY [facility] Stop: 12/14/16 08:59 Last Admin: 10/30/16 09:17 Dose: 40 mg Polyethylene Glycol (Miralax) 17 gm PO DAILY [facility] Stop: 12/28/16 08:59 Last Admin: 10/30/16 09:18 Dose: 17 gm Prochlorperazine Maleate (Compazine) 10 mg PO Q6H PRN PRN Reason: Nausea / Vomiting Stop: 12/13/16 10:39 Last Admin: 10/27/16 13:01 Dose: 10 mg Promethazine HCl/Dextromethorphan (Phenergan Dm 6.25/15mg-5 Ml) 5 ml PO BID PRN PRN Reason: Cough Stop: 12/21/16 15:19 Pyrazinamide (Pza) 1,000 mg PO DAILY [facility] Stop: 12/29/16 08:59 Last Admin: 10/30/16 09:18 Dose: 1,000 mg Pyridoxine HCl (Vitamin B6) 50 mg PO DAILY [facility] Stop: 12/29/16 08:59 Last Admin: 10/30/16 09:17 Dose: 50 mg Rifampin (Rifadin) 600 mg PO DAILY [facility] Stop: 12/29/16 08:59 Last Admin: 10/30/16 09:18 Dose: 600 mg Senna (Senna) 17.2 mg PO HS [facility] Stop: 12/13/16 20:59 Last Admin: 10/30/16 20:16 Dose: 17.2 mg Vitamin B Complex/Vit C/Folic Acid (Vitamin B Complex W/Vitamin C) 1 tab PO DAILY [facility] Stop: 12/14/16 08:59 Last Admin: 10/30/16 09:05 Dose: 1 tab General: no acute distress, well developed, well nourished HEENT: atraumatic, normocephalic, PERRLA, EOMI Neck: supple, no thyromegaly, no lymphadenopathy Cardiovascular: S1S2, regular Lungs: clear to auscultation bilaterally, clear to percussion, other (decreased breath sound on right.) Abdomen: soft, no tender, no distended Extremities: no cyanosis, no clubbing, no edema Neurological: awake, alert Skin: intact - Procedures Procedures: Procedures Procedure Code Date ART BYP FEMORAL-FEMORAL 13555 10/13/16 BYPASS L FEM ART TO R FEMOR A WITH SYNTH SUB, OPEN APPROACH [id number] 10/13/16 COMPOSITE BYP GRFT PROS&VEIN 10126 10/13/16 Infectious Disease Assmt/Plan - Assessment Assessment: Impression: 1. Right big toe cellulitis. 2/2 PAD. 2. R pneumonia with air, cavity. 3. CHF. 4. CKD 5 on HD. 5. DM2 6. 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 7. abdominal pain, improving. - Plan Plan: Follow up AFB. Continue [place] treatment as recommended by the public health department. May follow up on AFB smear and follow up the public health department recommendations.
[2016-10-31] MEDS: Hydrocodone/APAP 5mg/325mg Tab PO PRN ×2 (03:54→09:06)
[2016-10-31] MEDS: Levothyroxine 0.05 Mg Tab PO SCH (05:42)
--- NOTE | 2016-10-31 05:44 | Progress Notes ---
PROBLEM LIST: 1. Abnormal chest x-ray with bilateral effusion. 2. Suspect obstructive sleep apnea syndrome. 3. Chronic renal failure on hemodialysis. 4. Anorexia with suspect malnutrition. SYMPTOMS: Nil. Opens barely eyes. No much communication today, no respiratory distress. PHYSICAL EXAMINATION: VITAL SIGNS: Temperature is 96.8 and blood pressure is 196/73. NECK: JVP not visualized. CHEST: Shows diminished air entry. No other adventitious breath sounds. HEART: Regular. ABDOMEN: Soft and nontender. EXTREMITIES: Show mild trace of peripheral edema. ASSESSMENT: The patient clinically appears to be reasonably stable. PLANS AND SUGGESTIONS: We will go ahead and continue current treatment. We will follow through other laboratory studies in next day or two and go from there. JOB# [id number]
[2016-10-31] MEDS: INSULIN ASPART SLIDING SCALE 100 UNITS/ML UNIT SUBQ SCH ×4 (06:36→21:47)
[2016-10-31] MEDS: POLYETHYLENE GLYCOL 3350 17 GM PACK PO SCH (08:23)
[2016-10-31] MEDS: Pantoprazole 40 mg EC Tab PO SCH (08:23)
[2016-10-31] MEDS: Vitamin B Complex w/Vitamin C Tab PO SCH (08:23)
[2016-10-31] MEDS: Rifampin 300 mg Cap PO SCH (08:24)
[2016-10-31 09:51] LABS: ABG SOURCE Arterial; BE(B) 0.4 mmol/L (-3.0-3.0); HCO3 27.6 mmol/L (20.0-26.0); pH 7.27 (7.35-7.45)
[2016-10-31 09:52] LABS: CRITICAL VALUES REPORTED BY SH; FIO2 28
--- NOTE | 2016-10-31 12:04 | General Progress Note ---
Subjective - Review of Systems Subjective: patient lethargic, arousable, no sob. Objective - Results Result Diagrams: 10/28/16 06:30 10/29/16 07:15 Recent Labs: Laboratory Last Values WBC 11.3 Th/cmm (4.8-10.8) H 10/28/16 06:30 RBC 3.40 Mil/cmm (3.80-5.20) L 10/28/16 06:30 Hgb 10.7 gm/dL (11.7-16.1) L 10/28/16 06:30 Hct 32.1 % (35.0-45.0) L 10/28/16 06:30 MCV 94.2 fl (81-100) 10/28/16 06:30 MCH 31.3 pg (27.0-31.0) H 10/28/16 06:30 MCHC Differential 33.3 pg (28.0-36.0) 10/28/16 06:30 RDW 21.1 % (11.5-20.0) H 10/28/16 06:30 Plt Count 165 Th/cmm (150-400) 10/28/16 06:30 MPV 9.2 fl 10/28/16 06:30 Band Neutrophils % 2 % (0-10) 10/28/16 06:30 Neutrophils (Manual) 80 % (40-80) 10/28/16 06:30 Lymphocytes 13 % (20-50) L 10/28/16 06:30 Monocytes 4 % (2-10) 10/28/16 06:30 Eosinophils 1 % (0-5) 10/28/16 06:30 Basophils 2 % (0-3) 10/19/16 06:40 Metamyelocytes 1 % (0-0) H 10/27/16 04:52 Nucleated RBCs 2.0 % (0-0) H 10/27/16 04:52 Platelet Estimate ADEQUATE (NORMAL) 10/28/16 06:30 Platelet Morphology GIANT PLATELETS SEEN (NORMAL) 10/28/16 06:30 Polychromasia 1+ 10/25/16 05:20 Anisocytosis 1+ 10/28/16 06:30 RBC Morph Micro Appear ABNORMAL (NORMAL) 10/28/16 06:30 PT 18.3 SECONDS (9.5-11.5) H 10/23/16 04:50 INR 1.78 (0.5-1.4) H 10/23/16 04:50 PTT (Actin FS) 34.8 SECONDS (26.0-38.0) 10/23/16 04:50 Specimen Source Arterial 10/31/16 09:00 Sample Site RB 10/31/16 09:00 pH 7.27 (7.35-7.45) L 10/31/16 09:00 pCO2 60.0 mmHg (35.0-45.0) H* 10/31/16 09:00 pO2 63.0 mmHg (80.0-100.0) L 10/31/16 09:00 HCO3 27.6 mmol/L (20.0-26.0) H 10/31/16 09:00 Base Excess 0.4 mmol/L (-3.0-3.0) 10/31/16 09:00 O2 Saturation 88.0 % (92.0-100.0) L 10/31/16 09:00 Sanjeev Test NA 10/31/16 09:00 Vent Rate NA 10/31/16 09:00 Inspired O2 28 10/31/16 09:00 Tidal Volume NA 10/31/16 09:00 PEEP NA 10/31/16 09:00 Pressure (ins/psv/peep) NA 10/31/16 09:00 Critical Value SH 10/31/16 09:00 Sodium 128 mEq/L (136-145) L 10/29/16 07:15 Potassium 5.3 mEq/L (3.5-5.1) H 10/29/16 07:15 Chloride 99 mEq/L (98-107) 10/29/16 07:15 Carbon Dioxide 24.0 mEq/L (21.0-31.0) 10/29/16 07:15 Anion Gap 10.3 (7.0-16.0) 10/29/16 07:15 BUN 20 mg/dL (7-25) 10/29/16 07:15 Creatinine 2.0 mg/dL (0.6-1.2) H 10/29/16 07:15 Est GFR ( Amer) 31.8 ml/min 10/29/16 07:15 Est GFR (Non-Af Amer) 26.3 ml/min 10/29/16 07:15 BUN/Creatinine Ratio 10.0 10/29/16 07:15 Glucose 80 mg/dL (70-105) 10/29/16 07:15 POC Glucose 124 MG/DL (70 - 105) H 10/31/16 11:56 Hemoglobin A1c % 6.9 % (4.0-6.0) H 10/15/16 05:17 Calcium 8.9 mg/dL (8.6-10.3) 10/29/16 07:15 Total Bilirubin 1.1 mg/dL (0.3-1.0) H 10/27/16 04:52 Direct Bilirubin 0.26 mg/dL (0.0-0.2) H 10/27/16 04:52 AST 19 U/L (13-39) 10/27/16 04:52 ALT 5 U/L (7-52) L 10/27/16 04:52 Alkaline Phosphatase 102 U/L (34-104) 10/27/16 04:52 Ammonia 50 umol/L (16-53) 10/14/16 10:40 B-Natriuretic Peptide > 5000.0 pg/mL (5.0-100.0) H 10/17/16 06:50 Total Protein 6.4 gm/dL (6.0-8.3) 10/27/16 04:52 Albumin 3.1 gm/dL (3.7-5.3) L 10/27/16 04:52 Globulin 3.3 gm/dL 10/27/16 04:52 Albumin/Globulin Ratio 0.9 (1.0-1.8) L 10/27/16 04:52 Triglycerides 119 mg/dL (<150) 10/14/16 10:40 Cholesterol 80 mg/dL (<200) 10/14/16 10:40 LDL Cholesterol Direct 26 mg/dL (75-193) L 10/14/16 10:40 HDL Cholesterol 33 mg/dL (23-92) 10/14/16 10:40 TSH 7.87 uIU/ml (0.34-5.60) H 10/14/16 10:40 Urine Source CATH 10/14/16 06:00 Urine Color BROWN 10/14/16 06:00 Urine Clarity SL. CLOUDY (CLEAR) 10/14/16 06:00 Urine pH 5.5 10/14/16 06:00 Ur Specific [place] 1.025 (1.005-1.030) 10/14/16 06:00 Urine Protein 100 mg/dL (NEGATIVE) H 10/14/16 06:00 Urine Glucose (UA) NEGATIVE mg/dL (NEGATIVE) 10/14/16 06:00 Urine Ketones TRACE mg/dL (NEGATIVE) 10/14/16 06:00 Urine Blood TRACE (NEGATIVE) 10/14/16 06:00 Urine Nitrate NEGATIVE (NEGATIVE) 10/14/16 06:00 Urine Bilirubin SMALL (NEGATIVE) H 10/14/16 06:00 Urine Urobilinogen 0.2 E.U./dL (0.2 - 1.0) 10/14/16 06:00 Ur Leukocyte Esterase NEGATIVE (NEGATIVE) 10/14/16 06:00 Urine RBC 0-1 /hpf (0-5) 10/14/16 06:00 Urine WBC 2-5 /hpf (0-5) 10/14/16 06:00 Ur Epithelial Cells OCCASIONAL /lpf (FEW) 10/14/16 06:00 Amorphous Sediment FEW URATES (NONE SEEN) 10/14/16 06:00 Urine Bacteria NONE SEEN /hpf (NONE SEEN) 10/14/16 06:00 Vancomycin Trough 20.9 ug/mL (10-20) H 10/26/16 09:35 Random Vancomycin 23.7 ug/mL (5.0-40.0) 10/31/16 08:00 Hepatitis A IgM Ab Negative (Negative) 10/15/16 05:17 Hep Bs Antigen Negative (Negative) 10/15/16 05:17 Hep B Core IgM Ab Negative (Negative) 10/15/16 05:17 Hepatitis C Antibody <0.1 s/co ratio (0.0-0.9) 10/15/16 05:17 HIV 1&2 Antibody Screen NEGATIVE (NEG) 10/27/16 04:52 TB (QFT) Gold In Tube Negative (Negative) 10/24/16 16:00 TB Test (QFT) Mitogen 3.00 IU/mL 10/24/16 16:00 TB Test (QFT) Antigen 0.05 IU/mL 10/24/16 16:00 TB Test Antigen - Nil <0.00 IU/mL 10/24/16 16:00 TB Test TB - Nil 0.06 IU/mL 10/24/16 16:00 TB Test (QFT) Interp (()) 10/24/16 16:00 - Physical Exam Vitals and I&O: Vital Signs Temp 97.1 F 10/31/16 12:02 Pulse 81 10/31/16 12:02 Resp 19 10/31/16 12:02 BP 97/49 10/31/16 12:02 Pulse Ox 97 10/31/16 12:02 Intake & Output 10/30/16 10/31/16 10/31/16 18:59 06:59 18:59 Intake Total 600 Balance 600 Intake: Oral 600 Other: # Voids 1 # Bowel Movements 2 Active Medications: Current Medications Acetaminophen (Tylenol) 650 mg PO Q4HR PRN PRN Reason: fever/pain Stop: 12/13/16 01:20 Last Admin: 10/14/16 09:03 Dose: 650 mg Acetaminophen/Hydrocodone Bitart ([place] 5mg/325mg) 1 tab PO Q3H PRN PRN Reason: moderate pain (4-6) Stop: 12/13/16 10:21 Last Admin: 10/31/16 09:06 Dose: 1 tab Aspirin (Ecotrin) 81 mg PO QAM [facility] Stop: 12/14/16 08:59 Last Admin: 10/31/16 08:23 Dose: 81 mg Cilostazol (Pletal) 100 mg PO BID [facility] Stop: 12/22/16 16:59 Last Admin: 10/31/16 08:23 Dose: 100 mg Docusate Sodium (Colace) 100 mg PO BID [facility] Stop: 12/13/16 16:59 Last Admin: 10/31/16 08:23 Dose: 100 mg Ethambutol HCl (Myambutol) 800 mg PO DAILY [facility] Stop: 12/29/16 08:59 Last Admin: 10/31/16 08:23 Dose: 800 mg Folic Acid (Folate) 1 mg PO DAILY [facility] Stop: 12/14/16 08:59 Last Admin: 10/31/16 08:23 Dose: 1 mg Insulin Aspart (Novolog Insulin Sliding Scale) 0 units SUBQ ACHS [facility] PRN Reason: Protocol Stop: 12/13/16 16:29 Last Admin: 10/31/16 12:01 Dose: Not Given Isoniazid (Inh) 300 mg PO DAILY [facility] Stop: 12/29/16 08:59 Last Admin: 10/31/16 08:23 Dose: 300 mg Levothyroxine Sodium (Synthroid) 0.05 mg PO QDAC [facility] Stop: 12/19/16 06:29 Last Admin: 10/31/16 05:42 Dose: 0.05 mg Miscellaneous (Clinical Monitoring) 1 ea [facility] PRN PRN PRN Reason: RENAL DOSING Stop: 12/13/16 13:45 Pantoprazole Sodium (Protonix) 40 mg PO DAILY [facility] Stop: 12/14/16 08:59 Last Admin: 10/31/16 08:23 Dose: 40 mg Polyethylene Glycol (Miralax) 17 gm PO DAILY [facility] Stop: 12/28/16 08:59 Last Admin: 10/31/16 08:23 Dose: 17 gm Prochlorperazine Maleate (Compazine) 10 mg PO Q6H PRN PRN Reason: Nausea / Vomiting Stop: 12/13/16 10:39 Last Admin: 10/27/16 13:01 Dose: 10 mg Promethazine HCl/Dextromethorphan (Phenergan Dm 6.25/15mg-5 Ml) 5 ml PO BID PRN PRN Reason: Cough Stop: 12/21/16 15:19 Pyrazinamide (Pza) 1,000 mg PO DAILY [facility] Stop: 12/29/16 08:59 Last Admin: 10/31/16 08:24 Dose: 1,000 mg Pyridoxine HCl (Vitamin B6) 50 mg PO DAILY [facility] Stop: 12/29/16 08:59 Last Admin: 10/31/16 08:23 Dose: 50 mg Rifampin (Rifadin) 600 mg PO DAILY [facility] Stop: 12/29/16 08:59 Last Admin: 10/31/16 08:24 Dose: 600 mg Senna (Senna) 17.2 mg PO HS [facility] Stop: 12/13/16 20:59 Last Admin: 10/30/16 20:16 Dose: 17.2 mg Vitamin B Complex/Vit C/Folic Acid (Vitamin B Complex W/Vitamin C) 1 tab PO DAILY [facility] Stop: 12/14/16 08:59 Last Admin: 10/31/16 08:23 Dose: 1 tab - Procedures Procedures: Procedures Procedure Code Date ART BYP FEMORAL-FEMORAL 96424 10/13/16 BYPASS L FEM ART TO R FEMOR A WITH SYNTH SUB, OPEN APPROACH [id number] 10/13/16 COMPOSITE BYP GRFT PROS&VEIN [id number] 10/13/16 Assessment/Plan - Assessment Assessment: 1. Right big toe cellulitis. 2/2 PAD. 2. R pneumonia. 3. CHF. 4. CKD 5 on HD. 5. DM2 - Plan Plan: if cta cannot be done, consider vq scan, appreciate consults reccomendation continue ivabx as per id cbc/bmp in am continue current plan of care
--- NOTE | 2016-10-31 13:25 | General Progress Note ---
Subjective - Review of Systems Service Date: 10/31/16 Subjective: drowsy today, less tacypnea, less abd discomfort, on NC Objective - Results Result Diagrams: 10/28/16 06:30 10/29/16 07:15 Recent Labs: Laboratory Last Values WBC 11.3 Th/cmm (4.8-10.8) H 10/28/16 06:30 RBC 3.40 Mil/cmm (3.80-5.20) L 10/28/16 06:30 Hgb 10.7 gm/dL (11.7-16.1) L 10/28/16 06:30 Hct 32.1 % (35.0-45.0) L 10/28/16 06:30 MCV 94.2 fl (81-100) 10/28/16 06:30 MCH 31.3 pg (27.0-31.0) H 10/28/16 06:30 MCHC Differential 33.3 pg (28.0-36.0) 10/28/16 06:30 RDW 21.1 % (11.5-20.0) H 10/28/16 06:30 Plt Count 165 Th/cmm (150-400) 10/28/16 06:30 MPV 9.2 fl 10/28/16 06:30 Band Neutrophils % 2 % (0-10) 10/28/16 06:30 Neutrophils (Manual) 80 % (40-80) 10/28/16 06:30 Lymphocytes 13 % (20-50) L 10/28/16 06:30 Monocytes 4 % (2-10) 10/28/16 06:30 Eosinophils 1 % (0-5) 10/28/16 06:30 Basophils 2 % (0-3) 10/19/16 06:40 Metamyelocytes 1 % (0-0) H 10/27/16 04:52 Nucleated RBCs 2.0 % (0-0) H 10/27/16 04:52 Platelet Estimate ADEQUATE (NORMAL) 10/28/16 06:30 Platelet Morphology GIANT PLATELETS SEEN (NORMAL) 10/28/16 06:30 Polychromasia 1+ 10/25/16 05:20 Anisocytosis 1+ 10/28/16 06:30 RBC Morph Micro Appear ABNORMAL (NORMAL) 10/28/16 06:30 PT 18.3 SECONDS (9.5-11.5) H 12/31/16 04:50 INR 1.78 (0.5-1.4) H 10/23/16 04:50 PTT (Actin FS) 34.8 SECONDS (26.0-38.0) 10/23/16 04:50 Specimen Source Arterial 10/31/16 09:00 Sample Site RB 10/31/16 09:00 pH 7.27 (7.35-7.45) L 10/31/16 09:00 pCO2 60.0 mmHg (35.0-45.0) H* 10/31/16 09:00 pO2 63.0 mmHg (80.0-100.0) L 10/31/16 09:00 HCO3 27.6 mmol/L (20.0-26.0) H 10/31/16 09:00 Base Excess 0.4 mmol/L (-3.0-3.0) 10/31/16 09:00 O2 Saturation 88.0 % (92.0-100.0) L 10/31/16 09:00 Sanjeev Test NA 10/31/16 09:00 Vent Rate NA 10/31/16 09:00 Inspired O2 28 10/31/16 09:00 Tidal Volume NA 10/31/16 09:00 PEEP NA 10/31/16 09:00 Pressure (ins/psv/peep) NA 10/31/16 09:00 Critical Value SH 10/31/16 09:00 Sodium 128 mEq/L (136-145) L 10/29/16 07:15 Potassium 5.3 mEq/L (3.5-5.1) H 10/29/16 07:15 Chloride 99 mEq/L (98-107) 10/29/16 07:15 Carbon Dioxide 24.0 mEq/L (21.0-31.0) 10/29/16 07:15 Anion Gap 10.3 (7.0-16.0) 10/29/16 07:15 BUN 20 mg/dL (7-25) 10/29/16 07:15 Creatinine 2.0 mg/dL (0.6-1.2) H 10/29/16 07:15 Est GFR ( Amer) 31.8 ml/min 10/29/16 07:15 Est GFR (Non-Af Amer) 26.3 ml/min 10/29/16 07:15 BUN/Creatinine Ratio 10.0 10/29/16 07:15 Glucose 80 mg/dL (70-105) 10/29/16 07:15 POC Glucose 124 MG/DL (70 - 105) H 10/31/16 11:56 Hemoglobin A1c % 6.9 % (4.0-6.0) H 10/15/16 05:17 Calcium 8.9 mg/dL (8.6-10.3) 10/29/16 07:15 Total Bilirubin 1.1 mg/dL (0.3-1.0) H 10/27/16 04:52 Direct Bilirubin 0.26 mg/dL (0.0-0.2) H 10/27/16 04:52 AST 19 U/L (13-39) 10/27/16 04:52 ALT 5 U/L (7-52) L 10/27/16 04:52 Alkaline Phosphatase 102 U/L (34-104) 10/27/16 04:52 Ammonia 50 umol/L (16-53) 10/14/16 10:40 B-Natriuretic Peptide > 5000.0 pg/mL (5.0-100.0) H 10/17/16 06:50 Total Protein 6.4 gm/dL (6.0-8.3) 10/27/16 04:52 Albumin 3.1 gm/dL (3.7-5.3) L 10/27/16 04:52 Globulin 3.3 gm/dL 10/27/16 04:52 Albumin/Globulin Ratio 0.9 (1.0-1.8) L 10/27/16 04:52 Triglycerides 119 mg/dL (<150) 10/14/16 10:40 Cholesterol 80 mg/dL (<200) 10/14/16 10:40 LDL Cholesterol Direct 26 mg/dL (75-193) L 10/14/16 10:40 HDL Cholesterol 33 mg/dL (23-92) 10/14/16 10:40 TSH 7.87 uIU/ml (0.34-5.60) H 10/14/16 10:40 Urine Source CATH 10/14/16 06:00 Urine Color BROWN 10/14/16 06:00 Urine Clarity SL. CLOUDY (CLEAR) 10/14/16 06:00 Urine pH 5.5 10/14/16 06:00 Ur Specific [place] 1.025 (1.005-1.030) 10/14/16 06:00 Urine Protein 100 mg/dL (NEGATIVE) H 10/14/16 06:00 Urine Glucose (UA) NEGATIVE mg/dL (NEGATIVE) 10/14/16 06:00 Urine Ketones TRACE mg/dL (NEGATIVE) 10/14/16 06:00 Urine Blood TRACE (NEGATIVE) 10/14/16 06:00 Urine Nitrate NEGATIVE (NEGATIVE) 10/14/16 06:00 Urine Bilirubin SMALL (NEGATIVE) H 10/14/16 06:00 Urine Urobilinogen 0.2 E.U./dL (0.2 - 1.0) 10/14/16 06:00 Ur Leukocyte Esterase NEGATIVE (NEGATIVE) 10/14/16 06:00 Urine RBC 0-1 /hpf (0-5) 10/14/16 06:00 Urine WBC 2-5 /hpf (0-5) 10/14/16 06:00 Ur Epithelial Cells OCCASIONAL /lpf (FEW) 10/14/16 06:00 Amorphous Sediment FEW URATES (NONE SEEN) 10/14/16 06:00 Urine Bacteria NONE SEEN /hpf (NONE SEEN) 10/14/16 06:00 Vancomycin Trough 20.9 ug/mL (10-20) H 10/26/16 09:35 Random Vancomycin 23.7 ug/mL (5.0-40.0) 10/31/16 08:00 Hepatitis A IgM Ab Negative (Negative) 10/15/16 05:17 Hep Bs Antigen Negative (Negative) 10/15/16 05:17 Hep B Core IgM Ab Negative (Negative) 10/15/16 05:17 Hepatitis C Antibody <0.1 s/co ratio (0.0-0.9) 10/15/16 05:17 HIV 1&2 Antibody Screen NEGATIVE (NEG) 10/27/16 04:52 TB (QFT) Gold In Tube Negative (Negative) 10/24/16 16:00 TB Test (QFT) Mitogen 3.00 IU/mL 10/24/16 16:00 TB Test (QFT) Antigen 0.05 IU/mL 10/24/16 16:00 TB Test Antigen - Nil <0.00 IU/mL 10/24/16 16:00 TB Test TB - Nil 0.06 IU/mL 10/24/16 16:00 TB Test (QFT) Interp (()) 10/24/16 16:00 - Physical Exam Vitals and I&O: Vital Signs Temp 97.1 F 10/31/16 12:02 Pulse 81 10/31/16 12:02 Resp 19 10/31/16 12:02 BP 97/49 10/31/16 12:02 Pulse Ox 97 10/31/16 12:02 Intake & Output 10/30/16 10/31/16 10/31/16 18:59 06:59 18:59 Intake Total 600 Balance 600 Intake: Oral 600 Other: # Voids 1 # Bowel Movements 2 Active Medications: Current Medications Acetaminophen (Tylenol) 650 mg PO Q4HR PRN PRN Reason: fever/pain Stop: 12/13/16 01:20 Last Admin: 10/14/16 09:03 Dose: 650 mg Acetaminophen/Hydrocodone Bitart ([place] 5mg/325mg) 1 tab PO Q3H PRN PRN Reason: moderate pain (4-6) Stop: 12/13/16 10:21 Last Admin: 10/31/16 09:06 Dose: 1 tab Acetaminophen/Hydrocodone Bitart ([place] 10 Mg/325 Mg) 1 tab PO Q6H PRN PRN Reason: Pain (Severe) Stop: 12/30/16 12:53 Aspirin (Ecotrin) 81 mg PO QAM [facility] Stop: 12/14/16 08:59 Last Admin: 10/31/16 08:23 Dose: 81 mg Cilostazol (Pletal) 100 mg PO BID [facility] Stop: 12/22/16 16:59 Last Admin: 10/31/16 08:23 Dose: 100 mg Docusate Sodium (Colace) 100 mg PO BID [facility] Stop: 12/13/16 16:59 Last Admin: 10/31/16 08:23 Dose: 100 mg Ethambutol HCl (Myambutol) 800 mg PO DAILY [facility] Stop: 12/29/16 08:59 Last Admin: 10/31/16 08:23 Dose: 800 mg Folic Acid (Folate) 1 mg PO DAILY [facility] Stop: 12/14/16 08:59 Last Admin: 10/31/16 08:23 Dose: 1 mg Ceftriaxone Sodium 1 gm/ (Sodium Chloride) 50 mls @ 100 mls/hr IV Q24HR [facility] Stop: 12/30/16 15:59 Insulin Aspart (Novolog Insulin Sliding Scale) 0 units SUBQ ACHS [facility] PRN Reason: Protocol Stop: 12/13/16 16:29 Last Admin: 10/31/16 12:01 Dose: Not Given Isoniazid (Inh) 300 mg PO DAILY [facility] Stop: 12/29/16 08:59 Last Admin: 10/31/16 08:23 Dose: 300 mg Levothyroxine Sodium (Synthroid) 0.05 mg PO QDAC [facility] Stop: 12/19/16 06:29 Last Admin: 10/31/16 05:42 Dose: 0.05 mg Miscellaneous (Clinical Monitoring) 1 ea PRN PRN PRN Reason: RENAL DOSING Stop: 12/13/16 13:45 Miscellaneous (Vancomycin Iv Per Pharmacy) 1 [facility] PRN PRN PRN Reason: PROTOCOL Stop: 12/30/16 12:53 Pantoprazole Sodium (Protonix) 40 mg PO DAILY [facility] Stop: 12/14/16 08:59 Last Admin: 10/31/16 08:23 Dose: 40 mg Polyethylene Glycol (Miralax) 17 gm PO DAILY [facility] Stop: 12/28/16 08:59 Last Admin: 10/31/16 08:23 Dose: 17 gm Prochlorperazine Maleate (Compazine) 10 mg PO Q6H PRN PRN Reason: Nausea / Vomiting Stop: 12/13/16 10:39 Last Admin: 10/27/16 13:01 Dose: 10 mg Promethazine HCl/Dextromethorphan (Phenergan Dm 6.25/15mg-5 Ml) 5 ml PO BID PRN PRN Reason: Cough Stop: 12/21/16 15:19 Pyrazinamide (Pza) 1,000 mg PO DAILY [facility] Stop: 12/29/16 08:59 Last Admin: 10/31/16 08:24 Dose: 1,000 mg Pyridoxine HCl (Vitamin B6) 50 mg PO DAILY [facility] Stop: 12/29/16 08:59 Last Admin: 10/31/16 08:23 Dose: 50 mg Rifampin (Rifadin) 600 mg PO DAILY [facility] Stop: 12/29/16 08:59 Last Admin: 10/31/16 08:24 Dose: 600 mg Senna (Senna) 17.2 mg PO HS [facility] Stop: 12/13/16 20:59 Last Admin: 10/30/16 20:16 Dose: 17.2 mg Vitamin B Complex/Vit C/Folic Acid (Vitamin B Complex W/Vitamin C) 1 tab PO DAILY [facility] Stop: 12/14/16 08:59 Last Admin: 10/31/16 08:23 Dose: 1 tab General: No acute distress (drowsy) HEENT: Atraumatic, EOMI, Mucous membr. moist/pink Neck: Supple, +2 carotid pulse wo bruit Cardiovascular: Regular rate, Normal S1, Normal S2 Lungs: Other (rhonchi) Abdomen: Bowel sounds, Soft Extremities: no Edema Neurological: Sensation intact Skin: no Rash - Procedures Procedures: Procedures Procedure Code Date ART BYP FEMORAL-FEMORAL 34124 10/13/16 BYPASS L FEM ART TO R FEMOR A WITH SYNTH SUB, OPEN APPROACH [id number] 10/13/16 COMPOSITE BYP GRFT PROS&VEIN [id number] 10/13/16 Assessment/Plan - Problem List Patient Problems: All Active Problems dm (Acute) esrd (Acute) h/o chf (Acute) htn (Acute) non healing ulcer (Acute) sepsis (Acute) vascular insuffi (Acute) - Assessment Assessment: ESRD on HD acute decomp systolic CHF acute resp failure, hypercapnea; hypoxemia ess htn anemia of ckd LLL HAP hypothyroid PAD w/ right toe discoloration chronic hyponatremia abd. pain better Left Fem-Pop bypass resp acicdosis - Plan Plan: currently being dialyzed, aware of cr. of 2 but still w/ persistent chf serial CXR fluid restriction
[2016-10-31] MEDS: cefTRIAXone 1 GM in Sodium Chloride 0.9% 50 ML IV SCH (16:38)
[2016-10-31] MEDS: Hydrocodone/APAP 10 mg/325 mg Tab PO PRN ×2 (16:41→21:48)
--- NOTE | 2016-11-01 00:44 | Progress Notes ---
PULMONARY PROGRESS NOTE PROBLEM LIST: 1. Abnormal chest x-ray. 2. Chronic renal failure with hemodialysis. 3. Bilateral severe pulmonary effusion, status post recent vascular surgery. The patient is sleepy, barely opens eyes, no respiratory distress, lying down flat. PHYSICAL EXAMINATION: VITAL SIGNS: Temperature is 96.6, blood pressure 90/49. Saturation is 97% on 2 liters of oxygen. ENT: Shows no new changes. CHEST: Shows diminished air entry with occasional rhonchi. HEART: Regular. ABDOMEN: Soft and nontender. LABORATORY DATA: The patient's ABG shows partially compensated respiratory acidemia with pH of 7.27, pCO2 of 60, pO2 of 62, and this is on 28% of oxygen. The patient's chest x-ray show worsening of the effusion, more left than the right side. ASSESSMENT: The patient's clinical status ____ changed, slightly worsening of pneumonia, still blood gases are very marginal. PLANS AND SUGGESTIONS: We will go ahead and try to put a BiPAP at nighttime and see how she does. Need to consider aggressive dialysis, I have already discussed with Dr. Brooks day before yesterday. JOB# [id number]
[2016-11-01] MEDS: Levothyroxine 0.05 Mg Tab PO SCH (07:02)
[2016-11-01] MEDS: INSULIN ASPART SLIDING SCALE 100 UNITS/ML UNIT SUBQ SCH ×4 (07:06→21:29)
[2016-11-01] MEDS ORDERED: Dextrose 50% 50 mL Abboject IVP ONE (07:08)
--- NOTE | 2016-11-01 07:57 | General Progress Note ---
Subjective - Review of Systems Subjective: patient lethargic, arousable, no sob. Objective - Results Result Diagrams: 10/28/16 06:30 10/29/16 07:15 Recent Labs: Laboratory Last Values WBC 11.3 Th/cmm (4.8-10.8) H 10/28/16 06:30 RBC 3.40 Mil/cmm (3.80-5.20) L 10/28/16 06:30 Hgb 10.7 gm/dL (11.7-16.1) L 10/28/16 06:30 Hct 32.1 % (35.0-45.0) L 10/28/16 06:30 MCV 94.2 fl (81-100) 10/28/16 06:30 MCH 31.3 pg (27.0-31.0) H 10/28/16 06:30 MCHC Differential 33.3 pg (28.0-36.0) 10/28/16 06:30 RDW 21.1 % (11.5-20.0) H 10/28/16 06:30 Plt Count 165 Th/cmm (150-400) 10/28/16 06:30 MPV 9.2 fl 10/28/16 06:30 Band Neutrophils % 2 % (0-10) 10/28/16 06:30 Neutrophils (Manual) 80 % (40-80) 10/28/16 06:30 Lymphocytes 13 % (20-50) L 10/28/16 06:30 Monocytes 4 % (2-10) 10/28/16 06:30 Eosinophils 1 % (0-5) 10/28/16 06:30 Basophils 2 % (0-3) 10/19/16 06:40 Metamyelocytes 1 % (0-0) H 10/27/16 04:52 Nucleated RBCs 2.0 % (0-0) H 10/27/16 04:52 Platelet Estimate ADEQUATE (NORMAL) 10/28/16 06:30 Platelet Morphology GIANT PLATELETS SEEN (NORMAL) 10/28/16 06:30 Polychromasia 1+ 10/25/16 05:20 Anisocytosis 1+ 10/28/16 06:30 RBC Morph Micro Appear ABNORMAL (NORMAL) 10/28/16 06:30 PT 18.3 SECONDS (9.5-11.5) H 10/23/16 04:50 INR 1.78 (0.5-1.4) H 10/23/16 04:50 PTT (Actin FS) 34.8 SECONDS (26.0-38.0) 10/23/16 04:50 Specimen Source Arterial 10/31/16 09:00 Sample Site RB 10/31/16 09:00 pH 7.27 (7.35-7.45) L 10/31/16 09:00 pCO2 60.0 mmHg (35.0-45.0) H* 10/31/16 09:00 pO2 63.0 mmHg (80.0-100.0) L 10/31/16 09:00 HCO3 27.6 mmol/L (20.0-26.0) H 10/31/16 09:00 Base Excess 0.4 mmol/L (-3.0-3.0) 10/31/16 09:00 O2 Saturation 88.0 % (92.0-100.0) L 10/31/16 09:00 Sanjeev Test NA 10/31/16 09:00 Vent Rate NA 10/31/16 09:00 Inspired O2 28 10/31/16 09:00 Tidal Volume NA 10/31/16 09:00 PEEP NA 10/31/16 09:00 Pressure (ins/psv/peep) NA 10/31/16 09:00 Critical Value SH 10/31/16 09:00 Sodium 128 mEq/L (136-145) L 10/29/16 07:15 Potassium 5.3 mEq/L (3.5-5.1) H 10/29/16 07:15 Chloride 99 mEq/L (98-107) 10/29/16 07:15 Carbon Dioxide 24.0 mEq/L (21.0-31.0) 10/29/16 07:15 Anion Gap 10.3 (7.0-16.0) 10/29/16 07:15 BUN 20 mg/dL (7-25) 10/29/16 07:15 Creatinine 2.0 mg/dL (0.6-1.2) H 10/29/16 07:15 Est GFR ( Amer) 31.8 ml/min 10/29/16 07:15 Est GFR (Non-Af Amer) 26.3 ml/min 10/29/16 07:15 BUN/Creatinine Ratio 10.0 10/29/16 07:15 Glucose 80 mg/dL (70-105) 10/29/16 07:15 POC Glucose 47 MG/DL (70 - 105) L 11/01/16 07:04 Hemoglobin A1c % 6.9 % (4.0-6.0) H 10/15/16 05:17 Calcium 8.9 mg/dL (8.6-10.3) 10/29/16 07:15 Total Bilirubin 1.1 mg/dL (0.3-1.0) H 10/27/16 04:52 Direct Bilirubin 0.26 mg/dL (0.0-0.2) H 10/27/16 04:52 AST 19 U/L (13-39) 10/27/16 04:52 ALT 5 U/L (7-52) L 10/27/16 04:52 Alkaline Phosphatase 102 U/L (34-104) 10/27/16 04:52 Ammonia 50 umol/L (16-53) 10/14/16 10:40 B-Natriuretic Peptide > 5000.0 pg/mL (5.0-100.0) H 10/17/16 06:50 Total Protein 6.4 gm/dL (6.0-8.3) 10/27/16 04:52 Albumin 3.1 gm/dL (3.7-5.3) L 10/27/16 04:52 Globulin 3.3 gm/dL 10/27/16 04:52 Albumin/Globulin Ratio 0.9 (1.0-1.8) L 10/27/16 04:52 Triglycerides 119 mg/dL (<150) 10/14/16 10:40 Cholesterol 80 mg/dL (<200) 10/14/16 10:40 LDL Cholesterol Direct 26 mg/dL (75-193) L 10/14/16 10:40 HDL Cholesterol 33 mg/dL (23-92) 10/14/16 10:40 TSH 7.87 uIU/ml (0.34-5.60) H 10/14/16 10:40 Urine Source CATH 10/14/16 06:00 Urine Color BROWN 10/14/16 06:00 Urine Clarity SL. CLOUDY (CLEAR) 10/14/16 06:00 Urine pH 5.5 10/14/16 06:00 Ur Specific [place] 1.025 (1.005-1.030) 10/14/16 06:00 Urine Protein 100 mg/dL (NEGATIVE) H 10/14/16 06:00 Urine Glucose (UA) NEGATIVE mg/dL (NEGATIVE) 10/14/16 06:00 Urine Ketones TRACE mg/dL (NEGATIVE) 10/14/16 06:00 Urine Blood TRACE (NEGATIVE) 10/14/16 06:00 Urine Nitrate NEGATIVE (NEGATIVE) 10/14/16 06:00 Urine Bilirubin SMALL (NEGATIVE) H 10/14/16 06:00 Urine Urobilinogen 0.2 E.U./dL (0.2 - 1.0) 10/14/16 06:00 Ur Leukocyte Esterase NEGATIVE (NEGATIVE) 10/14/16 06:00 Urine RBC 0-1 /hpf (0-5) 10/14/16 06:00 Urine WBC 2-5 /hpf (0-5) 10/14/16 06:00 Ur Epithelial Cells OCCASIONAL /lpf (FEW) 10/14/16 06:00 Amorphous Sediment FEW URATES (NONE SEEN) 10/14/16 06:00 Urine Bacteria NONE SEEN /hpf (NONE SEEN) 10/14/16 06:00 Vancomycin Trough 20.9 ug/mL (10-20) H 10/26/16 09:35 Random Vancomycin 19.9 ug/mL (5.0-40.0) 11/01/16 06:10 Hepatitis A IgM Ab Negative (Negative) 10/15/16 05:17 Hep Bs Antigen Negative (Negative) 10/15/16 05:17 Hep B Core IgM Ab Negative (Negative) 10/15/16 05:17 Hepatitis C Antibody <0.1 s/co ratio (0.0-0.9) 10/15/16 05:17 HIV 1&2 Antibody Screen NEGATIVE (NEG) 10/27/16 04:52 TB (QFT) Gold In Tube Negative (Negative) 10/24/16 16:00 TB Test (QFT) Mitogen 3.00 IU/mL 10/24/16 16:00 TB Test (QFT) Antigen 0.05 IU/mL 10/24/16 16:00 TB Test Antigen - Nil <0.00 IU/mL 10/24/16 16:00 TB Test TB - Nil 0.06 IU/mL 10/24/16 16:00 TB Test (QFT) Interp (()) 10/24/16 16:00 - Physical Exam Vitals and I&O: Vital Signs Temp 97.7 F 10/31/16 20:00 Pulse 88 10/31/16 21:53 Resp 21 10/31/16 23:45 BP 91/42 10/31/16 20:00 Pulse Ox 96 10/31/16 23:45 Intake & Output 10/31/16 11/01/16 11/01/16 18:59 06:59 18:59 Intake Total 350 Output Total 3 Balance 347 Intake: Intake, IV Amount 50 [id number] 1 gm In 50 Sodium Chloride 0.9% 50 ml @ 100 mls/hr IV Q24HR [facility] Rx#:[id number] Oral 300 Output: Urine/Stool Mix 3 Active Medications: Current Medications Acetaminophen (Tylenol) 650 mg PO Q4HR PRN PRN Reason: fever/pain Stop: 12/13/16 01:20 Last Admin: 10/14/16 09:03 Dose: 650 mg Acetaminophen/Hydrocodone Bitart ([place] 5mg/325mg) 1 tab PO Q3H PRN PRN Reason: moderate pain (4-6) Stop: 12/13/16 10:21 Last Admin: 10/31/16 09:06 Dose: 1 tab Acetaminophen/Hydrocodone Bitart ([place] 10 Mg/325 Mg) 1 tab PO Q6H PRN PRN Reason: Pain (Severe) Stop: 12/30/16 12:53 Last Admin: 10/31/16 21:48 Dose: 1 tab Aspirin (Ecotrin) 81 mg PO QAM [facility] Stop: 12/14/16 08:59 Last Admin: 10/31/16 08:23 Dose: 81 mg Cilostazol (Pletal) 100 mg PO BID [facility] Stop: 12/22/16 16:59 Last Admin: 10/31/16 16:39 Dose: 100 mg Docusate Sodium (Colace) 100 mg PO BID [facility] Stop: 12/13/16 16:59 Last Admin: 10/31/16 16:39 Dose: 100 mg Ethambutol HCl (Myambutol) 800 mg PO DAILY [facility] Stop: 12/29/16 08:59 Last Admin: 10/31/16 08:23 Dose: 800 mg Folic Acid (Folate) 1 mg PO DAILY [facility] Stop: 12/14/16 08:59 Last Admin: 10/31/16 08:23 Dose: 1 mg Ceftriaxone Sodium 1 gm/ (Sodium Chloride) 50 mls @ 100 mls/hr IV Q24HR [facility] Stop: 12/30/16 15:59 Last Infusion: 10/31/16 17:50 Dose: Infused Insulin Aspart (Novolog Insulin Sliding Scale) 0 units SUBQ ACHS [facility] PRN Reason: Protocol Stop: 12/13/16 16:29 Last Admin: 11/01/16 07:06 Dose: Not Given Isoniazid (Inh) 300 mg PO DAILY [facility] Stop: 12/29/16 08:59 Last Admin: 10/31/16 08:23 Dose: 300 mg Levothyroxine Sodium (Synthroid) 0.05 mg PO QDAC [facility] Stop: 12/19/16 06:29 Last Admin: 11/01/16 07:02 Dose: 0.05 mg Miscellaneous (Clinical Monitoring) 1 ea PRN PRN PRN Reason: RENAL DOSING Stop: 12/13/16 13:45 Miscellaneous (Vancomycin Iv Per Pharmacy) 1 [facility] PRN PRN PRN Reason: PROTOCOL Stop: 12/30/16 12:53 Morphine Sulfate (Morphine) 1 mg IVP Q4HR PRN PRN Reason: Pain (Moderate) Stop: 12/31/16 00:55 Pantoprazole Sodium (Protonix) 40 mg PO DAILY [facility] Stop: 12/14/16 08:59 Last Admin: 10/31/16 08:23 Dose: 40 mg Polyethylene Glycol (Miralax) 17 gm PO DAILY [facility] Stop: 12/28/16 08:59 Last Admin: 10/31/16 08:23 Dose: 17 gm Prochlorperazine Maleate (Compazine) 10 mg PO Q6H PRN PRN Reason: Nausea / Vomiting Stop: 12/13/16 10:39 Last Admin: 10/27/16 13:01 Dose: 10 mg Promethazine HCl/Dextromethorphan (Phenergan Dm 6.25/15mg-5 Ml) 5 ml PO BID PRN PRN Reason: Cough Stop: 12/21/16 15:19 Pyrazinamide (Pza) 1,000 mg PO DAILY [facility] Stop: 12/29/16 08:59 Last Admin: 10/31/16 08:24 Dose: 1,000 mg Pyridoxine HCl (Vitamin B6) 50 mg PO DAILY [facility] Stop: 12/29/16 08:59 Last Admin: 10/31/16 08:23 Dose: 50 mg Rifampin (Rifadin) 600 mg PO DAILY [facility] Stop: 12/29/16 08:59 Last Admin: 10/31/16 08:24 Dose: 600 mg Senna (Senna) 17.2 mg PO HS [facility] Stop: 12/13/16 20:59 Last Admin: 10/31/16 21:48 Dose: 17.2 mg Vitamin B Complex/Vit C/Folic Acid (Vitamin B Complex W/Vitamin C) 1 tab PO DAILY [facility] Stop: 12/14/16 08:59 Last Admin: 10/31/16 08:23 Dose: 1 tab - Procedures Procedures: Procedures Procedure Code Date ART BYP FEMORAL-FEMORAL 15396 10/13/16 BYPASS L FEM ART TO R FEMOR A WITH SYNTH SUB, OPEN APPROACH [id number] 10/13/16 COMPOSITE BYP GRFT PROS&VEIN [id number] 10/13/16 Assessment/Plan - Problem List Patient Problems: All Active Problems dm (Acute) esrd (Acute) h/o chf (Acute) htn (Acute) non healing ulcer (Acute) sepsis (Acute) vascular insuffi (Acute) - Assessment Assessment: 1. Right big toe cellulitis. 2/2 PAD. 2. R pneumonia. 3. CHF. 4. CKD 5 on HD. 5. DM2 - Plan Plan: if cta cannot be done, consider vq scan, appreciate consults reccomendation continue ivabx as per id cbc/bmp in am continue current plan of care
[2016-11-01] MEDS: POLYETHYLENE GLYCOL 3350 17 GM PACK PO SCH (08:49)
[2016-11-01] MEDS: Pantoprazole 40 mg EC Tab PO SCH (08:49)
[2016-11-01] MEDS: Rifampin 300 mg Cap PO SCH (09:24)
[2016-11-01] MEDS: Morphine Sulfate 2 mg/mL 1mL Syr IVP PRN ×3 (09:38→22:00)
[2016-11-01] MEDS: Vitamin B Complex w/Vitamin C Tab PO SCH (09:43)
--- NOTE | 2016-11-01 11:09 | Diagnostic Imaging Report ---
Portable chest x-ray HISTORY: Shortness of breath, congestive heart failure Compared to prior exam of 10/31/2016, there persistent bilateral pleural effusions (left greater and right entrance. The heart remains enlarged. Pulmonary vascular redistribution and hazy interstitial changes noted. IMPRESSION: 1. No change in the cardiopulmonary status with persistent cardiomegaly and bilateral pleural effusions along with changes consistent with congestive heart failure.
[2016-11-01 11:12] LABS: ANION GAP 9.4 (7.0-16.0); BUN/CREATININE RATIO 11.3; CALCIUM SERUM 8.8 mg/dL (8.6-10.3); CARBON DIOXIDE 28.6 mEq/L (21.0-31.0); CREATININE - SERUM 1.6 mg/dL (0.6-1.2)
--- NOTE | 2016-11-01 11:35 | Diagnostic Imaging Report ---
Portable chest x-ray HISTORY: Shortness of breath Compared to prior exam of 10/28/2016, evidence of persistent bilateral pleural effusions (left greater than right). Obscuration of the heart margins appears to be enlarged. IMPRESSION: 1. Persistent bilateral pleural effusions with probable cardiomegaly. Findings suggest changes associated with congestive heart failure. Underlying pneumonia cannot be excluded. Clinical correlation is needed.
--- NOTE | 2016-11-01 13:48 | General Progress Note ---
Subjective - Review of Systems Service Date: 11/01/16 Subjective: drowsy today, less tacypnea, on NC, currently being dialyzed Objective - Results Result Diagrams: 10/28/16 06:30 11/01/16 10:35 Recent Labs: Laboratory Last Values WBC 11.3 Th/cmm (4.8-10.8) H 10/28/16 06:30 RBC 3.40 Mil/cmm (3.80-5.20) L 10/28/16 06:30 Hgb 10.7 gm/dL (11.7-16.1) L 10/28/16 06:30 Hct 32.1 % (35.0-45.0) L 10/28/16 06:30 MCV 94.2 fl (81-100) 10/28/16 06:30 MCH 31.3 pg (27.0-31.0) H 10/28/16 06:30 MCHC Differential 33.3 pg (28.0-36.0) 10/28/16 06:30 RDW 21.1 % (11.5-20.0) H 10/28/16 06:30 Plt Count 165 Th/cmm (150-400) 10/28/16 06:30 MPV 9.2 fl 10/28/16 06:30 Band Neutrophils % 2 % (0-10) 10/28/16 06:30 Neutrophils (Manual) 80 % (40-80) 10/28/16 06:30 Lymphocytes 13 % (20-50) L 10/28/16 06:30 Monocytes 4 % (2-10) 10/28/16 06:30 Eosinophils 1 % (0-5) 10/28/16 06:30 Basophils 2 % (0-3) 10/19/16 06:40 Metamyelocytes 1 % (0-0) H 10/27/16 04:52 Nucleated RBCs 2.0 % (0-0) H 10/27/16 04:52 Platelet Estimate ADEQUATE (NORMAL) 10/28/16 06:30 Platelet Morphology GIANT PLATELETS SEEN (NORMAL) 10/28/16 06:30 Polychromasia 1+ 10/25/16 05:20 Anisocytosis 1+ 10/28/16 06:30 RBC Morph Micro Appear ABNORMAL (NORMAL) 10/28/16 06:30 PT 18.3 SECONDS (9.5-11.5) H 12/31/16 04:50 INR 1.78 (0.5-1.4) H 10/23/16 04:50 PTT (Actin FS) 34.8 SECONDS (26.0-38.0) 10/23/16 04:50 Specimen Source Arterial 10/31/16 09:00 Sample Site RB 10/31/16 09:00 pH 7.27 (7.35-7.45) L 10/31/16 09:00 pCO2 60.0 mmHg (35.0-45.0) H* 10/31/16 09:00 pO2 63.0 mmHg (80.0-100.0) L 10/31/16 09:00 HCO3 27.6 mmol/L (20.0-26.0) H 10/31/16 09:00 Base Excess 0.4 mmol/L (-3.0-3.0) 10/31/16 09:00 O2 Saturation 88.0 % (92.0-100.0) L 10/31/16 09:00 Sanjeev Test NA 10/31/16 09:00 Vent Rate NA 10/31/16 09:00 Inspired O2 28 10/31/16 09:00 Tidal Volume NA 10/31/16 09:00 PEEP NA 10/31/16 09:00 Pressure (ins/psv/peep) NA 10/31/16 09:00 Critical Value SH 10/31/16 09:00 Sodium 139 mEq/L (136-145) 11/01/16 10:35 Potassium 3.0 mEq/L (3.5-5.1) L 11/01/16 10:35 Chloride 104 mEq/L (98-107) 11/01/16 10:35 Carbon Dioxide 28.6 mEq/L (21.0-31.0) 11/01/16 10:35 Anion Gap 9.4 (7.0-16.0) 11/01/16 10:35 BUN 18 mg/dL (7-25) 11/01/16 10:35 Creatinine 1.6 mg/dL (0.6-1.2) H 11/01/16 10:35 Est GFR ( Amer) 41.1 ml/min 11/01/16 10:35 Est GFR (Non-Af Amer) 34.0 ml/min 11/01/16 10:35 BUN/Creatinine Ratio 11.3 11/01/16 10:35 Glucose 179 mg/dL (70-105) H 11/01/16 10:35 POC Glucose 162 MG/DL (70 - 105) H 11/01/16 11:16 Hemoglobin A1c % 6.9 % (4.0-6.0) H 10/15/16 05:17 Calcium 8.8 mg/dL (8.6-10.3) 11/01/16 10:35 Total Bilirubin 1.1 mg/dL (0.3-1.0) H 10/27/16 04:52 Direct Bilirubin 0.26 mg/dL (0.0-0.2) H 10/27/16 04:52 AST 19 U/L (13-39) 10/27/16 04:52 ALT 5 U/L (7-52) L 10/27/16 04:52 Alkaline Phosphatase 102 U/L (34-104) 10/27/16 04:52 Ammonia 50 umol/L (16-53) 10/14/16 10:40 B-Natriuretic Peptide > 5000.0 pg/mL (5.0-100.0) H 10/17/16 06:50 Total Protein 6.4 gm/dL (6.0-8.3) 10/27/16 04:52 Albumin 3.1 gm/dL (3.7-5.3) L 10/27/16 04:52 Globulin 3.3 gm/dL 10/27/16 04:52 Albumin/Globulin Ratio 0.9 (1.0-1.8) L 10/27/16 04:52 Triglycerides 119 mg/dL (<150) 10/14/16 10:40 Cholesterol 80 mg/dL (<200) 10/14/16 10:40 LDL Cholesterol Direct 26 mg/dL (75-193) L 10/14/16 10:40 HDL Cholesterol 33 mg/dL (23-92) 10/14/16 10:40 TSH 7.87 uIU/ml (0.34-5.60) H 10/14/16 10:40 Urine Source CATH 10/14/16 06:00 Urine Color BROWN 10/14/16 06:00 Urine Clarity SL. CLOUDY (CLEAR) 10/14/16 06:00 Urine pH 5.5 10/14/16 06:00 Ur Specific [place] 1.025 (1.005-1.030) 10/14/16 06:00 Urine Protein 100 mg/dL (NEGATIVE) H 10/14/16 06:00 Urine Glucose (UA) NEGATIVE mg/dL (NEGATIVE) 10/14/16 06:00 Urine Ketones TRACE mg/dL (NEGATIVE) 10/14/16 06:00 Urine Blood TRACE (NEGATIVE) 10/14/16 06:00 Urine Nitrate NEGATIVE (NEGATIVE) 10/14/16 06:00 Urine Bilirubin SMALL (NEGATIVE) H 10/14/16 06:00 Urine Urobilinogen 0.2 E.U./dL (0.2 - 1.0) 10/14/16 06:00 Ur Leukocyte Esterase NEGATIVE (NEGATIVE) 10/14/16 06:00 Urine RBC 0-1 /hpf (0-5) 10/14/16 06:00 Urine WBC 2-5 /hpf (0-5) 10/14/16 06:00 Ur Epithelial Cells OCCASIONAL /lpf (FEW) 10/14/16 06:00 Amorphous Sediment FEW URATES (NONE SEEN) 10/14/16 06:00 Urine Bacteria NONE SEEN /hpf (NONE SEEN) 10/14/16 06:00 Vancomycin Trough 20.9 ug/mL (10-20) H 10/26/16 09:35 Random Vancomycin 19.9 ug/mL (5.0-40.0) 11/01/16 06:10 Hepatitis A IgM Ab Negative (Negative) 10/15/16 05:17 Hep Bs Antigen Negative (Negative) 10/15/16 05:17 Hep B Core IgM Ab Negative (Negative) 10/15/16 05:17 Hepatitis C Antibody <0.1 s/co ratio (0.0-0.9) 10/15/16 05:17 HIV 1&2 Antibody Screen NEGATIVE (NEG) 10/27/16 04:52 TB (QFT) Gold In Tube Negative (Negative) 10/24/16 16:00 TB Test (QFT) Mitogen 3.00 IU/mL 10/24/16 16:00 TB Test (QFT) Antigen 0.05 IU/mL 10/24/16 16:00 TB Test Antigen - Nil <0.00 IU/mL 10/24/16 16:00 TB Test TB - Nil 0.06 IU/mL 10/24/16 16:00 TB Test (QFT) Interp (()) 10/24/16 16:00 - Physical Exam Vitals and I&O: Vital Signs Temp 96.7 F 11/01/16 12:00 Pulse 72 11/01/16 12:00 Resp 18 11/01/16 12:00 BP 119/67 11/01/16 12:00 Pulse Ox 96 11/01/16 12:00 Intake & Output 10/31/16 11/01/16 11/01/16 18:59 06:59 18:59 Intake Total 350 200 Output Total 3 Balance 347 200 Intake: Intake, IV Amount 50 cefTRIAXone 1 gm In 50 Sodium Chloride 0.9% 50 ml @ 100 mls/hr IV Q24HR [facility] Rx#:[id number] Oral 300 200 Output: Urine/Stool Mix 3 Other: # Bowel Movements 1 Active Medications: Current Medications Acetaminophen (Tylenol) 650 mg PO Q4HR PRN PRN Reason: fever/pain Stop: 12/13/16 01:20 Last Admin: 10/14/16 09:03 Dose: 650 mg Acetaminophen/Hydrocodone Bitart ([place] 5mg/325mg) 1 tab PO Q3H PRN PRN Reason: moderate pain (4-6) Stop: 12/13/16 10:21 Last Admin: 10/31/16 09:06 Dose: 1 tab Acetaminophen/Hydrocodone Bitart ([place] 10 Mg/325 Mg) 1 tab PO Q6H PRN PRN Reason: Pain (Severe) Stop: 12/30/16 12:53 Last Admin: 10/31/16 21:48 Dose: 1 tab Aspirin (Ecotrin) 81 mg PO QAM [facility] Stop: 12/14/16 08:59 Last Admin: 11/01/16 08:50 Dose: 81 mg Cilostazol (Pletal) 100 mg PO BID [facility] Stop: 12/22/16 16:59 Last Admin: 11/01/16 08:50 Dose: 100 mg Docusate Sodium (Colace) 100 mg PO BID [facility] Stop: 12/13/16 16:59 Last Admin: 11/01/16 08:49 Dose: 100 mg Ethambutol HCl (Myambutol) 800 mg PO DAILY [facility] Stop: 12/29/16 08:59 Last Admin: 11/01/16 09:24 Dose: 800 mg Folic Acid (Folate) 1 mg PO DAILY [facility] Stop: 12/14/16 08:59 Last Admin: 11/01/16 08:50 Dose: 1 mg Ceftriaxone Sodium 1 gm/ (Sodium Chloride) 50 mls @ 100 mls/hr IV Q24HR [facility] Stop: 12/30/16 15:59 Last Infusion: 10/31/16 17:50 Dose: Infused Insulin Aspart (Novolog Insulin Sliding Scale) 0 units SUBQ ACHS [facility] PRN Reason: Protocol Stop: 12/13/16 16:29 Last Admin: 11/01/16 12:47 Dose: 2 units Isoniazid (Inh) 300 mg PO DAILY [facility] Stop: 12/29/16 08:59 Last Admin: 11/01/16 09:24 Dose: 300 mg Levothyroxine Sodium (Synthroid) 0.05 mg PO QDAC [facility] Stop: 12/19/16 06:29 Last Admin: 11/01/16 07:02 Dose: 0.05 mg Miscellaneous (Clinical Monitoring) 1 [facility] PRN PRN PRN Reason: RENAL DOSING Stop: 12/13/16 13:45 Miscellaneous (Vancomycin Iv Per Pharmacy) 1 [facility] PRN PRN PRN Reason: PROTOCOL Stop: 12/30/16 12:53 Morphine Sulfate (Morphine) 1 mg IVP Q4HR PRN PRN Reason: Pain (Moderate) Stop: 12/31/16 00:55 Last Admin: 11/01/16 09:38 Dose: 1 mg Pantoprazole Sodium (Protonix) 40 mg PO DAILY [facility] Stop: 12/14/16 08:59 Last Admin: 11/01/16 08:49 Dose: 40 mg Polyethylene Glycol (Miralax) 17 gm PO DAILY [facility] Stop: 12/28/16 08:59 Last Admin: 11/01/16 08:49 Dose: 17 gm Prochlorperazine Maleate (Compazine) 10 mg PO Q6H PRN PRN Reason: Nausea / Vomiting Stop: 12/13/16 10:39 Last Admin: 10/27/16 13:01 Dose: 10 mg Promethazine HCl/Dextromethorphan (Phenergan Dm 6.25/15mg-5 Ml) 5 ml PO BID PRN PRN Reason: Cough Stop: 12/21/16 15:19 Pyrazinamide (Pza) 1,000 mg PO DAILY [facility] Stop: 12/29/16 08:59 Last Admin: 11/01/16 09:24 Dose: 1,000 mg Pyridoxine HCl (Vitamin B6) 50 mg PO DAILY [facility] Stop: 12/29/16 08:59 Last Admin: 11/01/16 08:49 Dose: 50 mg Rifampin (Rifadin) 600 mg PO DAILY [facility] Stop: 12/29/16 08:59 Last Admin: 11/01/16 09:24 Dose: 600 mg Senna (Senna) 17.2 mg PO HS [facility] Stop: 12/13/16 20:59 Last Admin: 10/31/16 21:48 Dose: 17.2 mg Vitamin B Complex/Vit C/Folic Acid (Vitamin B Complex W/Vitamin C) 1 tab PO DAILY [facility] Stop: 12/14/16 08:59 Last Admin: 11/01/16 09:43 Dose: 1 tab General: Mild distress, Other (drowsy) HEENT: Atraumatic, Mucous membr. moist/pink Neck: Supple, +2 carotid pulse wo bruit Cardiovascular: Regular rate, Normal S1, Normal S2 Lungs: Other (rhonchi,rales) Abdomen: Bowel sounds, Other (mild globular) Neurological: Sensation intact Skin: no Rash - Procedures Procedures: Procedures Procedure Code Date ART BYP FEMORAL-FEMORAL 47637 10/13/16 BYPASS L FEM ART TO R FEMOR A WITH SYNTH SUB, OPEN APPROACH [id number] 10/13/16 COMPOSITE BYP GRFT PROS&VEIN [id number] 10/13/16 Assessment/Plan - Problem List Patient Problems: All Active Problems dm (Acute) esrd (Acute) h/o chf (Acute) htn (Acute) non healing ulcer (Acute) sepsis (Acute) vascular insuffi (Acute) - Assessment Assessment: ESRD on HD acute decomp systolic CHF acute resp failure, hypercapnea; hypoxemia ess htn anemia of ckd LLL HAP hypothyroid PAD w/ right toe discoloration chronic hyponatremia abd. pain better Left Fem-Pop bypass resp acicdosis - Plan Plan: currently being dialyzed, aware of cr. of 2 but still w/ persistent chf serial CXR fluid restriction
[2016-11-01] MEDS ORDERED: Potassium Chloride 20 mEq ER Tab PO ONE (13:51)
[2016-11-01] MEDS: cefTRIAXone 1 GM in Sodium Chloride 0.9% 50 ML IV SCH (16:39)
[2016-11-02] MEDS: Morphine Sulfate 2 mg/mL 1mL Syr IVP PRN (03:06)
--- NOTE | 2016-11-02 06:25 | Progress Notes ---
PULMONARY PROGRESS NOTE PROBLEM LIST: 1. Bilateral effusion. 2. Abnormal chest x-ray. 3. Respiratory failure. 4. Significant fluid overload with chronic renal failure, on hemodialysis with possibly with low nutritional status. SYMPTOMS: Nil. Not feeling good. No specific new symptoms at this particular time. No respiratory distress. Awake and alert. PHYSICAL EXAMINATION: VITAL SIGNS: Temperature is 97, blood pressure 120/64, saturation 95-96 with oxygen. ENT: Shows no new changes. CHEST: Shows diminished air entry at the bases, otherwise unremarkable. HEART: Regular. ABDOMEN: Slightly distended, soft, and nontender. LABORATORY DATA: Potassium is 3.0, creatinine is 1.6, and BUN is 34. ASSESSMENT: The patient is clinically status quo, not too much changed. PLANS AND SUGGESTIONS: I will discuss with explosive ordnance technician again how soon and how often we can give dialysis with more ultrafiltration and go from there. JOB# [id number]
[2016-11-02] MEDS: INSULIN ASPART SLIDING SCALE 100 UNITS/ML UNIT SUBQ SCH ×3 (06:35→17:19)
[2016-11-02] MEDS: Levothyroxine 0.05 Mg Tab PO SCH (06:35)
[2016-11-02 07:49] LABS: ANION GAP 13.3 (7.0-16.0); BUN/CREATININE RATIO 12.2; CALCIUM SERUM 9.1 mg/dL (8.6-10.3); CARBON DIOXIDE 25.3 mEq/L (21.0-31.0); CREATININE - SERUM 1.8 mg/dL (0.6-1.2); MAGNESIUM 1.9 mg/dL (1.9-2.7); POTASSIUM SERUM 3.6 mEq/L (3.5-5.1)
--- NOTE | 2016-11-02 09:31 | Infectious Disease Prog Note ---
Infectious Disease Subjective - Review of Systems Service Date: 11/02/16 Subjective: There is no fever. Doing well. Infectious Disease Objective - Results Result Diagrams: 10/28/16 06:30 11/02/16 06:50 Recent Labs: Laboratory Last Values WBC 11.3 Th/cmm (4.8-10.8) H 10/28/16 06:30 RBC 3.40 Mil/cmm (3.80-5.20) L 10/28/16 06:30 Hgb 10.7 gm/dL (11.7-16.1) L 10/28/16 06:30 Hct 32.1 % (35.0-45.0) L 10/28/16 06:30 MCV 94.2 fl (81-100) 10/28/16 06:30 MCH 31.3 pg (27.0-31.0) H 10/28/16 06:30 MCHC Differential 33.3 pg (28.0-36.0) 10/28/16 06:30 RDW 21.1 % (11.5-20.0) H 10/28/16 06:30 Plt Count 165 Th/cmm (150-400) 10/28/16 06:30 MPV 9.2 fl 10/28/16 06:30 Band Neutrophils % 2 % (0-10) 10/28/16 06:30 Neutrophils (Manual) 80 % (40-80) 10/28/16 06:30 Lymphocytes 13 % (20-50) L 10/28/16 06:30 Monocytes 4 % (2-10) 10/28/16 06:30 Eosinophils 1 % (0-5) 10/28/16 06:30 Basophils 2 % (0-3) 10/19/16 06:40 Metamyelocytes 1 % (0-0) H 10/27/16 04:52 Nucleated RBCs 2.0 % (0-0) H 10/27/16 04:52 Platelet Estimate ADEQUATE (NORMAL) 10/28/16 06:30 Platelet Morphology GIANT PLATELETS SEEN (NORMAL) 10/28/16 06:30 Polychromasia 1+ 10/25/16 05:20 Anisocytosis 1+ 10/28/16 06:30 RBC Morph Micro Appear ABNORMAL (NORMAL) 10/28/16 06:30 PT 18.3 SECONDS (9.5-11.5) H 10/23/16 04:50 INR 1.78 (0.5-1.4) H 10/23/16 04:50 PTT (Actin FS) 34.8 SECONDS (26.0-38.0) 10/23/16 04:50 Specimen Source Arterial 10/31/16 09:00 Sample Site RB 10/31/16 09:00 pH 7.27 (7.35-7.45) L 10/31/16 09:00 pCO2 60.0 mmHg (35.0-45.0) H* 10/31/16 09:00 pO2 63.0 mmHg (80.0-100.0) L 10/31/16 09:00 HCO3 27.6 mmol/L (20.0-26.0) H 10/31/16 09:00 Base Excess 0.4 mmol/L (-3.0-3.0) 10/31/16 09:00 O2 Saturation 88.0 % (92.0-100.0) L 10/31/16 09:00 Sanjeev Test NA 10/31/16 09:00 Vent Rate NA 10/31/16 09:00 Inspired O2 28 10/31/16 09:00 Tidal Volume NA 10/31/16 09:00 PEEP NA 10/31/16 09:00 Pressure (ins/psv/peep) NA 10/31/16 09:00 Critical Value SH 10/31/16 09:00 Sodium 139 mEq/L (136-145) 11/02/16 06:50 Potassium 3.6 mEq/L (3.5-5.1) 11/02/16 06:50 Chloride 104 mEq/L (98-107) 11/02/16 06:50 Carbon Dioxide 25.3 mEq/L (21.0-31.0) 11/02/16 06:50 Anion Gap 13.3 (7.0-16.0) 11/02/16 06:50 BUN 22 mg/dL (7-25) 11/02/16 06:50 Creatinine 1.8 mg/dL (0.6-1.2) H 11/02/16 06:50 Est GFR ( Amer) 35.9 ml/min 11/02/16 06:50 Est GFR (Non-Af Amer) 29.7 ml/min 11/02/16 06:50 BUN/Creatinine Ratio 12.2 11/02/16 06:50 Glucose 120 mg/dL (70-105) H 11/02/16 06:50 POC Glucose 110 MG/DL (70 - 105) H 11/02/16 06:26 Hemoglobin A1c % 6.9 % (4.0-6.0) H 10/15/16 05:17 Calcium 9.1 mg/dL (8.6-10.3) 11/02/16 06:50 Magnesium 1.9 mg/dL (1.9-2.7) 11/02/16 06:50 Total Bilirubin 1.1 mg/dL (0.3-1.0) H 10/27/16 04:52 Direct Bilirubin 0.26 mg/dL (0.0-0.2) H 10/27/16 04:52 AST 19 U/L (13-39) 10/27/16 04:52 ALT 5 U/L (7-52) L 10/27/16 04:52 Alkaline Phosphatase 102 U/L (34-104) 10/27/16 04:52 Ammonia 50 umol/L (16-53) 10/14/16 10:40 B-Natriuretic Peptide > 5000.0 pg/mL (5.0-100.0) H 10/17/16 06:50 Total Protein 6.4 gm/dL (6.0-8.3) 10/27/16 04:52 Albumin 3.1 gm/dL (3.7-5.3) L 10/27/16 04:52 Globulin 3.3 gm/dL 10/27/16 04:52 Albumin/Globulin Ratio 0.9 (1.0-1.8) L 10/27/16 04:52 Prealbumin 9 mg/dL (10-36) L 11/01/16 06:10 Triglycerides 119 mg/dL (<150) 10/14/16 10:40 Cholesterol 80 mg/dL (<200) 10/14/16 10:40 LDL Cholesterol Direct 26 mg/dL (75-193) L 10/14/16 10:40 HDL Cholesterol 33 mg/dL (23-92) 10/14/16 10:40 TSH 7.87 uIU/ml (0.34-5.60) H 10/14/16 10:40 Urine Source CATH 10/14/16 06:00 Urine Color BROWN 10/14/16 06:00 Urine Clarity SL. CLOUDY (CLEAR) 10/14/16 06:00 Urine pH 5.5 10/14/16 06:00 Ur Specific [place] 1.025 (1.005-1.030) 10/14/16 06:00 Urine Protein 100 mg/dL (NEGATIVE) H 10/14/16 06:00 Urine Glucose (UA) NEGATIVE mg/dL (NEGATIVE) 10/14/16 06:00 Urine Ketones TRACE mg/dL (NEGATIVE) 10/14/16 06:00 Urine Blood TRACE (NEGATIVE) 10/14/16 06:00 Urine Nitrate NEGATIVE (NEGATIVE) 10/14/16 06:00 Urine Bilirubin SMALL (NEGATIVE) H 10/14/16 06:00 Urine Urobilinogen 0.2 E.U./dL (0.2 - 1.0) 10/14/16 06:00 Ur Leukocyte Esterase NEGATIVE (NEGATIVE) 10/14/16 06:00 Urine RBC 0-1 /hpf (0-5) 10/14/16 06:00 Urine WBC 2-5 /hpf (0-5) 10/14/16 06:00 Ur Epithelial Cells OCCASIONAL /lpf (FEW) 10/14/16 06:00 Amorphous Sediment FEW URATES (NONE SEEN) 10/14/16 06:00 Urine Bacteria NONE SEEN /hpf (NONE SEEN) 10/14/16 06:00 Vancomycin Trough 20.9 ug/mL (10-20) H 10/26/16 09:35 Random Vancomycin 19.9 ug/mL (5.0-40.0) 11/01/16 06:10 Hepatitis A IgM Ab Negative (Negative) 10/15/16 05:17 Hep Bs Antigen Negative (Negative) 10/15/16 05:17 Hep B Core IgM Ab Negative (Negative) 10/15/16 05:17 Hepatitis C Antibody <0.1 s/co ratio (0.0-0.9) 10/15/16 05:17 HIV 1&2 Antibody Screen NEGATIVE (NEG) 10/27/16 04:52 TB (QFT) Gold In Tube Negative (Negative) 10/24/16 16:00 TB Test (QFT) Mitogen 3.00 IU/mL 10/24/16 16:00 TB Test (QFT) Antigen 0.05 IU/mL 10/24/16 16:00 TB Test Antigen - Nil <0.00 IU/mL 10/24/16 16:00 TB Test TB - Nil 0.06 IU/mL 10/24/16 16:00 TB Test (QFT) Interp (()) 10/24/16 16:00 - Physical Exam Vitals and I&O: Vital Signs Temp 97.4 F 11/02/16 04:00 Pulse 75 11/02/16 08:17 Resp 20 11/02/16 08:17 BP 101/57 11/02/16 04:00 Pulse Ox 96 11/02/16 08:17 Intake & Output 11/01/16 11/02/16 11/02/16 18:59 06:59 18:59 Intake Total 200 200 Balance 200 200 Intake: Intake, IV Amount 50 cefTRIAXone 1 gm In 50 Sodium Chloride 0.9% 50 ml @ 100 mls/hr IV Q24HR [facility] Rx#:[id number] Oral 150 200 Active Medications: Current Medications Acetaminophen (Tylenol) 650 mg PO Q4HR PRN PRN Reason: fever/pain Stop: 12/13/16 01:20 Last Admin: 10/14/16 09:03 Dose: 650 mg Acetaminophen/Hydrocodone Bitart ([place] 5mg/325mg) 1 tab PO Q3H PRN PRN Reason: moderate pain (4-6) Stop: 12/13/16 10:21 Last Admin: 10/31/16 09:06 Dose: 1 tab Acetaminophen/Hydrocodone Bitart ([place] 10 Mg/325 Mg) 1 tab PO Q6H PRN PRN Reason: Pain (Severe) Stop: 12/30/16 12:53 Last Admin: 10/31/16 21:48 Dose: 1 tab Aspirin (Ecotrin) 81 mg PO QAM [facility] Stop: 12/14/16 08:59 Last Admin: 11/01/16 08:50 Dose: 81 mg Cilostazol (Pletal) 100 mg PO BID [facility] Stop: 12/22/16 16:59 Last Admin: 11/01/16 16:39 Dose: 100 mg Docusate Sodium (Colace) 100 mg PO BID [facility] Stop: 12/13/16 16:59 Last Admin: 11/01/16 16:39 Dose: 100 mg Ethambutol HCl (Myambutol) 800 mg PO DAILY [facility] Stop: 12/29/16 08:59 Last Admin: 11/01/16 09:24 Dose: 800 mg Folic Acid (Folate) 1 mg PO DAILY [facility] Stop: 12/14/16 08:59 Last Admin: 11/01/16 08:50 Dose: 1 mg Ceftriaxone Sodium 1 gm/ (Sodium Chloride) 50 mls @ 100 mls/hr IV Q24HR [facility] Stop: 12/30/16 15:59 Last Infusion: 11/01/16 17:09 Dose: Infused Insulin Aspart (Novolog Insulin Sliding Scale) 0 units SUBQ ACHS [facility] PRN Reason: Protocol Stop: 12/13/16 16:29 Last Admin: 11/02/16 06:35 Dose: Not Given Isoniazid (Inh) 300 mg PO DAILY [facility] Stop: 12/29/16 08:59 Last Admin: 11/01/16 09:24 Dose: 300 mg Levothyroxine Sodium (Synthroid) 0.05 mg PO QDAC [facility] Stop: 12/19/16 06:29 Last Admin: 11/02/16 06:35 Dose: 0.05 mg Miscellaneous (Clinical Monitoring) 1 [facility] PRN PRN PRN Reason: RENAL DOSING Stop: 12/13/16 13:45 Miscellaneous (Vancomycin Iv Per Pharmacy) 1 [facility] PRN PRN PRN Reason: PROTOCOL Stop: 12/30/16 12:53 Morphine Sulfate (Morphine) 1 mg IVP Q4HR PRN PRN Reason: Pain (Moderate) Stop: 12/31/16 00:55 Last Admin: 11/02/16 03:06 Dose: 1 mg Pantoprazole Sodium (Protonix) 40 mg PO DAILY [facility] Stop: 12/14/16 08:59 Last Admin: 11/01/16 08:49 Dose: 40 mg Polyethylene Glycol (Miralax) 17 gm PO DAILY [facility] Stop: 12/28/16 08:59 Last Admin: 11/01/16 08:49 Dose: 17 gm Prochlorperazine Maleate (Compazine) 10 mg PO Q6H PRN PRN Reason: Nausea / Vomiting Stop: 12/13/16 10:39 Last Admin: 10/27/16 13:01 Dose: 10 mg Promethazine HCl/Dextromethorphan (Phenergan Dm 6.25/15mg-5 Ml) 5 ml PO BID PRN PRN Reason: Cough Stop: 12/21/16 15:19 Pyrazinamide (Pza) 1,000 mg PO DAILY [facility] Stop: 12/29/16 08:59 Last Admin: 11/01/16 09:24 Dose: 1,000 mg Pyridoxine HCl (Vitamin B6) 50 mg PO DAILY [facility] Stop: 12/29/16 08:59 Last Admin: 11/01/16 08:49 Dose: 50 mg Rifampin (Rifadin) 600 mg PO DAILY [facility] Stop: 12/29/16 08:59 Last Admin: 11/01/16 09:24 Dose: 600 mg Senna (Senna) 17.2 mg PO HS [facility] Stop: 12/13/16 20:59 Last Admin: 11/01/16 21:30 Dose: 17.2 mg Vitamin B Complex/Vit C/Folic Acid (Vitamin B Complex W/Vitamin C) 1 tab PO DAILY [facility] Stop: 12/14/16 08:59 Last Admin: 11/01/16 09:43 Dose: 1 tab General: no acute distress, well developed, well nourished HEENT: atraumatic, normocephalic, PERRLA, EOMI, moist mucous membrane Neck: supple Cardiovascular: S1S2, regular Lungs: clear to auscultation bilaterally, clear to percussion, other (decreased breath sounds.) Abdomen: soft, no tender, no distended Extremities: no cyanosis, no clubbing, no edema Neurological: awake, alert, oriented, CN 2-12 intact Skin: intact - Procedures Procedures: Procedures Procedure Code Date ART BYP FEMORAL-FEMORAL 77230 10/13/16 BYPASS L FEM ART TO R FEMOR A WITH SYNTH SUB, OPEN APPROACH [id number] 10/13/16 COMPOSITE BYP GRFT PROS&VEIN [id number] 10/13/16 Infectious Disease Assmt/Plan - Problem List Patient Problems: All Active Problems dm (Acute) esrd (Acute) h/o chf (Acute) htn (Acute) non healing ulcer (Acute) sepsis (Acute) vascular insuffi (Acute) - Assessment Assessment: Impression: 1. Right big toe cellulitis. 2/2 PAD. 2. R pneumonia with air, cavity. 3. CHF. 4. CKD 5 on HD. 5. DM2 6. 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 7. abdominal pain, improving. - Plan Plan: Follow up AFB. Continue RIPE treatment as recommended by the public health department. May follow up on AFB smear and follow up the public health department recommendations.
[2016-11-02] MEDS: Pantoprazole 40 mg EC Tab PO SCH (09:53)
[2016-11-02] MEDS: Vitamin B Complex w/Vitamin C Tab PO SCH (09:54)
[2016-11-02] MEDS: Rifampin 300 mg Cap PO SCH (09:54)
[2016-11-02] MEDS: POLYETHYLENE GLYCOL 3350 17 GM PACK PO SCH (09:54)
--- NOTE | 2016-11-02 11:00 | Diagnostic Imaging Report ---
Portable chest x-ray HISTORY: Shortness of breath Compared with prior exam of 11/11/2016, persistent bilateral pleural effusions and cardiomegaly. Pulmonary vascular redistribution is consistent with underlying congestive heart failure. IMPRESSION: 1. No change in the cardiopulmonary status as noted above.
--- NOTE | 2016-11-02 11:44 | General Progress Note ---
Subjective - Review of Systems Service Date: 11/02/16 Subjective: more awake, less tacypnea, on NC, nonspecific pain Objective - Results Result Diagrams: 10/28/16 06:30 11/02/16 06:50 Recent Labs: Laboratory Last Values WBC 11.3 Th/cmm (4.8-10.8) H 10/28/16 06:30 RBC 3.40 Mil/cmm (3.80-5.20) L 10/28/16 06:30 Hgb 10.7 gm/dL (11.7-16.1) L 10/28/16 06:30 Hct 32.1 % (35.0-45.0) L 10/28/16 06:30 MCV 94.2 fl (81-100) 10/28/16 06:30 MCH 31.3 pg (27.0-31.0) H 10/28/16 06:30 MCHC Differential 33.3 pg (28.0-36.0) 10/28/16 06:30 RDW 21.1 % (11.5-20.0) H 10/28/16 06:30 Plt Count 165 Th/cmm (150-400) 10/28/16 06:30 MPV 9.2 fl 10/28/16 06:30 Band Neutrophils % 2 % (0-10) 10/28/16 06:30 Neutrophils (Manual) 80 % (40-80) 10/28/16 06:30 Lymphocytes 13 % (20-50) L 10/28/16 06:30 Monocytes 4 % (2-10) 10/28/16 06:30 Eosinophils 1 % (0-5) 10/28/16 06:30 Basophils 2 % (0-3) 10/19/16 06:40 Metamyelocytes 1 % (0-0) H 10/27/16 04:52 Nucleated RBCs 2.0 % (0-0) H 10/27/16 04:52 Platelet Estimate ADEQUATE (NORMAL) 10/28/16 06:30 Platelet Morphology GIANT PLATELETS SEEN (NORMAL) 10/28/16 06:30 Polychromasia 1+ 10/25/16 05:20 Anisocytosis 1+ 10/28/16 06:30 RBC Morph Micro Appear ABNORMAL (NORMAL) 10/28/16 06:30 PT 18.3 SECONDS (9.5-11.5) H 10/23/16 04:50 INR 1.78 (0.5-1.4) H 10/23/16 04:50 PTT (Actin FS) 34.8 SECONDS (26.0-38.0) 10/23/16 04:50 Specimen Source Arterial 10/31/16 09:00 Sample Site RB 10/31/16 09:00 pH 7.27 (7.35-7.45) L 10/31/16 09:00 pCO2 60.0 mmHg (35.0-45.0) H* 10/31/16 09:00 pO2 63.0 mmHg (80.0-100.0) L 10/31/16 09:00 HCO3 27.6 mmol/L (20.0-26.0) H 10/31/16 09:00 Base Excess 0.4 mmol/L (-3.0-3.0) 10/31/16 09:00 O2 Saturation 88.0 % (92.0-100.0) L 10/31/16 09:00 Sanjeev Test NA 10/31/16 09:00 Vent Rate NA 10/31/16 09:00 Inspired O2 28 10/31/16 09:00 Tidal Volume NA 10/31/16 09:00 PEEP NA 10/31/16 09:00 Pressure (ins/psv/peep) NA 10/31/16 09:00 Critical Value SH 10/31/16 09:00 Sodium 139 mEq/L (136-145) 11/02/16 06:50 Potassium 3.6 mEq/L (3.5-5.1) 11/02/16 06:50 Chloride 104 mEq/L (98-107) 11/02/16 06:50 Carbon Dioxide 25.3 mEq/L (21.0-31.0) 11/02/16 06:50 Anion Gap 13.3 (7.0-16.0) 11/02/16 06:50 BUN 22 mg/dL (7-25) 11/02/16 06:50 Creatinine 1.8 mg/dL (0.6-1.2) H 11/02/16 06:50 Est GFR ( Amer) 35.9 ml/min 11/02/16 06:50 Est GFR (Non-Af Amer) 29.7 ml/min 11/02/16 06:50 BUN/Creatinine Ratio 12.2 11/02/16 06:50 Glucose 120 mg/dL (70-105) H 11/02/16 06:50 POC Glucose 110 MG/DL (70 - 105) H 11/02/16 06:26 Hemoglobin A1c % 6.9 % (4.0-6.0) H 10/15/16 05:17 Calcium 9.1 mg/dL (8.6-10.3) 11/02/16 06:50 Magnesium 1.9 mg/dL (1.9-2.7) 11/02/16 06:50 Total Bilirubin 1.1 mg/dL (0.3-1.0) H 10/27/16 04:52 Direct Bilirubin 0.26 mg/dL (0.0-0.2) H 10/27/16 04:52 AST 19 U/L (13-39) 10/27/16 04:52 ALT 5 U/L (7-52) L 10/27/16 04:52 Alkaline Phosphatase 102 U/L (34-104) 10/27/16 04:52 Ammonia 50 umol/L (16-53) 10/14/16 10:40 B-Natriuretic Peptide > 5000.0 pg/mL (5.0-100.0) H 10/17/16 06:50 Total Protein 6.4 gm/dL (6.0-8.3) 10/27/16 04:52 Albumin 3.1 gm/dL (3.7-5.3) L 10/27/16 04:52 Globulin 3.3 gm/dL 10/27/16 04:52 Albumin/Globulin Ratio 0.9 (1.0-1.8) L 10/27/16 04:52 Prealbumin 9 mg/dL (10-36) L 11/01/16 06:10 Triglycerides 119 mg/dL (<150) 10/14/16 10:40 Cholesterol 80 mg/dL (<200) 10/14/16 10:40 LDL Cholesterol Direct 26 mg/dL (75-193) L 10/14/16 10:40 HDL Cholesterol 33 mg/dL (23-92) 10/14/16 10:40 TSH 7.87 uIU/ml (0.34-5.60) H 10/14/16 10:40 Urine Source CATH 10/14/16 06:00 Urine Color BROWN 10/14/16 06:00 Urine Clarity SL. CLOUDY (CLEAR) 10/14/16 06:00 Urine pH 5.5 10/14/16 06:00 Ur Specific [place] 1.025 (1.005-1.030) 10/14/16 06:00 Urine Protein 100 mg/dL (NEGATIVE) H 10/14/16 06:00 Urine Glucose (UA) NEGATIVE mg/dL (NEGATIVE) 10/14/16 06:00 Urine Ketones TRACE mg/dL (NEGATIVE) 10/14/16 06:00 Urine Blood TRACE (NEGATIVE) 10/14/16 06:00 Urine Nitrate NEGATIVE (NEGATIVE) 10/14/16 06:00 Urine Bilirubin SMALL (NEGATIVE) H 10/14/16 06:00 Urine Urobilinogen 0.2 E.U./dL (0.2 - 1.0) 10/14/16 06:00 Ur Leukocyte Esterase NEGATIVE (NEGATIVE) 10/14/16 06:00 Urine RBC 0-1 /hpf (0-5) 10/14/16 06:00 Urine WBC 2-5 /hpf (0-5) 10/14/16 06:00 Ur Epithelial Cells OCCASIONAL /lpf (FEW) 10/14/16 06:00 Amorphous Sediment FEW URATES (NONE SEEN) 10/14/16 06:00 Urine Bacteria NONE SEEN /hpf (NONE SEEN) 10/14/16 06:00 Vancomycin Trough 20.9 ug/mL (10-20) H 10/26/16 09:35 Random Vancomycin 19.9 ug/mL (5.0-40.0) 11/01/16 06:10 Hepatitis A IgM Ab Negative (Negative) 10/15/16 05:17 Hep Bs Antigen Negative (Negative) 10/15/16 05:17 Hep B Core IgM Ab Negative (Negative) 10/15/16 05:17 Hepatitis C Antibody <0.1 s/co ratio (0.0-0.9) 10/15/16 05:17 HIV 1&2 Antibody Screen NEGATIVE (NEG) 10/27/16 04:52 TB (QFT) Gold In Tube Negative (Negative) 10/24/16 16:00 TB Test (QFT) Mitogen 3.00 IU/mL 10/24/16 16:00 TB Test (QFT) Antigen 0.05 IU/mL 10/24/16 16:00 TB Test Antigen - Nil <0.00 IU/mL 10/24/16 16:00 TB Test TB - Nil 0.06 IU/mL 10/24/16 16:00 TB Test (QFT) Interp (()) 10/24/16 16:00 - Physical Exam Vitals and I&O: Vital Signs Temp 97.4 F 11/02/16 04:00 Pulse 75 11/02/16 08:17 Resp 20 11/02/16 08:17 BP 101/57 11/02/16 04:00 Pulse Ox 96 11/02/16 08:17 Intake & Output 11/01/16 11/02/16 11/02/16 18:59 06:59 18:59 Intake Total 200 200 Balance 200 200 Intake: Intake, IV Amount 50 cefTRIAXone 1 gm In 50 Sodium Chloride 0.9% 50 ml @ 100 mls/hr IV Q24HR [facility] Rx#:[id number] Oral 150 200 Active Medications: Current Medications Acetaminophen (Tylenol) 650 mg PO Q4HR PRN PRN Reason: fever/pain Stop: 12/13/16 01:20 Last Admin: 10/14/16 09:03 Dose: 650 mg Acetaminophen/Hydrocodone Bitart ([place] 5mg/325mg) 1 tab PO Q3H PRN PRN Reason: moderate pain (4-6) Stop: 12/13/16 10:21 Last Admin: 10/31/16 09:06 Dose: 1 tab Acetaminophen/Hydrocodone Bitart ([place] 10 Mg/325 Mg) 1 tab PO Q6H PRN PRN Reason: Pain (Severe) Stop: 12/30/16 12:53 Last Admin: 10/31/16 21:48 Dose: 1 tab Aspirin (Ecotrin) 81 mg PO QAM [facility] Stop: 12/14/16 08:59 Last Admin: 11/02/16 09:53 Dose: Not Given Cilostazol (Pletal) 100 mg PO BID [facility] Stop: 12/22/16 16:59 Last Admin: 11/02/16 09:53 Dose: Not Given Docusate Sodium (Colace) 100 mg PO BID [facility] Stop: 12/13/16 16:59 Last Admin: 11/02/16 09:53 Dose: Not Given Ethambutol HCl (Myambutol) 800 mg PO DAILY [facility] Stop: 12/29/16 08:59 Last Admin: 11/02/16 09:53 Dose: Not Given Folic Acid (Folate) 1 mg PO DAILY [facility] Stop: 12/14/16 08:59 Last Admin: 11/02/16 09:53 Dose: Not Given Ceftriaxone Sodium 1 gm/ (Sodium Chloride) 50 mls @ 100 mls/hr IV Q24HR [facility] Stop: 12/30/16 15:59 Last Infusion: 11/01/16 17:09 Dose: Infused Insulin Aspart (Novolog Insulin Sliding Scale) 0 units SUBQ ACHS [facility] PRN Reason: Protocol Stop: 12/13/16 16:29 Last Admin: 11/02/16 11:29 Dose: Not Given Isoniazid (Inh) 300 mg PO DAILY [facility] Stop: 12/29/16 08:59 Last Admin: 11/02/16 09:53 Dose: Not Given Levothyroxine Sodium (Synthroid) 0.05 mg PO QDAC [facility] Stop: 12/19/16 06:29 Last Admin: 11/02/16 06:35 Dose: 0.05 mg Miscellaneous (Clinical Monitoring) 1 ea MC PRN PRN PRN Reason: RENAL DOSING Stop: 12/13/16 13:45 Miscellaneous (Vancomycin Iv Per Pharmacy) 1 ea MC PRN PRN PRN Reason: PROTOCOL Stop: 12/30/16 12:53 Morphine Sulfate (Morphine) 1 mg IVP Q4HR PRN PRN Reason: Pain (Moderate) Stop: 12/31/16 00:55 Last Admin: 11/02/16 03:06 Dose: 1 mg Pantoprazole Sodium (Protonix) 40 mg PO DAILY [facility] Stop: 12/14/16 08:59 Last Admin: 11/02/16 09:53 Dose: Not Given Polyethylene Glycol (Miralax) 17 gm PO DAILY [facility] Stop: 12/28/16 08:59 Last Admin: 11/02/16 09:54 Dose: Not Given Prochlorperazine Maleate (Compazine) 10 mg PO Q6H PRN PRN Reason: Nausea / Vomiting Stop: 12/13/16 10:39 Last Admin: 10/27/16 13:01 Dose: 10 mg Promethazine HCl/Dextromethorphan (Phenergan Dm 6.25/15mg-5 Ml) 5 ml PO BID PRN PRN Reason: Cough Stop: 12/21/16 15:19 Pyrazinamide (Pza) 1,000 mg PO DAILY [facility] Stop: 12/29/16 08:59 Last Admin: 11/02/16 09:54 Dose: Not Given Pyridoxine HCl (Vitamin B6) 50 mg PO DAILY [facility] Stop: 12/29/16 08:59 Last Admin: 11/02/16 09:54 Dose: Not Given Rifampin (Rifadin) 600 mg PO DAILY [facility] Stop: 12/29/16 08:59 Last Admin: 11/02/16 09:54 Dose: Not Given Senna (Senna) 17.2 mg PO HS [facility] Stop: 12/13/16 20:59 Last Admin: 11/01/16 21:30 Dose: 17.2 mg Vitamin B Complex/Vit C/Folic Acid (Vitamin B Complex W/Vitamin C) 1 tab PO DAILY [facility] Stop: 12/14/16 08:59 Last Admin: 11/02/16 09:54 Dose: Not Given General: Alert, Mild distress HEENT: Atraumatic, EOMI, Mucous membr. moist/pink Neck: Supple, +2 carotid pulse wo bruit Cardiovascular: Regular rate, Normal S1, Normal S2 Lungs: Other (few rhonchi) Abdomen: Bowel sounds, Soft Extremities: no Edema Neurological: Sensation intact Skin: no Rash - Procedures Procedures: Procedures Procedure Code Date ART BYP FEMORAL-FEMORAL 17609 10/13/16 BYPASS L FEM ART TO R FEMOR A WITH SYNTH SUB, OPEN APPROACH [id number] 10/13/16 COMPOSITE BYP GRFT PROS&VEIN 36069 10/13/16 Assessment/Plan - Problem List Patient Problems: All Active Problems dm (Acute) esrd (Acute) h/o chf (Acute) htn (Acute) non healing ulcer (Acute) sepsis (Acute) vascular insuffi (Acute) - Assessment Assessment: ESRD on HD acute decomp systolic CHF acute resp failure, hypercapnea; hypoxemia ess htn anemia of ckd LLL HAP hypothyroid PAD w/ right toe discoloration chronic hyponatremia abd. pain better Left Fem-Pop bypass resp acicdosis clotted left avf - Plan Plan: cxr still w/ persistent chf unable to dialyze yesterday due to clotted avg vascular surgeon notified
[2016-11-02] MEDS ORDERED: Gelatin Sponge 100cm Spg TP ONE (13:19)
[2016-11-02] MEDS ORDERED: Thrombin, Bovine 5,000 IU Vial TP ONE (13:19)
[2016-11-02] MEDS ORDERED: fentaNYL Citrate 100 mcg/2mL Vial ONE (14:24)
[2016-11-02] MEDS ORDERED: Midazolam 1mg/ml 2 ml vial IV ONE (14:25)
--- NOTE | 2016-11-02 15:38 | Diagnostic Imaging Report ---
Vascular catheter placement (intraoperative fluoroscopic images and services) HISTORY: Vascular catheter placement Intraoperative fluoroscopic images and services were provided for facilitation of avascular catheter placement. 55 seconds fluoroscopy time utilized.
--- NOTE | 2016-11-02 16:12 | General Progress Note ---
Subjective - Review of Systems Subjective: patient lethargic, arousable, no sob. Objective - Results Result Diagrams: 10/28/16 06:30 11/02/16 06:50 Recent Labs: Laboratory Last Values WBC 11.3 Th/cmm (4.8-10.8) H 10/28/16 06:30 RBC 3.40 Mil/cmm (3.80-5.20) L 10/28/16 06:30 Hgb 10.7 gm/dL (11.7-16.1) L 10/28/16 06:30 Hct 32.1 % (35.0-45.0) L 10/28/16 06:30 MCV 94.2 fl (81-100) 10/28/16 06:30 MCH 31.3 pg (27.0-31.0) H 10/28/16 06:30 MCHC Differential 33.3 pg (28.0-36.0) 10/28/16 06:30 RDW 21.1 % (11.5-20.0) H 10/28/16 06:30 Plt Count 165 Th/cmm (150-400) 10/28/16 06:30 MPV 9.2 fl 10/28/16 06:30 Band Neutrophils % 2 % (0-10) 10/28/16 06:30 Neutrophils (Manual) 80 % (40-80) 10/28/16 06:30 Lymphocytes 13 % (20-50) L 10/28/16 06:30 Monocytes 4 % (2-10) 10/28/16 06:30 Eosinophils 1 % (0-5) 10/28/16 06:30 Basophils 2 % (0-3) 10/19/16 06:40 Metamyelocytes 1 % (0-0) H 10/27/16 04:52 Nucleated RBCs 2.0 % (0-0) H 10/27/16 04:52 Platelet Estimate ADEQUATE (NORMAL) 10/28/16 06:30 Platelet Morphology GIANT PLATELETS SEEN (NORMAL) 10/28/16 06:30 Polychromasia 1+ 10/25/16 05:20 Anisocytosis 1+ 10/28/16 06:30 RBC Morph Micro Appear ABNORMAL (NORMAL) 10/28/16 06:30 PT 18.3 SECONDS (9.5-11.5) H 10/23/16 04:50 INR 1.78 (0.5-1.4) H 10/23/16 04:50 PTT (Actin FS) 34.8 SECONDS (26.0-38.0) 10/23/16 04:50 Specimen Source Arterial 10/31/16 09:00 Sample Site RB 10/31/16 09:00 pH 7.27 (7.35-7.45) L 10/31/16 09:00 pCO2 60.0 mmHg (35.0-45.0) H* 10/31/16 09:00 pO2 63.0 mmHg (80.0-100.0) L 10/31/16 09:00 HCO3 27.6 mmol/L (20.0-26.0) H 10/31/16 09:00 Base Excess 0.4 mmol/L (-3.0-3.0) 10/31/16 09:00 O2 Saturation 88.0 % (92.0-100.0) L 10/31/16 09:00 Sanjeev Test NA 10/31/16 09:00 Vent Rate NA 10/31/16 09:00 Inspired O2 28 10/31/16 09:00 Tidal Volume NA 10/31/16 09:00 PEEP NA 10/31/16 09:00 Pressure (ins/psv/peep) NA 10/31/16 09:00 Critical Value SH 10/31/16 09:00 Sodium 139 mEq/L (136-145) 11/02/16 06:50 Potassium 3.6 mEq/L (3.5-5.1) 11/02/16 06:50 Chloride 104 mEq/L (98-107) 11/02/16 06:50 Carbon Dioxide 25.3 mEq/L (21.0-31.0) 11/02/16 06:50 Anion Gap 13.3 (7.0-16.0) 11/02/16 06:50 BUN 22 mg/dL (7-25) 11/02/16 06:50 Creatinine 1.8 mg/dL (0.6-1.2) H 11/02/16 06:50 Est GFR ( Amer) 35.9 ml/min 11/02/16 06:50 Est GFR (Non-Af Amer) 29.7 ml/min 11/02/16 06:50 BUN/Creatinine Ratio 12.2 11/02/16 06:50 Glucose 120 mg/dL (70-105) H 11/02/16 06:50 POC Glucose 81 MG/DL (70 - 105) 11/02/16 13:18 Hemoglobin A1c % 6.9 % (4.0-6.0) H 10/15/16 05:17 Calcium 9.1 mg/dL (8.6-10.3) 11/02/16 06:50 Magnesium 1.9 mg/dL (1.9-2.7) 11/02/16 06:50 Total Bilirubin 1.1 mg/dL (0.3-1.0) H 10/27/16 04:52 Direct Bilirubin 0.26 mg/dL (0.0-0.2) H 10/27/16 04:52 AST 19 U/L (13-39) 10/27/16 04:52 ALT 5 U/L (7-52) L 10/27/16 04:52 Alkaline Phosphatase 102 U/L (34-104) 10/27/16 04:52 Ammonia 50 umol/L (16-53) 10/14/16 10:40 B-Natriuretic Peptide > 5000.0 pg/mL (5.0-100.0) H 10/17/16 06:50 Total Protein 6.4 gm/dL (6.0-8.3) 10/27/16 04:52 Albumin 3.1 gm/dL (3.7-5.3) L 10/27/16 04:52 Globulin 3.3 gm/dL 10/27/16 04:52 Albumin/Globulin Ratio 0.9 (1.0-1.8) L 10/27/16 04:52 Prealbumin 9 mg/dL (10-36) L 11/01/16 06:10 Triglycerides 119 mg/dL (<150) 10/14/16 10:40 Cholesterol 80 mg/dL (<200) 10/14/16 10:40 LDL Cholesterol Direct 26 mg/dL (75-193) L 10/14/16 10:40 HDL Cholesterol 33 mg/dL (23-92) 10/14/16 10:40 TSH 7.87 uIU/ml (0.34-5.60) H 10/14/16 10:40 Urine Source CATH 10/14/16 06:00 Urine Color BROWN 10/14/16 06:00 Urine Clarity SL. CLOUDY (CLEAR) 10/14/16 06:00 Urine pH 5.5 10/14/16 06:00 Ur Specific [place] 1.025 (1.005-1.030) 10/14/16 06:00 Urine Protein 100 mg/dL (NEGATIVE) H 10/14/16 06:00 Urine Glucose (UA) NEGATIVE mg/dL (NEGATIVE) 10/14/16 06:00 Urine Ketones TRACE mg/dL (NEGATIVE) 10/14/16 06:00 Urine Blood TRACE (NEGATIVE) 10/14/16 06:00 Urine Nitrate NEGATIVE (NEGATIVE) 10/14/16 06:00 Urine Bilirubin SMALL (NEGATIVE) H 10/14/16 06:00 Urine Urobilinogen 0.2 E.U./dL (0.2 - 1.0) 10/14/16 06:00 Ur Leukocyte Esterase NEGATIVE (NEGATIVE) 10/14/16 06:00 Urine RBC 0-1 /hpf (0-5) 10/14/16 06:00 Urine WBC 2-5 /hpf (0-5) 10/14/16 06:00 Ur Epithelial Cells OCCASIONAL /lpf (FEW) 10/14/16 06:00 Amorphous Sediment FEW URATES (NONE SEEN) 10/14/16 06:00 Urine Bacteria NONE SEEN /hpf (NONE SEEN) 10/14/16 06:00 Vancomycin Trough 20.9 ug/mL (10-20) H 10/26/16 09:35 Random Vancomycin 19.9 ug/mL (5.0-40.0) 11/01/16 06:10 Hepatitis A IgM Ab Negative (Negative) 10/15/16 05:17 Hep Bs Antigen Negative (Negative) 10/15/16 05:17 Hep B Core IgM Ab Negative (Negative) 10/15/16 05:17 Hepatitis C Antibody <0.1 s/co ratio (0.0-0.9) 10/15/16 05:17 HIV 1&2 Antibody Screen NEGATIVE (NEG) 10/27/16 04:52 TB (QFT) Gold In Tube Negative (Negative) 10/24/16 16:00 TB Test (QFT) Mitogen 3.00 IU/mL 10/24/16 16:00 TB Test (QFT) Antigen 0.05 IU/mL 10/24/16 16:00 TB Test Antigen - Nil <0.00 IU/mL 10/24/16 16:00 TB Test TB - Nil 0.06 IU/mL 10/24/16 16:00 TB Test (QFT) Interp (()) 10/24/16 16:00 - Physical Exam Vitals and I&O: Vital Signs Temp 96.5 F 11/02/16 12:00 Pulse 77 11/02/16 12:00 Resp 17 11/02/16 12:00 BP 108/65 11/02/16 12:00 Pulse Ox 97 11/02/16 12:00 Intake & Output 11/01/16 11/02/16 11/02/16 18:59 06:59 18:59 Intake Total 200 200 Balance 200 200 Intake: Intake, IV Amount 50 cefTRIAXone 1 gm In 50 Sodium Chloride 0.9% 50 ml @ 100 mls/hr IV Q24HR [facility] Rx#:[id number] Oral 150 200 Active Medications: Current Medications Acetaminophen (Tylenol) 650 mg PO Q4HR PRN PRN Reason: fever/pain Stop: 12/13/16 01:20 Last Admin: 10/14/16 09:03 Dose: 650 mg Acetaminophen/Hydrocodone Bitart ([place] 5mg/325mg) 1 tab PO Q3H PRN PRN Reason: moderate pain (4-6) Stop: 12/13/16 10:21 Last Admin: 10/31/16 09:06 Dose: 1 tab Acetaminophen/Hydrocodone Bitart ([place] 10 Mg/325 Mg) 1 tab PO Q6H PRN PRN Reason: Pain (Severe) Stop: 12/30/16 12:53 Last Admin: 10/31/16 21:48 Dose: 1 tab Aspirin (Ecotrin) 81 mg PO QAM [facility] Stop: 12/14/16 08:59 Last Admin: 11/02/16 09:53 Dose: Not Given Cilostazol (Pletal) 100 mg PO BID [facility] Stop: 12/22/16 16:59 Last Admin: 11/02/16 09:53 Dose: Not Given Docusate Sodium (Colace) 100 mg PO BID [facility] Stop: 12/13/16 16:59 Last Admin: 11/02/16 09:53 Dose: Not Given Ethambutol HCl (Myambutol) 800 mg PO DAILY [facility] Stop: 12/29/16 08:59 Last Admin: 11/02/16 09:53 Dose: Not Given Folic Acid (Folate) 1 mg PO DAILY [facility] Stop: 12/14/16 08:59 Last Admin: 11/02/16 09:53 Dose: Not Given Ceftriaxone Sodium 1 gm/ (Sodium Chloride) 50 mls @ 100 mls/hr IV Q24HR [facility] Stop: 12/30/16 15:59 Last Infusion: 11/01/16 17:09 Dose: Infused Insulin Aspart (Novolog Insulin Sliding Scale) 0 units SUBQ ACHS [facility] PRN Reason: Protocol Stop: 12/13/16 16:29 Last Admin: 11/02/16 11:29 Dose: Not Given Isoniazid (Inh) 300 mg PO DAILY [facility] Stop: 12/29/16 08:59 Last Admin: 11/02/16 09:53 Dose: Not Given Levothyroxine Sodium (Synthroid) 0.05 mg PO QDAC [facility] Stop: 12/19/16 06:29 Last Admin: 11/02/16 06:35 Dose: 0.05 mg Miscellaneous (Clinical Monitoring) 1 ea PRN PRN PRN Reason: RENAL DOSING Stop: 12/13/16 13:45 Miscellaneous (Vancomycin Iv Per Pharmacy) 1 ea PRN PRN PRN Reason: PROTOCOL Stop: 12/30/16 12:53 Morphine Sulfate (Morphine) 1 mg IVP Q4HR PRN PRN Reason: Pain (Moderate) Stop: 12/31/16 00:55 Last Admin: 11/02/16 03:06 Dose: 1 mg Pantoprazole Sodium (Protonix) 40 mg PO DAILY [facility] Stop: 12/14/16 08:59 Last Admin: 11/02/16 09:53 Dose: Not Given Polyethylene Glycol (Miralax) 17 gm PO DAILY [facility] Stop: 12/28/16 08:59 Last Admin: 11/02/16 09:54 Dose: Not Given Prochlorperazine Maleate (Compazine) 10 mg PO Q6H PRN PRN Reason: Nausea / Vomiting Stop: 12/13/16 10:39 Last Admin: 10/27/16 13:01 Dose: 10 mg Promethazine HCl/Dextromethorphan (Phenergan Dm 6.25/15mg-5 Ml) 5 ml PO BID PRN PRN Reason: Cough Stop: 12/21/16 15:19 Pyrazinamide (Pza) 1,000 mg PO DAILY [facility] Stop: 12/29/16 08:59 Last Admin: 11/02/16 09:54 Dose: Not Given Pyridoxine HCl (Vitamin B6) 50 mg PO DAILY [facility] Stop: 12/29/16 08:59 Last Admin: 11/02/16 09:54 Dose: Not Given Rifampin (Rifadin) 600 mg PO DAILY [facility] Stop: 12/29/16 08:59 Last Admin: 11/02/16 09:54 Dose: Not Given Senna (Senna) 17.2 mg PO HS [facility] Stop: 12/13/16 20:59 Last Admin: 11/01/16 21:30 Dose: 17.2 mg Vitamin B Complex/Vit C/Folic Acid (Vitamin B Complex W/Vitamin C) 1 tab PO DAILY [facility] Stop: 12/14/16 08:59 Last Admin: 11/02/16 09:54 Dose: Not Given - Procedures Procedures: Procedures Procedure Code Date ART BYP FEMORAL-FEMORAL 93658 10/13/16 BYPASS L FEM ART TO R FEMOR A WITH SYNTH SUB, OPEN APPROACH [id number] 10/13/16 COMPOSITE BYP GRFT PROS&VEIN [id number] 10/13/16 Assessment/Plan - Problem List Patient Problems: All Active Problems dm (Acute) esrd (Acute) h/o chf (Acute) htn (Acute) non healing ulcer (Acute) sepsis (Acute) vascular insuffi (Acute) - Assessment Assessment: 1. Right big toe cellulitis. 2/2 PAD. 2. R pneumonia. 3. CHF. 4. CKD 5 on HD. 5. DM2 - Plan Plan: if cta cannot be done, consider vq scan, appreciate consults reccomendation continue ivabx as per id cbc/bmp in am continue current plan of care
[2016-11-02] MEDS: cefTRIAXone 1 GM in Sodium Chloride 0.9% 50 ML IV SCH (17:19)
[2016-11-03] MEDS: INSULIN ASPART SLIDING SCALE 100 UNITS/ML UNIT SUBQ SCH ×6 (01:15→21:00)
[2016-11-03] MEDS: Morphine Sulfate 2 mg/mL 1mL Syr IVP PRN ×2 (06:13→17:30)
[2016-11-03] MEDS: Levothyroxine 0.05 Mg Tab PO SCH ×2 (06:33→06:34)
--- NOTE | 2016-11-03 08:45 | Operative Report ---
PREOPERATIVE DIAGNOSES: 1. Clotted left arm arteriovenous shunt. 2. Gangrene, right big toe. 3. Status post femoral-femoral bypass graft. 4. Diabetes mellitus. 5. Hypertension. 6. Congestive heart failure by history. POSTOPERATIVE DIAGNOSES: 1. Clotted left arm arteriovenous shunt. 2. Gangrene, right big toe. 3. Status post femoral-femoral bypass graft. 4. Diabetes mellitus. 5. Hypertension. 6. Congestive heart failure by history. OPERATION DONE: 1. Thrombectomy, left arm AV shunt. 2. Placement of Perm-A-Cath left subclavian vein under ultrasound and fluoroscopy. 3. Amputation of the right big toe. SURGEON: Alexandru Martinez M.D. ANESTHESIA: MAC. ANESTHESIOLOGIST: ____. ESTIMATED BLOOD LOSS: 20 mL. INDICATIONS FOR SURGERY: The patient with clotted left arm AV shunt. OPERATIVE FINDINGS: The patient had previous stent placement and attempt to open this was unsuccessful. In view of the failure, a Perm-A-Cath was placed in the subclavian location. The right big toe was amputated as it never improved after the femoral-femoral bypass graft. DESCRIPTION OF PROCEDURE: The patient was given IV sedation. The left upper extremity and chest were prepped with Betadine and draped in appropriate manner. 1% lidocaine was used to infiltrate the axillary area outside the previous scar from AV shunt. An incision made and the previous anastomosis was exposed. An incision was made on the proximal portioned graft, just sort of the venous anastomosis and attempt to remove the stent was unsuccessful. Because of this, the incision on the graft was closed with running suture of 6-0 Prolene. The incision was then closed with running suture of 3-0 Vicryl subcutaneously and the skin was closed with subcuticular suture of 3-0 Vicryl. The left chest being prepped prior to the Perm-A-Cath placement was mapped for identification of the subclavian vessel via ultrasound. 1% lidocaine was used to infiltrate the region identified and a size 18 needle was used to get the vein. Under fluoroscopy, guide was inserted and followed the course into the inferior vena cava. The dilator was placed over the guidewire and then introducer and then a 24 cm Medcomp catheter. There was a good placement of the tip. The catheter was anchored to the skin with 2-0 silk. The right foot was prepped with Betadine and draped in appropriate manner. 1% lidocaine was used to infiltrate around the circumference of the toe. The incision made dorsally and ventrally and the MP joint was disarticulated. Following satisfactory hemostasis, the incision was closed with interrupted sutures of 3-0 Vicryl subcutaneously and the skin was closed with subcuticular suture of 4-0 Vicryl. Sterile dressing was placed over this. The patient tolerated the procedure well. [facility] [id number]
--- NOTE | 2016-11-03 09:35 | General Progress Note ---
Subjective - Review of Systems Subjective: patient lethargic, arousable, no sob. Objective - Results Result Diagrams: 10/28/16 06:30 11/02/16 06:50 Recent Labs: Laboratory Last Values WBC 11.3 Th/cmm (4.8-10.8) H 10/28/16 06:30 RBC 3.40 Mil/cmm (3.80-5.20) L 10/28/16 06:30 Hgb 10.7 gm/dL (11.7-16.1) L 10/28/16 06:30 Hct 32.1 % (35.0-45.0) L 10/28/16 06:30 MCV 94.2 fl (81-100) 10/28/16 06:30 MCH 31.3 pg (27.0-31.0) H 10/28/16 06:30 MCHC Differential 33.3 pg (28.0-36.0) 10/28/16 06:30 RDW 21.1 % (11.5-20.0) H 10/28/16 06:30 Plt Count 165 Th/cmm (150-400) 10/28/16 06:30 MPV 9.2 fl 10/28/16 06:30 Band Neutrophils % 2 % (0-10) 10/28/16 06:30 Neutrophils (Manual) 80 % (40-80) 10/28/16 06:30 Lymphocytes 13 % (20-50) L 10/28/16 06:30 Monocytes 4 % (2-10) 10/28/16 06:30 Eosinophils 1 % (0-5) 10/28/16 06:30 Basophils 2 % (0-3) 10/19/16 06:40 Metamyelocytes 1 % (0-0) H 10/27/16 04:52 Nucleated RBCs 2.0 % (0-0) H 10/27/16 04:52 Platelet Estimate ADEQUATE (NORMAL) 10/28/16 06:30 Platelet Morphology GIANT PLATELETS SEEN (NORMAL) 10/28/16 06:30 Polychromasia 1+ 10/25/16 05:20 Anisocytosis 1+ 10/28/16 06:30 RBC Morph Micro Appear ABNORMAL (NORMAL) 10/28/16 06:30 PT 18.3 SECONDS (9.5-11.5) H 10/23/16 04:50 INR 1.78 (0.5-1.4) H 10/23/16 04:50 PTT (Actin FS) 34.8 SECONDS (26.0-38.0) 10/23/16 04:50 Specimen Source Arterial 10/31/16 09:00 Sample Site RB 10/31/16 09:00 pH 7.27 (7.35-7.45) L 10/31/16 09:00 pCO2 60.0 mmHg (35.0-45.0) H* 10/31/16 09:00 pO2 63.0 mmHg (80.0-100.0) L 10/31/16 09:00 HCO3 27.6 mmol/L (20.0-26.0) H 10/31/16 09:00 Base Excess 0.4 mmol/L (-3.0-3.0) 10/31/16 09:00 O2 Saturation 88.0 % (92.0-100.0) L 10/31/16 09:00 Sanjeev Test NA 10/31/16 09:00 Vent Rate NA 10/31/16 09:00 Inspired O2 28 10/31/16 09:00 Tidal Volume NA 10/31/16 09:00 PEEP NA 10/31/16 09:00 Pressure (ins/psv/peep) NA 10/31/16 09:00 Critical Value SH 10/31/16 09:00 Sodium 139 mEq/L (136-145) 11/02/16 06:50 Potassium 3.6 mEq/L (3.5-5.1) 11/02/16 06:50 Chloride 104 mEq/L (98-107) 11/02/16 06:50 Carbon Dioxide 25.3 mEq/L (21.0-31.0) 11/02/16 06:50 Anion Gap 13.3 (7.0-16.0) 11/02/16 06:50 BUN 22 mg/dL (7-25) 11/02/16 06:50 Creatinine 1.8 mg/dL (0.6-1.2) H 11/02/16 06:50 Est GFR ( Amer) 35.9 ml/min 11/02/16 06:50 Est GFR (Non-Af Amer) 29.7 ml/min 11/02/16 06:50 BUN/Creatinine Ratio 12.2 11/02/16 06:50 Glucose 120 mg/dL (70-105) H 11/02/16 06:50 POC Glucose 65 MG/DL (70 - 105) L 11/03/16 06:31 Hemoglobin A1c % 6.9 % (4.0-6.0) H 10/15/16 05:17 Calcium 9.1 mg/dL (8.6-10.3) 11/02/16 06:50 Magnesium 1.9 mg/dL (1.9-2.7) 11/02/16 06:50 Total Bilirubin 1.1 mg/dL (0.3-1.0) H 10/27/16 04:52 Direct Bilirubin 0.26 mg/dL (0.0-0.2) H 10/27/16 04:52 AST 19 U/L (13-39) 10/27/16 04:52 ALT 5 U/L (7-52) L 10/27/16 04:52 Alkaline Phosphatase 102 U/L (34-104) 10/27/16 04:52 Ammonia 50 umol/L (16-53) 10/14/16 10:40 B-Natriuretic Peptide > 5000.0 pg/mL (5.0-100.0) H 10/17/16 06:50 Total Protein 6.4 gm/dL (6.0-8.3) 10/27/16 04:52 Albumin 3.1 gm/dL (3.7-5.3) L 10/27/16 04:52 Globulin 3.3 gm/dL 10/27/16 04:52 Albumin/Globulin Ratio 0.9 (1.0-1.8) L 10/27/16 04:52 Prealbumin 9 mg/dL (10-36) L 11/01/16 06:10 Triglycerides 119 mg/dL (<150) 10/14/16 10:40 Cholesterol 80 mg/dL (<200) 10/14/16 10:40 LDL Cholesterol Direct 26 mg/dL (75-193) L 10/14/16 10:40 HDL Cholesterol 33 mg/dL (23-92) 10/14/16 10:40 TSH 7.87 uIU/ml (0.34-5.60) H 10/14/16 10:40 Urine Source CATH 10/14/16 06:00 Urine Color BROWN 10/14/16 06:00 Urine Clarity SL. CLOUDY (CLEAR) 10/14/16 06:00 Urine pH 5.5 10/14/16 06:00 Ur Specific [place] 1.025 (1.005-1.030) 10/14/16 06:00 Urine Protein 100 mg/dL (NEGATIVE) H 10/14/16 06:00 Urine Glucose (UA) NEGATIVE mg/dL (NEGATIVE) 10/14/16 06:00 Urine Ketones TRACE mg/dL (NEGATIVE) 10/14/16 06:00 Urine Blood TRACE (NEGATIVE) 10/14/16 06:00 Urine Nitrate NEGATIVE (NEGATIVE) 10/14/16 06:00 Urine Bilirubin SMALL (NEGATIVE) H 10/14/16 06:00 Urine Urobilinogen 0.2 E.U./dL (0.2 - 1.0) 10/14/16 06:00 Ur Leukocyte Esterase NEGATIVE (NEGATIVE) 10/14/16 06:00 Urine RBC 0-1 /hpf (0-5) 10/14/16 06:00 Urine WBC 2-5 /hpf (0-5) 10/14/16 06:00 Ur Epithelial Cells OCCASIONAL /lpf (FEW) 10/14/16 06:00 Amorphous Sediment FEW URATES (NONE SEEN) 10/14/16 06:00 Urine Bacteria NONE SEEN /hpf (NONE SEEN) 10/14/16 06:00 Vancomycin Trough 20.9 ug/mL (10-20) H 10/26/16 09:35 Random Vancomycin 19.9 ug/mL (5.0-40.0) 11/01/16 06:10 Hepatitis A IgM Ab Negative (Negative) 10/15/16 05:17 Hep Bs Antigen Negative (Negative) 10/15/16 05:17 Hep B Core IgM Ab Negative (Negative) 10/15/16 05:17 Hepatitis C Antibody <0.1 s/co ratio (0.0-0.9) 10/15/16 05:17 HIV 1&2 Antibody Screen NEGATIVE (NEG) 10/27/16 04:52 TB (QFT) Gold In Tube Negative (Negative) 10/24/16 16:00 TB Test (QFT) Mitogen 3.00 IU/mL 10/24/16 16:00 TB Test (QFT) Antigen 0.05 IU/mL 10/24/16 16:00 TB Test Antigen - Nil <0.00 IU/mL 10/24/16 16:00 TB Test TB - Nil 0.06 IU/mL 10/24/16 16:00 TB Test (QFT) Interp (()) 10/24/16 16:00 - Physical Exam Vitals and I&O: Vital Signs Temp 96.5 F 11/03/16 04:00 Pulse 99 11/03/16 04:00 Resp 23 11/03/16 05:09 BP 106/65 11/03/16 04:00 Pulse Ox 97 11/03/16 05:09 Intake & Output 11/02/16 11/03/16 11/03/16 18:59 06:59 18:59 Intake Total 50 200 Balance 50 200 Intake: Oral 50 200 Other: # Bowel Movements 1 Active Medications: Current Medications Acetaminophen (Tylenol) 650 mg PO Q4HR PRN PRN Reason: fever/pain Stop: 12/13/16 01:20 Last Admin: 10/14/16 09:03 Dose: 650 mg Acetaminophen/Hydrocodone Bitart ([place] 5mg/325mg) 1 tab PO Q3H PRN PRN Reason: moderate pain (4-6) Stop: 12/13/16 10:21 Last Admin: 10/31/16 09:06 Dose: 1 tab Acetaminophen/Hydrocodone Bitart ([place] 10 Mg/325 Mg) 1 tab PO Q6H PRN PRN Reason: Pain (Severe) Stop: 12/30/16 12:53 Last Admin: 10/31/16 21:48 Dose: 1 tab Aspirin (Ecotrin) 81 mg PO QAM [facility] Stop: 12/14/16 08:59 Last Admin: 11/02/16 09:53 Dose: Not Given Cilostazol (Pletal) 100 mg PO BID [facility] Stop: 12/22/16 16:59 Last Admin: 11/02/16 17:20 Dose: Not Given Docusate Sodium (Colace) 100 mg PO BID [facility] Stop: 12/13/16 16:59 Last Admin: 11/02/16 17:20 Dose: Not Given Ethambutol HCl (Myambutol) 800 mg PO DAILY [facility] Stop: 12/29/16 08:59 Last Admin: 11/02/16 09:53 Dose: Not Given Folic Acid (Folate) 1 mg PO DAILY [facility] Stop: 12/14/16 08:59 Last Admin: 11/02/16 09:53 Dose: Not Given Ceftriaxone Sodium 1 gm/ (Sodium Chloride) 50 mls @ 100 mls/hr IV Q24HR [facility] Stop: 12/30/16 15:59 Last Admin: 11/02/16 17:19 Dose: Not Given Insulin Aspart (Novolog Insulin Sliding Scale) 0 units SUBQ ACHS [facility] PRN Reason: Protocol Stop: 12/13/16 16:29 Last Admin: 11/03/16 06:34 Dose: Not Given Isoniazid (Inh) 300 mg PO DAILY [facility] Stop: 12/29/16 08:59 Last Admin: 11/02/16 09:53 Dose: Not Given Levothyroxine Sodium (Synthroid) 0.05 mg PO QDAC [facility] Stop: 12/19/16 06:29 Last Admin: 11/03/16 06:34 Dose: 0.05 mg Miscellaneous (Clinical Monitoring) 1 ea PRN PRN PRN Reason: RENAL DOSING Stop: 12/13/16 13:45 Miscellaneous (Vancomycin Iv Per Pharmacy) 1 [facility] PRN PRN PRN Reason: PROTOCOL Stop: 12/30/16 12:53 Morphine Sulfate (Morphine) 1 mg IVP Q4HR PRN PRN Reason: Pain (Moderate) Stop: 12/31/16 00:55 Last Admin: 11/03/16 06:13 Dose: 1 mg Pantoprazole Sodium (Protonix) 40 mg PO DAILY [facility] Stop: 12/14/16 08:59 Last Admin: 11/02/16 09:53 Dose: Not Given Polyethylene Glycol (Miralax) 17 gm PO DAILY [facility] Stop: 12/28/16 08:59 Last Admin: 11/02/16 09:54 Dose: Not Given Prochlorperazine Maleate (Compazine) 10 mg PO Q6H PRN PRN Reason: Nausea / Vomiting Stop: 12/13/16 10:39 Last Admin: 10/27/16 13:01 Dose: 10 mg Promethazine HCl/Dextromethorphan (Phenergan Dm 6.25/15mg-5 Ml) 5 ml PO BID PRN PRN Reason: Cough Stop: 12/21/16 15:19 Pyrazinamide (Pza) 1,000 mg PO DAILY [facility] Stop: 12/29/16 08:59 Last Admin: 11/02/16 09:54 Dose: Not Given Pyridoxine HCl (Vitamin B6) 50 mg PO DAILY [facility] Stop: 12/29/16 08:59 Last Admin: 11/02/16 09:54 Dose: Not Given Rifampin (Rifadin) 600 mg PO DAILY [facility] Stop: 12/29/16 08:59 Last Admin: 11/02/16 09:54 Dose: Not Given Senna (Senna) 17.2 mg PO HS [facility] Stop: 12/13/16 20:59 Last Admin: 11/03/16 01:13 Dose: Not Given Vitamin B Complex/Vit C/Folic Acid (Vitamin B Complex W/Vitamin C) 1 tab PO DAILY [facility] Stop: 12/14/16 08:59 Last Admin: 11/02/16 09:54 Dose: Not Given - Procedures Procedures: Procedures Procedure Code Date ART BYP FEMORAL-FEMORAL 09260 10/13/16 BYPASS L FEM ART TO R FEMOR A WITH SYNTH SUB, OPEN APPROACH [id number] 10/13/16 COMPOSITE BYP GRFT PROS&VEIN 10966 10/13/16 Assessment/Plan - Problem List Patient Problems: All Active Problems dm (Acute) esrd (Acute) h/o chf (Acute) htn (Acute) non healing ulcer (Acute) sepsis (Acute) vascular insuffi (Acute) - Assessment Assessment: 1. Right big toe cellulitis. 2/2 PAD. 2. R pneumonia. 3. CHF. 4. CKD 5 on HD. 5. DM2 - Plan Plan: if cta cannot be done, consider vq scan, appreciate consults reccomendation continue ivabx as per id cbc/bmp in am continue current plan of care
--- NOTE | 2016-11-03 10:11 | Progress Notes ---
PULMONARY PROGRESS NOTE PROBLEM LIST: 1. Bilateral effusion. 2. Right lower lobe chest x-ray abnormal. 3. Chronic renal failure, on hemodialysis, shunt got clotted, has not been dialyzed for last 2-3 days. SYMPTOMS: Nil. Lethargic, arousable, no specific new symptoms, not feeling good, but no specific new symptoms. The patient was supposed to get declotting this afternoon. PHYSICAL EXAMINATION: VITAL SIGNS: Temperature is 96.5, blood pressure 105/65, and saturation 97% on 2 liters of oxygen. NECK: Veins are slightly engorged. CHEST: Shows diminished air entry, otherwise essentially unremarkable. HEART: Regular, otherwise essentially unremarkable. ABDOMEN: Slightly distended. EXTREMITIES: Shows poor pulsations. ASSESSMENT: The patient's clinical status quo not significantly changed. PLANS AND SUGGESTIONS: I have discussed with Dr. Brooks personally ____ of aggressive dialysis if necessary daily for a few days and repeat the chest x-ray and go from there. JOB# [id number]
[2016-11-03] MEDS: Pantoprazole 40 mg EC Tab PO SCH (10:18)
[2016-11-03] MEDS: POLYETHYLENE GLYCOL 3350 17 GM PACK PO SCH (10:19)
[2016-11-03] MEDS: Vitamin B Complex w/Vitamin C Tab PO SCH (10:19)
[2016-11-03] MEDS: Rifampin 300 mg Cap PO SCH (10:20)
--- NOTE | 2016-11-03 13:42 | General Progress Note ---
Subjective - Review of Systems Service Date: 11/03/16 Subjective: weak, less tacypnea, on NC, nonspecific pain Objective - Results Result Diagrams: 10/28/16 06:30 11/02/16 06:50 Recent Labs: Laboratory Last Values WBC 11.3 Th/cmm (4.8-10.8) H 10/28/16 06:30 RBC 3.40 Mil/cmm (3.80-5.20) L 10/28/16 06:30 Hgb 10.7 gm/dL (11.7-16.1) L 10/28/16 06:30 Hct 32.1 % (35.0-45.0) L 10/28/16 06:30 MCV 94.2 fl (81-100) 10/28/16 06:30 MCH 31.3 pg (27.0-31.0) H 10/28/16 06:30 MCHC Differential 33.3 pg (28.0-36.0) 10/28/16 06:30 RDW 21.1 % (11.5-20.0) H 10/28/16 06:30 Plt Count 165 Th/cmm (150-400) 10/28/16 06:30 MPV 9.2 fl 10/28/16 06:30 Band Neutrophils % 2 % (0-10) 10/28/16 06:30 Neutrophils (Manual) 80 % (40-80) 10/28/16 06:30 Lymphocytes 13 % (20-50) L 10/28/16 06:30 Monocytes 4 % (2-10) 10/28/16 06:30 Eosinophils 1 % (0-5) 10/28/16 06:30 Basophils 2 % (0-3) 10/19/16 06:40 Metamyelocytes 1 % (0-0) H 10/27/16 04:52 Nucleated RBCs 2.0 % (0-0) H 10/27/16 04:52 Platelet Estimate ADEQUATE (NORMAL) 10/28/16 06:30 Platelet Morphology GIANT PLATELETS SEEN (NORMAL) 10/28/16 06:30 Polychromasia 1+ 10/25/16 05:20 Anisocytosis 1+ 10/28/16 06:30 RBC Morph Micro Appear ABNORMAL (NORMAL) 10/28/16 06:30 PT 18.3 SECONDS (9.5-11.5) H 10/23/16 04:50 INR 1.78 (0.5-1.4) H 10/23/16 04:50 PTT (Actin FS) 34.8 SECONDS (26.0-38.0) 10/23/16 04:50 Specimen Source Arterial 10/31/16 09:00 Sample Site RB 10/31/16 09:00 pH 7.27 (7.35-7.45) L 10/31/16 09:00 pCO2 60.0 mmHg (35.0-45.0) H* 10/31/16 09:00 pO2 63.0 mmHg (80.0-100.0) L 10/31/16 09:00 HCO3 27.6 mmol/L (20.0-26.0) H 10/31/16 09:00 Base Excess 0.4 mmol/L (-3.0-3.0) 10/31/16 09:00 O2 Saturation 88.0 % (92.0-100.0) L 10/31/16 09:00 Sanjeev Test NA 10/31/16 09:00 Vent Rate NA 10/31/16 09:00 Inspired O2 28 10/31/16 09:00 Tidal Volume NA 10/31/16 09:00 PEEP NA 10/31/16 09:00 Pressure (ins/psv/peep) NA 10/31/16 09:00 Critical Value SH 10/31/16 09:00 Sodium 139 mEq/L (136-145) 11/02/16 06:50 Potassium 3.6 mEq/L (3.5-5.1) 11/02/16 06:50 Chloride 104 mEq/L (98-107) 11/02/16 06:50 Carbon Dioxide 25.3 mEq/L (21.0-31.0) 11/02/16 06:50 Anion Gap 13.3 (7.0-16.0) 11/02/16 06:50 BUN 22 mg/dL (7-25) 11/02/16 06:50 Creatinine 1.8 mg/dL (0.6-1.2) H 11/02/16 06:50 Est GFR ( Amer) 35.9 ml/min 11/02/16 06:50 Est GFR (Non-Af Amer) 29.7 ml/min 11/02/16 06:50 BUN/Creatinine Ratio 12.2 11/02/16 06:50 Glucose 120 mg/dL (70-105) H 11/02/16 06:50 POC Glucose 167 MG/DL (70 - 105) H 11/03/16 11:22 Hemoglobin A1c % 6.9 % (4.0-6.0) H 10/15/16 05:17 Calcium 9.1 mg/dL (8.6-10.3) 11/02/16 06:50 Magnesium 1.9 mg/dL (1.9-2.7) 11/02/16 06:50 Total Bilirubin 1.1 mg/dL (0.3-1.0) H 10/27/16 04:52 Direct Bilirubin 0.26 mg/dL (0.0-0.2) H 10/27/16 04:52 AST 19 U/L (13-39) 10/27/16 04:52 ALT 5 U/L (7-52) L 10/27/16 04:52 Alkaline Phosphatase 102 U/L (34-104) 10/27/16 04:52 Ammonia 50 umol/L (16-53) 10/14/16 10:40 B-Natriuretic Peptide > 5000.0 pg/mL (5.0-100.0) H 10/17/16 06:50 Total Protein 6.4 gm/dL (6.0-8.3) 10/27/16 04:52 Albumin 3.1 gm/dL (3.7-5.3) L 10/27/16 04:52 Globulin 3.3 gm/dL 10/27/16 04:52 Albumin/Globulin Ratio 0.9 (1.0-1.8) L 10/27/16 04:52 Prealbumin 9 mg/dL (10-36) L 11/01/16 06:10 Triglycerides 119 mg/dL (<150) 10/14/16 10:40 Cholesterol 80 mg/dL (<200) 10/14/16 10:40 LDL Cholesterol Direct 26 mg/dL (75-193) L 10/14/16 10:40 HDL Cholesterol 33 mg/dL (23-92) 10/14/16 10:40 TSH 7.87 uIU/ml (0.34-5.60) H 10/14/16 10:40 Urine Source CATH 10/14/16 06:00 Urine Color BROWN 10/14/16 06:00 Urine Clarity SL. CLOUDY (CLEAR) 10/14/16 06:00 Urine pH 5.5 10/14/16 06:00 Ur Specific [place] 1.025 (1.005-1.030) 10/14/16 06:00 Urine Protein 100 mg/dL (NEGATIVE) H 10/14/16 06:00 Urine Glucose (UA) NEGATIVE mg/dL (NEGATIVE) 10/14/16 06:00 Urine Ketones TRACE mg/dL (NEGATIVE) 10/14/16 06:00 Urine Blood TRACE (NEGATIVE) 10/14/16 06:00 Urine Nitrate NEGATIVE (NEGATIVE) 10/14/16 06:00 Urine Bilirubin SMALL (NEGATIVE) H 10/14/16 06:00 Urine Urobilinogen 0.2 E.U./dL (0.2 - 1.0) 10/14/16 06:00 Ur Leukocyte Esterase NEGATIVE (NEGATIVE) 10/14/16 06:00 Urine RBC 0-1 /hpf (0-5) 10/14/16 06:00 Urine WBC 2-5 /hpf (0-5) 10/14/16 06:00 Ur Epithelial Cells OCCASIONAL /lpf (FEW) 10/14/16 06:00 Amorphous Sediment FEW URATES (NONE SEEN) 10/14/16 06:00 Urine Bacteria NONE SEEN /hpf (NONE SEEN) 10/14/16 06:00 Vancomycin Trough 20.9 ug/mL (10-20) H 10/26/16 09:35 Random Vancomycin 19.9 ug/mL (5.0-40.0) 11/01/16 06:10 Hepatitis A IgM Ab Negative (Negative) 10/15/16 05:17 Hep Bs Antigen Negative (Negative) 10/15/16 05:17 Hep B Core IgM Ab Negative (Negative) 10/15/16 05:17 Hepatitis C Antibody <0.1 s/co ratio (0.0-0.9) 10/15/16 05:17 HIV 1&2 Antibody Screen NEGATIVE (NEG) 10/27/16 04:52 TB (QFT) Gold In Tube Negative (Negative) 10/24/16 16:00 TB Test (QFT) Mitogen 3.00 IU/mL 10/24/16 16:00 TB Test (QFT) Antigen 0.05 IU/mL 10/24/16 16:00 TB Test Antigen - Nil <0.00 IU/mL 10/24/16 16:00 TB Test TB - Nil 0.06 IU/mL 10/24/16 16:00 TB Test (QFT) Interp (()) 10/24/16 16:00 - Physical Exam Vitals and I&O: Vital Signs Temp 96.5 F 11/03/16 04:00 Pulse 99 11/03/16 04:00 Resp 23 11/03/16 05:09 BP 106/65 11/03/16 04:00 Pulse Ox 97 11/03/16 05:09 Intake & Output 11/02/16 11/03/16 11/03/16 18:59 06:59 18:59 Intake Total 50 200 Balance 50 200 Intake: Oral 50 200 Other: # Bowel Movements 1 Active Medications: Current Medications Acetaminophen (Tylenol) 650 mg PO Q4HR PRN PRN Reason: fever/pain Stop: 12/13/16 01:20 Last Admin: 10/14/16 09:03 Dose: 650 mg Acetaminophen/Hydrocodone Bitart ([place] 5mg/325mg) 1 tab PO Q3H PRN PRN Reason: moderate pain (4-6) Stop: 12/13/16 10:21 Last Admin: 10/31/16 09:06 Dose: 1 tab Acetaminophen/Hydrocodone Bitart ([place] 10 Mg/325 Mg) 1 tab PO Q6H PRN PRN Reason: Pain (Severe) Stop: 12/30/16 12:53 Last Admin: 10/31/16 21:48 Dose: 1 tab Aspirin (Ecotrin) 81 mg PO QAM [facility] Stop: 12/14/16 08:59 Last Admin: 11/03/16 10:18 Dose: 81 mg Cilostazol (Pletal) 100 mg PO BID [facility] Stop: 12/22/16 16:59 Last Admin: 11/03/16 10:18 Dose: 100 mg Docusate Sodium (Colace) 100 mg PO BID [facility] Stop: 12/13/16 16:59 Last Admin: 11/03/16 10:18 Dose: 100 mg Ethambutol HCl (Myambutol) 800 mg PO DAILY [facility] Stop: 12/29/16 08:59 Last Admin: 11/03/16 10:19 Dose: 800 mg Folic Acid (Folate) 1 mg PO DAILY [facility] Stop: 12/14/16 08:59 Last Admin: 11/03/16 10:18 Dose: 1 mg Ceftriaxone Sodium 1 gm/ (Sodium Chloride) 50 mls @ 100 mls/hr IV Q24HR [facility] Stop: 12/30/16 15:59 Last Admin: 11/02/16 17:19 Dose: Not Given Insulin Aspart (Novolog Insulin Sliding Scale) 0 units SUBQ ACHS [facility] PRN Reason: Protocol Stop: 12/13/16 16:29 Last Admin: 11/03/16 13:09 Dose: 2 units Isoniazid (Inh) 300 mg PO DAILY [facility] Stop: 12/29/16 08:59 Last Admin: 11/03/16 10:20 Dose: 300 mg Levothyroxine Sodium (Synthroid) 0.05 mg PO QDAC [facility] Stop: 12/19/16 06:29 Last Admin: 11/03/16 06:34 Dose: 0.05 mg Miscellaneous (Clinical Monitoring) 1 ea PRN PRN PRN Reason: RENAL DOSING Stop: 12/13/16 13:45 Miscellaneous (Vancomycin Iv Per Pharmacy) 1 [facility] PRN PRN PRN Reason: PROTOCOL Stop: 12/30/16 12:53 Morphine Sulfate (Morphine) 1 mg IVP Q4HR PRN PRN Reason: Pain (Moderate) Stop: 12/31/16 00:55 Last Admin: 11/03/16 06:13 Dose: 1 mg Pantoprazole Sodium (Protonix) 40 mg PO DAILY [facility] Stop: 12/14/16 08:59 Last Admin: 11/03/16 10:18 Dose: 40 mg Polyethylene Glycol (Miralax) 17 gm PO DAILY [facility] Stop: 12/28/16 08:59 Last Admin: 11/03/16 10:19 Dose: 17 gm Prochlorperazine Maleate (Compazine) 10 mg PO Q6H PRN PRN Reason: Nausea / Vomiting Stop: 12/13/16 10:39 Last Admin: 10/27/16 13:01 Dose: 10 mg Promethazine HCl/Dextromethorphan (Phenergan Dm 6.25/15mg-5 Ml) 5 ml PO BID PRN PRN Reason: Cough Stop: 12/21/16 15:19 Pyrazinamide (Pza) 1,000 mg PO DAILY [facility] Stop: 12/29/16 08:59 Last Admin: 11/03/16 10:20 Dose: 1,000 mg Pyridoxine HCl (Vitamin B6) 50 mg PO DAILY [facility] Stop: 12/29/16 08:59 Last Admin: 11/03/16 10:18 Dose: 50 mg Rifampin (Rifadin) 600 mg PO DAILY [facility] Stop: 12/29/16 08:59 Last Admin: 11/03/16 10:20 Dose: 600 mg Senna (Senna) 17.2 mg PO HS [facility] Stop: 12/13/16 20:59 Last Admin: 11/03/16 01:13 Dose: Not Given Vitamin B Complex/Vit C/Folic Acid (Vitamin B Complex W/Vitamin C) 1 tab PO DAILY [facility] Stop: 12/14/16 08:59 Last Admin: 11/03/16 10:19 Dose: 1 tab General: Mild distress HEENT: Atraumatic, Mucous membr. moist/pink Neck: Supple, +2 carotid pulse wo bruit Cardiovascular: Regular rate, Normal S1, Normal S2 Lungs: Other (scattered rhonchi) Abdomen: Bowel sounds, Soft Extremities: no Edema Neurological: Sensation intact Skin: no Rash - Procedures Procedures: Procedures Procedure Code Date ART BYP FEMORAL-FEMORAL 97887 10/13/16 BYPASS L FEM ART TO R FEMOR A WITH SYNTH SUB, OPEN APPROACH [id number] 10/13/16 COMPOSITE BYP GRFT PROS&VEIN 90480 10/13/16 Assessment/Plan - Problem List Patient Problems: All Active Problems dm (Acute) esrd (Acute) h/o chf (Acute) htn (Acute) non healing ulcer (Acute) sepsis (Acute) vascular insuffi (Acute) - Assessment Assessment: ESRD on HD acute decomp systolic CHF acute resp failure, hypercapnea; hypoxemia ess htn anemia of ckd LLL HAP hypothyroid PAD w/ right toe discoloration chronic hyponatremia abd. pain better Left Fem-Pop bypass resp acicdosis clotted left avf - Plan Plan: cxr still w/ persistent chf new left perma cath schedule for hd again in am
[2016-11-03] MEDS ORDERED: Albumin 25% 25gm/100mL 25 GM/100 ML BTL IV PRN (14:00)
[2016-11-03] MEDS: cefTRIAXone 1 GM in Sodium Chloride 0.9% 50 ML IV SCH (16:59)
[2016-11-03] MEDS: Hydrocodone/APAP 10 mg/325 mg Tab PO PRN (21:10)
--- NOTE | 2016-11-04 05:25 | Progress Notes ---
PROBLEMS: 1. Acute respiratory failure. 2. Persistent hypoxemia with bilateral pleural effusion with abnormal chest x-ray. SYMPTOMS: The patient is awake, blinking eyes, not too much communication, though says not feeling good. PHYSICAL EXAMINATION: GENERAL: Not in any acute distress. VITAL SIGNS: Temperature is 96.5, blood pressure 106/65, respirations in 20s, saturation 98% on 2 liters of oxygen. NECK: Veins not visualized. CHEST: Shows diminished air entry. No other adventitious breath sounds. HEART: Regular. ABDOMEN: Soft, nontender. EXTREMITIES: Shows no peripheral edema. ASSESSMENT: The patient is clinically stable, not unchanged, continues to fluid overload. PLANS AND SUGGESTIONS: Consider continuing dialysis aggressively as much as possible and go from there. JOB# [id number]
[2016-11-04 06:25] LABS: HEMATOCRIT 30.7 % (35.0-45.0); HEMOGLOBIN 9.9 gm/dL (11.7-16.1); MEAN CELL VOLUME 95.4 fl (81-100); MEAN CORPUSCULAR HEMOGLOBIN 30.8 pg (27.0-31.0); MEAN CORPUSCULAR HGB CONC 32.3 pg (28.0-36.0); MEAN PLATELET VOLUME 9.7 fl; PLATELET COUNT 140 Th/cmm (150-400); RED BLOOD COUNT 3.22 Mil/cmm (3.80-5.20); RED CELL DISTRIBUTION WIDTH 20.4 % (11.5-20.0); WHITE BLOOD COUNT 9.3 Th/cmm (4.8-10.8)
[2016-11-04 06:46] LABS: ANION GAP 5.9 (7.0-16.0); BUN/CREATININE RATIO 11.5; CALCIUM SERUM 8.5 mg/dL (8.6-10.3); CARBON DIOXIDE 28.6 mEq/L (21.0-31.0); CREATININE - SERUM 1.3 mg/dL (0.6-1.2); POTASSIUM SERUM 3.5 mEq/L (3.5-5.1)
[2016-11-04] MEDS: Levothyroxine 0.05 Mg Tab PO SCH (07:01)
[2016-11-04] MEDS: INSULIN ASPART SLIDING SCALE 100 UNITS/ML UNIT SUBQ SCH ×4 (07:01→21:55)
[2016-11-04 08:22] LABS: BAND NEUTROPHILE 2 % (0-10); EOSINOPHIL 1 % (0-5); NEUTROPHILS 69 % (40-80); TOTAL CELLS COUNTED 100
[2016-11-04 08:23] LABS: ANISOCYTOSIS 1+; PLATELET ESTIMATE DECREASED PLATELETS (NORMAL); PLATELET MORPHOLOGY GIANT PLATELETS SEEN (NORMAL)
--- NOTE | 2016-11-04 09:03 | General Progress Note ---
Subjective - Review of Systems Subjective: patient lethargic, arousable, no sob. Objective - Results Result Diagrams: 11/04/16 06:18 11/04/16 06:18 Recent Labs: Laboratory Last Values WBC 9.3 Th/cmm (4.8-10.8) 11/04/16 06:18 RBC 3.22 Mil/cmm (3.80-5.20) L 11/04/16 06:18 Hgb 9.9 gm/dL (11.7-16.1) L 11/04/16 06:18 Hct 30.7 % (35.0-45.0) L 11/04/16 06:18 MCV 95.4 fl (81-100) 11/04/16 06:18 MCH 30.8 pg (27.0-31.0) 11/04/16 06:18 MCHC Differential 32.3 pg (28.0-36.0) 11/04/16 06:18 RDW 20.4 % (11.5-20.0) H 11/04/16 06:18 Plt Count 140 Th/cmm (150-400) L 11/04/16 06:18 MPV 9.7 fl 11/04/16 06:18 Band Neutrophils % 2 % (0-10) 11/04/16 06:18 Neutrophils (Manual) 69 % (40-80) 11/04/16 06:18 Lymphocytes 16 % (20-50) L 11/04/16 06:18 Monocytes 12 % (2-10) H 11/04/16 06:18 Eosinophils 1 % (0-5) 11/04/16 06:18 Basophils 2 % (0-3) 10/19/16 06:40 Metamyelocytes 1 % (0-0) H 10/27/16 04:52 Nucleated RBCs 2.0 % (0-0) H 10/27/16 04:52 Platelet Estimate DECREASED PLATELETS (NORMAL) 11/04/16 06:18 Platelet Morphology GIANT PLATELETS SEEN (NORMAL) 11/04/16 06:18 Polychromasia 1+ 10/25/16 05:20 Anisocytosis 1+ 11/04/16 06:18 RBC Morph Micro Appear ABNORMAL (NORMAL) 11/04/16 06:18 PT 18.3 SECONDS (9.5-11.5) H 10/23/16 04:50 INR 1.78 (0.5-1.4) H 10/23/16 04:50 PTT (Actin FS) 34.8 SECONDS (26.0-38.0) 10/23/16 04:50 Specimen Source Arterial 10/31/16 09:00 Sample Site RB 10/31/16 09:00 pH 7.27 (7.35-7.45) L 10/31/16 09:00 pCO2 60.0 mmHg (35.0-45.0) H* 10/31/16 09:00 pO2 63.0 mmHg (80.0-100.0) L 10/31/16 09:00 HCO3 27.6 mmol/L (20.0-26.0) H 10/31/16 09:00 Base Excess 0.4 mmol/L (-3.0-3.0) 10/31/16 09:00 O2 Saturation 88.0 % (92.0-100.0) L 10/31/16 09:00 Sanjeev Test NA 10/31/16 09:00 Vent Rate NA 10/31/16 09:00 Inspired O2 28 10/31/16 09:00 Tidal Volume NA 10/31/16 09:00 PEEP NA 10/31/16 09:00 Pressure (ins/psv/peep) NA 10/31/16 09:00 Critical Value SH 10/31/16 09:00 Sodium 135 mEq/L (136-145) L 11/04/16 06:18 Potassium 3.5 mEq/L (3.5-5.1) 11/04/16 06:18 Chloride 104 mEq/L (98-107) 11/04/16 06:18 Carbon Dioxide 28.6 mEq/L (21.0-31.0) 11/04/16 06:18 Anion Gap 5.9 (7.0-16.0) L 11/04/16 06:18 BUN 15 mg/dL (7-25) 11/04/16 06:18 Creatinine 1.3 mg/dL (0.6-1.2) H 11/04/16 06:18 Est GFR ( Amer) 52.2 ml/min 11/04/16 06:18 Est GFR (Non-Af Amer) 43.2 ml/min 11/04/16 06:18 BUN/Creatinine Ratio 11.5 11/04/16 06:18 Glucose 68 mg/dL (70-105) L 11/04/16 06:18 POC Glucose 94 MG/DL (70 - 105) 11/04/16 06:36 Hemoglobin A1c % 6.9 % (4.0-6.0) H 10/15/16 05:17 Calcium 8.5 mg/dL (8.6-10.3) L 11/04/16 06:18 Magnesium 1.9 mg/dL (1.9-2.7) 11/02/16 06:50 Total Bilirubin 1.1 mg/dL (0.3-1.0) H 10/27/16 04:52 Direct Bilirubin 0.26 mg/dL (0.0-0.2) H 10/27/16 04:52 AST 19 U/L (13-39) 10/27/16 04:52 ALT 5 U/L (7-52) L 10/27/16 04:52 Alkaline Phosphatase 102 U/L (34-104) 10/27/16 04:52 Ammonia 50 umol/L (16-53) 10/14/16 10:40 B-Natriuretic Peptide > 5000.0 pg/mL (5.0-100.0) H 10/17/16 06:50 Total Protein 6.4 gm/dL (6.0-8.3) 10/27/16 04:52 Albumin 3.1 gm/dL (3.7-5.3) L 10/27/16 04:52 Globulin 3.3 gm/dL 10/27/16 04:52 Albumin/Globulin Ratio 0.9 (1.0-1.8) L 10/27/16 04:52 Prealbumin 9 mg/dL (10-36) L 11/01/16 06:10 Triglycerides 119 mg/dL (<150) 10/14/16 10:40 Cholesterol 80 mg/dL (<200) 10/14/16 10:40 LDL Cholesterol Direct 26 mg/dL (75-193) L 10/14/16 10:40 HDL Cholesterol 33 mg/dL (23-92) 10/14/16 10:40 TSH 7.87 uIU/ml (0.34-5.60) H 10/14/16 10:40 Urine Source CATH 10/14/16 06:00 Urine Color BROWN 10/14/16 06:00 Urine Clarity SL. CLOUDY (CLEAR) 10/14/16 06:00 Urine pH 5.5 10/14/16 06:00 Ur Specific [place] 1.025 (1.005-1.030) 10/14/16 06:00 Urine Protein 100 mg/dL (NEGATIVE) H 10/14/16 06:00 Urine Glucose (UA) NEGATIVE mg/dL (NEGATIVE) 10/14/16 06:00 Urine Ketones TRACE mg/dL (NEGATIVE) 10/14/16 06:00 Urine Blood TRACE (NEGATIVE) 10/14/16 06:00 Urine Nitrate NEGATIVE (NEGATIVE) 10/14/16 06:00 Urine Bilirubin SMALL (NEGATIVE) H 10/14/16 06:00 Urine Urobilinogen 0.2 E.U./dL (0.2 - 1.0) 10/14/16 06:00 Ur Leukocyte Esterase NEGATIVE (NEGATIVE) 10/14/16 06:00 Urine RBC 0-1 /hpf (0-5) 10/14/16 06:00 Urine WBC 2-5 /hpf (0-5) 10/14/16 06:00 Ur Epithelial Cells OCCASIONAL /lpf (FEW) 10/14/16 06:00 Amorphous Sediment FEW URATES (NONE SEEN) 10/14/16 06:00 Urine Bacteria NONE SEEN /hpf (NONE SEEN) 10/14/16 06:00 Vancomycin Trough 20.9 ug/mL (10-20) H 10/26/16 09:35 Random Vancomycin 19.7 ug/mL (5.0-40.0) 11/04/16 06:18 Hepatitis A IgM Ab Negative (Negative) 10/15/16 05:17 Hep Bs Antigen Negative (Negative) 10/15/16 05:17 Hep B Core IgM Ab Negative (Negative) 10/15/16 05:17 Hepatitis C Antibody <0.1 s/co ratio (0.0-0.9) 10/15/16 05:17 HIV 1&2 Antibody Screen NEGATIVE (NEG) 10/27/16 04:52 TB (QFT) Gold In Tube Negative (Negative) 10/24/16 16:00 TB Test (QFT) Mitogen 3.00 IU/mL 10/24/16 16:00 TB Test (QFT) Antigen 0.05 IU/mL 10/24/16 16:00 TB Test Antigen - Nil <0.00 IU/mL 10/24/16 16:00 TB Test TB - Nil 0.06 IU/mL 10/24/16 16:00 TB Test (QFT) Interp (()) 10/24/16 16:00 - Physical Exam Vitals and I&O: Vital Signs Temp 97.0 F 11/04/16 04:00 Pulse 80 11/04/16 07:21 Resp 20 11/04/16 07:21 BP 90/46 11/04/16 04:00 Pulse Ox 99 11/04/16 07:21 Intake & Output 11/03/16 11/04/16 11/04/16 18:59 06:59 18:59 Intake Total 700 360 Output Total 700 Balance 0 360 Intake: Oral 700 360 Output: Other 700 Other: # Voids 2 # Bowel Movements 1 Stool Characteristics Soft Active Medications: Current Medications Acetaminophen (Tylenol) 650 mg PO Q4HR PRN PRN Reason: fever/pain Stop: 12/13/16 01:20 Last Admin: 10/14/16 09:03 Dose: 650 mg Acetaminophen/Hydrocodone Bitart ([place] 5mg/325mg) 1 tab PO Q3H PRN PRN Reason: moderate pain (4-6) Stop: 12/13/16 10:21 Last Admin: 10/31/16 09:06 Dose: 1 tab Acetaminophen/Hydrocodone Bitart ([place] 10 Mg/325 Mg) 1 tab PO Q6H PRN PRN Reason: Pain (Severe) Stop: 12/30/16 12:53 Last Admin: 11/03/16 21:10 Dose: 1 tab Aspirin (Ecotrin) 81 mg PO QAM [facility] Stop: 12/14/16 08:59 Last Admin: 11/03/16 10:18 Dose: 81 mg Cilostazol (Pletal) 100 mg PO BID [facility] Stop: 12/22/16 16:59 Last Admin: 11/03/16 17:01 Dose: 100 mg Docusate Sodium (Colace) 100 mg PO BID [facility] Stop: 12/13/16 16:59 Last Admin: 11/03/16 17:01 Dose: 100 mg Ethambutol HCl (Myambutol) 800 mg PO MWF [facility] Stop: 01/04/17 08:59 Folic Acid (Folate) 1 mg PO DAILY [facility] Stop: 12/14/16 08:59 Last Admin: 11/03/16 10:18 Dose: 1 mg Ceftriaxone Sodium 1 gm/ (Sodium Chloride) 50 mls @ 100 mls/hr IV Q24HR [facility] Stop: 12/30/16 15:59 Last Admin: 11/03/16 16:59 Dose: 100 mls/hr Insulin Aspart (Novolog Insulin Sliding Scale) 0 units SUBQ ACHS [facility] PRN Reason: Protocol Stop: 12/13/16 16:29 Last Admin: 11/04/16 07:01 Dose: Not Given Isoniazid (Inh) 300 mg PO DAILY [facility] Stop: 12/29/16 08:59 Last Admin: 11/03/16 10:20 Dose: 300 mg Levothyroxine Sodium (Synthroid) 0.05 mg PO QDAC [facility] Stop: 12/19/16 06:29 Last Admin: 11/04/16 07:01 Dose: 0.05 mg Miscellaneous (Clinical Monitoring) 1 [facility] PRN PRN PRN Reason: RENAL DOSING Stop: 12/13/16 13:45 Miscellaneous (Vancomycin Iv Per Pharmacy) 1 [facility] PRN PRN PRN Reason: PROTOCOL Stop: 12/30/16 12:53 Morphine Sulfate (Morphine) 1 mg IVP Q4HR PRN PRN Reason: Pain (Moderate) Stop: 12/31/16 00:55 Last Admin: 11/03/16 17:30 Dose: 1 mg Pantoprazole Sodium (Protonix) 40 mg PO DAILY [facility] Stop: 12/14/16 08:59 Last Admin: 11/03/16 10:18 Dose: 40 mg Polyethylene Glycol (Miralax) 17 gm PO DAILY [facility] Stop: 12/28/16 08:59 Last Admin: 11/03/16 10:19 Dose: 17 gm Prochlorperazine Maleate (Compazine) 10 mg PO Q6H PRN PRN Reason: Nausea / Vomiting Stop: 12/13/16 10:39 Last Admin: 10/27/16 13:01 Dose: 10 mg Promethazine HCl/Dextromethorphan (Phenergan Dm 6.25/15mg-5 Ml) 5 ml PO BID PRN PRN Reason: Cough Stop: 12/21/16 15:19 Pyrazinamide (Pza) 1,000 mg PO MWF [facility] Stop: 01/04/17 08:59 Pyridoxine HCl (Vitamin B6) 50 mg PO DAILY [facility] Stop: 12/29/16 08:59 Last Admin: 11/03/16 10:18 Dose: 50 mg Rifampin (Rifadin) 600 mg PO DAILY [facility] Stop: 12/29/16 08:59 Last Admin: 11/03/16 10:20 Dose: 600 mg Senna (Senna) 17.2 mg PO HS [facility] Stop: 12/13/16 20:59 Last Admin: 11/03/16 20:53 Dose: 17.2 mg Vitamin B Complex/Vit C/Folic Acid (Vitamin B Complex W/Vitamin C) 1 tab PO DAILY [facility] Stop: 12/14/16 08:59 Last Admin: 11/03/16 10:19 Dose: 1 tab - Procedures Procedures: Procedures Procedure Code Date ART BYP FEMORAL-FEMORAL 51164 10/13/16 BYPASS L FEM ART TO R FEMOR A WITH SYNTH SUB, OPEN APPROACH [id number] 10/13/16 COMPOSITE BYP GRFT PROS&VEIN 69448 10/13/16 Assessment/Plan - Problem List Patient Problems: All Active Problems dm (Acute) esrd (Acute) h/o chf (Acute) htn (Acute) non healing ulcer (Acute) sepsis (Acute) vascular insuffi (Acute) - Assessment Assessment: 1. Right big toe cellulitis. 2/2 PAD. 2. R pneumonia. 3. CHF. 4. CKD 5 on HD. 5. DM2 - Plan Plan: if cta cannot be done, consider vq scan, appreciate consults reccomendation continue ivabx as per id cbc/bmp in am continue current plan of care
[2016-11-04 09:10] LABS: HCO3 32.8 mmol/L (20.0-26.0)
[2016-11-04 09:11] LABS: ABG SOURCE Arterial; ALLEN TEST YES; BE(B) 6.6 mmol/L (-3.0-3.0); FIO2 28
[2016-11-04] MEDS: Pantoprazole 40 mg EC Tab PO SCH (09:31)
[2016-11-04] MEDS: Vitamin B Complex w/Vitamin C Tab PO SCH (09:31)
[2016-11-04] MEDS: Hydrocodone/APAP 10 mg/325 mg Tab PO PRN ×2 (09:31→16:53)
[2016-11-04] MEDS: Rifampin 300 mg Cap PO SCH (09:32)
[2016-11-04] MEDS: POLYETHYLENE GLYCOL 3350 17 GM PACK PO SCH (09:35)
--- NOTE | 2016-11-04 09:50 | Diagnostic Imaging Report ---
Portable chest x-ray HISTORY: Shortness of breath Compared to prior exam 11/02/2016, the heart remains enlarged. Evidence of persistent bilateral pleural effusions (left greater than right). There remains a right perihilar density. As noted previously, the finding may be associated with loculated fluid in the vicinity of the minor fissure. However, if necessary, a CT scan of the chest with intravenous contrast would provide additional evaluation and more definitive exclusion of a parenchymal lesion. IMPRESSION: 1. No change in the cardiopulmonary status. Persistent cardiomegaly, bilateral effusions, and hazy interstitial infiltrates. The findings are consistent with a degree of congestive heart failure. 2. Persistent right perihilar density. As previously noted, the finding may be associated with loculated fluid in the vicinity of the minor fissure. However, if necessary, a CT scan of the chest with intravenous contrast would provide additional evaluation and more definitive exclusion of a parenchymal pathology.
--- NOTE | 2016-11-04 12:12 | Infectious Disease Prog Note ---
Infectious Disease Subjective - Review of Systems Service Date: 11/04/16 Subjective: There is no fever. Doing well. Infectious Disease Objective - Results Result Diagrams: 11/04/16 06:18 11/04/16 06:18 Recent Labs: Laboratory Last Values WBC 9.3 Th/cmm (4.8-10.8) 11/04/16 06:18 RBC 3.22 Mil/cmm (3.80-5.20) L 11/04/16 06:18 Hgb 9.9 gm/dL (11.7-16.1) L 11/04/16 06:18 Hct 30.7 % (35.0-45.0) L 11/04/16 06:18 MCV 95.4 fl (81-100) 11/04/16 06:18 MCH 30.8 pg (27.0-31.0) 11/04/16 06:18 MCHC Differential 32.3 pg (28.0-36.0) 11/04/16 06:18 RDW 20.4 % (11.5-20.0) H 11/04/16 06:18 Plt Count 140 Th/cmm (150-400) L 11/04/16 06:18 MPV 9.7 fl 11/04/16 06:18 Band Neutrophils % 2 % (0-10) 11/04/16 06:18 Neutrophils (Manual) 69 % (40-80) 11/04/16 06:18 Lymphocytes 16 % (20-50) L 11/04/16 06:18 Monocytes 12 % (2-10) H 11/04/16 06:18 Eosinophils 1 % (0-5) 11/04/16 06:18 Basophils 2 % (0-3) 10/19/16 06:40 Metamyelocytes 1 % (0-0) H 10/27/16 04:52 Nucleated RBCs 2.0 % (0-0) H 10/27/16 04:52 Platelet Estimate DECREASED PLATELETS (NORMAL) 11/04/16 06:18 Platelet Morphology GIANT PLATELETS SEEN (NORMAL) 11/04/16 06:18 Polychromasia 1+ 10/25/16 05:20 Anisocytosis 1+ 11/04/16 06:18 RBC Morph Micro Appear ABNORMAL (NORMAL) 11/04/16 06:18 PT 18.3 SECONDS (9.5-11.5) H 10/23/16 04:50 INR 1.78 (0.5-1.4) H 10/23/16 04:50 PTT (Actin FS) 34.8 SECONDS (26.0-38.0) 10/23/16 04:50 Specimen Source Arterial 11/04/16 08:50 Sample Site Right Radial 11/04/16 08:50 pH 7.40 (7.35-7.45) 11/04/16 08:50 pCO2 53.0 mmHg (35.0-45.0) H 11/04/16 08:50 pO2 80.0 mmHg (80.0-100.0) 11/04/16 08:50 HCO3 32.8 mmol/L (20.0-26.0) H 11/04/16 08:50 Base Excess 6.6 mmol/L (-3.0-3.0) H 11/04/16 08:50 O2 Saturation 96.0 % (92.0-100.0) 11/04/16 08:50 Sanjeev Test YES 11/04/16 08:50 Vent Rate NA 11/04/16 08:50 Inspired O2 28 11/04/16 08:50 Tidal Volume NA 11/04/16 08:50 PEEP NA 11/04/16 08:50 Pressure (ins/psv/peep) NA 11/04/16 08:50 Critical Value E.DICKSON 11/04/16 08:50 Sodium 135 mEq/L (136-145) L 11/04/16 06:18 Potassium 3.5 mEq/L (3.5-5.1) 11/04/16 06:18 Chloride 104 mEq/L (98-107) 11/04/16 06:18 Carbon Dioxide 28.6 mEq/L (21.0-31.0) 11/04/16 06:18 Anion Gap 5.9 (7.0-16.0) L 11/04/16 06:18 BUN 15 mg/dL (7-25) 11/04/16 06:18 Creatinine 1.3 mg/dL (0.6-1.2) H 11/04/16 06:18 Est GFR ( Amer) 52.2 ml/min 11/04/16 06:18 Est GFR (Non-Af Amer) 43.2 ml/min 11/04/16 06:18 BUN/Creatinine Ratio 11.5 11/04/16 06:18 Glucose 68 mg/dL (70-105) L 11/04/16 06:18 POC Glucose 94 MG/DL (70 - 105) 11/04/16 06:36 Hemoglobin A1c % 6.9 % (4.0-6.0) H 10/15/16 05:17 Calcium 8.5 mg/dL (8.6-10.3) L 11/04/16 06:18 Magnesium 1.9 mg/dL (1.9-2.7) 11/02/16 06:50 Total Bilirubin 1.1 mg/dL (0.3-1.0) H 10/27/16 04:52 Direct Bilirubin 0.26 mg/dL (0.0-0.2) H 10/27/16 04:52 AST 19 U/L (13-39) 10/27/16 04:52 ALT 5 U/L (7-52) L 10/27/16 04:52 Alkaline Phosphatase 102 U/L (34-104) 10/27/16 04:52 Ammonia 50 umol/L (16-53) 10/14/16 10:40 B-Natriuretic Peptide > 5000.0 pg/mL (5.0-100.0) H 10/17/16 06:50 Total Protein 6.4 gm/dL (6.0-8.3) 10/27/16 04:52 Albumin 3.1 gm/dL (3.7-5.3) L 10/27/16 04:52 Globulin 3.3 gm/dL 10/27/16 04:52 Albumin/Globulin Ratio 0.9 (1.0-1.8) L 10/27/16 04:52 Prealbumin 9 mg/dL (10-36) L 11/01/16 06:10 Triglycerides 119 mg/dL (<150) 10/14/16 10:40 Cholesterol 80 mg/dL (<200) 10/14/16 10:40 LDL Cholesterol Direct 26 mg/dL (75-193) L 10/14/16 10:40 HDL Cholesterol 33 mg/dL (23-92) 10/14/16 10:40 TSH 7.87 uIU/ml (0.34-5.60) H 10/14/16 10:40 Urine Source CATH 10/14/16 06:00 Urine Color BROWN 10/14/16 06:00 Urine Clarity SL. CLOUDY (CLEAR) 10/14/16 06:00 Urine pH 5.5 10/14/16 06:00 Ur Specific [place] 1.025 (1.005-1.030) 10/14/16 06:00 Urine Protein 100 mg/dL (NEGATIVE) H 10/14/16 06:00 Urine Glucose (UA) NEGATIVE mg/dL (NEGATIVE) 10/14/16 06:00 Urine Ketones TRACE mg/dL (NEGATIVE) 10/14/16 06:00 Urine Blood TRACE (NEGATIVE) 10/14/16 06:00 Urine Nitrate NEGATIVE (NEGATIVE) 10/14/16 06:00 Urine Bilirubin SMALL (NEGATIVE) H 10/14/16 06:00 Urine Urobilinogen 0.2 E.U./dL (0.2 - 1.0) 10/14/16 06:00 Ur Leukocyte Esterase NEGATIVE (NEGATIVE) 10/14/16 06:00 Urine RBC 0-1 /hpf (0-5) 10/14/16 06:00 Urine WBC 2-5 /hpf (0-5) 10/14/16 06:00 Ur Epithelial Cells OCCASIONAL /lpf (FEW) 10/14/16 06:00 Amorphous Sediment FEW URATES (NONE SEEN) 10/14/16 06:00 Urine Bacteria NONE SEEN /hpf (NONE SEEN) 10/14/16 06:00 Vancomycin Trough 20.9 ug/mL (10-20) H 10/26/16 09:35 Random Vancomycin 19.7 ug/mL (5.0-40.0) 11/04/16 06:18 Hepatitis A IgM Ab Negative (Negative) 10/15/16 05:17 Hep Bs Antigen Negative (Negative) 10/15/16 05:17 Hep B Core IgM Ab Negative (Negative) 10/15/16 05:17 Hepatitis C Antibody <0.1 s/co ratio (0.0-0.9) 10/15/16 05:17 HIV 1&2 Antibody Screen NEGATIVE (NEG) 10/27/16 04:52 TB (QFT) Gold In Tube Negative (Negative) 10/24/16 16:00 TB Test (QFT) Mitogen 3.00 IU/mL 10/24/16 16:00 TB Test (QFT) Antigen 0.05 IU/mL 10/24/16 16:00 TB Test Antigen - Nil <0.00 IU/mL 10/24/16 16:00 TB Test TB - Nil 0.06 IU/mL 10/24/16 16:00 TB Test (QFT) Interp (()) 10/24/16 16:00 - Physical Exam Vitals and I&O: Vital Signs Temp 97.0 F 11/04/16 04:00 Pulse 80 11/04/16 07:21 Resp 20 11/04/16 07:21 BP 90/46 11/04/16 04:00 Pulse Ox 99 11/04/16 07:21 Intake & Output 11/03/16 11/04/16 11/04/16 18:59 06:59 18:59 Intake Total 700 360 Output Total 700 Balance 0 360 Intake: Oral 700 360 Output: Other 700 Other: # Voids 2 # Bowel Movements 1 Stool Characteristics Soft Active Medications: Current Medications Acetaminophen (Tylenol) 650 mg PO Q4HR PRN PRN Reason: fever/pain Stop: 12/13/16 01:20 Last Admin: 10/14/16 09:03 Dose: 650 mg Acetaminophen/Hydrocodone Bitart ([place] 5mg/325mg) 1 tab PO Q3H PRN PRN Reason: moderate pain (4-6) Stop: 12/13/16 10:21 Last Admin: 10/31/16 09:06 Dose: 1 tab Acetaminophen/Hydrocodone Bitart ([place] 10 Mg/325 Mg) 1 tab PO Q6H PRN PRN Reason: Pain (Severe) Stop: 12/30/16 12:53 Last Admin: 11/04/16 09:31 Dose: 1 tab Aspirin (Ecotrin) 81 mg PO QAM [facility] Stop: 12/14/16 08:59 Last Admin: 11/04/16 09:31 Dose: 81 mg Cilostazol (Pletal) 100 mg PO BID [facility] Stop: 12/22/16 16:59 Last Admin: 11/04/16 09:31 Dose: 100 mg Docusate Sodium (Colace) 100 mg PO BID [facility] Stop: 12/13/16 16:59 Last Admin: 11/04/16 09:30 Dose: 100 mg Ethambutol HCl (Myambutol) 800 mg PO MWF [facility] Stop: 01/04/17 08:59 Folic Acid (Folate) 1 mg PO DAILY [facility] Stop: 12/14/16 08:59 Last Admin: 11/04/16 09:31 Dose: 1 mg Ceftriaxone Sodium 1 gm/ (Sodium Chloride) 50 mls @ 100 mls/hr IV Q24HR [facility] Stop: 12/30/16 15:59 Last Admin: 11/03/16 16:59 Dose: 100 mls/hr Vancomycin HCl 1 gm/ Sodium (Chloride) 250 mls @ 165 mls/hr IV 1200 ONE Stop: 11/04/16 13:30 Insulin Aspart (Novolog Insulin Sliding Scale) 0 units SUBQ ACHS [facility] PRN Reason: Protocol Stop: 12/13/16 16:29 Last Admin: 11/04/16 07:01 Dose: Not Given Isoniazid (Inh) 300 mg PO DAILY [facility] Stop: 12/29/16 08:59 Last Admin: 11/04/16 09:32 Dose: 300 mg Levothyroxine Sodium (Synthroid) 0.05 mg PO QDAC [facility] Stop: 12/19/16 06:29 Last Admin: 11/04/16 07:01 Dose: 0.05 mg Miscellaneous (Clinical Monitoring) 1 ea PRN PRN PRN Reason: RENAL DOSING Stop: 12/13/16 13:45 Miscellaneous (Vancomycin Iv Per Pharmacy) 1 ea PRN PRN PRN Reason: PROTOCOL Stop: 12/30/16 12:53 Morphine Sulfate (Morphine) 1 mg IVP Q4HR PRN PRN Reason: Pain (Moderate) Stop: 12/31/16 00:55 Last Admin: 11/03/16 17:30 Dose: 1 mg Pantoprazole Sodium (Protonix) 40 mg PO DAILY [facility] Stop: 12/14/16 08:59 Last Admin: 11/04/16 09:31 Dose: 40 mg Polyethylene Glycol (Miralax) 17 gm PO DAILY [facility] Stop: 12/28/16 08:59 Last Admin: 11/04/16 09:35 Dose: 17 gm Prochlorperazine Maleate (Compazine) 10 mg PO Q6H PRN PRN Reason: Nausea / Vomiting Stop: 12/13/16 10:39 Last Admin: 10/27/16 13:01 Dose: 10 mg Promethazine HCl/Dextromethorphan (Phenergan Dm 6.25/15mg-5 Ml) 5 ml PO BID PRN PRN Reason: Cough Stop: 12/21/16 15:19 Pyrazinamide (Pza) 1,000 mg PO MWF [facility] Stop: 01/04/17 08:59 Pyridoxine HCl (Vitamin B6) 50 mg PO DAILY [facility] Stop: 12/29/16 08:59 Last Admin: 11/04/16 09:31 Dose: 50 mg Rifampin (Rifadin) 600 mg PO DAILY [facility] Stop: 12/29/16 08:59 Last Admin: 11/04/16 09:32 Dose: 600 mg Senna (Senna) 17.2 mg PO HS [facility] Stop: 12/13/16 20:59 Last Admin: 11/03/16 20:53 Dose: 17.2 mg Vitamin B Complex/Vit C/Folic Acid (Vitamin B Complex W/Vitamin C) 1 tab PO DAILY [facility] Stop: 12/14/16 08:59 Last Admin: 11/04/16 09:31 Dose: 1 tab General: no acute distress, well developed, well nourished HEENT: atraumatic, normocephalic, PERRLA Neck: supple Cardiovascular: S1S2, regular Lungs: clear to auscultation bilaterally, clear to percussion, other (decreased) Abdomen: soft, no tender, no distended Extremities: edema, other (cyanotic big toe of right foot.), no cyanosis, no clubbing Neurological: awake, alert - Procedures Procedures: Procedures Procedure Code Date ART BYP FEMORAL-FEMORAL 32163 10/13/16 BYPASS L FEM ART TO R FEMOR A WITH SYNTH SUB, OPEN APPROACH [id number] 10/13/16 COMPOSITE BYP GRFT PROS&VEIN 14976 10/13/16 Infectious Disease Assmt/Plan - Problem List Patient Problems: All Active Problems dm (Acute) esrd (Acute) h/o chf (Acute) htn (Acute) non healing ulcer (Acute) sepsis (Acute) vascular insuffi (Acute) - Assessment Assessment: Impression: 1. Right big toe cellulitis. 2/2 PAD. 2. R pneumonia with air, cavity. 3. CHF. 4. CKD 5 on HD. 5. DM2 6. 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 7. abdominal pain, improving. - Plan Plan: Follow up [facility]. Continue [place] treatment as recommended by the public health department.
--- NOTE | 2016-11-04 13:09 | General Progress Note ---
Subjective - Review of Systems Service Date: 11/04/16 Subjective: weak, less tacypnea, on NC, nonspecific pain Objective - Results Result Diagrams: 11/04/16 06:18 11/04/16 06:18 Recent Labs: Laboratory Last Values WBC 9.3 Th/cmm (4.8-10.8) 11/04/16 06:18 RBC 3.22 Mil/cmm (3.80-5.20) L 11/04/16 06:18 Hgb 9.9 gm/dL (11.7-16.1) L 11/04/16 06:18 Hct 30.7 % (35.0-45.0) L 11/04/16 06:18 MCV 95.4 fl (81-100) 11/04/16 06:18 MCH 30.8 pg (27.0-31.0) 11/04/16 06:18 MCHC Differential 32.3 pg (28.0-36.0) 11/04/16 06:18 RDW 20.4 % (11.5-20.0) H 11/04/16 06:18 Plt Count 140 Th/cmm (150-400) L 11/04/16 06:18 MPV 9.7 fl 11/04/16 06:18 Band Neutrophils % 2 % (0-10) 11/04/16 06:18 Neutrophils (Manual) 69 % (40-80) 11/04/16 06:18 Lymphocytes 16 % (20-50) L 11/04/16 06:18 Monocytes 12 % (2-10) H 11/04/16 06:18 Eosinophils 1 % (0-5) 11/04/16 06:18 Basophils 2 % (0-3) 10/19/16 06:40 Metamyelocytes 1 % (0-0) H 10/27/16 04:52 Nucleated RBCs 2.0 % (0-0) H 10/27/16 04:52 Platelet Estimate DECREASED PLATELETS (NORMAL) 11/04/16 06:18 Platelet Morphology GIANT PLATELETS SEEN (NORMAL) 11/04/16 06:18 Polychromasia 1+ 10/25/16 05:20 Anisocytosis 1+ 11/04/16 06:18 RBC Morph Micro Appear ABNORMAL (NORMAL) 11/04/16 06:18 PT 18.3 SECONDS (9.5-11.5) H 10/23/16 04:50 INR 1.78 (0.5-1.4) H 10/23/16 04:50 PTT (Actin FS) 34.8 SECONDS (26.0-38.0) 10/23/16 04:50 Specimen Source Arterial 11/04/16 08:50 Sample Site Right Radial 11/04/16 08:50 pH 7.40 (7.35-7.45) 11/04/16 08:50 pCO2 53.0 mmHg (35.0-45.0) H 11/04/16 08:50 pO2 80.0 mmHg (80.0-100.0) 11/04/16 08:50 HCO3 32.8 mmol/L (20.0-26.0) H 11/04/16 08:50 Base Excess 6.6 mmol/L (-3.0-3.0) H 11/04/16 08:50 O2 Saturation 96.0 % (92.0-100.0) 11/04/16 08:50 Sanjeev Test YES 11/04/16 08:50 Vent Rate NA 11/04/16 08:50 Inspired O2 28 11/04/16 08:50 Tidal Volume NA 11/04/16 08:50 PEEP NA 11/04/16 08:50 Pressure (ins/psv/peep) NA 11/04/16 08:50 Critical Value E.DICKSON 11/04/16 08:50 Sodium 135 mEq/L (136-145) L 11/04/16 06:18 Potassium 3.5 mEq/L (3.5-5.1) 11/04/16 06:18 Chloride 104 mEq/L (98-107) 11/04/16 06:18 Carbon Dioxide 28.6 mEq/L (21.0-31.0) 11/04/16 06:18 Anion Gap 5.9 (7.0-16.0) L 11/04/16 06:18 BUN 15 mg/dL (7-25) 11/04/16 06:18 Creatinine 1.3 mg/dL (0.6-1.2) H 11/04/16 06:18 Est GFR ( Amer) 52.2 ml/min 11/04/16 06:18 Est GFR (Non-Af Amer) 43.2 ml/min 11/04/16 06:18 BUN/Creatinine Ratio 11.5 11/04/16 06:18 Glucose 68 mg/dL (70-105) L 11/04/16 06:18 POC Glucose 167 MG/DL (70 - 105) H 11/04/16 12:11 Hemoglobin A1c % 6.9 % (4.0-6.0) H 10/15/16 05:17 Calcium 8.5 mg/dL (8.6-10.3) L 11/04/16 06:18 Magnesium 1.9 mg/dL (1.9-2.7) 11/02/16 06:50 Total Bilirubin 1.1 mg/dL (0.3-1.0) H 10/27/16 04:52 Direct Bilirubin 0.26 mg/dL (0.0-0.2) H 10/27/16 04:52 AST 19 U/L (13-39) 10/27/16 04:52 ALT 5 U/L (7-52) L 10/27/16 04:52 Alkaline Phosphatase 102 U/L (34-104) 10/27/16 04:52 Ammonia 50 umol/L (16-53) 10/14/16 10:40 B-Natriuretic Peptide > 5000.0 pg/mL (5.0-100.0) H 10/17/16 06:50 Total Protein 6.4 gm/dL (6.0-8.3) 10/27/16 04:52 Albumin 3.1 gm/dL (3.7-5.3) L 10/27/16 04:52 Globulin 3.3 gm/dL 10/27/16 04:52 Albumin/Globulin Ratio 0.9 (1.0-1.8) L 10/27/16 04:52 Prealbumin 9 mg/dL (10-36) L 11/01/16 06:10 Triglycerides 119 mg/dL (<150) 10/14/16 10:40 Cholesterol 80 mg/dL (<200) 10/14/16 10:40 LDL Cholesterol Direct 26 mg/dL (75-193) L 10/14/16 10:40 HDL Cholesterol 33 mg/dL (23-92) 10/14/16 10:40 TSH 7.87 uIU/ml (0.34-5.60) H 10/14/16 10:40 Urine Source CATH 10/14/16 06:00 Urine Color BROWN 10/14/16 06:00 Urine Clarity SL. CLOUDY (CLEAR) 10/14/16 06:00 Urine pH 5.5 10/14/16 06:00 Ur Specific [place] 1.025 (1.005-1.030) 10/14/16 06:00 Urine Protein 100 mg/dL (NEGATIVE) H 10/14/16 06:00 Urine Glucose (UA) NEGATIVE mg/dL (NEGATIVE) 10/14/16 06:00 Urine Ketones TRACE mg/dL (NEGATIVE) 10/14/16 06:00 Urine Blood TRACE (NEGATIVE) 10/14/16 06:00 Urine Nitrate NEGATIVE (NEGATIVE) 10/14/16 06:00 Urine Bilirubin SMALL (NEGATIVE) H 10/14/16 06:00 Urine Urobilinogen 0.2 E.U./dL (0.2 - 1.0) 10/14/16 06:00 Ur Leukocyte Esterase NEGATIVE (NEGATIVE) 10/14/16 06:00 Urine RBC 0-1 /hpf (0-5) 10/14/16 06:00 Urine WBC 2-5 /hpf (0-5) 10/14/16 06:00 Ur Epithelial Cells OCCASIONAL /lpf (FEW) 10/14/16 06:00 Amorphous Sediment FEW URATES (NONE SEEN) 10/14/16 06:00 Urine Bacteria NONE SEEN /hpf (NONE SEEN) 10/14/16 06:00 Vancomycin Trough 20.9 ug/mL (10-20) H 10/26/16 09:35 Random Vancomycin 19.7 ug/mL (5.0-40.0) 11/04/16 06:18 Hepatitis A IgM Ab Negative (Negative) 10/15/16 05:17 Hep Bs Antigen Negative (Negative) 10/15/16 05:17 Hep B Core IgM Ab Negative (Negative) 10/15/16 05:17 Hepatitis C Antibody <0.1 s/co ratio (0.0-0.9) 10/15/16 05:17 HIV 1&2 Antibody Screen NEGATIVE (NEG) 10/27/16 04:52 TB (QFT) Gold In Tube Negative (Negative) 10/24/16 16:00 TB Test (QFT) Mitogen 3.00 IU/mL 10/24/16 16:00 TB Test (QFT) Antigen 0.05 IU/mL 10/24/16 16:00 TB Test Antigen - Nil <0.00 IU/mL 10/24/16 16:00 TB Test TB - Nil 0.06 IU/mL 10/24/16 16:00 TB Test (QFT) Interp (()) 10/24/16 16:00 - Physical Exam Vitals and I&O: Vital Signs Temp 97.0 F 11/04/16 04:00 Pulse 80 11/04/16 07:21 Resp 20 11/04/16 07:21 BP 90/46 11/04/16 04:00 Pulse Ox 99 11/04/16 07:21 Intake & Output 11/03/16 11/04/16 11/04/16 18:59 06:59 18:59 Intake Total 700 360 Output Total 700 Balance 0 360 Intake: Oral 700 360 Output: Other 700 Other: # Voids 2 # Bowel Movements 1 Stool Characteristics Soft Active Medications: Current Medications Acetaminophen (Tylenol) 650 mg PO Q4HR PRN PRN Reason: fever/pain Stop: 12/13/16 01:20 Last Admin: 10/14/16 09:03 Dose: 650 mg Acetaminophen/Hydrocodone Bitart ([place] 5mg/325mg) 1 tab PO Q3H PRN PRN Reason: moderate pain (4-6) Stop: 12/13/16 10:21 Last Admin: 10/31/16 09:06 Dose: 1 tab Acetaminophen/Hydrocodone Bitart ([place] 10 Mg/325 Mg) 1 tab PO Q6H PRN PRN Reason: Pain (Severe) Stop: 12/30/16 12:53 Last Admin: 11/04/16 09:31 Dose: 1 tab Aspirin (Ecotrin) 81 mg PO QAM [facility] Stop: 12/14/16 08:59 Last Admin: 11/04/16 09:31 Dose: 81 mg Cilostazol (Pletal) 100 mg PO BID [facility] Stop: 12/22/16 16:59 Last Admin: 11/04/16 09:31 Dose: 100 mg Docusate Sodium (Colace) 100 mg PO BID [facility] Stop: 12/13/16 16:59 Last Admin: 11/04/16 09:30 Dose: 100 mg Ethambutol HCl (Myambutol) 800 mg PO MWF [facility] Stop: 01/04/17 08:59 Folic Acid (Folate) 1 mg PO DAILY [facility] Stop: 12/14/16 08:59 Last Admin: 11/04/16 09:31 Dose: 1 mg Ceftriaxone Sodium 1 gm/ (Sodium Chloride) 50 mls @ 100 mls/hr IV Q24HR [facility] Stop: 12/30/16 15:59 Last Admin: 11/03/16 16:59 Dose: 100 mls/hr Vancomycin HCl 1 gm/ Sodium (Chloride) 250 mls @ 165 mls/hr IV 1200 ONE Stop: 11/04/16 13:30 Insulin Aspart (Novolog Insulin Sliding Scale) 0 units SUBQ ACHS [facility] PRN Reason: Protocol Stop: 12/13/16 16:29 Last Admin: 11/04/16 12:12 Dose: 2 units Isoniazid (Inh) 300 mg PO DAILY [facility] Stop: 12/29/16 08:59 Last Admin: 11/04/16 09:32 Dose: 300 mg Levothyroxine Sodium (Synthroid) 0.05 mg PO QDAC [facility] Stop: 12/19/16 06:29 Last Admin: 11/04/16 07:01 Dose: 0.05 mg Miscellaneous (Clinical Monitoring) 1 ea PRN PRN PRN Reason: RENAL DOSING Stop: 12/13/16 13:45 Miscellaneous (Vancomycin Iv Per Pharmacy) 1 ea PRN PRN PRN Reason: PROTOCOL Stop: 12/30/16 12:53 Morphine Sulfate (Morphine) 1 mg IVP Q4HR PRN PRN Reason: Pain (Moderate) Stop: 12/31/16 00:55 Last Admin: 11/03/16 17:30 Dose: 1 mg Pantoprazole Sodium (Protonix) 40 mg PO DAILY [facility] Stop: 12/14/16 08:59 Last Admin: 11/04/16 09:31 Dose: 40 mg Polyethylene Glycol (Miralax) 17 gm PO DAILY [facility] Stop: 12/28/16 08:59 Last Admin: 11/04/16 09:35 Dose: 17 gm Prochlorperazine Maleate (Compazine) 10 mg PO Q6H PRN PRN Reason: Nausea / Vomiting Stop: 12/13/16 10:39 Last Admin: 10/27/16 13:01 Dose: 10 mg Promethazine HCl/Dextromethorphan (Phenergan Dm 6.25/15mg-5 Ml) 5 ml PO BID PRN PRN Reason: Cough Stop: 12/21/16 15:19 Pyrazinamide (Pza) 1,000 mg PO MWF [facility] Stop: 01/04/17 08:59 Pyridoxine HCl (Vitamin B6) 50 mg PO DAILY [facility] Stop: 12/29/16 08:59 Last Admin: 11/04/16 09:31 Dose: 50 mg Rifampin (Rifadin) 600 mg PO DAILY [facility] Stop: 12/29/16 08:59 Last Admin: 11/04/16 09:32 Dose: 600 mg Senna (Senna) 17.2 mg PO HS [facility] Stop: 12/13/16 20:59 Last Admin: 11/03/16 20:53 Dose: 17.2 mg Vitamin B Complex/Vit C/Folic Acid (Vitamin B Complex W/Vitamin C) 1 tab PO DAILY [facility] Stop: 12/14/16 08:59 Last Admin: 11/04/16 09:31 Dose: 1 tab General: Mild distress HEENT: Atraumatic, Mucous membr. moist/pink Neck: Supple, +2 carotid pulse wo bruit Cardiovascular: Regular rate, Normal S1, Normal S2 Lungs: Other (scattered rhonchi) Abdomen: Bowel sounds, Soft Extremities: Edema, Other (left upper ext. edema) Neurological: Sensation intact Skin: no Rash - Procedures Procedures: Procedures Procedure Code Date ART BYP FEMORAL-FEMORAL 55457 10/13/16 BYPASS L FEM ART TO R FEMOR A WITH SYNTH SUB, OPEN APPROACH [id number] 10/13/16 COMPOSITE BYP GRFT PROS&VEIN 51852 10/13/16 Assessment/Plan - Problem List Patient Problems: All Active Problems dm (Acute) esrd (Acute) h/o chf (Acute) htn (Acute) non healing ulcer (Acute) sepsis (Acute) vascular insuffi (Acute) - Assessment Assessment: ESRD on HD acute decomp systolic CHF acute resp failure, hypercapnea; hypoxemia ess htn anemia of ckd LLL HAP hypothyroid PAD w/ right toe discoloration chronic hyponatremia abd. pain better Left Fem-Pop bypass resp acicdosis clotted left avf - Plan Plan: aware of cr. 1.3 cxr still w/ persistent chf new left perma cath scheduled for hd again today
--- NOTE | 2016-11-04 13:56 | Pathology Report ---
[id number] Collection date: 11/02/2016 Surgeon: Dr. Pieter Martinez Specimen Description: Right great toe. Gross Description: Received in formalin is an amputation specimen of the right great toe measuring 5 x 3 x 2.5 cm. The area of the toenail and distal great toe shows brownish-christine gangrenous discoloration and ulceration. Survey Director portions are submitted in one cassette. Microscopic Description: The histologic sections show skin and subcutaneous soft tissue with extensive necrosis and suppurative inflammation present consisting of large collections of neutrophils. 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 [facility]# [id number] MTDVasyl
--- NOTE | 2016-11-04 15:11 | General Progress Note ---
Subjective - Review of Systems Service Date: 11/04/16 Subjective: patient lethargic, no distress Objective - Results Result Diagrams: 11/04/16 06:18 11/04/16 06:18 Recent Labs: Laboratory Last Values WBC 9.3 Th/cmm (4.8-10.8) 11/04/16 06:18 RBC 3.22 Mil/cmm (3.80-5.20) L 11/04/16 06:18 Hgb 9.9 gm/dL (11.7-16.1) L 11/04/16 06:18 Hct 30.7 % (35.0-45.0) L 11/04/16 06:18 MCV 95.4 fl (81-100) 11/04/16 06:18 MCH 30.8 pg (27.0-31.0) 11/04/16 06:18 MCHC Differential 32.3 pg (28.0-36.0) 11/04/16 06:18 RDW 20.4 % (11.5-20.0) H 11/04/16 06:18 Plt Count 140 Th/cmm (150-400) L 11/04/16 06:18 MPV 9.7 fl 11/04/16 06:18 Band Neutrophils % 2 % (0-10) 11/04/16 06:18 Neutrophils (Manual) 69 % (40-80) 11/04/16 06:18 Lymphocytes 16 % (20-50) L 11/04/16 06:18 Monocytes 12 % (2-10) H 11/04/16 06:18 Eosinophils 1 % (0-5) 11/04/16 06:18 Basophils 2 % (0-3) 10/19/16 06:40 Metamyelocytes 1 % (0-0) H 10/27/16 04:52 Nucleated RBCs 2.0 % (0-0) H 10/27/16 04:52 Platelet Estimate DECREASED PLATELETS (NORMAL) 11/04/16 06:18 Platelet Morphology GIANT PLATELETS SEEN (NORMAL) 11/04/16 06:18 Polychromasia 1+ 10/25/16 05:20 Anisocytosis 1+ 11/04/16 06:18 RBC Morph Micro Appear ABNORMAL (NORMAL) 11/04/16 06:18 PT 18.3 SECONDS (9.5-11.5) H 10/23/16 04:50 INR 1.78 (0.5-1.4) H 10/23/16 04:50 PTT (Actin FS) 34.8 SECONDS (26.0-38.0) 10/23/16 04:50 Specimen Source Arterial 11/04/16 08:50 Sample Site Right Radial 11/04/16 08:50 pH 7.40 (7.35-7.45) 11/04/16 08:50 pCO2 53.0 mmHg (35.0-45.0) H 11/04/16 08:50 pO2 80.0 mmHg (80.0-100.0) 11/04/16 08:50 HCO3 32.8 mmol/L (20.0-26.0) H 11/04/16 08:50 Base Excess 6.6 mmol/L (-3.0-3.0) H 11/04/16 08:50 O2 Saturation 96.0 % (92.0-100.0) 11/04/16 08:50 Sanjeev Test YES 11/04/16 08:50 Vent Rate NA 11/04/16 08:50 Inspired O2 28 11/04/16 08:50 Tidal Volume NA 11/04/16 08:50 PEEP NA 11/04/16 08:50 Pressure (ins/psv/peep) NA 11/04/16 08:50 Critical Value E.DICKSON 11/04/16 08:50 Sodium 135 mEq/L (136-145) L 11/04/16 06:18 Potassium 3.5 mEq/L (3.5-5.1) 11/04/16 06:18 Chloride 104 mEq/L (98-107) 11/04/16 06:18 Carbon Dioxide 28.6 mEq/L (21.0-31.0) 11/04/16 06:18 Anion Gap 5.9 (7.0-16.0) L 11/04/16 06:18 BUN 15 mg/dL (7-25) 11/04/16 06:18 Creatinine 1.3 mg/dL (0.6-1.2) H 11/04/16 06:18 Est GFR ( Amer) 52.2 ml/min 11/04/16 06:18 Est GFR (Non-Af Amer) 43.2 ml/min 11/04/16 06:18 BUN/Creatinine Ratio 11.5 11/04/16 06:18 Glucose 68 mg/dL (70-105) L 11/04/16 06:18 POC Glucose 167 MG/DL (70 - 105) H 11/04/16 12:11 Hemoglobin A1c % 6.9 % (4.0-6.0) H 10/15/16 05:17 Calcium 8.5 mg/dL (8.6-10.3) L 11/04/16 06:18 Magnesium 1.9 mg/dL (1.9-2.7) 11/02/16 06:50 Total Bilirubin 1.1 mg/dL (0.3-1.0) H 10/27/16 04:52 Direct Bilirubin 0.26 mg/dL (0.0-0.2) H 10/27/16 04:52 AST 19 U/L (13-39) 10/27/16 04:52 ALT 5 U/L (7-52) L 10/27/16 04:52 Alkaline Phosphatase 102 U/L (34-104) 10/27/16 04:52 Ammonia 50 umol/L (16-53) 10/14/16 10:40 B-Natriuretic Peptide > 5000.0 pg/mL (5.0-100.0) H 10/17/16 06:50 Total Protein 6.4 gm/dL (6.0-8.3) 10/27/16 04:52 Albumin 3.1 gm/dL (3.7-5.3) L 10/27/16 04:52 Globulin 3.3 gm/dL 10/27/16 04:52 Albumin/Globulin Ratio 0.9 (1.0-1.8) L 10/27/16 04:52 Prealbumin 9 mg/dL (10-36) L 11/01/16 06:10 Triglycerides 119 mg/dL (<150) 10/14/16 10:40 Cholesterol 80 mg/dL (<200) 10/14/16 10:40 LDL Cholesterol Direct 26 mg/dL (75-193) L 10/14/16 10:40 HDL Cholesterol 33 mg/dL (23-92) 10/14/16 10:40 TSH 7.87 uIU/ml (0.34-5.60) H 10/14/16 10:40 Urine Source CATH 10/14/16 06:00 Urine Color BROWN 10/14/16 06:00 Urine Clarity SL. CLOUDY (CLEAR) 10/14/16 06:00 Urine pH 5.5 10/14/16 06:00 Ur Specific [place] 1.025 (1.005-1.030) 10/14/16 06:00 Urine Protein 100 mg/dL (NEGATIVE) H 10/14/16 06:00 Urine Glucose (UA) NEGATIVE mg/dL (NEGATIVE) 10/14/16 06:00 Urine Ketones TRACE mg/dL (NEGATIVE) 10/14/16 06:00 Urine Blood TRACE (NEGATIVE) 10/14/16 06:00 Urine Nitrate NEGATIVE (NEGATIVE) 10/14/16 06:00 Urine Bilirubin SMALL (NEGATIVE) H 10/14/16 06:00 Urine Urobilinogen 0.2 E.U./dL (0.2 - 1.0) 10/14/16 06:00 Ur Leukocyte Esterase NEGATIVE (NEGATIVE) 10/14/16 06:00 Urine RBC 0-1 /hpf (0-5) 10/14/16 06:00 Urine WBC 2-5 /hpf (0-5) 10/14/16 06:00 Ur Epithelial Cells OCCASIONAL /lpf (FEW) 10/14/16 06:00 Amorphous Sediment FEW URATES (NONE SEEN) 10/14/16 06:00 Urine Bacteria NONE SEEN /hpf (NONE SEEN) 10/14/16 06:00 Vancomycin Trough 20.9 ug/mL (10-20) H 10/26/16 09:35 Random Vancomycin 19.7 ug/mL (5.0-40.0) 11/04/16 06:18 Hepatitis A IgM Ab Negative (Negative) 10/15/16 05:17 Hep Bs Antigen Negative (Negative) 10/15/16 05:17 Hep B Core IgM Ab Negative (Negative) 10/15/16 05:17 Hepatitis C Antibody <0.1 s/co ratio (0.0-0.9) 10/15/16 05:17 HIV 1&2 Antibody Screen NEGATIVE (NEG) 10/27/16 04:52 TB (QFT) Gold In Tube Negative (Negative) 10/24/16 16:00 TB Test (QFT) Mitogen 3.00 IU/mL 10/24/16 16:00 TB Test (QFT) Antigen 0.05 IU/mL 10/24/16 16:00 TB Test Antigen - Nil <0.00 IU/mL 10/24/16 16:00 TB Test TB - Nil 0.06 IU/mL 10/24/16 16:00 TB Test (QFT) Interp (()) 10/24/16 16:00 - Physical Exam Vitals and I&O: Vital Signs Temp 97.0 F 11/04/16 04:00 Pulse 80 11/04/16 07:21 Resp 20 11/04/16 08:00 BP 90/46 11/04/16 04:00 Pulse Ox 99 11/04/16 07:21 Intake & Output 11/03/16 11/04/16 11/04/16 18:59 06:59 18:59 Intake Total 700 360 Output Total 700 Balance 0 360 Intake: Oral 700 360 Output: Other 700 Other: # Voids 2 # Bowel Movements 1 Stool Characteristics Soft Soft Formed Active Medications: Current Medications Acetaminophen (Tylenol) 650 mg PO Q4HR PRN PRN Reason: fever/pain Stop: 12/13/16 01:20 Last Admin: 10/14/16 09:03 Dose: 650 mg Acetaminophen/Hydrocodone Bitart ([place] 5mg/325mg) 1 tab PO Q3H PRN PRN Reason: moderate pain (4-6) Stop: 12/13/16 10:21 Last Admin: 10/31/16 09:06 Dose: 1 tab Acetaminophen/Hydrocodone Bitart ([place] 10 Mg/325 Mg) 1 tab PO Q6H PRN PRN Reason: Pain (Severe) Stop: 12/30/16 12:53 Last Admin: 11/04/16 09:31 Dose: 1 tab Aspirin (Ecotrin) 81 mg PO QAM [facility] Stop: 12/14/16 08:59 Last Admin: 11/04/16 09:31 Dose: 81 mg Cilostazol (Pletal) 100 mg PO BID [facility] Stop: 12/22/16 16:59 Last Admin: 11/04/16 09:31 Dose: 100 mg Docusate Sodium (Colace) 100 mg PO BID [facility] Stop: 12/13/16 16:59 Last Admin: 11/04/16 09:30 Dose: 100 mg Ethambutol HCl (Myambutol) 800 mg PO MWF [facility] Stop: 01/04/17 08:59 Folic Acid (Folate) 1 mg PO DAILY [facility] Stop: 12/14/16 08:59 Last Admin: 11/04/16 09:31 Dose: 1 mg Ceftriaxone Sodium 1 gm/ (Sodium Chloride) 50 mls @ 100 mls/hr IV Q24HR [facility] Stop: 12/30/16 15:59 Last Admin: 11/03/16 16:59 Dose: 100 mls/hr Insulin Aspart (Novolog Insulin Sliding Scale) 0 units SUBQ ACHS [facility] PRN Reason: Protocol Stop: 12/13/16 16:29 Last Admin: 11/04/16 12:12 Dose: 2 units Isoniazid (Inh) 300 mg PO DAILY [facility] Stop: 12/29/16 08:59 Last Admin: 11/04/16 09:32 Dose: 300 mg Levothyroxine Sodium (Synthroid) 0.05 mg PO QDAC [facility] Stop: 12/19/16 06:29 Last Admin: 11/04/16 07:01 Dose: 0.05 mg Miscellaneous (Clinical Monitoring) 1 [facility] PRN PRN PRN Reason: RENAL DOSING Stop: 12/13/16 13:45 Miscellaneous (Vancomycin Iv Per Pharmacy) 1 [facility] PRN PRN PRN Reason: PROTOCOL Stop: 12/30/16 12:53 Morphine Sulfate (Morphine) 1 mg IVP Q4HR PRN PRN Reason: Pain (Moderate) Stop: 12/31/16 00:55 Last Admin: 11/03/16 17:30 Dose: 1 mg Pantoprazole Sodium (Protonix) 40 mg PO DAILY [facility] Stop: 12/14/16 08:59 Last Admin: 11/04/16 09:31 Dose: 40 mg Polyethylene Glycol (Miralax) 17 gm PO DAILY [facility] Stop: 12/28/16 08:59 Last Admin: 11/04/16 09:35 Dose: 17 gm Prochlorperazine Maleate (Compazine) 10 mg PO Q6H PRN PRN Reason: Nausea / Vomiting Stop: 12/13/16 10:39 Last Admin: 10/27/16 13:01 Dose: 10 mg Promethazine HCl/Dextromethorphan (Phenergan Dm 6.25/15mg-5 Ml) 5 ml PO BID PRN PRN Reason: Cough Stop: 12/21/16 15:19 Pyrazinamide (Pza) 1,000 mg PO MWF [facility] Stop: 01/04/17 08:59 Pyridoxine HCl (Vitamin B6) 50 mg PO DAILY [facility] Stop: 12/29/16 08:59 Last Admin: 11/04/16 09:31 Dose: 50 mg Rifampin (Rifadin) 600 mg PO DAILY [facility] Stop: 12/29/16 08:59 Last Admin: 11/04/16 09:32 Dose: 600 mg Senna (Senna) 17.2 mg PO HS [facility] Stop: 12/13/16 20:59 Last Admin: 11/03/16 20:53 Dose: 17.2 mg Vitamin B Complex/Vit C/Folic Acid (Vitamin B Complex W/Vitamin C) 1 tab PO DAILY [facility] Stop: 12/14/16 08:59 Last Admin: 11/04/16 09:31 Dose: 1 tab Neck: Supple Cardiovascular: Regular rate, Normal S1, Normal S2 Lungs: Normal air movement Abdomen: Bowel sounds - Procedures Procedures: Procedures Procedure Code Date ART BYP FEMORAL-FEMORAL 90277 10/13/16 BYPASS L FEM ART TO R FEMOR A WITH SYNTH SUB, OPEN APPROACH [id number] 10/13/16 COMPOSITE BYP GRFT PROS&VEIN 77726 10/13/16 Assessment/Plan - Problem List Patient Problems: All Active Problems dm (Acute) esrd (Acute) h/o chf (Acute) htn (Acute) non healing ulcer (Acute) sepsis (Acute) vascular insuffi (Acute) - Assessment Assessment: 1. Right big toe cellulitis. 2/2 PAD. 2. R pneumonia. 3. CHF. 4. CKD 5 on HD. 5. DM2 - Plan Plan: appreciate consults reccomendation continue ivabx as per id cbc/bmp in am continue current plan of care
[2016-11-04 15:53] LABS: ALB/GLOB RATIO 0.9 (1.0-1.8); BILIRUBIN,DIRECT 0.82 mg/dL (0.0-0.2); BILIRUBIN,TOTAL 1.4 mg/dL (0.3-1.0)
[2016-11-04] MEDS: cefTRIAXone 1 GM in Sodium Chloride 0.9% 50 ML IV SCH (16:53)
[2016-11-04] MEDS: Menthol/Zinc Oxide Oint 113gm Tube TP SCH (21:44)
[2016-11-04] MEDS: Morphine Sulfate 2 mg/mL 1mL Syr IVP PRN (21:45)
[2016-11-05] MEDS: Morphine Sulfate 2 mg/mL 1mL Syr IVP PRN ×2 (02:40→21:35)
--- NOTE | 2016-11-05 03:16 | Progress Notes ---
PULMONARY PROGRESS NOTE PROBLEMS: 1. Abnormal chest x-ray, bilateral effusion. 2. Questionable cavity on the right lower lobe area which is obscured because of effusion. 3. Chronic renal failure, on hemodialysis. SYMPTOMS: None. The patient is seen not feeling good, but no specific new symptomatology. PHYSICAL EXAMINATION: VITAL SIGNS: Temperature is 97, pulses in 70s, blood pressure is 90/46, saturation 98% to 99% on 3 liters. NECK: Veins could not be visualized. CHEST: Shows diminished air entry at the bases with occasional rhonchi. HEART: Regular. ABDOMEN: Slightly distended, soft, and nontender. LABORATORY DATA: ABG shows some 2 liters compensated respiratory acidemia. X-ray still shows bilateral basal haziness, not significantly changed. ASSESSMENT: The patient is clinically stable, not much changed, continued to have effusion obscuring basal of the lungs. PLANS AND SUGGESTIONS: We will go ahead and continue current treatment and have it discussed with Dr. Harvey. We will recheck x-rays in next few days, etc. and see how it is and go from there. JOB# [id number]
[2016-11-05 07:34] LABS: ANION GAP 8.5 (7.0-16.0); BUN/CREATININE RATIO 11.7; CALCIUM SERUM 8.7 mg/dL (8.6-10.3); CARBON DIOXIDE 27.9 mEq/L (21.0-31.0); CREATININE - SERUM 1.2 mg/dL (0.6-1.2); POTASSIUM SERUM 3.4 mEq/L (3.5-5.1)
[2016-11-05 08:35] LABS: WHITE BLOOD COUNT 10.2 Th/cmm (4.8-10.8)
[2016-11-05 08:36] LABS: HEMATOCRIT 28.5 % (35.0-45.0); HEMOGLOBIN 9.1 gm/dL (11.7-16.1); MEAN CELL VOLUME 94.8 fl (81-100); MEAN CORPUSCULAR HEMOGLOBIN 30.3 pg (27.0-31.0); MEAN PLATELET VOLUME 10.6 fl; PLATELET COUNT 145 Th/cmm (150-400); RED CELL DISTRIBUTION WIDTH 21.2 % (11.5-20.0)
[2016-11-05 08:37] LABS: ANISOCYTOSIS 1+; EOSINOPHIL 0 % (0-5); NEUTROPHILS 92 % (40-80); PLATELET ESTIMATE ADEQUATE (NORMAL); PLATELET MORPHOLOGY GIANT PLATELETS SEEN (NORMAL); TOTAL CELLS COUNTED 100
[2016-11-05] MEDS: Levothyroxine 0.05 Mg Tab PO SCH ×2 (09:21→10:49)
[2016-11-05] MEDS: POLYETHYLENE GLYCOL 3350 17 GM PACK PO SCH (09:28)
[2016-11-05] MEDS: Pantoprazole 40 mg EC Tab PO SCH (09:28)
[2016-11-05] MEDS: Menthol/Zinc Oxide Oint 113gm Tube TP SCH ×4 (09:28→21:36)
[2016-11-05] MEDS: Vitamin B Complex w/Vitamin C Tab PO SCH (09:29)
[2016-11-05] MEDS: Rifampin 300 mg Cap PO SCH (09:29)
--- NOTE | 2016-11-05 10:05 | General Progress Note ---
Subjective - Review of Systems Subjective: patient lethargic, no distress Objective - Results Result Diagrams: 11/05/16 06:45 11/05/16 06:45 Recent Labs: Laboratory Last Values WBC 10.2 Th/cmm (4.8-10.8) 11/05/16 06:45 RBC 3.00 Mil/cmm (3.80-5.20) L 11/05/16 06:45 Hgb 9.1 gm/dL (11.7-16.1) L 11/05/16 06:45 Hct 28.5 % (35.0-45.0) L 11/05/16 06:45 MCV 94.8 fl (81-100) 11/05/16 06:45 MCH 30.3 pg (27.0-31.0) 11/05/16 06:45 MCHC Differential 32.0 pg (28.0-36.0) 11/05/16 06:45 RDW 21.2 % (11.5-20.0) H 11/05/16 06:45 Plt Count 145 Th/cmm (150-400) L 11/05/16 06:45 MPV 10.6 fl 11/05/16 06:45 Band Neutrophils % 2 % (0-10) 11/04/16 06:18 Neutrophils (Manual) 92 % (40-80) H 11/05/16 06:45 Lymphocytes 4 % (20-50) L 11/05/16 06:45 Monocytes 4 % (2-10) 11/05/16 06:45 Eosinophils 0 % (0-5) 11/05/16 06:45 Basophils 2 % (0-3) 10/19/16 06:40 Metamyelocytes 1 % (0-0) H 10/27/16 04:52 Nucleated RBCs 1.0 % (0-0) H 11/05/16 06:45 Platelet Estimate ADEQUATE (NORMAL) 11/05/16 06:45 Platelet Morphology GIANT PLATELETS SEEN (NORMAL) 11/05/16 06:45 Polychromasia 1+ 10/25/16 05:20 Anisocytosis 1+ 11/05/16 06:45 RBC Morph Micro Appear ABNORMAL (NORMAL) 11/05/16 06:45 PT 18.3 SECONDS (9.5-11.5) H 10/23/16 04:50 INR 1.78 (0.5-1.4) H 10/23/16 04:50 PTT (Actin FS) 34.8 SECONDS (26.0-38.0) 10/23/16 04:50 Specimen Source Arterial 11/04/16 08:50 Sample Site Right Radial 11/04/16 08:50 pH 7.40 (7.35-7.45) 11/04/16 08:50 pCO2 53.0 mmHg (35.0-45.0) H 11/04/16 08:50 pO2 80.0 mmHg (80.0-100.0) 11/04/16 08:50 HCO3 32.8 mmol/L (20.0-26.0) H 11/04/16 08:50 Base Excess 6.6 mmol/L (-3.0-3.0) H 11/04/16 08:50 O2 Saturation 96.0 % (92.0-100.0) 11/04/16 08:50 Sanjeev Test YES 11/04/16 08:50 Vent Rate NA 11/04/16 08:50 Inspired O2 28 11/04/16 08:50 Tidal Volume NA 11/04/16 08:50 PEEP NA 11/04/16 08:50 Pressure (ins/psv/peep) NA 11/04/16 08:50 Critical Value E.DICKSON 11/04/16 08:50 Sodium 137 mEq/L (136-145) 11/05/16 06:45 Potassium 3.4 mEq/L (3.5-5.1) L 11/05/16 06:45 Chloride 104 mEq/L (98-107) 11/05/16 06:45 Carbon Dioxide 27.9 mEq/L (21.0-31.0) 11/05/16 06:45 Anion Gap 8.5 (7.0-16.0) 11/05/16 06:45 BUN 14 mg/dL (7-25) 11/05/16 06:45 Creatinine 1.2 mg/dL (0.6-1.2) 11/05/16 06:45 Est GFR ( Amer) 57.3 ml/min 11/05/16 06:45 Est GFR (Non-Af Amer) 47.3 ml/min 11/05/16 06:45 BUN/Creatinine Ratio 11.7 11/05/16 06:45 Glucose 122 mg/dL (70-105) H 11/05/16 06:45 POC Glucose 111 MG/DL (70 - 105) H 11/05/16 06:48 Hemoglobin A1c % 6.9 % (4.0-6.0) H 10/15/16 05:17 Calcium 8.7 mg/dL (8.6-10.3) 11/05/16 06:45 Magnesium 1.9 mg/dL (1.9-2.7) 11/02/16 06:50 Total Bilirubin 1.4 mg/dL (0.3-1.0) H 11/04/16 06:18 Direct Bilirubin 0.82 mg/dL (0.0-0.2) H 11/04/16 06:18 AST 23 U/L (13-39) 11/04/16 06:18 ALT 6 U/L (7-52) L 11/04/16 06:18 Alkaline Phosphatase 145 U/L (34-104) H 11/04/16 06:18 Ammonia 50 umol/L (16-53) 10/14/16 10:40 B-Natriuretic Peptide > 5000.0 pg/mL (5.0-100.0) H 10/17/16 06:50 Total Protein 6.3 gm/dL (6.0-8.3) 11/04/16 06:18 Albumin 2.9 gm/dL (3.7-5.3) L 11/04/16 06:18 Globulin 3.4 gm/dL 11/04/16 06:18 Albumin/Globulin Ratio 0.9 (1.0-1.8) L 11/04/16 06:18 Prealbumin 9 mg/dL (10-36) L 11/01/16 06:10 Triglycerides 119 mg/dL (<150) 10/14/16 10:40 Cholesterol 80 mg/dL (<200) 10/14/16 10:40 LDL Cholesterol Direct 26 mg/dL (75-193) L 10/14/16 10:40 HDL Cholesterol 33 mg/dL (23-92) 10/14/16 10:40 TSH 7.87 uIU/ml (0.34-5.60) H 10/14/16 10:40 Urine Source CATH 10/14/16 06:00 Urine Color BROWN 10/14/16 06:00 Urine Clarity SL. CLOUDY (CLEAR) 10/14/16 06:00 Urine pH 5.5 10/14/16 06:00 Ur Specific [place] 1.025 (1.005-1.030) 10/14/16 06:00 Urine Protein 100 mg/dL (NEGATIVE) H 10/14/16 06:00 Urine Glucose (UA) NEGATIVE mg/dL (NEGATIVE) 10/14/16 06:00 Urine Ketones TRACE mg/dL (NEGATIVE) 10/14/16 06:00 Urine Blood TRACE (NEGATIVE) 10/14/16 06:00 Urine Nitrate NEGATIVE (NEGATIVE) 10/14/16 06:00 Urine Bilirubin SMALL (NEGATIVE) H 10/14/16 06:00 Urine Urobilinogen 0.2 E.U./dL (0.2 - 1.0) 10/14/16 06:00 Ur Leukocyte Esterase NEGATIVE (NEGATIVE) 10/14/16 06:00 Urine RBC 0-1 /hpf (0-5) 10/14/16 06:00 Urine WBC 2-5 /hpf (0-5) 10/14/16 06:00 Ur Epithelial Cells OCCASIONAL /lpf (FEW) 10/14/16 06:00 Amorphous Sediment FEW URATES (NONE SEEN) 10/14/16 06:00 Urine Bacteria NONE SEEN /hpf (NONE SEEN) 10/14/16 06:00 Vancomycin Trough 20.9 ug/mL (10-20) H 10/26/16 09:35 Random Vancomycin 19.7 ug/mL (5.0-40.0) 11/04/16 06:18 Hepatitis A IgM Ab Negative (Negative) 10/15/16 05:17 Hep Bs Antigen Negative (Negative) 10/15/16 05:17 Hep B Core IgM Ab Negative (Negative) 10/15/16 05:17 Hepatitis C Antibody <0.1 s/co ratio (0.0-0.9) 10/15/16 05:17 HIV 1&2 Antibody Screen NEGATIVE (NEG) 10/27/16 04:52 TB (QFT) Gold In Tube Negative (Negative) 10/24/16 16:00 TB Test (QFT) Mitogen 3.00 IU/mL 10/24/16 16:00 TB Test (QFT) Antigen 0.05 IU/mL 10/24/16 16:00 TB Test Antigen - Nil <0.00 IU/mL 10/24/16 16:00 TB Test TB - Nil 0.06 IU/mL 10/24/16 16:00 TB Test (QFT) Interp (()) 10/24/16 16:00 - Physical Exam Vitals and I&O: Vital Signs Temp 96.5 F 11/05/16 08:00 Pulse 74 11/05/16 08:00 Resp 19 11/05/16 08:00 BP 99/59 11/05/16 08:00 Pulse Ox 99 11/05/16 08:00 Intake & Output 11/04/16 11/05/16 11/05/16 18:59 06:59 18:59 Intake Total 1050 200 Balance 1050 200 Intake: Intake, IV Amount 300 cefTRIAXone 1 gm In 50 Sodium Chloride 0.9% 50 ml @ 100 mls/hr IV Q24HR [facility] Rx#:[id number] Oral 750 200 Other: # Bowel Movements 1 Stool Characteristics Soft Soft Formed Formed Active Medications: Current Medications Acetaminophen (Tylenol) 650 mg PO Q4HR PRN PRN Reason: fever/pain Stop: 12/13/16 01:20 Last Admin: 10/14/16 09:03 Dose: 650 mg Acetaminophen/Hydrocodone Bitart ([place] 5mg/325mg) 1 tab PO Q3H PRN PRN Reason: moderate pain (4-6) Stop: 12/13/16 10:21 Last Admin: 10/31/16 09:06 Dose: 1 tab Acetaminophen/Hydrocodone Bitart ([place] 10 Mg/325 Mg) 1 tab PO Q6H PRN PRN Reason: Pain (Severe) Stop: 12/30/16 12:53 Last Admin: 11/04/16 16:53 Dose: 1 tab Aspirin (Ecotrin) 81 mg PO QAM [facility] Stop: 12/14/16 08:59 Last Admin: 11/05/16 09:28 Dose: 81 mg Calamine/Phenol (Calmoseptine) 1 appl TP QID PRN PRN Reason: Skin Irritation Stop: 01/03/17 18:21 Calamine/Phenol (Calmoseptine) 1 appl TP QID [facility] Stop: 01/03/17 20:59 Last Admin: 11/05/16 09:28 Dose: 1 appl Cilostazol (Pletal) 100 mg PO BID [facility] Stop: 12/22/16 16:59 Last Admin: 11/05/16 09:28 Dose: 100 mg Docusate Sodium (Colace) 100 mg PO BID [facility] Stop: 12/13/16 16:59 Last Admin: 11/05/16 09:28 Dose: 100 mg Ethambutol HCl (Myambutol) 800 mg PO MWF [facility] Stop: 01/04/17 08:59 Last Admin: 11/05/16 09:29 Dose: 800 mg Folic Acid (Folate) 1 mg PO DAILY [facility] Stop: 12/14/16 08:59 Last Admin: 11/05/16 09:28 Dose: 1 mg Ceftriaxone Sodium 1 gm/ (Sodium Chloride) 50 mls @ 100 mls/hr IV Q24HR [facility] Stop: 12/30/16 15:59 Last Infusion: 11/04/16 18:51 Dose: Infused Insulin Aspart (Novolog Insulin Sliding Scale) 0 units SUBQ ACHS [facility] PRN Reason: Protocol Stop: 12/13/16 16:29 Last Admin: 11/04/16 21:55 Dose: Not Given Isoniazid (Inh) 300 mg PO DAILY [facility] Stop: 12/29/16 08:59 Last Admin: 11/05/16 09:29 Dose: 300 mg Levothyroxine Sodium (Synthroid) 0.05 mg PO QDAC [facility] Stop: 12/19/16 06:29 Last Admin: 11/04/16 07:01 Dose: 0.05 mg Miscellaneous (Clinical Monitoring) 1 [facility] PRN PRN PRN Reason: RENAL DOSING Stop: 12/13/16 13:45 Miscellaneous (Vancomycin Iv Per Pharmacy) 1 [facility] PRN PRN PRN Reason: PROTOCOL Stop: 12/30/16 12:53 Morphine Sulfate (Morphine) 1 mg IVP Q4HR PRN PRN Reason: Pain (Moderate) Stop: 12/31/16 00:55 Last Admin: 11/05/16 02:40 Dose: 1 mg Pantoprazole Sodium (Protonix) 40 mg PO DAILY [facility] Stop: 12/14/16 08:59 Last Admin: 11/05/16 09:28 Dose: 40 mg Polyethylene Glycol (Miralax) 17 gm PO DAILY [facility] Stop: 12/28/16 08:59 Last Admin: 11/05/16 09:28 Dose: 17 gm Prochlorperazine Maleate (Compazine) 10 mg PO Q6H PRN PRN Reason: Nausea / Vomiting Stop: 12/13/16 10:39 Last Admin: 10/27/16 13:01 Dose: 10 mg Promethazine HCl/Dextromethorphan (Phenergan Dm 6.25/15mg-5 Ml) 5 ml PO BID PRN PRN Reason: Cough Stop: 12/21/16 15:19 Pyrazinamide (Pza) 1,000 mg PO MWF [facility] Stop: 01/04/17 08:59 Last Admin: 11/05/16 09:30 Dose: 1,000 mg Pyridoxine HCl (Vitamin B6) 50 mg PO DAILY [facility] Stop: 12/29/16 08:59 Last Admin: 11/05/16 09:28 Dose: 50 mg Rifampin (Rifadin) 600 mg PO DAILY [facility] Stop: 12/29/16 08:59 Last Admin: 11/05/16 09:29 Dose: 600 mg Senna (Senna) 17.2 mg PO HS [facility] Stop: 12/13/16 20:59 Last Admin: 11/04/16 21:44 Dose: 17.2 mg Vitamin B Complex/Vit C/Folic Acid (Vitamin B Complex W/Vitamin C) 1 tab PO DAILY [facility] Stop: 12/14/16 08:59 Last Admin: 11/05/16 09:29 Dose: 1 tab - Procedures Procedures: Procedures Procedure Code Date ART BYP FEMORAL-FEMORAL 22525 10/13/16 BYPASS L FEM ART TO R FEMOR A WITH SYNTH SUB, OPEN APPROACH [id number] 10/13/16 COMPOSITE BY GRFT PROS&VEIN 37013 10/13/16 Assessment/Plan - Problem List Patient Problems: All Active Problems dm (Acute) esrd (Acute) h/o chf (Acute) htn (Acute) non healing ulcer (Acute) sepsis (Acute) vascular insuffi (Acute) - Assessment Assessment: 1. Right big toe cellulitis. 2/2 PAD. 2. R pneumonia. 3. CHF. 4. CKD 5 on HD. 5. DM2 - Plan Plan: appreciate consults reccomendation continue ivabx as per id cbc/bmp in am continue current plan of care
[2016-11-05] MEDS: INSULIN ASPART SLIDING SCALE 100 UNITS/ML UNIT SUBQ SCH ×3 (12:25→21:35)
[2016-11-05] MEDS: Hydrocodone/APAP 10 mg/325 mg Tab PO PRN (12:47)
--- NOTE | 2016-11-05 13:34 | General Progress Note ---
Subjective - Review of Systems Service Date: 11/05/16 Subjective: weak, less tacypnea, on NC, nonspecific pain Objective - Results Result Diagrams: 11/05/16 06:45 11/05/16 06:45 Recent Labs: Laboratory Last Values WBC 10.2 Th/cmm (4.8-10.8) 11/05/16 06:45 RBC 3.00 Mil/cmm (3.80-5.20) L 11/05/16 06:45 Hgb 9.1 gm/dL (11.7-16.1) L 11/05/16 06:45 Hct 28.5 % (35.0-45.0) L 11/05/16 06:45 MCV 94.8 fl (81-100) 11/05/16 06:45 MCH 30.3 pg (27.0-31.0) 11/05/16 06:45 MCHC Differential 32.0 pg (28.0-36.0) 11/05/16 06:45 RDW 21.2 % (11.5-20.0) H 11/05/16 06:45 Plt Count 145 Th/cmm (150-400) L 11/05/16 06:45 MPV 10.6 fl 11/05/16 06:45 Band Neutrophils % 2 % (0-10) 11/04/16 06:18 Neutrophils (Manual) 92 % (40-80) H 11/05/16 06:45 Lymphocytes 4 % (20-50) L 11/05/16 06:45 Monocytes 4 % (2-10) 11/05/16 06:45 Eosinophils 0 % (0-5) 11/05/16 06:45 Basophils 2 % (0-3) 10/19/16 06:40 Metamyelocytes 1 % (0-0) H 10/27/16 04:52 Nucleated RBCs 1.0 % (0-0) H 11/05/16 06:45 Platelet Estimate ADEQUATE (NORMAL) 11/05/16 06:45 Platelet Morphology GIANT PLATELETS SEEN (NORMAL) 11/05/16 06:45 Polychromasia 1+ 10/25/16 05:20 Anisocytosis 1+ 11/05/16 06:45 RBC Morph Micro Appear ABNORMAL (NORMAL) 11/05/16 06:45 PT 18.3 SECONDS (9.5-11.5) H 10/23/16 04:50 INR 1.78 (0.5-1.4) H 10/23/16 04:50 PTT (Actin FS) 34.8 SECONDS (26.0-38.0) 10/23/16 04:50 Specimen Source Arterial 11/04/16 08:50 Sample Site Right Radial 11/04/16 08:50 pH 7.40 (7.35-7.45) 11/04/16 08:50 pCO2 53.0 mmHg (35.0-45.0) H 11/04/16 08:50 pO2 80.0 mmHg (80.0-100.0) 11/04/16 08:50 HCO3 32.8 mmol/L (20.0-26.0) H 11/04/16 08:50 Base Excess 6.6 mmol/L (-3.0-3.0) H 11/04/16 08:50 O2 Saturation 96.0 % (92.0-100.0) 11/04/16 08:50 Sanjeev Test YES 11/04/16 08:50 Vent Rate NA 11/04/16 08:50 Inspired O2 28 11/04/16 08:50 Tidal Volume NA 11/04/16 08:50 PEEP NA 11/04/16 08:50 Pressure (ins/psv/peep) NA 11/04/16 08:50 Critical Value E.DICKSON 11/04/16 08:50 Sodium 137 mEq/L (136-145) 11/05/16 06:45 Potassium 3.4 mEq/L (3.5-5.1) L 11/05/16 06:45 Chloride 104 mEq/L (98-107) 11/05/16 06:45 Carbon Dioxide 27.9 mEq/L (21.0-31.0) 11/05/16 06:45 Anion Gap 8.5 (7.0-16.0) 11/05/16 06:45 BUN 14 mg/dL (7-25) 11/05/16 06:45 Creatinine 1.2 mg/dL (0.6-1.2) 11/05/16 06:45 Est GFR ( Amer) 57.3 ml/min 11/05/16 06:45 Est GFR (Non-Af Amer) 47.3 ml/min 11/05/16 06:45 BUN/Creatinine Ratio 11.7 11/05/16 06:45 Glucose 122 mg/dL (70-105) H 11/05/16 06:45 POC Glucose 174 MG/DL (70 - 105) H 11/05/16 12:22 Hemoglobin A1c % 6.9 % (4.0-6.0) H 10/15/16 05:17 Calcium 8.7 mg/dL (8.6-10.3) 11/05/16 06:45 Magnesium 1.9 mg/dL (1.9-2.7) 11/02/16 06:50 Total Bilirubin 1.4 mg/dL (0.3-1.0) H 11/04/16 06:18 Direct Bilirubin 0.82 mg/dL (0.0-0.2) H 11/04/16 06:18 AST 23 U/L (13-39) 11/04/16 06:18 ALT 6 U/L (7-52) L 11/04/16 06:18 Alkaline Phosphatase 145 U/L (34-104) H 11/04/16 06:18 Ammonia 50 umol/L (16-53) 10/14/16 10:40 B-Natriuretic Peptide > 5000.0 pg/mL (5.0-100.0) H 10/17/16 06:50 Total Protein 6.3 gm/dL (6.0-8.3) 11/04/16 06:18 Albumin 2.9 gm/dL (3.7-5.3) L 11/04/16 06:18 Globulin 3.4 gm/dL 11/04/16 06:18 Albumin/Globulin Ratio 0.9 (1.0-1.8) L 11/04/16 06:18 Prealbumin 9 mg/dL (10-36) L 11/01/16 06:10 Triglycerides 119 mg/dL (<150) 10/14/16 10:40 Cholesterol 80 mg/dL (<200) 10/14/16 10:40 LDL Cholesterol Direct 26 mg/dL (75-193) L 10/14/16 10:40 HDL Cholesterol 33 mg/dL (23-92) 10/14/16 10:40 TSH 7.87 uIU/ml (0.34-5.60) H 10/14/16 10:40 Urine Source CATH 10/14/16 06:00 Urine Color BROWN 10/14/16 06:00 Urine Clarity SL. CLOUDY (CLEAR) 10/14/16 06:00 Urine pH 5.5 10/14/16 06:00 Ur Specific [place] 1.025 (1.005-1.030) 10/14/16 06:00 Urine Protein 100 mg/dL (NEGATIVE) H 10/14/16 06:00 Urine Glucose (UA) NEGATIVE mg/dL (NEGATIVE) 10/14/16 06:00 Urine Ketones TRACE mg/dL (NEGATIVE) 10/14/16 06:00 Urine Blood TRACE (NEGATIVE) 10/14/16 06:00 Urine Nitrate NEGATIVE (NEGATIVE) 10/14/16 06:00 Urine Bilirubin SMALL (NEGATIVE) H 10/14/16 06:00 Urine Urobilinogen 0.2 E.U./dL (0.2 - 1.0) 10/14/16 06:00 Ur Leukocyte Esterase NEGATIVE (NEGATIVE) 10/14/16 06:00 Urine RBC 0-1 /hpf (0-5) 10/14/16 06:00 Urine WBC 2-5 /hpf (0-5) 10/14/16 06:00 Ur Epithelial Cells OCCASIONAL /lpf (FEW) 10/14/16 06:00 Amorphous Sediment FEW URATES (NONE SEEN) 10/14/16 06:00 Urine Bacteria NONE SEEN /hpf (NONE SEEN) 10/14/16 06:00 Vancomycin Trough 20.9 ug/mL (10-20) H 10/26/16 09:35 Random Vancomycin 19.7 ug/mL (5.0-40.0) 11/04/16 06:18 Hepatitis A IgM Ab Negative (Negative) 10/15/16 05:17 Hep Bs Antigen Negative (Negative) 10/15/16 05:17 Hep B Core IgM Ab Negative (Negative) 10/15/16 05:17 Hepatitis C Antibody <0.1 s/co ratio (0.0-0.9) 10/15/16 05:17 HIV 1&2 Antibody Screen NEGATIVE (NEG) 10/27/16 04:52 TB (QFT) Gold In Tube Negative (Negative) 10/24/16 16:00 TB Test (QFT) Mitogen 3.00 IU/mL 10/24/16 16:00 TB Test (QFT) Antigen 0.05 IU/mL 10/24/16 16:00 TB Test Antigen - Nil <0.00 IU/mL 10/24/16 16:00 TB Test TB - Nil 0.06 IU/mL 10/24/16 16:00 TB Test (QFT) Interp (()) 10/24/16 16:00 - Physical Exam Vitals and I&O: Vital Signs Temp 96.5 F 11/05/16 08:00 Pulse 74 11/05/16 08:00 Resp 20 11/05/16 08:00 BP 99/59 11/05/16 08:00 Pulse Ox 99 11/05/16 08:00 Intake & Output 11/04/16 11/05/16 11/05/16 18:59 06:59 18:59 Intake Total 1050 200 Balance 1050 200 Intake: Intake, IV Amount 300 cefTRIAXone 1 gm In 50 Sodium Chloride 0.9% 50 ml @ 100 mls/hr IV Q24HR [facility] Rx#:[id number] Oral 750 200 Other: # Bowel Movements 1 Stool Characteristics Soft Soft Formed Formed Active Medications: Current Medications Acetaminophen (Tylenol) 650 mg PO Q4HR PRN PRN Reason: fever/pain Stop: 12/13/16 01:20 Last Admin: 10/14/16 09:03 Dose: 650 mg Acetaminophen/Hydrocodone Bitart ([place] 5mg/325mg) 1 tab PO Q3H PRN PRN Reason: moderate pain (4-6) Stop: 12/13/16 10:21 Last Admin: 10/31/16 09:06 Dose: 1 tab Acetaminophen/Hydrocodone Bitart ([place] 10 Mg/325 Mg) 1 tab PO Q6H PRN PRN Reason: Pain (Severe) Stop: 12/30/16 12:53 Last Admin: 11/05/16 12:47 Dose: 1 tab Aspirin (Ecotrin) 81 mg PO QAM [facility] Stop: 12/14/16 08:59 Last Admin: 11/05/16 09:28 Dose: 81 mg Calamine/Phenol (Calmoseptine) 1 appl TP QID PRN PRN Reason: Skin Irritation Stop: 01/03/17 18:21 Calamine/Phenol (Calmoseptine) 1 appl TP QID [facility] Stop: 01/03/17 20:59 Last Admin: 11/05/16 12:50 Dose: 1 appl Cilostazol (Pletal) 100 mg PO BID [facility] Stop: 12/22/16 16:59 Last Admin: 11/05/16 09:28 Dose: 100 mg Docusate Sodium (Colace) 100 mg PO BID [facility] Stop: 12/13/16 16:59 Last Admin: 11/05/16 09:28 Dose: 100 mg Ethambutol HCl (Myambutol) 800 mg PO MWF [facility] Stop: 01/04/17 08:59 Last Admin: 11/05/16 09:29 Dose: 800 mg Folic Acid (Folate) 1 mg PO DAILY [facility] Stop: 12/14/16 08:59 Last Admin: 11/05/16 09:28 Dose: 1 mg Ceftriaxone Sodium 1 gm/ (Sodium Chloride) 50 mls @ 100 mls/hr IV Q24HR [facility] Stop: 12/30/16 15:59 Last Infusion: 11/04/16 18:51 Dose: Infused Insulin Aspart (Novolog Insulin Sliding Scale) 0 units SUBQ ACHS [facility] PRN Reason: Protocol Stop: 12/13/16 16:29 Last Admin: 11/05/16 12:25 Dose: 2 units Isoniazid (Inh) 300 mg PO DAILY [facility] Stop: 12/29/16 08:59 Last Admin: 11/05/16 09:29 Dose: 300 mg Levothyroxine Sodium (Synthroid) 0.05 mg PO QDAC [facility] Stop: 12/19/16 06:29 Last Admin: 11/05/16 10:49 Dose: 0.05 mg Miscellaneous (Clinical Monitoring) 1 [facility] PRN PRN PRN Reason: RENAL DOSING Stop: 12/13/16 13:45 Miscellaneous (Vancomycin Iv Per Pharmacy) 1 [facility] PRN PRN PRN Reason: PROTOCOL Stop: 12/30/16 12:53 Morphine Sulfate (Morphine) 1 mg IVP Q4HR PRN PRN Reason: Pain (Moderate) Stop: 12/31/16 00:55 Last Admin: 11/05/16 02:40 Dose: 1 mg Pantoprazole Sodium (Protonix) 40 mg PO DAILY [facility] Stop: 12/14/16 08:59 Last Admin: 11/05/16 09:28 Dose: 40 mg Polyethylene Glycol (Miralax) 17 gm PO DAILY [facility] Stop: 12/28/16 08:59 Last Admin: 11/05/16 09:28 Dose: 17 gm Prochlorperazine Maleate (Compazine) 10 mg PO Q6H PRN PRN Reason: Nausea / Vomiting Stop: 12/13/16 10:39 Last Admin: 10/27/16 13:01 Dose: 10 mg Promethazine HCl/Dextromethorphan (Phenergan Dm 6.25/15mg-5 Ml) 5 ml PO BID PRN PRN Reason: Cough Stop: 12/21/16 15:19 Pyrazinamide (Pza) 1,000 mg PO MWF [facility] Stop: 01/04/17 08:59 Last Admin: 11/05/16 09:30 Dose: 1,000 mg Pyridoxine HCl (Vitamin B6) 50 mg PO DAILY [facility] Stop: 12/29/16 08:59 Last Admin: 11/05/16 09:28 Dose: 50 mg Rifampin (Rifadin) 600 mg PO DAILY [facility] Stop: 12/29/16 08:59 Last Admin: 11/05/16 09:29 Dose: 600 mg Senna (Senna) 17.2 mg PO HS [facility] Stop: 12/13/16 20:59 Last Admin: 11/04/16 21:44 Dose: 17.2 mg Vitamin B Complex/Vit C/Folic Acid (Vitamin B Complex W/Vitamin C) 1 tab PO DAILY [facility] Stop: 12/14/16 08:59 Last Admin: 11/05/16 09:29 Dose: 1 tab General: No acute distress HEENT: Atraumatic, Mucous membr. moist/pink Neck: Supple, +2 carotid pulse wo bruit Cardiovascular: Regular rate, Normal S1, Normal S2 Lungs: Other (scsttered rhonchi) Abdomen: Soft, no Tender Extremities: Edema (left upper ext) Neurological: Sensation intact Skin: no Rash - Procedures Procedures: Procedures Procedure Code Date ART BYP FEMORAL-FEMORAL 00001 10/13/16 BYPASS L FEM ART TO R FEMOR A WITH SYNTH SUB, OPEN APPROACH [id number] 10/13/16 COMPOSITE BYP GRFT PROS&VEIN [id number] 10/13/16 Assessment/Plan - Problem List Patient Problems: All Active Problems dm (Acute) esrd (Acute) h/o chf (Acute) htn (Acute) non healing ulcer (Acute) sepsis (Acute) vascular insuffi (Acute) - Assessment Assessment: ESRD on HD acute decomp systolic CHF acute resp failure, hypercapnea; hypoxemia ess htn anemia of ckd LLL HAP hypothyroid PAD w/ right toe discoloration chronic hyponatremia abd. pain better Left Fem-Pop bypass resp acicdosis clotted left avf - Plan Plan: aware of cr. 1.2 cxr still w/ persistent chf new left perma cath scheduled for hd again in am
[2016-11-05] MEDS ORDERED: Potassium Chloride 20 mEq ER Tab PO ONE (13:40)
[2016-11-05] MEDS ORDERED: Albumin 25% 25gm/100mL 25 GM/100 ML BTL IV SCH (14:00)
[2016-11-05] MEDS: cefTRIAXone 1 GM in Sodium Chloride 0.9% 50 ML IV SCH (18:10)
--- NOTE | 2016-11-05 23:51 | Infectious Disease Prog Note ---
Infectious Disease Subjective - Review of Systems Service Date: 11/05/16 Subjective: There is no fever. Doing well. Infectious Disease Objective - Results Result Diagrams: 11/05/16 06:45 11/05/16 06:45 Recent Labs: Laboratory Last Values WBC 10.2 Th/cmm (4.8-10.8) 11/05/16 06:45 RBC 3.00 Mil/cmm (3.80-5.20) L 11/05/16 06:45 Hgb 9.1 gm/dL (11.7-16.1) L 11/05/16 06:45 Hct 28.5 % (35.0-45.0) L 11/05/16 06:45 MCV 94.8 fl (81-100) 11/05/16 06:45 MCH 30.3 pg (27.0-31.0) 11/05/16 06:45 MCHC Differential 32.0 pg (28.0-36.0) 11/05/16 06:45 RDW 21.2 % (11.5-20.0) H 11/05/16 06:45 Plt Count 145 Th/cmm (150-400) L 11/05/16 06:45 MPV 10.6 fl 11/05/16 06:45 Band Neutrophils % 2 % (0-10) 11/04/16 06:18 Neutrophils (Manual) 92 % (40-80) H 11/05/16 06:45 Lymphocytes 4 % (20-50) L 11/05/16 06:45 Monocytes 4 % (2-10) 11/05/16 06:45 Eosinophils 0 % (0-5) 11/05/16 06:45 Basophils 2 % (0-3) 10/19/16 06:40 Metamyelocytes 1 % (0-0) H 10/27/16 04:52 Nucleated RBCs 1.0 % (0-0) H 11/05/16 06:45 Platelet Estimate ADEQUATE (NORMAL) 11/05/16 06:45 Platelet Morphology GIANT PLATELETS SEEN (NORMAL) 11/05/16 06:45 Polychromasia 1+ 10/25/16 05:20 Anisocytosis 1+ 11/05/16 06:45 RBC Morph Micro Appear ABNORMAL (NORMAL) 11/05/16 06:45 PT 18.3 SECONDS (9.5-11.5) H 10/23/16 04:50 INR 1.78 (0.5-1.4) H 10/23/16 04:50 PTT (Actin FS) 34.8 SECONDS (26.0-38.0) 10/23/16 04:50 Specimen Source Arterial 11/04/16 08:50 Sample Site Right Radial 11/04/16 08:50 pH 7.40 (7.35-7.45) 11/04/16 08:50 pCO2 53.0 mmHg (35.0-45.0) H 11/04/16 08:50 pO2 80.0 mmHg (80.0-100.0) 11/04/16 08:50 HCO3 32.8 mmol/L (20.0-26.0) H 11/04/16 08:50 Base Excess 6.6 mmol/L (-3.0-3.0) H 11/04/16 08:50 O2 Saturation 96.0 % (92.0-100.0) 11/04/16 08:50 Sanjeev Test YES 11/04/16 08:50 Vent Rate NA 11/04/16 08:50 Inspired O2 28 11/04/16 08:50 Tidal Volume NA 11/04/16 08:50 PEEP NA 11/04/16 08:50 Pressure (ins/psv/peep) NA 11/04/16 08:50 Critical Value E.DICKSON 11/04/16 08:50 Sodium 137 mEq/L (136-145) 11/05/16 06:45 Potassium 3.4 mEq/L (3.5-5.1) L 11/05/16 06:45 Chloride 104 mEq/L (98-107) 11/05/16 06:45 Carbon Dioxide 27.9 mEq/L (21.0-31.0) 11/05/16 06:45 Anion Gap 8.5 (7.0-16.0) 11/05/16 06:45 BUN 14 mg/dL (7-25) 11/05/16 06:45 Creatinine 1.2 mg/dL (0.6-1.2) 11/05/16 06:45 Est GFR ( Amer) 57.3 ml/min 11/05/16 06:45 Est GFR (Non-Af Amer) 47.3 ml/min 11/05/16 06:45 BUN/Creatinine Ratio 11.7 11/05/16 06:45 Glucose 122 mg/dL (70-105) H 11/05/16 06:45 POC Glucose 151 MG/DL (70 - 105) H 11/05/16 21:31 Hemoglobin A1c % 6.9 % (4.0-6.0) H 10/15/16 05:17 Calcium 8.7 mg/dL (8.6-10.3) 11/05/16 06:45 Magnesium 1.9 mg/dL (1.9-2.7) 11/02/16 06:50 Total Bilirubin 1.4 mg/dL (0.3-1.0) H 11/04/16 06:18 Direct Bilirubin 0.82 mg/dL (0.0-0.2) H 11/04/16 06:18 AST 23 U/L (13-39) 11/04/16 06:18 ALT 6 U/L (7-52) L 11/04/16 06:18 Alkaline Phosphatase 145 U/L (34-104) H 11/04/16 06:18 Ammonia 50 umol/L (16-53) 10/14/16 10:40 B-Natriuretic Peptide > 5000.0 pg/mL (5.0-100.0) H 10/17/16 06:50 Total Protein 6.3 gm/dL (6.0-8.3) 11/04/16 06:18 Albumin 2.9 gm/dL (3.7-5.3) L 11/04/16 06:18 Globulin 3.4 gm/dL 11/04/16 06:18 Albumin/Globulin Ratio 0.9 (1.0-1.8) L 11/04/16 06:18 Prealbumin 9 mg/dL (10-36) L 11/01/16 06:10 Triglycerides 119 mg/dL (<150) 10/14/16 10:40 Cholesterol 80 mg/dL (<200) 10/14/16 10:40 LDL Cholesterol Direct 26 mg/dL (75-193) L 10/14/16 10:40 HDL Cholesterol 33 mg/dL (23-92) 10/14/16 10:40 TSH 7.87 uIU/ml (0.34-5.60) H 10/14/16 10:40 Urine Source CATH 10/14/16 06:00 Urine Color BROWN 10/14/16 06:00 Urine Clarity SL. CLOUDY (CLEAR) 10/14/16 06:00 Urine pH 5.5 10/14/16 06:00 Ur Specific [place] 1.025 (1.005-1.030) 10/14/16 06:00 Urine Protein 100 mg/dL (NEGATIVE) H 10/14/16 06:00 Urine Glucose (UA) NEGATIVE mg/dL (NEGATIVE) 10/14/16 06:00 Urine Ketones TRACE mg/dL (NEGATIVE) 10/14/16 06:00 Urine Blood TRACE (NEGATIVE) 10/14/16 06:00 Urine Nitrate NEGATIVE (NEGATIVE) 10/14/16 06:00 Urine Bilirubin SMALL (NEGATIVE) H 10/14/16 06:00 Urine Urobilinogen 0.2 E.U./dL (0.2 - 1.0) 10/14/16 06:00 Ur Leukocyte Esterase NEGATIVE (NEGATIVE) 10/14/16 06:00 Urine RBC 0-1 /hpf (0-5) 10/14/16 06:00 Urine WBC 2-5 /hpf (0-5) 10/14/16 06:00 Ur Epithelial Cells OCCASIONAL /lpf (FEW) 10/14/16 06:00 Amorphous Sediment FEW URATES (NONE SEEN) 10/14/16 06:00 Urine Bacteria NONE SEEN /hpf (NONE SEEN) 10/14/16 06:00 Vancomycin Trough 20.9 ug/mL (10-20) H 10/26/16 09:35 Random Vancomycin 19.7 ug/mL (5.0-40.0) 11/04/16 06:18 Hepatitis A IgM Ab Negative (Negative) 10/15/16 05:17 Hep Bs Antigen Negative (Negative) 10/15/16 05:17 Hep B Core IgM Ab Negative (Negative) 10/15/16 05:17 Hepatitis C Antibody <0.1 s/co ratio (0.0-0.9) 10/15/16 05:17 HIV 1&2 Antibody Screen NEGATIVE (NEG) 10/27/16 04:52 TB (QFT) Gold In Tube Negative (Negative) 10/24/16 16:00 TB Test (QFT) Mitogen 3.00 IU/mL 10/24/16 16:00 TB Test (QFT) Antigen 0.05 IU/mL 10/24/16 16:00 TB Test Antigen - Nil <0.00 IU/mL 10/24/16 16:00 TB Test TB - Nil 0.06 IU/mL 10/24/16 16:00 TB Test (QFT) Interp (()) 10/24/16 16:00 - Physical Exam Vitals and I&O: Vital Signs Temp 97.1 F 11/05/16 20:00 Pulse 80 11/05/16 20:00 Resp 16 11/05/16 23:47 BP 125/55 11/05/16 20:00 Pulse Ox 97 11/05/16 23:47 Intake & Output 11/05/16 11/05/16 11/06/16 06:59 18:59 06:59 Intake Total 200 Balance 200 Intake: Oral 200 Other: Stool Characteristics Soft Formed Active Medications: Current Medications Acetaminophen (Tylenol) 650 mg PO Q4HR PRN PRN Reason: fever/pain Stop: 12/13/16 01:20 Last Admin: 10/14/16 09:03 Dose: 650 mg Acetaminophen/Hydrocodone Bitart ([place] 5mg/325mg) 1 tab PO Q3H PRN PRN Reason: moderate pain (4-6) Stop: 12/13/16 10:21 Last Admin: 10/31/16 09:06 Dose: 1 tab Acetaminophen/Hydrocodone Bitart ([place] 10 Mg/325 Mg) 1 tab PO Q6H PRN PRN Reason: Pain (Severe) Stop: 12/30/16 12:53 Last Admin: 11/05/16 12:47 Dose: 1 tab Aspirin (Ecotrin) 81 mg PO QAM [facility] Stop: 12/14/16 08:59 Last Admin: 11/05/16 09:28 Dose: 81 mg Calamine/Phenol (Calmoseptine) 1 appl TP QID PRN PRN Reason: Skin Irritation Stop: 01/03/17 18:21 Calamine/Phenol (Calmoseptine) 1 appl TP QID [facility] Stop: 01/03/17 20:59 Last Admin: 11/05/16 21:36 Dose: 1 appl Cilostazol (Pletal) 100 mg PO BID [facility] Stop: 12/22/16 16:59 Last Admin: 11/05/16 17:34 Dose: 100 mg Docusate Sodium (Colace) 100 mg PO BID [facility] Stop: 12/13/16 16:59 Last Admin: 11/05/16 17:34 Dose: 100 mg Ethambutol HCl (Myambutol) 800 mg PO MWF [facility] Stop: 01/04/17 08:59 Last Admin: 11/05/16 09:29 Dose: 800 mg Folic Acid (Folate) 1 mg PO DAILY [facility] Stop: 12/14/16 08:59 Last Admin: 11/05/16 09:28 Dose: 1 mg Ceftriaxone Sodium 1 gm/ (Sodium Chloride) 50 mls @ 100 mls/hr IV Q24HR [facility] Stop: 12/30/16 15:59 Last Admin: 11/05/16 18:10 Dose: 100 mls/hr Insulin Aspart (Novolog Insulin Sliding Scale) 0 units SUBQ ACHS [facility] PRN Reason: Protocol Stop: 12/13/16 16:29 Last Admin: 11/05/16 21:35 Dose: 2 units Isoniazid (Inh) 300 mg PO DAILY [facility] Stop: 12/29/16 08:59 Last Admin: 11/05/16 09:29 Dose: 300 mg Levothyroxine Sodium (Synthroid) 0.05 mg PO QDAC [facility] Stop: 12/19/16 06:29 Last Admin: 11/05/16 10:49 Dose: 0.05 mg Mirtazapine (Remeron) 15 mg PO HS [facility] PRN Reason: Protocol Stop: 01/04/17 20:59 Last Admin: 11/05/16 21:35 Dose: 15 mg Miscellaneous (Clinical Monitoring) 1 ea PRN PRN PRN Reason: RENAL DOSING Stop: 12/13/16 13:45 Miscellaneous (Vancomycin Iv Per Pharmacy) 1 ea PRN PRN PRN Reason: PROTOCOL Stop: 12/30/16 12:53 Morphine Sulfate (Morphine) 1 mg IVP Q4HR PRN PRN Reason: Pain (Moderate) Stop: 12/31/16 00:55 Last Admin: 11/05/16 21:35 Dose: 1 mg Pantoprazole Sodium (Protonix) 40 mg PO DAILY [facility] Stop: 12/14/16 08:59 Last Admin: 11/05/16 09:28 Dose: 40 mg Polyethylene Glycol (Miralax) 17 gm PO DAILY [facility] Stop: 12/28/16 08:59 Last Admin: 11/05/16 09:28 Dose: 17 gm Prochlorperazine Maleate (Compazine) 10 mg PO Q6H PRN PRN Reason: Nausea / Vomiting Stop: 12/13/16 10:39 Last Admin: 10/27/16 13:01 Dose: 10 mg Promethazine HCl/Dextromethorphan (Phenergan Dm 6.25/15mg-5 Ml) 5 ml PO BID PRN PRN Reason: Cough Stop: 12/21/16 15:19 Pyrazinamide (Pza) 1,000 mg PO MWF [facility] Stop: 01/04/17 08:59 Last Admin: 11/05/16 09:30 Dose: 1,000 mg Pyridoxine HCl (Vitamin B6) 50 mg PO DAILY [facility] Stop: 12/29/16 08:59 Last Admin: 11/05/16 09:28 Dose: 50 mg Rifampin (Rifadin) 600 mg PO DAILY [facility] Stop: 12/29/16 08:59 Last Admin: 11/05/16 09:29 Dose: 600 mg Senna (Senna) 17.2 mg PO HS [facility] Stop: 12/13/16 20:59 Last Admin: 11/05/16 21:36 Dose: Not Given Vitamin B Complex/Vit C/Folic Acid (Vitamin B Complex W/Vitamin C) 1 tab PO DAILY [facility] Stop: 12/14/16 08:59 Last Admin: 11/05/16 09:29 Dose: 1 tab General: no acute distress, well developed, well nourished HEENT: atraumatic, normocephalic, PERRLA, EOMI, moist mucous membrane Neck: supple, no thyromegaly Cardiovascular: S1S2, regular Lungs: clear to auscultation bilaterally (bs), clear to percussion, other Abdomen: soft Extremities: no cyanosis, no clubbing, no edema Neurological: awake, alert - Procedures Procedures: Procedures Procedure Code Date ART BYP FEMORAL-FEMORAL 35421 10/13/16 BYPASS L FEM ART TO R FEMOR A WITH SYNTH SUB, OPEN APPROACH [id number] 10/13/16 COMPOSITE BYP GRFT PROS&VEIN 47010 10/13/16 Infectious Disease Assmt/Plan - Problem List Patient Problems: All Active Problems dm (Acute) esrd (Acute) h/o chf (Acute) htn (Acute) non healing ulcer (Acute) sepsis (Acute) vascular insuffi (Acute) - Assessment Assessment: Impression: 1. Right big toe cellulitis. 2/2 PAD. 2. R pneumonia with air, cavity. 3. CHF. 4. CKD 5 on HD. 5. DM2 6. 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 7. abdominal pain, improving. - Plan Plan: Follow up [facility]. Continue [place] treatment as recommended by the public health department.
[2016-11-06] MEDS ORDERED: Albumin 25% 25gm/100mL 25 GM/100 ML BTL IV ONE ×2 (03:49→05:00)
[2016-11-06] MEDS ORDERED: Albumin 25% 12.5gm/50mL 12.5 GM/50 ML BTL IV ONE ×2 (03:52→04:59)
[2016-11-06] MEDS ORDERED: ALBUMIN 25% IV ONE (04:00)
[2016-11-06] MEDS: Morphine Sulfate 2 mg/mL 1mL Syr IVP PRN (04:27)
[2016-11-06] MEDS: Levothyroxine 0.05 Mg Tab PO SCH ×2 (07:09→07:58)
[2016-11-06] MEDS: INSULIN ASPART SLIDING SCALE 100 UNITS/ML UNIT SUBQ SCH ×4 (07:10→21:24)
--- NOTE | 2016-11-06 07:39 | Progress Notes ---
PULMONARY PROGRESS NOTE PROBLEM LIST: 1. Abnormal chest x-ray. 2. Bilateral effusion. 3. Persistent respiratory failure. 4. Significant anorexia as well as persistent possibly cavitary lesion, right lower lobe, though cannot be seen at this time because of effusion. SYMPTOMS: Complains of shortness of breath, but no chest pain, not much coughing. PHYSICAL EXAMINATION: VITAL SIGNS: The patient's recorded vital signs show temperature is 96.5, blood pressure 101/57, and saturation 100% on 3 liters of oxygen. NECK: Veins not visualized. CHEST: Shows diminished air entry at the bases with occasional rhonchi. HEART: Regular. EXTREMITIES: Shows no peripheral edema. LABORATORY DATA: The patient's white count is 10.2, hemoglobin 9.1. Electrolytes show potassium 3.4 and creatinine 1.2. ASSESSMENT: The patient clinically appears to be stable with some effusion with possibly cavitary lesion, right lower lobe, though this could be ____ surrounded by fluid. PLANS AND SUGGESTIONS: We will go ahead and continue current treatment. We will repeat chest x-ray and/or possibly a CT scan in a day or two. See how it is and go from there. JOB# [id number]
[2016-11-06] MEDS: Pantoprazole 40 mg EC Tab PO SCH (09:13)
[2016-11-06] MEDS: Vitamin B Complex w/Vitamin C Tab PO SCH (09:14)
[2016-11-06] MEDS: Rifampin 300 mg Cap PO SCH (09:14)
[2016-11-06] MEDS: Menthol/Zinc Oxide Oint 113gm Tube TP SCH ×4 (09:14→21:41)
[2016-11-06] MEDS: POLYETHYLENE GLYCOL 3350 17 GM PACK PO SCH (09:15)
--- NOTE | 2016-11-06 09:44 | General Progress Note ---
Subjective - Review of Systems Subjective: patient lethargic, no distress Objective - Results Result Diagrams: 11/05/16 06:45 11/05/16 06:45 Recent Labs: Laboratory Last Values WBC 10.2 Th/cmm (4.8-10.8) 11/05/16 06:45 RBC 3.00 Mil/cmm (3.80-5.20) L 11/05/16 06:45 Hgb 9.1 gm/dL (11.7-16.1) L 11/05/16 06:45 Hct 28.5 % (35.0-45.0) L 11/05/16 06:45 MCV 94.8 fl (81-100) 11/05/16 06:45 MCH 30.3 pg (27.0-31.0) 11/05/16 06:45 MCHC Differential 32.0 pg (28.0-36.0) 11/05/16 06:45 RDW 21.2 % (11.5-20.0) H 11/05/16 06:45 Plt Count 145 Th/cmm (150-400) L 11/05/16 06:45 MPV 10.6 fl 11/05/16 06:45 Band Neutrophils % 2 % (0-10) 11/04/16 06:18 Neutrophils (Manual) 92 % (40-80) H 11/05/16 06:45 Lymphocytes 4 % (20-50) L 11/05/16 06:45 Monocytes 4 % (2-10) 11/05/16 06:45 Eosinophils 0 % (0-5) 11/05/16 06:45 Basophils 2 % (0-3) 10/19/16 06:40 Metamyelocytes 1 % (0-0) H 10/27/16 04:52 Nucleated RBCs 1.0 % (0-0) H 11/05/16 06:45 Platelet Estimate ADEQUATE (NORMAL) 11/05/16 06:45 Platelet Morphology GIANT PLATELETS SEEN (NORMAL) 11/05/16 06:45 Polychromasia 1+ 10/25/16 05:20 Anisocytosis 1+ 11/05/16 06:45 RBC Morph Micro Appear ABNORMAL (NORMAL) 11/05/16 06:45 PT 18.3 SECONDS (9.5-11.5) H 10/23/16 04:50 INR 1.78 (0.5-1.4) H 10/23/16 04:50 PTT (Actin FS) 34.8 SECONDS (26.0-38.0) 10/23/16 04:50 Specimen Source Arterial 11/04/16 08:50 Sample Site Right Radial 11/04/16 08:50 pH 7.40 (7.35-7.45) 11/04/16 08:50 pCO2 53.0 mmHg (35.0-45.0) H 11/04/16 08:50 pO2 80.0 mmHg (80.0-100.0) 11/04/16 08:50 HCO3 32.8 mmol/L (20.0-26.0) H 11/04/16 08:50 Base Excess 6.6 mmol/L (-3.0-3.0) H 11/04/16 08:50 O2 Saturation 96.0 % (92.0-100.0) 11/04/16 08:50 Sanjeev Test YES 11/04/16 08:50 Vent Rate NA 11/04/16 08:50 Inspired O2 28 11/04/16 08:50 Tidal Volume NA 11/04/16 08:50 PEEP NA 11/04/16 08:50 Pressure (ins/psv/peep) NA 11/04/16 08:50 Critical Value E.DICKSON 11/04/16 08:50 Sodium 137 mEq/L (136-145) 11/05/16 06:45 Potassium 3.4 mEq/L (3.5-5.1) L 11/05/16 06:45 Chloride 104 mEq/L (98-107) 11/05/16 06:45 Carbon Dioxide 27.9 mEq/L (21.0-31.0) 11/05/16 06:45 Anion Gap 8.5 (7.0-16.0) 11/05/16 06:45 BUN 14 mg/dL (7-25) 11/05/16 06:45 Creatinine 1.2 mg/dL (0.6-1.2) 11/05/16 06:45 Est GFR ( Amer) 57.3 ml/min 11/05/16 06:45 Est GFR (Non-Af Amer) 47.3 ml/min 11/05/16 06:45 BUN/Creatinine Ratio 11.7 11/05/16 06:45 Glucose 122 mg/dL (70-105) H 11/05/16 06:45 POC Glucose 46 MG/DL (70 - 105) L 11/06/16 07:00 Hemoglobin A1c % 6.9 % (4.0-6.0) H 10/15/16 05:17 Calcium 8.7 mg/dL (8.6-10.3) 11/05/16 06:45 Magnesium 1.9 mg/dL (1.9-2.7) 11/02/16 06:50 Total Bilirubin 1.4 mg/dL (0.3-1.0) H 11/04/16 06:18 Direct Bilirubin 0.82 mg/dL (0.0-0.2) H 11/04/16 06:18 AST 23 U/L (13-39) 11/04/16 06:18 ALT 6 U/L (7-52) L 11/04/16 06:18 Alkaline Phosphatase 145 U/L (34-104) H 11/04/16 06:18 Ammonia 50 umol/L (16-53) 10/14/16 10:40 B-Natriuretic Peptide > 5000.0 pg/mL (5.0-100.0) H 10/17/16 06:50 Total Protein 6.3 gm/dL (6.0-8.3) 11/04/16 06:18 Albumin 2.9 gm/dL (3.7-5.3) L 11/04/16 06:18 Globulin 3.4 gm/dL 11/04/16 06:18 Albumin/Globulin Ratio 0.9 (1.0-1.8) L 11/04/16 06:18 Prealbumin 9 mg/dL (10-36) L 11/01/16 06:10 Triglycerides 119 mg/dL (<150) 10/14/16 10:40 Cholesterol 80 mg/dL (<200) 10/14/16 10:40 LDL Cholesterol Direct 26 mg/dL (75-193) L 10/14/16 10:40 HDL Cholesterol 33 mg/dL (23-92) 10/14/16 10:40 TSH 7.87 uIU/ml (0.34-5.60) H 10/14/16 10:40 Urine Source CATH 10/14/16 06:00 Urine Color BROWN 10/14/16 06:00 Urine Clarity SL. CLOUDY (CLEAR) 10/14/16 06:00 Urine pH 5.5 10/14/16 06:00 Ur Specific [place] 1.025 (1.005-1.030) 10/14/16 06:00 Urine Protein 100 mg/dL (NEGATIVE) H 10/14/16 06:00 Urine Glucose (UA) NEGATIVE mg/dL (NEGATIVE) 10/14/16 06:00 Urine Ketones TRACE mg/dL (NEGATIVE) 10/14/16 06:00 Urine Blood TRACE (NEGATIVE) 10/14/16 06:00 Urine Nitrate NEGATIVE (NEGATIVE) 10/14/16 06:00 Urine Bilirubin SMALL (NEGATIVE) H 10/14/16 06:00 Urine Urobilinogen 0.2 E.U./dL (0.2 - 1.0) 10/14/16 06:00 Ur Leukocyte Esterase NEGATIVE (NEGATIVE) 10/14/16 06:00 Urine RBC 0-1 /hpf (0-5) 10/14/16 06:00 Urine WBC 2-5 /hpf (0-5) 10/14/16 06:00 Ur Epithelial Cells OCCASIONAL /lpf (FEW) 10/14/16 06:00 Amorphous Sediment FEW URATES (NONE SEEN) 10/14/16 06:00 Urine Bacteria NONE SEEN /hpf (NONE SEEN) 10/14/16 06:00 Vancomycin Trough 20.9 ug/mL (10-20) H 10/26/16 09:35 Random Vancomycin 19.7 ug/mL (5.0-40.0) 11/04/16 06:18 Hepatitis A IgM Ab Negative (Negative) 10/15/16 05:17 Hep Bs Antigen Negative (Negative) 10/15/16 05:17 Hep B Core IgM Ab Negative (Negative) 10/15/16 05:17 Hepatitis C Antibody <0.1 s/co ratio (0.0-0.9) 10/15/16 05:17 HIV 1&2 Antibody Screen NEGATIVE (NEG) 10/27/16 04:52 TB (QFT) Gold In Tube Negative (Negative) 10/24/16 16:00 TB Test (QFT) Mitogen 3.00 IU/mL 10/24/16 16:00 TB Test (QFT) Antigen 0.05 IU/mL 10/24/16 16:00 TB Test Antigen - Nil <0.00 IU/mL 10/24/16 16:00 TB Test TB - Nil 0.06 IU/mL 10/24/16 16:00 TB Test (QFT) Interp (()) 10/24/16 16:00 - Physical Exam Vitals and I&O: Vital Signs Temp 97.0 F 11/06/16 03:54 Pulse 70 11/06/16 07:15 Resp 19 11/06/16 03:54 BP 93/51 11/06/16 07:15 Pulse Ox 98 11/06/16 03:54 Intake & Output 11/05/16 11/06/16 11/06/16 18:59 06:59 18:59 Intake Total 50 Balance 50 Intake: Oral 50 Other: # Voids 3 # Bowel Movements 5 Stool Characteristics Soft Active Medications: Current Medications Acetaminophen (Tylenol) 650 mg PO Q4HR PRN PRN Reason: fever/pain Stop: 12/13/16 01:20 Last Admin: 10/14/16 09:03 Dose: 650 mg Acetaminophen/Hydrocodone Bitart ([place] 5mg/325mg) 1 tab PO Q3H PRN PRN Reason: moderate pain (4-6) Stop: 12/13/16 10:21 Last Admin: 10/31/16 09:06 Dose: 1 tab Acetaminophen/Hydrocodone Bitart ([place] 10 Mg/325 Mg) 1 tab PO Q6H PRN PRN Reason: Pain (Severe) Stop: 12/30/16 12:53 Last Admin: 11/05/16 12:47 Dose: 1 tab Aspirin (Ecotrin) 81 mg PO QAM [facility] Stop: 12/14/16 08:59 Last Admin: 11/06/16 09:12 Dose: 81 mg Calamine/Phenol (Calmoseptine) 1 appl TP QID PRN PRN Reason: Skin Irritation Stop: 01/03/17 18:21 Calamine/Phenol (Calmoseptine) 1 appl TP QID [facility] Stop: 01/03/17 20:59 Last Admin: 11/06/16 09:14 Dose: 1 appl Cilostazol (Pletal) 100 mg PO BID [facility] Stop: 12/22/16 16:59 Last Admin: 11/06/16 09:18 Dose: Not Given Docusate Sodium (Colace) 100 mg PO BID [facility] Stop: 12/13/16 16:59 Last Admin: 11/06/16 09:18 Dose: Not Given Ethambutol HCl (Myambutol) 800 mg PO MWF [facility] Stop: 01/04/17 08:59 Last Admin: 11/05/16 09:29 Dose: 800 mg Folic Acid (Folate) 1 mg PO DAILY [facility] Stop: 12/14/16 08:59 Last Admin: 11/06/16 09:13 Dose: 1 mg Ceftriaxone Sodium 1 gm/ (Sodium Chloride) 50 mls @ 100 mls/hr IV Q24HR [facility] Stop: 12/30/16 15:59 Last Admin: 11/05/16 18:10 Dose: 100 mls/hr Insulin Aspart (Novolog Insulin Sliding Scale) 0 units SUBQ ACHS [facility] PRN Reason: Protocol Stop: 12/13/16 16:29 Last Admin: 11/06/16 07:10 Dose: Not Given Isoniazid (Inh) 300 mg PO DAILY [facility] Stop: 12/29/16 08:59 Last Admin: 11/06/16 09:14 Dose: 300 mg Levothyroxine Sodium (Synthroid) 0.05 mg PO QDAC [facility] Stop: 12/19/16 06:29 Last Admin: 11/06/16 07:58 Dose: 0.05 mg Mirtazapine (Remeron) 15 mg PO HS [facility] PRN Reason: Protocol Stop: 01/04/17 20:59 Last Admin: 11/05/16 21:35 Dose: 15 mg Miscellaneous (Clinical Monitoring) 1 ea PRN PRN PRN Reason: RENAL DOSING Stop: 12/13/16 13:45 Miscellaneous (Vancomycin Iv Per Pharmacy) 1 ea PRN PRN PRN Reason: PROTOCOL Stop: 12/30/16 12:53 Morphine Sulfate (Morphine) 1 mg IVP Q4HR PRN PRN Reason: Pain (Moderate) Stop: 12/31/16 00:55 Last Admin: 11/06/16 04:27 Dose: 1 mg Pantoprazole Sodium (Protonix) 40 mg PO DAILY [facility] Stop: 12/14/16 08:59 Last Admin: 11/06/16 09:13 Dose: 40 mg Polyethylene Glycol (Miralax) 17 gm PO DAILY [facility] Stop: 12/28/16 08:59 Last Admin: 01/14/17 09:15 Dose: Not Given Prochlorperazine Maleate (Compazine) 10 mg PO Q6H PRN PRN Reason: Nausea / Vomiting Stop: 12/13/16 10:39 Last Admin: 10/27/16 13:01 Dose: 10 mg Promethazine HCl/Dextromethorphan (Phenergan Dm 6.25/15mg-5 Ml) 5 ml PO BID PRN PRN Reason: Cough Stop: 12/21/16 15:19 Pyrazinamide (Pza) 1,000 mg PO MWF [facility] Stop: 01/04/17 08:59 Last Admin: 11/05/16 09:30 Dose: 1,000 mg Pyridoxine HCl (Vitamin B6) 50 mg PO DAILY [facility] Stop: 12/29/16 08:59 Last Admin: 11/06/16 09:16 Dose: 50 mg Rifampin (Rifadin) 600 mg PO DAILY [facility] Stop: 12/29/16 08:59 Last Admin: 11/06/16 09:14 Dose: 600 mg Senna (Senna) 17.2 mg PO HS [facility] Stop: 12/13/16 20:59 Last Admin: 11/05/16 21:36 Dose: Not Given Vitamin B Complex/Vit C/Folic Acid (Vitamin B Complex W/Vitamin C) 1 tab PO DAILY [facility] Stop: 12/14/16 08:59 Last Admin: 11/06/16 09:14 Dose: 1 tab - Procedures Procedures: Procedures Procedure Code Date ART BYP FEMORAL-FEMORAL 76996 10/13/16 BYPASS L FEM ART TO R FEMOR A WITH SYNTH SUB, OPEN APPROACH [id number] 10/13/16 [facility] BY GRFT PROS&VEIN [id number] 10/13/16 Assessment/Plan - Problem List Patient Problems: All Active Problems dm (Acute) esrd (Acute) h/o chf (Acute) htn (Acute) non healing ulcer (Acute) sepsis (Acute) vascular insuffi (Acute) - Assessment Assessment: 1. Right big toe cellulitis. 2/2 PAD. 2. R pneumonia. 3. CHF. 4. CKD 5 on HD. 5. DM2 - Plan Plan: appreciate consults reccomendation continue ivabx as per id cbc/bmp in am continue current plan of care
--- NOTE | 2016-11-06 09:55 | General Progress Note ---
Subjective - Review of Systems Service Date: 11/06/16 Subjective: weak, less tacypnea, on NC, nonspecific pain, being dialyzed Objective - Results Result Diagrams: 11/05/16 06:45 11/05/16 06:45 Recent Labs: Laboratory Last Values WBC 10.2 Th/cmm (4.8-10.8) 11/05/16 06:45 RBC 3.00 Mil/cmm (3.80-5.20) L 11/05/16 06:45 Hgb 9.1 gm/dL (11.7-16.1) L 11/05/16 06:45 Hct 28.5 % (35.0-45.0) L 11/05/16 06:45 MCV 94.8 fl (81-100) 11/05/16 06:45 MCH 30.3 pg (27.0-31.0) 11/05/16 06:45 MCHC Differential 32.0 pg (28.0-36.0) 11/05/16 06:45 RDW 21.2 % (11.5-20.0) H 11/05/16 06:45 Plt Count 145 Th/cmm (150-400) L 11/05/16 06:45 MPV 10.6 fl 11/05/16 06:45 Band Neutrophils % 2 % (0-10) 11/04/16 06:18 Neutrophils (Manual) 92 % (40-80) H 11/05/16 06:45 Lymphocytes 4 % (20-50) L 11/05/16 06:45 Monocytes 4 % (2-10) 11/05/16 06:45 Eosinophils 0 % (0-5) 11/05/16 06:45 Basophils 2 % (0-3) 10/19/16 06:40 Metamyelocytes 1 % (0-0) H 10/27/16 04:52 Nucleated RBCs 1.0 % (0-0) H 11/05/16 06:45 Platelet Estimate ADEQUATE (NORMAL) 11/05/16 06:45 Platelet Morphology GIANT PLATELETS SEEN (NORMAL) 11/05/16 06:45 Polychromasia 1+ 10/25/16 05:20 Anisocytosis 1+ 11/05/16 06:45 RBC Morph Micro Appear ABNORMAL (NORMAL) 11/05/16 06:45 PT 18.3 SECONDS (9.5-11.5) H 10/23/16 04:50 INR 1.78 (0.5-1.4) H 10/23/16 04:50 PTT (Actin FS) 34.8 SECONDS (26.0-38.0) 10/23/16 04:50 Specimen Source Arterial 11/04/16 08:50 Sample Site Right Radial 11/04/16 08:50 pH 7.40 (7.35-7.45) 11/04/16 08:50 pCO2 53.0 mmHg (35.0-45.0) H 11/04/16 08:50 pO2 80.0 mmHg (80.0-100.0) 11/04/16 08:50 HCO3 32.8 mmol/L (20.0-26.0) H 11/04/16 08:50 Base Excess 6.6 mmol/L (-3.0-3.0) H 11/04/16 08:50 O2 Saturation 96.0 % (92.0-100.0) 11/04/16 08:50 Sanjeev Test YES 11/04/16 08:50 Vent Rate NA 11/04/16 08:50 Inspired O2 28 11/04/16 08:50 Tidal Volume NA 11/04/16 08:50 PEEP NA 11/04/16 08:50 Pressure (ins/psv/peep) NA 11/04/16 08:50 Critical Value E.DICKSON 11/04/16 08:50 Sodium 137 mEq/L (136-145) 11/05/16 06:45 Potassium 3.4 mEq/L (3.5-5.1) L 11/05/16 06:45 Chloride 104 mEq/L (98-107) 11/05/16 06:45 Carbon Dioxide 27.9 mEq/L (21.0-31.0) 11/05/16 06:45 Anion Gap 8.5 (7.0-16.0) 11/05/16 06:45 BUN 14 mg/dL (7-25) 11/05/16 06:45 Creatinine 1.2 mg/dL (0.6-1.2) 11/05/16 06:45 Est GFR ( Amer) 57.3 ml/min 11/05/16 06:45 Est GFR (Non-Af Amer) 47.3 ml/min 11/05/16 06:45 BUN/Creatinine Ratio 11.7 11/05/16 06:45 Glucose 122 mg/dL (70-105) H 11/05/16 06:45 POC Glucose 46 MG/DL (70 - 105) L 11/06/16 07:00 Hemoglobin A1c % 6.9 % (4.0-6.0) H 10/15/16 05:17 Calcium 8.7 mg/dL (8.6-10.3) 11/05/16 06:45 Magnesium 1.9 mg/dL (1.9-2.7) 11/02/16 06:50 Total Bilirubin 1.4 mg/dL (0.3-1.0) H 11/04/16 06:18 Direct Bilirubin 0.82 mg/dL (0.0-0.2) H 11/04/16 06:18 AST 23 U/L (13-39) 11/04/16 06:18 ALT 6 U/L (7-52) L 11/04/16 06:18 Alkaline Phosphatase 145 U/L (34-104) H 11/04/16 06:18 Ammonia 50 umol/L (16-53) 10/14/16 10:40 B-Natriuretic Peptide > 5000.0 pg/mL (5.0-100.0) H 10/17/16 06:50 Total Protein 6.3 gm/dL (6.0-8.3) 11/04/16 06:18 Albumin 2.9 gm/dL (3.7-5.3) L 11/04/16 06:18 Globulin 3.4 gm/dL 11/04/16 06:18 Albumin/Globulin Ratio 0.9 (1.0-1.8) L 11/04/16 06:18 Prealbumin 9 mg/dL (10-36) L 11/01/16 06:10 Triglycerides 119 mg/dL (<150) 10/14/16 10:40 Cholesterol 80 mg/dL (<200) 10/14/16 10:40 LDL Cholesterol Direct 26 mg/dL (75-193) L 10/14/16 10:40 HDL Cholesterol 33 mg/dL (23-92) 10/14/16 10:40 TSH 7.87 uIU/ml (0.34-5.60) H 10/14/16 10:40 Urine Source CATH 10/14/16 06:00 Urine Color BROWN 10/14/16 06:00 Urine Clarity SL. CLOUDY (CLEAR) 10/14/16 06:00 Urine pH 5.5 10/14/16 06:00 Ur Specific [place] 1.025 (1.005-1.030) 10/14/16 06:00 Urine Protein 100 mg/dL (NEGATIVE) H 10/14/16 06:00 Urine Glucose (UA) NEGATIVE mg/dL (NEGATIVE) 10/14/16 06:00 Urine Ketones TRACE mg/dL (NEGATIVE) 10/14/16 06:00 Urine Blood TRACE (NEGATIVE) 10/14/16 06:00 Urine Nitrate NEGATIVE (NEGATIVE) 10/14/16 06:00 Urine Bilirubin SMALL (NEGATIVE) H 10/14/16 06:00 Urine Urobilinogen 0.2 E.U./dL (0.2 - 1.0) 10/14/16 06:00 Ur Leukocyte Esterase NEGATIVE (NEGATIVE) 10/14/16 06:00 Urine RBC 0-1 /hpf (0-5) 10/14/16 06:00 Urine WBC 2-5 /hpf (0-5) 10/14/16 06:00 Ur Epithelial Cells OCCASIONAL /lpf (FEW) 10/14/16 06:00 Amorphous Sediment FEW URATES (NONE SEEN) 10/14/16 06:00 Urine Bacteria NONE SEEN /hpf (NONE SEEN) 10/14/16 06:00 Vancomycin Trough 20.9 ug/mL (10-20) H 10/26/16 09:35 Random Vancomycin 19.7 ug/mL (5.0-40.0) 11/04/16 06:18 Hepatitis A IgM Ab Negative (Negative) 10/15/16 05:17 Hep Bs Antigen Negative (Negative) 10/15/16 05:17 Hep B Core IgM Ab Negative (Negative) 10/15/16 05:17 Hepatitis C Antibody <0.1 s/co ratio (0.0-0.9) 10/15/16 05:17 HIV 1&2 Antibody Screen NEGATIVE (NEG) 10/27/16 04:52 TB (QFT) Gold In Tube Negative (Negative) 10/24/16 16:00 TB Test (QFT) Mitogen 3.00 IU/mL 10/24/16 16:00 TB Test (QFT) Antigen 0.05 IU/mL 10/24/16 16:00 TB Test Antigen - Nil <0.00 IU/mL 10/24/16 16:00 TB Test TB - Nil 0.06 IU/mL 10/24/16 16:00 TB Test (QFT) Interp (()) 10/24/16 16:00 - Physical Exam Vitals and I&O: Vital Signs Temp 97.0 F 11/06/16 03:54 Pulse 70 11/06/16 07:15 Resp 19 11/06/16 03:54 BP 93/51 11/06/16 07:15 Pulse Ox 98 11/06/16 03:54 Intake & Output 11/05/16 11/06/16 11/06/16 18:59 06:59 18:59 Intake Total 50 Balance 50 Intake: Oral 50 Other: # Voids 3 # Bowel Movements 5 Stool Characteristics Soft Active Medications: Current Medications Acetaminophen (Tylenol) 650 mg PO Q4HR PRN PRN Reason: fever/pain Stop: 12/13/16 01:20 Last Admin: 10/14/16 09:03 Dose: 650 mg Acetaminophen/Hydrocodone Bitart ([place] 5mg/325mg) 1 tab PO Q3H PRN PRN Reason: moderate pain (4-6) Stop: 12/13/16 10:21 Last Admin: 10/31/16 09:06 Dose: 1 tab Acetaminophen/Hydrocodone Bitart ([place] 10 Mg/325 Mg) 1 tab PO Q6H PRN PRN Reason: Pain (Severe) Stop: 12/30/16 12:53 Last Admin: 11/05/16 12:47 Dose: 1 tab Aspirin (Ecotrin) 81 mg PO QAM [facility] Stop: 12/14/16 08:59 Last Admin: 11/06/16 09:12 Dose: 81 mg Calamine/Phenol (Calmoseptine) 1 appl TP QID PRN PRN Reason: Skin Irritation Stop: 01/03/17 18:21 Calamine/Phenol (Calmoseptine) 1 appl TP QID [facility] Stop: 01/03/17 20:59 Last Admin: 11/06/16 09:14 Dose: 1 appl Cilostazol (Pletal) 100 mg PO BID [facility] Stop: 12/22/16 16:59 Last Admin: 11/06/16 09:18 Dose: Not Given Docusate Sodium (Colace) 100 mg PO BID [facility] Stop: 12/13/16 16:59 Last Admin: 11/06/16 09:18 Dose: Not Given Ethambutol HCl (Myambutol) 800 mg PO MWF [facility] Stop: 01/04/17 08:59 Last Admin: 11/05/16 09:29 Dose: 800 mg Folic Acid (Folate) 1 mg PO DAILY [facility] Stop: 12/14/16 08:59 Last Admin: 11/06/16 09:13 Dose: 1 mg Ceftriaxone Sodium 1 gm/ (Sodium Chloride) 50 mls @ 100 mls/hr IV Q24HR [facility] Stop: 12/30/16 15:59 Last Admin: 11/05/16 18:10 Dose: 100 mls/hr Insulin Aspart (Novolog Insulin Sliding Scale) 0 units SUBQ ACHS [facility] PRN Reason: Protocol Stop: 12/13/16 16:29 Last Admin: 11/06/16 07:10 Dose: Not Given Isoniazid (Inh) 300 mg PO DAILY [facility] Stop: 12/29/16 08:59 Last Admin: 11/06/16 09:14 Dose: 300 mg Levothyroxine Sodium (Synthroid) 0.05 mg PO QDAC [facility] Stop: 12/19/16 06:29 Last Admin: 11/06/16 07:58 Dose: 0.05 mg Mirtazapine (Remeron) 15 mg PO HS [facility] PRN Reason: Protocol Stop: 01/04/17 20:59 Last Admin: 11/05/16 21:35 Dose: 15 mg Miscellaneous (Clinical Monitoring) 1 ea MC PRN PRN PRN Reason: RENAL DOSING Stop: 12/13/16 13:45 Miscellaneous (Vancomycin Iv Per Pharmacy) 1 ea MC PRN PRN PRN Reason: PROTOCOL Stop: 12/30/16 12:53 Morphine Sulfate (Morphine) 1 mg IVP Q4HR PRN PRN Reason: Pain (Moderate) Stop: 12/31/16 00:55 Last Admin: 11/06/16 04:27 Dose: 1 mg Pantoprazole Sodium (Protonix) 40 mg PO DAILY [facility] Stop: 12/14/16 08:59 Last Admin: 11/06/16 09:13 Dose: 40 mg Polyethylene Glycol (Miralax) 17 gm PO DAILY [facility] Stop: 12/28/16 08:59 Last Admin: 11/06/16 09:15 Dose: Not Given Prochlorperazine Maleate (Compazine) 10 mg PO Q6H PRN PRN Reason: Nausea / Vomiting Stop: 12/13/16 10:39 Last Admin: 10/27/16 13:01 Dose: 10 mg Promethazine HCl/Dextromethorphan (Phenergan Dm 6.25/15mg-5 Ml) 5 ml PO BID PRN PRN Reason: Cough Stop: 12/21/16 15:19 Pyrazinamide (Pza) 1,000 mg PO MWF [facility] Stop: 01/04/17 08:59 Last Admin: 11/05/16 09:30 Dose: 1,000 mg Pyridoxine HCl (Vitamin B6) 50 mg PO DAILY [facility] Stop: 12/29/16 08:59 Last Admin: 11/06/16 09:16 Dose: 50 mg Rifampin (Rifadin) 600 mg PO DAILY [facility] Stop: 12/29/16 08:59 Last Admin: 11/06/16 09:14 Dose: 600 mg Senna (Senna) 17.2 mg PO HS [facility] Stop: 12/13/16 20:59 Last Admin: 11/05/16 21:36 Dose: Not Given Vitamin B Complex/Vit C/Folic Acid (Vitamin B Complex W/Vitamin C) 1 tab PO DAILY [facility] Stop: 12/14/16 08:59 Last Admin: 11/06/16 09:14 Dose: 1 tab General: No acute distress HEENT: Atraumatic, Mucous membr. moist/pink Neck: Supple, +2 carotid pulse wo bruit Cardiovascular: Regular rate, Normal S1, Normal S2 (rhonchi) Lungs: Other Abdomen: Bowel sounds, no Tender Extremities: no Edema - Procedures Procedures: Procedures Procedure Code Date ART BYP FEMORAL-FEMORAL 59375 10/13/16 BYPASS L FEM ART TO R FEMOR A WITH SYNTH SUB, OPEN APPROACH [id number] 10/13/16 COMPOSITE BYP GRFT PROS&VEIN [id number] 10/13/16 Assessment/Plan - Problem List Patient Problems: All Active Problems dm (Acute) esrd (Acute) h/o chf (Acute) htn (Acute) non healing ulcer (Acute) sepsis (Acute) vascular insuffi (Acute) - Assessment Assessment: ESRD on HD acute decomp systolic CHF acute resp failure, hypercapnea; hypoxemia ess htn anemia of ckd LLL HAP hypothyroid PAD w/ right toe discoloration chronic hyponatremia abd. pain better Left Fem-Pop bypass resp acicdosis clotted left avf - Plan Plan: aware of cr. 1.2 cxr still w/ persistent chf new left perma cath currently being dialyzed K replaced yesterday, awaiting K level
--- NOTE | 2016-11-06 10:25 | Diagnostic Imaging Report ---
Portable chest x-ray HISTORY: Shortness of breath Compared with prior exam of 11/04/2016, no change in bilateral pleural effusions (left greater than right). The heart appears enlarged. Pulmonary vascular redistribution and haziness of the visualized interstitial lung markings IMPRESSION: 1. Little change in the cardiopulmonary status as noted above.
[2016-11-06] MEDS: cefTRIAXone 1 GM in Sodium Chloride 0.9% 50 ML IV SCH (16:21)
[2016-11-06] MEDS: Hydrocodone/APAP 10 mg/325 mg Tab PO PRN (21:21)
[2016-11-07] MEDS: Hydrocodone/APAP 5mg/325mg Tab PO PRN ×2 (06:21→17:08)
[2016-11-07] MEDS: Levothyroxine 0.05 Mg Tab PO SCH (06:39)
[2016-11-07] MEDS: INSULIN ASPART SLIDING SCALE 100 UNITS/ML UNIT SUBQ SCH ×3 (06:40→23:49)
--- NOTE | 2016-11-07 07:28 | General Progress Note ---
Subjective - Review of Systems Service Date: 11/07/16 Subjective: patient lethargic, no distress Objective - Results Result Diagrams: 11/05/16 06:45 11/06/16 14:18 Recent Labs: Laboratory Last Values WBC 10.2 Th/cmm (4.8-10.8) 11/05/16 06:45 RBC 3.00 Mil/cmm (3.80-5.20) L 11/05/16 06:45 Hgb 9.1 gm/dL (11.7-16.1) L 11/05/16 06:45 Hct 28.5 % (35.0-45.0) L 11/05/16 06:45 MCV 94.8 fl (81-100) 11/05/16 06:45 MCH 30.3 pg (27.0-31.0) 11/05/16 06:45 MCHC Differential 32.0 pg (28.0-36.0) 11/05/16 06:45 RDW 21.2 % (11.5-20.0) H 11/05/16 06:45 Plt Count 145 Th/cmm (150-400) L 11/05/16 06:45 MPV 10.6 fl 11/05/16 06:45 Band Neutrophils % 2 % (0-10) 11/04/16 06:18 Neutrophils (Manual) 92 % (40-80) H 11/05/16 06:45 Lymphocytes 4 % (20-50) L 11/05/16 06:45 Monocytes 4 % (2-10) 11/05/16 06:45 Eosinophils 0 % (0-5) 11/05/16 06:45 Basophils 2 % (0-3) 10/19/16 06:40 Metamyelocytes 1 % (0-0) H 10/27/16 04:52 Nucleated RBCs 1.0 % (0-0) H 11/05/16 06:45 Platelet Estimate ADEQUATE (NORMAL) 11/05/16 06:45 Platelet Morphology GIANT PLATELETS SEEN (NORMAL) 11/05/16 06:45 Polychromasia 1+ 10/25/16 05:20 Anisocytosis 1+ 11/05/16 06:45 RBC Morph Micro Appear ABNORMAL (NORMAL) 11/05/16 06:45 PT 18.3 SECONDS (9.5-11.5) H 10/23/16 04:50 INR 1.78 (0.5-1.4) H 10/23/16 04:50 PTT (Actin FS) 34.8 SECONDS (26.0-38.0) 10/23/16 04:50 Specimen Source Arterial 11/04/16 08:50 Sample Site Right Radial 11/04/16 08:50 pH 7.40 (7.35-7.45) 11/04/16 08:50 pCO2 53.0 mmHg (35.0-45.0) H 11/04/16 08:50 pO2 80.0 mmHg (80.0-100.0) 11/04/16 08:50 HCO3 32.8 mmol/L (20.0-26.0) H 11/04/16 08:50 Base Excess 6.6 mmol/L (-3.0-3.0) H 11/04/16 08:50 O2 Saturation 96.0 % (92.0-100.0) 11/04/16 08:50 Sanjeev Test YES 11/04/16 08:50 Vent Rate NA 11/04/16 08:50 Inspired O2 28 11/04/16 08:50 Tidal Volume NA 11/04/16 08:50 PEEP NA 11/04/16 08:50 Pressure (ins/psv/peep) NA 11/04/16 08:50 Critical Value E.DICKSON 11/04/16 08:50 Sodium 137 mEq/L (136-145) 11/05/16 06:45 Potassium 3.5 mEq/L (3.5-5.1) 11/06/16 14:18 Chloride 104 mEq/L (98-107) 11/05/16 06:45 Carbon Dioxide 27.9 mEq/L (21.0-31.0) 11/05/16 06:45 Anion Gap 8.5 (7.0-16.0) 11/05/16 06:45 BUN 14 mg/dL (7-25) 11/05/16 06:45 Creatinine 1.2 mg/dL (0.6-1.2) 11/05/16 06:45 Est GFR ( Amer) 57.3 ml/min 11/05/16 06:45 Est GFR (Non-Af Amer) 47.3 ml/min 11/05/16 06:45 BUN/Creatinine Ratio 11.7 11/05/16 06:45 Glucose 122 mg/dL (70-105) H 11/05/16 06:45 POC Glucose 73 MG/DL (70 - 105) 11/07/16 06:37 Hemoglobin A1c % 6.9 % (4.0-6.0) H 10/15/16 05:17 Calcium 8.7 mg/dL (8.6-10.3) 11/05/16 06:45 Magnesium 1.8 mg/dL (1.9-2.7) L 11/06/16 14:18 Total Bilirubin 1.4 mg/dL (0.3-1.0) H 11/04/16 06:18 Direct Bilirubin 0.82 mg/dL (0.0-0.2) H 11/04/16 06:18 AST 23 U/L (13-39) 11/04/16 06:18 ALT 6 U/L (7-52) L 11/04/16 06:18 Alkaline Phosphatase 145 U/L (34-104) H 11/04/16 06:18 Ammonia 50 umol/L (16-53) 10/14/16 10:40 B-Natriuretic Peptide > 5000.0 pg/mL (5.0-100.0) H 10/17/16 06:50 Total Protein 6.3 gm/dL (6.0-8.3) 11/04/16 06:18 Albumin 2.9 gm/dL (3.7-5.3) L 11/04/16 06:18 Globulin 3.4 gm/dL 11/04/16 06:18 Albumin/Globulin Ratio 0.9 (1.0-1.8) L 11/04/16 06:18 Prealbumin 9 mg/dL (10-36) L 11/01/16 06:10 Triglycerides 119 mg/dL (<150) 10/14/16 10:40 Cholesterol 80 mg/dL (<200) 10/14/16 10:40 LDL Cholesterol Direct 26 mg/dL (75-193) L 10/14/16 10:40 HDL Cholesterol 33 mg/dL (23-92) 10/14/16 10:40 TSH 7.87 uIU/ml (0.34-5.60) H 10/14/16 10:40 Urine Source CATH 10/14/16 06:00 Urine Color BROWN 10/14/16 06:00 Urine Clarity SL. CLOUDY (CLEAR) 10/14/16 06:00 Urine pH 5.5 10/14/16 06:00 Ur Specific [place] 1.025 (1.005-1.030) 10/14/16 06:00 Urine Protein 100 mg/dL (NEGATIVE) H 10/14/16 06:00 Urine Glucose (UA) NEGATIVE mg/dL (NEGATIVE) 10/14/16 06:00 Urine Ketones TRACE mg/dL (NEGATIVE) 10/14/16 06:00 Urine Blood TRACE (NEGATIVE) 10/14/16 06:00 Urine Nitrate NEGATIVE (NEGATIVE) 10/14/16 06:00 Urine Bilirubin SMALL (NEGATIVE) H 10/14/16 06:00 Urine Urobilinogen 0.2 E.U./dL (0.2 - 1.0) 10/14/16 06:00 Ur Leukocyte Esterase NEGATIVE (NEGATIVE) 10/14/16 06:00 Urine RBC 0-1 /hpf (0-5) 10/14/16 06:00 Urine WBC 2-5 /hpf (0-5) 10/14/16 06:00 Ur Epithelial Cells OCCASIONAL /lpf (FEW) 10/14/16 06:00 Amorphous Sediment FEW URATES (NONE SEEN) 10/14/16 06:00 Urine Bacteria NONE SEEN /hpf (NONE SEEN) 10/14/16 06:00 Vancomycin Trough 20.9 ug/mL (10-20) H 10/26/16 09:35 Random Vancomycin 19.7 ug/mL (5.0-40.0) 11/04/16 06:18 Hepatitis A IgM Ab Negative (Negative) 10/15/16 05:17 Hep Bs Antigen Negative (Negative) 10/15/16 05:17 Hep B Core IgM Ab Negative (Negative) 10/15/16 05:17 Hepatitis C Antibody <0.1 s/co ratio (0.0-0.9) 10/15/16 05:17 HIV 1&2 Antibody Screen NEGATIVE (NEG) 10/27/16 04:52 TB (QFT) Gold In Tube Negative (Negative) 10/24/16 16:00 TB Test (QFT) Mitogen 3.00 IU/mL 10/24/16 16:00 TB Test (QFT) Antigen 0.05 IU/mL 10/24/16 16:00 TB Test Antigen - Nil <0.00 IU/mL 10/24/16 16:00 TB Test TB - Nil 0.06 IU/mL 10/24/16 16:00 TB Test (QFT) Interp (()) 10/24/16 16:00 - Physical Exam Vitals and I&O: Vital Signs Temp 96.1 F 11/07/16 04:00 Pulse 75 11/07/16 04:00 Resp 26 11/07/16 05:00 BP 115/59 11/07/16 04:00 Pulse Ox 98 11/07/16 05:00 Intake & Output 11/06/16 11/07/16 11/07/16 18:59 06:59 18:59 Intake Total 50 Output Total 1200 Balance -1150 Intake: Intake, IV Amount 50 [id number] 1 gm In 50 Sodium Chloride 0.9% 50 ml @ 100 mls/hr IV Q24HR [facility] Rx#:[id number] Output: Hemodialysis 1200 Other: Stool Characteristics Soft Active Medications: Current Medications Acetaminophen (Tylenol) 650 mg PO Q4HR PRN PRN Reason: fever/pain Stop: 12/13/16 01:20 Last Admin: 10/14/16 09:03 Dose: 650 mg Acetaminophen/Hydrocodone Bitart ([place] 5mg/325mg) 1 tab PO Q3H PRN PRN Reason: moderate pain (4-6) Stop: 12/13/16 10:21 Last Admin: 11/07/16 06:21 Dose: 1 tab Acetaminophen/Hydrocodone Bitart ([place] 10 Mg/325 Mg) 1 tab PO Q6H PRN PRN Reason: Pain (Severe) Stop: 12/30/16 12:53 Last Admin: 11/06/16 21:21 Dose: 1 tab Aspirin (Ecotrin) 81 mg PO QAM [facility] Stop: 12/14/16 08:59 Last Admin: 11/06/16 09:12 Dose: 81 mg Calamine/Phenol (Calmoseptine) 1 appl TP QID PRN PRN Reason: Skin Irritation Stop: 01/03/17 18:21 Calamine/Phenol (Calmoseptine) 1 appl TP QID [facility] Stop: 01/03/17 20:59 Last Admin: 11/06/16 21:41 Dose: 1 appl Cilostazol (Pletal) 100 mg PO BID [facility] Stop: 12/22/16 16:59 Last Admin: 11/06/16 17:02 Dose: Not Given Docusate Sodium (Colace) 100 mg PO BID [facility] Stop: 12/13/16 16:59 Last Admin: 11/06/16 17:02 Dose: Not Given Ethambutol HCl (Myambutol) 800 mg PO MWF [facility] Stop: 01/04/17 08:59 Last Admin: 11/05/16 09:29 Dose: 800 mg Folic Acid (Folate) 1 mg PO DAILY [facility] Stop: 12/14/16 08:59 Last Admin: 11/06/16 09:13 Dose: 1 mg Ceftriaxone Sodium 1 gm/ (Sodium Chloride) 50 mls @ 100 mls/hr IV Q24HR [facility] Stop: 12/30/16 15:59 Last Infusion: 11/06/16 17:00 Dose: Infused Insulin Aspart (Novolog Insulin Sliding Scale) 0 units SUBQ ACHS [facility] PRN Reason: Protocol Stop: 12/13/16 16:29 Last Admin: 11/07/16 06:40 Dose: Not Given Isoniazid (Inh) 300 mg PO DAILY [facility] Stop: 12/29/16 08:59 Last Admin: 11/06/16 09:14 Dose: 300 mg Levothyroxine Sodium (Synthroid) 0.05 mg PO QDAC [facility] Stop: 12/19/16 06:29 Last Admin: 11/07/16 06:39 Dose: 0.05 mg Mirtazapine (Remeron) 15 mg PO HS [facility] PRN Reason: Protocol Stop: 01/04/17 20:59 Last Admin: 11/06/16 21:18 Dose: 15 mg Miscellaneous (Clinical Monitoring) 1 ea MC PRN PRN PRN Reason: RENAL DOSING Stop: 12/13/16 13:45 Miscellaneous (Vancomycin Iv Per Pharmacy) 1 ea MC PRN PRN PRN Reason: PROTOCOL Stop: 12/30/16 12:53 Morphine Sulfate (Morphine) 1 mg IVP Q4HR PRN PRN Reason: Pain (Moderate) Stop: 12/31/16 00:55 Last Admin: 11/06/16 04:27 Dose: 1 mg Pantoprazole Sodium (Protonix) 40 mg PO DAILY [facility] Stop: 12/14/16 08:59 Last Admin: 11/06/16 09:13 Dose: 40 mg Polyethylene Glycol (Miralax) 17 gm PO DAILY [facility] Stop: 12/28/16 08:59 Last Admin: 11/06/16 09:15 Dose: Not Given Prochlorperazine Maleate (Compazine) 10 mg PO Q6H PRN PRN Reason: Nausea / Vomiting Stop: 12/13/16 10:39 Last Admin: 10/27/16 13:01 Dose: 10 mg Promethazine HCl/Dextromethorphan (Phenergan Dm 6.25/15mg-5 Ml) 5 ml PO BID PRN PRN Reason: Cough Stop: 12/21/16 15:19 Pyrazinamide (Pza) 1,000 mg PO MWF [facility] Stop: 01/04/17 08:59 Last Admin: 11/05/16 09:30 Dose: 1,000 mg Pyridoxine HCl (Vitamin B6) 50 mg PO DAILY [facility] Stop: 12/29/16 08:59 Last Admin: 11/06/16 09:16 Dose: 50 mg Rifampin (Rifadin) 600 mg PO DAILY [facility] Stop: 12/29/16 08:59 Last Admin: 11/06/16 09:14 Dose: 600 mg Senna (Senna) 17.2 mg PO HS [facility] Stop: 12/13/16 20:59 Last Admin: 11/06/16 21:18 Dose: 17.2 mg Vitamin B Complex/Vit C/Folic Acid (Vitamin B Complex W/Vitamin C) 1 tab PO DAILY [facility] Stop: 12/14/16 08:59 Last Admin: 11/06/16 09:14 Dose: 1 tab General: No acute distress, no Mild distress HEENT: Atraumatic, PERRLA Neck: Supple, JVD Cardiovascular: Regular rate, no Other Lungs: Clear to auscultation Abdomen: Bowel sounds Psych/Mental Status: Mental status NL - Procedures Procedures: Procedures Procedure Code Date ART BYP FEMORAL-FEMORAL 22942 10/13/16 BYPASS L FEM ART TO R FEMOR A WITH SYNTH SUB, OPEN APPROACH [id number] 10/13/16 COMPOSITE BYP GRFT PROS&VEIN [id number] 10/13/16 Assessment/Plan - Problem List Patient Problems: All Active Problems dm (Acute) esrd (Acute) h/o chf (Acute) htn (Acute) non healing ulcer (Acute) sepsis (Acute) vascular insuffi (Acute) - Assessment Assessment: 1. Right big toe cellulitis. 2/2 PAD. 2. R pneumonia. 3. CHF. 4. CKD 5 on HD. 5. DM2 - Plan Plan: ltac
[2016-11-07] MEDS: Pantoprazole 40 mg EC Tab PO SCH (09:45)
[2016-11-07] MEDS: Rifampin 300 mg Cap PO SCH (09:46)
[2016-11-07] MEDS: Vitamin B Complex w/Vitamin C Tab PO SCH (09:46)
[2016-11-07] MEDS: Menthol/Zinc Oxide Oint 113gm Tube TP PRN (09:47)
--- NOTE | 2016-11-07 13:05 | Progress Notes ---
PROBLEM LIST: 1. Acute respiratory failure, persistent. 2. Significant fluid overload with respiratory failure. 3. Questionable cavitary lesion on the right basal area. SYMPTOMS: Nil. Sleeping, arousable, no respiratory distress at this particular time. PHYSICAL EXAMINATION: VITAL SIGNS: The patient's recorded vitals, temperature is ____ Fahrenheit, blood pressure 138/47, and saturation 100% on 3 L. NECK: Neck veins could not be visualized. CHEST: Shows diminished air entry at the bases. HEART: Regular. ABDOMEN: Soft, nontender. LABORATORY DATA: The patient's chest x-ray shows significant bilateral effusion obscuring lower almost about half of both the lungs. ASSESSMENT: The patient has persistent respiratory failure, presumably secondary to persistent fluid overload. PLANS AND SUGGESTIONS: We will go ahead and continue current treatment. We will again suggest strongly to do more ultrafiltration and see how she does and go from there. JOB# [id number]
[2016-11-07] MEDS: POLYETHYLENE GLYCOL 3350 17 GM PACK PO SCH (13:21)
--- NOTE | 2016-11-07 15:31 | General Progress Note ---
Subjective - Review of Systems Service Date: 11/07/16 Subjective: weak, less tacypnea, on NC, nonspecific pain Objective - Results Result Diagrams: 11/05/16 06:45 11/06/16 14:18 Recent Labs: Laboratory Last Values WBC 10.2 Th/cmm (4.8-10.8) 11/05/16 06:45 RBC 3.00 Mil/cmm (3.80-5.20) L 11/05/16 06:45 Hgb 9.1 gm/dL (11.7-16.1) L 11/05/16 06:45 Hct 28.5 % (35.0-45.0) L 11/05/16 06:45 MCV 94.8 fl (81-100) 11/05/16 06:45 MCH 30.3 pg (27.0-31.0) 11/05/16 06:45 MCHC Differential 32.0 pg (28.0-36.0) 11/05/16 06:45 RDW 21.2 % (11.5-20.0) H 11/05/16 06:45 Plt Count 145 Th/cmm (150-400) L 11/05/16 06:45 MPV 10.6 fl 11/05/16 06:45 Band Neutrophils % 2 % (0-10) 11/04/16 06:18 Neutrophils (Manual) 92 % (40-80) H 11/05/16 06:45 Lymphocytes 4 % (20-50) L 11/05/16 06:45 Monocytes 4 % (2-10) 11/05/16 06:45 Eosinophils 0 % (0-5) 11/05/16 06:45 Basophils 2 % (0-3) 10/19/16 06:40 Metamyelocytes 1 % (0-0) H 10/27/16 04:52 Nucleated RBCs 1.0 % (0-0) H 11/05/16 06:45 Platelet Estimate ADEQUATE (NORMAL) 11/05/16 06:45 Platelet Morphology GIANT PLATELETS SEEN (NORMAL) 11/05/16 06:45 Polychromasia 1+ 10/25/16 05:20 Anisocytosis 1+ 11/05/16 06:45 RBC Morph Micro Appear ABNORMAL (NORMAL) 11/05/16 06:45 PT 18.3 SECONDS (9.5-11.5) H 10/23/16 04:50 INR 1.78 (0.5-1.4) H 10/23/16 04:50 PTT (Actin FS) 34.8 SECONDS (26.0-38.0) 10/23/16 04:50 Specimen Source Arterial 11/04/16 08:50 Sample Site Right Radial 11/04/16 08:50 pH 7.40 (7.35-7.45) 11/04/16 08:50 pCO2 53.0 mmHg (35.0-45.0) H 11/04/16 08:50 pO2 80.0 mmHg (80.0-100.0) 11/04/16 08:50 HCO3 32.8 mmol/L (20.0-26.0) H 11/04/16 08:50 Base Excess 6.6 mmol/L (-3.0-3.0) H 11/04/16 08:50 O2 Saturation 96.0 % (92.0-100.0) 11/04/16 08:50 Sanjeev Test YES 11/04/16 08:50 Vent Rate NA 11/04/16 08:50 Inspired O2 28 11/04/16 08:50 Tidal Volume NA 11/04/16 08:50 PEEP NA 11/04/16 08:50 Pressure (ins/psv/peep) NA 11/04/16 08:50 Critical Value E.DICKSON 11/04/16 08:50 Sodium 137 mEq/L (136-145) 11/05/16 06:45 Potassium 3.5 mEq/L (3.5-5.1) 11/06/16 14:18 Chloride 104 mEq/L (98-107) 11/05/16 06:45 Carbon Dioxide 27.9 mEq/L (21.0-31.0) 11/05/16 06:45 Anion Gap 8.5 (7.0-16.0) 11/05/16 06:45 BUN 14 mg/dL (7-25) 11/05/16 06:45 Creatinine 1.2 mg/dL (0.6-1.2) 11/05/16 06:45 Est GFR ( Amer) 57.3 ml/min 11/05/16 06:45 Est GFR (Non-Af Amer) 47.3 ml/min 11/05/16 06:45 BUN/Creatinine Ratio 11.7 11/05/16 06:45 Glucose 122 mg/dL (70-105) H 11/05/16 06:45 POC Glucose 121 MG/DL (70 - 105) H 11/07/16 13:36 Hemoglobin A1c % 6.9 % (4.0-6.0) H 10/15/16 05:17 Calcium 8.7 mg/dL (8.6-10.3) 11/05/16 06:45 Magnesium 1.8 mg/dL (1.9-2.7) L 11/06/16 14:18 Total Bilirubin 1.4 mg/dL (0.3-1.0) H 11/04/16 06:18 Direct Bilirubin 0.82 mg/dL (0.0-0.2) H 11/04/16 06:18 AST 23 U/L (13-39) 11/04/16 06:18 ALT 6 U/L (7-52) L 11/04/16 06:18 Alkaline Phosphatase 145 U/L (34-104) H 11/04/16 06:18 Ammonia 50 umol/L (16-53) 10/14/16 10:40 B-Natriuretic Peptide > 5000.0 pg/mL (5.0-100.0) H 10/17/16 06:50 Total Protein 6.3 gm/dL (6.0-8.3) 11/04/16 06:18 Albumin 2.9 gm/dL (3.7-5.3) L 11/04/16 06:18 Globulin 3.4 gm/dL 11/04/16 06:18 Albumin/Globulin Ratio 0.9 (1.0-1.8) L 11/04/16 06:18 Prealbumin 9 mg/dL (10-36) L 11/05/16 06:45 Triglycerides 119 mg/dL (<150) 10/14/16 10:40 Cholesterol 80 mg/dL (<200) 10/14/16 10:40 LDL Cholesterol Direct 26 mg/dL (75-193) L 10/14/16 10:40 HDL Cholesterol 33 mg/dL (23-92) 10/14/16 10:40 TSH 7.87 uIU/ml (0.34-5.60) H 10/14/16 10:40 Urine Source CATH 10/14/16 06:00 Urine Color BROWN 10/14/16 06:00 Urine Clarity SL. CLOUDY (CLEAR) 10/14/16 06:00 Urine pH 5.5 10/14/16 06:00 Ur Specific [place] 1.025 (1.005-1.030) 10/14/16 06:00 Urine Protein 100 mg/dL (NEGATIVE) H 10/14/16 06:00 Urine Glucose (UA) NEGATIVE mg/dL (NEGATIVE) 10/14/16 06:00 Urine Ketones TRACE mg/dL (NEGATIVE) 10/14/16 06:00 Urine Blood TRACE (NEGATIVE) 10/14/16 06:00 Urine Nitrate NEGATIVE (NEGATIVE) 10/14/16 06:00 Urine Bilirubin SMALL (NEGATIVE) H 10/14/16 06:00 Urine Urobilinogen 0.2 E.U./dL (0.2 - 1.0) 10/14/16 06:00 Ur Leukocyte Esterase NEGATIVE (NEGATIVE) 10/14/16 06:00 Urine RBC 0-1 /hpf (0-5) 10/14/16 06:00 Urine WBC 2-5 /hpf (0-5) 10/14/16 06:00 Ur Epithelial Cells OCCASIONAL /lpf (FEW) 10/14/16 06:00 Amorphous Sediment FEW URATES (NONE SEEN) 10/14/16 06:00 Urine Bacteria NONE SEEN /hpf (NONE SEEN) 10/14/16 06:00 Vancomycin Trough 20.0 ug/mL (10-20) 11/07/16 11:12 Random Vancomycin 19.7 ug/mL (5.0-40.0) 11/04/16 06:18 Hepatitis A IgM Ab Negative (Negative) 10/15/16 05:17 Hep Bs Antigen Negative (Negative) 10/15/16 05:17 Hep B Core IgM Ab Negative (Negative) 10/15/16 05:17 Hepatitis C Antibody <0.1 s/co ratio (0.0-0.9) 10/15/16 05:17 HIV 1&2 Antibody Screen NEGATIVE (NEG) 10/27/16 04:52 TB (QFT) Gold In Tube Negative (Negative) 10/24/16 16:00 TB Test (QFT) Mitogen 3.00 IU/mL 10/24/16 16:00 TB Test (QFT) Antigen 0.05 IU/mL 10/24/16 16:00 TB Test Antigen - Nil <0.00 IU/mL 10/24/16 16:00 TB Test TB - Nil 0.06 IU/mL 10/24/16 16:00 TB Test (QFT) Interp (()) 10/24/16 16:00 - Physical Exam Vitals and I&O: Vital Signs Temp 96.1 F 11/07/16 04:00 Pulse 75 11/07/16 08:30 Resp 20 11/07/16 08:30 BP 115/59 11/07/16 04:00 Pulse Ox 98 11/07/16 08:30 Intake & Output 11/06/16 11/07/16 11/07/16 18:59 06:59 18:59 Intake Total 50 Output Total 1200 Balance -1150 Intake: Intake, IV Amount 50 [id number] 1 gm In 50 Sodium Chloride 0.9% 50 ml @ 100 mls/hr IV Q24HR [facility] Rx#:[id number] Output: Hemodialysis 1200 Other: Stool Characteristics Soft Active Medications: Current Medications Acetaminophen (Tylenol) 650 mg PO Q4HR PRN PRN Reason: fever/pain Stop: 12/13/16 01:20 Last Admin: 10/14/16 09:03 Dose: 650 mg Acetaminophen/Hydrocodone Bitart ([place] 5mg/325mg) 1 tab PO Q3H PRN PRN Reason: moderate pain (4-6) Stop: 12/13/16 10:21 Last Admin: 11/07/16 06:21 Dose: 1 tab Acetaminophen/Hydrocodone Bitart ([place] 10 Mg/325 Mg) 1 tab PO Q6H PRN PRN Reason: Pain (Severe) Stop: 12/30/16 12:53 Last Admin: 11/06/16 21:21 Dose: 1 tab Aspirin (Ecotrin) 81 mg PO QAM [facility] Stop: 12/14/16 08:59 Last Admin: 11/07/16 09:45 Dose: 81 mg Calamine/Phenol (Calmoseptine) 1 appl TP QID PRN PRN Reason: Skin Irritation Stop: 01/03/17 18:21 Last Admin: 11/07/16 09:47 Dose: 1 appl Calamine/Phenol (Calmoseptine) 1 appl TP QID [facility] Stop: 01/03/17 20:59 Last Admin: 11/06/16 21:41 Dose: 1 appl Cilostazol (Pletal) 100 mg PO BID [facility] Stop: 12/22/16 16:59 Last Admin: 11/07/16 09:44 Dose: Not Given Docusate Sodium (Colace) 100 mg PO BID [facility] Stop: 12/13/16 16:59 Last Admin: 11/07/16 09:45 Dose: 100 mg Ethambutol HCl (Myambutol) 800 mg PO MWF [facility] Stop: 01/04/17 08:59 Last Admin: 11/05/16 09:29 Dose: 800 mg Folic Acid (Folate) 1 mg PO DAILY [facility] Stop: 12/14/16 08:59 Last Admin: 11/07/16 09:45 Dose: 1 mg Ceftriaxone Sodium 1 gm/ (Sodium Chloride) 50 mls @ 100 mls/hr IV Q24HR [facility] Stop: 12/30/16 15:59 Last Infusion: 11/06/16 17:00 Dose: Infused Vancomycin HCl 1 gm/ Sodium (Chloride) 250 mls @ 165 mls/hr IV 1400 ONE Stop: 11/07/16 15:30 Last Admin: 11/07/16 15:02 Dose: 165 mls/hr Insulin Aspart (Novolog Insulin Sliding Scale) 0 units SUBQ ACHS [facility] PRN Reason: Protocol Stop: 12/13/16 16:29 Last Admin: 11/07/16 13:19 Dose: Not Given Isoniazid (Inh) 300 mg PO DAILY [facility] Stop: 12/29/16 08:59 Last Admin: 11/07/16 09:47 Dose: 300 mg Levothyroxine Sodium (Synthroid) 0.05 mg PO QDAC [facility] Stop: 12/19/16 06:29 Last Admin: 11/07/16 06:39 Dose: 0.05 mg Mirtazapine (Remeron) 15 mg PO HS [facility] PRN Reason: Protocol Stop: 01/04/17 20:59 Last Admin: 11/06/16 21:18 Dose: 15 mg Miscellaneous (Clinical Monitoring) 1 ea MC PRN PRN PRN Reason: RENAL DOSING Stop: 12/13/16 13:45 Miscellaneous (Vancomycin Iv Per Pharmacy) 1 ea MC PRN PRN PRN Reason: PROTOCOL Stop: 12/30/16 12:53 Morphine Sulfate (Morphine) 1 mg IVP Q4HR PRN PRN Reason: Pain (Moderate) Stop: 12/31/16 00:55 Last Admin: 11/06/16 04:27 Dose: 1 mg Pantoprazole Sodium (Protonix) 40 mg PO DAILY [facility] Stop: 12/14/16 08:59 Last Admin: 11/07/16 09:45 Dose: 40 mg Polyethylene Glycol (Miralax) 17 gm PO DAILY [facility] Stop: 12/28/16 08:59 Last Admin: 11/07/16 13:21 Dose: Not Given Prochlorperazine Maleate (Compazine) 10 mg PO Q6H PRN PRN Reason: Nausea / Vomiting Stop: 12/13/16 10:39 Last Admin: 10/27/16 13:01 Dose: 10 mg Promethazine HCl/Dextromethorphan (Phenergan Dm 6.25/15mg-5 Ml) 5 ml PO BID PRN PRN Reason: Cough Stop: 12/21/16 15:19 Pyrazinamide (Pza) 1,000 mg PO MWF [facility] Stop: 01/04/17 08:59 Last Admin: 11/05/16 09:30 Dose: 1,000 mg Pyridoxine HCl (Vitamin B6) 50 mg PO DAILY [facility] Stop: 12/29/16 08:59 Last Admin: 11/07/16 09:44 Dose: 50 mg Rifampin (Rifadin) 600 mg PO DAILY [facility] Stop: 12/29/16 08:59 Last Admin: 11/07/16 09:46 Dose: 600 mg Senna (Senna) 17.2 mg PO HS [facility] Stop: 12/13/16 20:59 Last Admin: 11/06/16 21:18 Dose: 17.2 mg Vitamin B Complex/Vit C/Folic Acid (Vitamin B Complex W/Vitamin C) 1 tab PO DAILY [facility] Stop: 12/14/16 08:59 Last Admin: 11/07/16 09:46 Dose: 1 tab General: Alert, Mild distress HEENT: Atraumatic, Mucous membr. moist/pink Neck: Supple, +2 carotid pulse wo bruit Cardiovascular: Regular rate, Normal S1, Normal S2 Lungs: Other (few rhonchi) Abdomen: Bowel sounds, Soft Extremities: no Edema Neurological: Sensation intact Skin: no Rash - Procedures Procedures: Procedures Procedure Code Date ART BYP FEMORAL-FEMORAL 98712 10/13/16 BYPASS L FEM ART TO R FEMOR A WITH SYNTH SUB, OPEN APPROACH [id number] 10/13/16 COMPOSITE BYP GRFT PROS&VEIN [id number] 10/13/16 Assessment/Plan - Problem List Patient Problems: All Active Problems dm (Acute) esrd (Acute) h/o chf (Acute) htn (Acute) non healing ulcer (Acute) sepsis (Acute) vascular insuffi (Acute) - Assessment Assessment: ESRD on HD acute decomp systolic CHF acute resp failure, hypercapnea; hypoxemia ess htn anemia of ckd LLL HAP hypothyroid PAD w/ right toe discoloration chronic hyponatremia abd. pain better Left Fem-Pop bypass resp acicdosis clotted left avf - Plan Plan: aware of cr. 1.2 cxr still w/ persistent chf new left perma cath schedule for hd in am K has corrected
[2016-11-07] MEDS: cefTRIAXone 1 GM in Sodium Chloride 0.9% 50 ML IV SCH (17:08)
--- NOTE | 2016-11-07 21:04 | Infectious Disease Prog Note ---
Infectious Disease Subjective - Review of Systems Service Date: 11/07/16 Subjective: There is no fever. Doing well. Infectious Disease Objective - Results Result Diagrams: 11/05/16 06:45 11/06/16 14:18 Recent Labs: Laboratory Last Values WBC 10.2 Th/cmm (4.8-10.8) 11/05/16 06:45 RBC 3.00 Mil/cmm (3.80-5.20) L 11/05/16 06:45 Hgb 9.1 gm/dL (11.7-16.1) L 11/05/16 06:45 Hct 28.5 % (35.0-45.0) L 11/05/16 06:45 MCV 94.8 fl (81-100) 11/05/16 06:45 MCH 30.3 pg (27.0-31.0) 11/05/16 06:45 MCHC Differential 32.0 pg (28.0-36.0) 11/05/16 06:45 RDW 21.2 % (11.5-20.0) H 11/05/16 06:45 Plt Count 145 Th/cmm (150-400) L 11/05/16 06:45 MPV 10.6 fl 11/05/16 06:45 Band Neutrophils % 2 % (0-10) 11/04/16 06:18 Neutrophils (Manual) 92 % (40-80) H 11/05/16 06:45 Lymphocytes 4 % (20-50) L 11/05/16 06:45 Monocytes 4 % (2-10) 11/05/16 06:45 Eosinophils 0 % (0-5) 11/05/16 06:45 Basophils 2 % (0-3) 10/19/16 06:40 Metamyelocytes 1 % (0-0) H 10/27/16 04:52 Nucleated RBCs 1.0 % (0-0) H 11/05/16 06:45 Platelet Estimate ADEQUATE (NORMAL) 11/05/16 06:45 Platelet Morphology GIANT PLATELETS SEEN (NORMAL) 11/05/16 06:45 Polychromasia 1+ 10/25/16 05:20 Anisocytosis 1+ 11/05/16 06:45 RBC Morph Micro Appear ABNORMAL (NORMAL) 11/05/16 06:45 PT 18.3 SECONDS (9.5-11.5) H 10/23/16 04:50 INR 1.78 (0.5-1.4) H 10/23/16 04:50 PTT (Actin FS) 34.8 SECONDS (26.0-38.0) 10/23/16 04:50 Specimen Source Arterial 11/04/16 08:50 Sample Site Right Radial 11/04/16 08:50 pH 7.40 (7.35-7.45) 11/04/16 08:50 pCO2 53.0 mmHg (35.0-45.0) H 11/04/16 08:50 pO2 80.0 mmHg (80.0-100.0) 11/04/16 08:50 HCO3 32.8 mmol/L (20.0-26.0) H 11/04/16 08:50 Base Excess 6.6 mmol/L (-3.0-3.0) H 11/04/16 08:50 O2 Saturation 96.0 % (92.0-100.0) 11/04/16 08:50 Sanjeev Test YES 11/04/16 08:50 Vent Rate NA 11/04/16 08:50 Inspired O2 28 11/04/16 08:50 Tidal Volume NA 11/04/16 08:50 PEEP NA 11/04/16 08:50 Pressure (ins/psv/peep) NA 11/04/16 08:50 Critical Value E.DICKSON 11/04/16 08:50 Sodium 137 mEq/L (136-145) 11/05/16 06:45 Potassium 3.5 mEq/L (3.5-5.1) 11/06/16 14:18 Chloride 104 mEq/L (98-107) 11/05/16 06:45 Carbon Dioxide 27.9 mEq/L (21.0-31.0) 11/05/16 06:45 Anion Gap 8.5 (7.0-16.0) 11/05/16 06:45 BUN 14 mg/dL (7-25) 11/05/16 06:45 Creatinine 1.2 mg/dL (0.6-1.2) 11/05/16 06:45 Est GFR ( Amer) 57.3 ml/min 11/05/16 06:45 Est GFR (Non-Af Amer) 47.3 ml/min 11/05/16 06:45 BUN/Creatinine Ratio 11.7 11/05/16 06:45 Glucose 122 mg/dL (70-105) H 11/05/16 06:45 POC Glucose 114 MG/DL (70 - 105) H 11/07/16 16:58 Hemoglobin A1c % 6.9 % (4.0-6.0) H 10/15/16 05:17 Calcium 8.7 mg/dL (8.6-10.3) 11/05/16 06:45 Magnesium 1.8 mg/dL (1.9-2.7) L 11/06/16 14:18 Total Bilirubin 1.4 mg/dL (0.3-1.0) H 11/04/16 06:18 Direct Bilirubin 0.82 mg/dL (0.0-0.2) H 11/04/16 06:18 AST 23 U/L (13-39) 11/04/16 06:18 ALT 6 U/L (7-52) L 11/04/16 06:18 Alkaline Phosphatase 145 U/L (34-104) H 11/04/16 06:18 Ammonia 50 umol/L (16-53) 10/14/16 10:40 B-Natriuretic Peptide > 5000.0 pg/mL (5.0-100.0) H 10/17/16 06:50 Total Protein 6.3 gm/dL (6.0-8.3) 11/04/16 06:18 Albumin 2.9 gm/dL (3.7-5.3) L 11/04/16 06:18 Globulin 3.4 gm/dL 11/04/16 06:18 Albumin/Globulin Ratio 0.9 (1.0-1.8) L 11/04/16 06:18 Prealbumin 9 mg/dL (10-36) L 11/05/16 06:45 Triglycerides 119 mg/dL (<150) 10/14/16 10:40 Cholesterol 80 mg/dL (<200) 10/14/16 10:40 LDL Cholesterol Direct 26 mg/dL (75-193) L 10/14/16 10:40 HDL Cholesterol 33 mg/dL (23-92) 10/14/16 10:40 TSH 7.87 uIU/ml (0.34-5.60) H 10/14/16 10:40 Urine Source CATH 10/14/16 06:00 Urine Color BROWN 10/14/16 06:00 Urine Clarity SL. CLOUDY (CLEAR) 10/14/16 06:00 Urine pH 5.5 10/14/16 06:00 Ur Specific [place] 1.025 (1.005-1.030) 10/14/16 06:00 Urine Protein 100 mg/dL (NEGATIVE) H 10/14/16 06:00 Urine Glucose (UA) NEGATIVE mg/dL (NEGATIVE) 10/14/16 06:00 Urine Ketones TRACE mg/dL (NEGATIVE) 10/14/16 06:00 Urine Blood TRACE (NEGATIVE) 10/14/16 06:00 Urine Nitrate NEGATIVE (NEGATIVE) 10/14/16 06:00 Urine Bilirubin SMALL (NEGATIVE) H 10/14/16 06:00 Urine Urobilinogen 0.2 E.U./dL (0.2 - 1.0) 10/14/16 06:00 Ur Leukocyte Esterase NEGATIVE (NEGATIVE) 10/14/16 06:00 Urine RBC 0-1 /hpf (0-5) 10/14/16 06:00 Urine WBC 2-5 /hpf (0-5) 10/14/16 06:00 Ur Epithelial Cells OCCASIONAL /lpf (FEW) 10/14/16 06:00 Amorphous Sediment FEW URATES (NONE SEEN) 10/14/16 06:00 Urine Bacteria NONE SEEN /hpf (NONE SEEN) 10/14/16 06:00 Vancomycin Trough 20.0 ug/mL (10-20) 11/07/16 11:12 Random Vancomycin 19.7 ug/mL (5.0-40.0) 11/04/16 06:18 Hepatitis A IgM Ab Negative (Negative) 10/15/16 05:17 Hep Bs Antigen Negative (Negative) 10/15/16 05:17 Hep B Core IgM Ab Negative (Negative) 10/15/16 05:17 Hepatitis C Antibody <0.1 s/co ratio (0.0-0.9) 10/15/16 05:17 HIV 1&2 Antibody Screen NEGATIVE (NEG) 10/27/16 04:52 TB (QFT) Gold In Tube Negative (Negative) 10/24/16 16:00 TB Test (QFT) Mitogen 3.00 IU/mL 10/24/16 16:00 TB Test (QFT) Antigen 0.05 IU/mL 10/24/16 16:00 TB Test Antigen - Nil <0.00 IU/mL 10/24/16 16:00 TB Test TB - Nil 0.06 IU/mL 10/24/16 16:00 TB Test (QFT) Interp (()) 10/24/16 16:00 - Physical Exam Vitals and I&O: Vital Signs Temp 96.3 F 11/07/16 16:00 Pulse 67 11/07/16 16:00 Resp 17 11/07/16 16:00 BP 90/38 11/07/16 16:00 Pulse Ox 97 11/07/16 16:00 Intake & Output 11/07/16 11/07/16 11/08/16 06:59 18:59 06:59 Other: Stool Characteristics Soft Active Medications: Current Medications Acetaminophen (Tylenol) 650 mg PO Q4HR PRN PRN Reason: fever/pain Stop: 12/13/16 01:20 Last Admin: 10/14/16 09:03 Dose: 650 mg Acetaminophen/Hydrocodone Bitart ([place] 5mg/325mg) 1 tab PO Q3H PRN PRN Reason: moderate pain (4-6) Stop: 12/13/16 10:21 Last Admin: 11/07/16 17:08 Dose: 1 tab Acetaminophen/Hydrocodone Bitart ([place] 10 Mg/325 Mg) 1 tab PO Q6H PRN PRN Reason: Pain (Severe) Stop: 12/30/16 12:53 Last Admin: 11/06/16 21:21 Dose: 1 tab Aspirin (Ecotrin) 81 mg PO QAM [facility] Stop: 12/14/16 08:59 Last Admin: 11/07/16 09:45 Dose: 81 mg Calamine/Phenol (Calmoseptine) 1 appl TP QID PRN PRN Reason: Skin Irritation Stop: 01/03/17 18:21 Last Admin: 11/07/16 09:47 Dose: 1 appl Calamine/Phenol (Calmoseptine) 1 appl TP QID [facility] Stop: 01/03/17 20:59 Last Admin: 11/06/16 21:41 Dose: 1 appl Cilostazol (Pletal) 100 mg PO BID [facility] Stop: 12/22/16 16:59 Last Admin: 11/07/16 17:08 Dose: 100 mg Docusate Sodium (Colace) 100 mg PO BID [facility] Stop: 12/13/16 16:59 Last Admin: 11/07/16 17:08 Dose: 100 mg Epoetin [place] (Epogen) 10,000 units SUBQ MoWeFr [facility] Stop: 01/07/17 15:49 Ethambutol HCl (Myambutol) 800 mg PO MWF [facility] Stop: 01/04/17 08:59 Last Admin: 11/05/16 09:29 Dose: 800 mg Folic Acid (Folate) 1 mg PO DAILY [facility] Stop: 12/14/16 08:59 Last Admin: 11/07/16 09:45 Dose: 1 mg Ceftriaxone Sodium 1 gm/ (Sodium Chloride) 50 mls @ 100 mls/hr IV Q24HR [facility] Stop: 12/30/16 15:59 Last Admin: 11/07/16 17:08 Dose: 100 mls/hr Insulin Aspart (Novolog Insulin Sliding Scale) 0 units SUBQ ACHS [facility] PRN Reason: Protocol Stop: 12/13/16 16:29 Last Admin: 11/07/16 13:19 Dose: Not Given Isoniazid (Inh) 300 mg PO DAILY [facility] Stop: 12/29/16 08:59 Last Admin: 11/07/16 09:47 Dose: 300 mg Levothyroxine Sodium (Synthroid) 0.05 mg PO QDAC [facility] Stop: 12/19/16 06:29 Last Admin: 11/07/16 06:39 Dose: 0.05 mg Mirtazapine (Remeron) 15 mg PO HS [facility] PRN Reason: Protocol Stop: 01/04/17 20:59 Last Admin: 11/06/16 21:18 Dose: 15 mg Miscellaneous (Clinical Monitoring) 1 ea MC PRN PRN PRN Reason: RENAL DOSING Stop: 12/13/16 13:45 Miscellaneous (Vancomycin Iv Per Pharmacy) 1 ea MC PRN PRN PRN Reason: PROTOCOL Stop: 12/30/16 12:53 Morphine Sulfate (Morphine) 1 mg IVP Q4HR PRN PRN Reason: Pain (Moderate) Stop: 12/31/16 00:55 Last Admin: 11/06/16 04:27 Dose: 1 mg Pantoprazole Sodium (Protonix) 40 mg PO DAILY [facility] Stop: 12/14/16 08:59 Last Admin: 11/07/16 09:45 Dose: 40 mg Polyethylene Glycol (Miralax) 17 gm PO DAILY [facility] Stop: 12/28/16 08:59 Last Admin: 11/07/16 13:21 Dose: Not Given Prochlorperazine Maleate (Compazine) 10 mg PO Q6H PRN PRN Reason: Nausea / Vomiting Stop: 12/13/16 10:39 Last Admin: 10/27/16 13:01 Dose: 10 mg Promethazine HCl/Dextromethorphan (Phenergan Dm 6.25/15mg-5 Ml) 5 ml PO BID PRN PRN Reason: Cough Stop: 12/21/16 15:19 Pyrazinamide (Pza) 1,000 mg PO MWF [facility] Stop: 01/04/17 08:59 Last Admin: 11/05/16 09:30 Dose: 1,000 mg Pyridoxine HCl (Vitamin B6) 50 mg PO DAILY [facility] Stop: 12/29/16 08:59 Last Admin: 11/07/16 09:44 Dose: 50 mg Rifampin (Rifadin) 600 mg PO DAILY [facility] Stop: 12/29/16 08:59 Last Admin: 11/07/16 09:46 Dose: 600 mg Senna (Senna) 17.2 mg PO HS [facility] Stop: 12/13/16 20:59 Last Admin: 11/06/16 21:18 Dose: 17.2 mg Vitamin B Complex/Vit C/Folic Acid (Vitamin B Complex W/Vitamin C) 1 tab PO DAILY FILIBERTO Stop: 12/14/16 08:59 Last Admin: 11/07/16 09:46 Dose: 1 tab General: no acute distress, well developed, well nourished HEENT: atraumatic, normocephalic, PERRLA, EOMI, moist mucous membrane Neck: supple Cardiovascular: S1S2, regular Lungs: clear to auscultation bilaterally, clear to percussion Abdomen: soft, no tender, no distended Extremities: other (Right big toe amputation wound healthy.), no cyanosis, no clubbing Neurological: awake, alert, oriented - Procedures Procedures: Procedures Procedure Code Date ART BYP FEMORAL-FEMORAL 21988 10/13/16 BYPASS L FEM ART TO R FEMOR A WITH SYNTH SUB, OPEN APPROACH [id number] 10/13/16 COMPOSITE BYP GRFT PROS&VEIN [id number] 10/13/16 Infectious Disease Assmt/Plan - Problem List Patient Problems: All Active Problems dm (Acute) esrd (Acute) h/o chf (Acute) htn (Acute) non healing ulcer (Acute) sepsis (Acute) vascular insuffi (Acute) - Assessment Assessment: Impression: 1. Right big toe cellulitis. 2/2 PAD. Amputated. 2. R pneumonia with air, cavity. 3. CHF. 4. CKD 5 on HD. 5. DM2 6. 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 7. abdominal pain, improved. - Plan Plan: Follow up AFB culture. Continue RIPE treatment as recommended by the public health department.
[2016-11-07] MEDS: Menthol/Zinc Oxide Oint 113gm Tube TP SCH (21:21)
--- NOTE | 2016-11-08 04:24 | Progress Notes ---
PROBLEM LIST: 1. Persistent respiratory failure. 2. Persistent fluid overload. 3. Chronic renal failure, on hemodialysis. 4. Recently vascular bypass surgery. SYMPTOMS: The patient says feeling okay. No specific new symptomatology at this particular time. PHYSICAL EXAMINATION: VITAL SIGNS: The patient's recorded vitals: Temperature is 96.4, blood pressure 115/59 and saturation is 98% on 3 liters. ENT: Shows no acute changes. CHEST: Shows diminished air entry, mostly in her bases with occasional nursing secretary noise. HEART: Regular. ABDOMEN: Soft, nontender. ASSESSMENT: The patient is clinically overall seemingly not significantly changed with multiple medical issues including fluid overload, renal failure, obstructive sleep apnea syndrome contributing to her persistent renal failure. PLANS AND SUGGESTIONS: Continue aggressive dialysis. We will repeat chest x-ray in the next few days and go from there. JOB# [id number]
[2016-11-08] MEDS: Levothyroxine 0.05 Mg Tab PO SCH ×2 (06:41→07:38)
[2016-11-08] MEDS: INSULIN ASPART SLIDING SCALE 100 UNITS/ML UNIT SUBQ SCH ×3 (06:42→16:35)
--- NOTE | 2016-11-08 09:24 | General Progress Note ---
Subjective - Review of Systems Subjective: patient lethargic, no distress Objective - Results Result Diagrams: 11/05/16 06:45 11/06/16 14:18 Recent Labs: Laboratory Last Values WBC 10.2 Th/cmm (4.8-10.8) 11/05/16 06:45 RBC 3.00 Mil/cmm (3.80-5.20) L 11/05/16 06:45 Hgb 9.1 gm/dL (11.7-16.1) L 11/05/16 06:45 Hct 28.5 % (35.0-45.0) L 11/05/16 06:45 MCV 94.8 fl (81-100) 11/05/16 06:45 MCH 30.3 pg (27.0-31.0) 11/05/16 06:45 MCHC Differential 32.0 pg (28.0-36.0) 11/05/16 06:45 RDW 21.2 % (11.5-20.0) H 11/05/16 06:45 Plt Count 145 Th/cmm (150-400) L 11/05/16 06:45 MPV 10.6 fl 11/05/16 06:45 Band Neutrophils % 2 % (0-10) 11/04/16 06:18 Neutrophils (Manual) 92 % (40-80) H 11/05/16 06:45 Lymphocytes 4 % (20-50) L 11/05/16 06:45 Monocytes 4 % (2-10) 11/05/16 06:45 Eosinophils 0 % (0-5) 11/05/16 06:45 Basophils 2 % (0-3) 10/19/16 06:40 Metamyelocytes 1 % (0-0) H 10/27/16 04:52 Nucleated RBCs 1.0 % (0-0) H 11/05/16 06:45 Platelet Estimate ADEQUATE (NORMAL) 11/05/16 06:45 Platelet Morphology GIANT PLATELETS SEEN (NORMAL) 11/05/16 06:45 Polychromasia 1+ 10/25/16 05:20 Anisocytosis 1+ 11/05/16 06:45 RBC Morph Micro Appear ABNORMAL (NORMAL) 11/05/16 06:45 PT 18.3 SECONDS (9.5-11.5) H 10/23/16 04:50 INR 1.78 (0.5-1.4) H 10/23/16 04:50 PTT (Actin FS) 34.8 SECONDS (26.0-38.0) 10/23/16 04:50 Specimen Source Arterial 11/04/16 08:50 Sample Site Right Radial 11/04/16 08:50 pH 7.40 (7.35-7.45) 11/04/16 08:50 pCO2 53.0 mmHg (35.0-45.0) H 11/04/16 08:50 pO2 80.0 mmHg (80.0-100.0) 11/04/16 08:50 HCO3 32.8 mmol/L (20.0-26.0) H 11/04/16 08:50 Base Excess 6.6 mmol/L (-3.0-3.0) H 11/04/16 08:50 O2 Saturation 96.0 % (92.0-100.0) 11/04/16 08:50 Sanjeev Test YES 11/04/16 08:50 Vent Rate NA 11/04/16 08:50 Inspired O2 28 11/04/16 08:50 Tidal Volume NA 11/04/16 08:50 PEEP NA 11/04/16 08:50 Pressure (ins/psv/peep) NA 11/04/16 08:50 Critical Value E.DICKSON 11/04/16 08:50 Sodium 137 mEq/L (136-145) 11/05/16 06:45 Potassium 3.5 mEq/L (3.5-5.1) 11/06/16 14:18 Chloride 104 mEq/L (98-107) 11/05/16 06:45 Carbon Dioxide 27.9 mEq/L (21.0-31.0) 11/05/16 06:45 Anion Gap 8.5 (7.0-16.0) 11/05/16 06:45 BUN 14 mg/dL (7-25) 11/05/16 06:45 Creatinine 1.2 mg/dL (0.6-1.2) 11/05/16 06:45 Est GFR ( Amer) 57.3 ml/min 11/05/16 06:45 Est GFR (Non-Af Amer) 47.3 ml/min 11/05/16 06:45 BUN/Creatinine Ratio 11.7 11/05/16 06:45 Glucose 122 mg/dL (70-105) H 11/05/16 06:45 POC Glucose 121 MG/DL (70 - 105) H 11/08/16 05:57 Hemoglobin A1c % 6.9 % (4.0-6.0) H 10/15/16 05:17 Calcium 8.7 mg/dL (8.6-10.3) 11/05/16 06:45 Magnesium 1.8 mg/dL (1.9-2.7) L 11/06/16 14:18 Total Bilirubin 1.4 mg/dL (0.3-1.0) H 11/04/16 06:18 Direct Bilirubin 0.82 mg/dL (0.0-0.2) H 11/04/16 06:18 AST 23 U/L (13-39) 11/04/16 06:18 ALT 6 U/L (7-52) L 11/04/16 06:18 Alkaline Phosphatase 145 U/L (34-104) H 11/04/16 06:18 Ammonia 50 umol/L (16-53) 10/14/16 10:40 B-Natriuretic Peptide > 5000.0 pg/mL (5.0-100.0) H 10/17/16 06:50 Total Protein 6.3 gm/dL (6.0-8.3) 11/04/16 06:18 Albumin 2.9 gm/dL (3.7-5.3) L 11/04/16 06:18 Globulin 3.4 gm/dL 11/04/16 06:18 Albumin/Globulin Ratio 0.9 (1.0-1.8) L 11/04/16 06:18 Prealbumin 9 mg/dL (10-36) L 11/05/16 06:45 Triglycerides 119 mg/dL (<150) 10/14/16 10:40 Cholesterol 80 mg/dL (<200) 10/14/16 10:40 LDL Cholesterol Direct 26 mg/dL (75-193) L 10/14/16 10:40 HDL Cholesterol 33 mg/dL (23-92) 10/14/16 10:40 TSH 7.87 uIU/ml (0.34-5.60) H 10/14/16 10:40 Urine Source CATH 10/14/16 06:00 Urine Color BROWN 10/14/16 06:00 Urine Clarity SL. CLOUDY (CLEAR) 10/14/16 06:00 Urine pH 5.5 10/14/16 06:00 Ur Specific [place] 1.025 (1.005-1.030) 10/14/16 06:00 Urine Protein 100 mg/dL (NEGATIVE) H 10/14/16 06:00 Urine Glucose (UA) NEGATIVE mg/dL (NEGATIVE) 10/14/16 06:00 Urine Ketones TRACE mg/dL (NEGATIVE) 10/14/16 06:00 Urine Blood TRACE (NEGATIVE) 10/14/16 06:00 Urine Nitrate NEGATIVE (NEGATIVE) 10/14/16 06:00 Urine Bilirubin SMALL (NEGATIVE) H 10/14/16 06:00 Urine Urobilinogen 0.2 E.U./dL (0.2 - 1.0) 10/14/16 06:00 Ur Leukocyte Esterase NEGATIVE (NEGATIVE) 10/14/16 06:00 Urine RBC 0-1 /hpf (0-5) 10/14/16 06:00 Urine WBC 2-5 /hpf (0-5) 10/14/16 06:00 Ur Epithelial Cells OCCASIONAL /lpf (FEW) 10/14/16 06:00 Amorphous Sediment FEW URATES (NONE SEEN) 10/14/16 06:00 Urine Bacteria NONE SEEN /hpf (NONE SEEN) 10/14/16 06:00 Vancomycin Trough 20.0 ug/mL (10-20) 11/07/16 11:12 Random Vancomycin 19.7 ug/mL (5.0-40.0) 11/04/16 06:18 Hepatitis A IgM Ab Negative (Negative) 10/15/16 05:17 Hep Bs Antigen Negative (Negative) 10/15/16 05:17 Hep B Core IgM Ab Negative (Negative) 10/15/16 05:17 Hepatitis C Antibody <0.1 s/co ratio (0.0-0.9) 10/15/16 05:17 HIV 1&2 Antibody Screen NEGATIVE (NEG) 10/27/16 04:52 TB (QFT) Gold In Tube Negative (Negative) 10/24/16 16:00 TB Test (QFT) Mitogen 3.00 IU/mL 10/24/16 16:00 TB Test (QFT) Antigen 0.05 IU/mL 10/24/16 16:00 TB Test Antigen - Nil <0.00 IU/mL 10/24/16 16:00 TB Test TB - Nil 0.06 IU/mL 10/24/16 16:00 TB Test (QFT) Interp (()) 10/24/16 16:00 - Physical Exam Vitals and I&O: Vital Signs Temp 98 F 11/08/16 04:00 Pulse 89 11/08/16 07:41 Resp 20 11/08/16 07:41 BP 119/67 11/08/16 04:00 Pulse Ox 97 11/08/16 07:41 Intake & Output 11/07/16 11/08/16 11/08/16 18:59 06:59 18:59 Intake Total 150 Balance 150 Intake: Oral 150 Other: # Voids 0 # Bowel Movements 2 Stool Characteristics Soft Active Medications: Current Medications Acetaminophen (Tylenol) 650 mg PO Q4HR PRN PRN Reason: fever/pain Stop: 12/13/16 01:20 Last Admin: 10/14/16 09:03 Dose: 650 mg Acetaminophen/Hydrocodone Bitart ([place] 5mg/325mg) 1 tab PO Q3H PRN PRN Reason: moderate pain (4-6) Stop: 12/13/16 10:21 Last Admin: 11/07/16 17:08 Dose: 1 tab Acetaminophen/Hydrocodone Bitart ([place] 10 Mg/325 Mg) 1 tab PO Q6H PRN PRN Reason: Pain (Severe) Stop: 12/30/16 12:53 Last Admin: 11/06/16 21:21 Dose: 1 tab Aspirin (Ecotrin) 81 mg PO QAM [facility] Stop: 12/14/16 08:59 Last Admin: 11/07/16 09:45 Dose: 81 mg Calamine/Phenol (Calmoseptine) 1 appl TP QID PRN PRN Reason: Skin Irritation Stop: 01/03/17 18:21 Last Admin: 11/07/16 09:47 Dose: 1 appl Calamine/Phenol (Calmoseptine) 1 appl TP QID [facility] Stop: 01/03/17 20:59 Last Admin: 11/07/16 21:21 Dose: 1 appl Cilostazol (Pletal) 100 mg PO BID [facility] Stop: 12/22/16 16:59 Last Admin: 11/07/16 17:08 Dose: 100 mg Docusate Sodium (Colace) 100 mg PO BID [facility] Stop: 12/13/16 16:59 Last Admin: 11/07/16 17:08 Dose: 100 mg Epoetin [place] (Epogen) 10,000 units SUBQ MoWeFr [facility]1983 Stop: 01/07/17 15:49 Ethambutol HCl (Myambutol) 800 mg PO MWF [facility] Stop: 01/04/17 08:59 Last Admin: 11/05/16 09:29 Dose: 800 mg Folic Acid (Folate) 1 mg PO DAILY [facility] Stop: 12/14/16 08:59 Last Admin: 11/07/16 09:45 Dose: 1 mg Insulin Aspart (Novolog Insulin Sliding Scale) 0 units SUBQ ACHS FILIBERTO PRN Reason: Protocol Stop: 12/13/16 16:29 Last Admin: 11/08/16 06:42 Dose: Not Given Isoniazid (Inh) 300 mg PO DAILY [facility] Stop: 12/29/16 08:59 Last Admin: 11/07/16 09:47 Dose: 300 mg Levothyroxine Sodium (Synthroid) 0.05 mg PO QDAC [facility] Stop: 12/19/16 06:29 Last Admin: 11/08/16 07:38 Dose: 0.05 mg Mirtazapine (Remeron) 15 mg PO HS FILIBERTO PRN Reason: Protocol Stop: 01/04/17 20:59 Last Admin: 11/07/16 21:21 Dose: 15 mg Miscellaneous (Clinical Monitoring) 1 ea MC PRN PRN PRN Reason: RENAL DOSING Stop: 12/13/16 13:45 Morphine Sulfate (Morphine) 1 mg IVP Q4HR PRN PRN Reason: Pain (Moderate) Stop: 12/31/16 00:55 Last Admin: 11/06/16 04:27 Dose: 1 mg Pantoprazole Sodium (Protonix) 40 mg PO DAILY [facility] Stop: 12/14/16 08:59 Last Admin: 11/07/16 09:45 Dose: 40 mg Polyethylene Glycol (Miralax) 17 gm PO DAILY [facility] Stop: 12/28/16 08:59 Last Admin: 11/07/16 13:21 Dose: Not Given Prochlorperazine Maleate (Compazine) 10 mg PO Q6H PRN PRN Reason: Nausea / Vomiting Stop: 12/13/16 10:39 Last Admin: 10/27/16 13:01 Dose: 10 mg Promethazine HCl/Dextromethorphan (Phenergan Dm 6.25/15mg-5 Ml) 5 ml PO BID PRN PRN Reason: Cough Stop: 12/21/16 15:19 Pyrazinamide (Pza) 1,000 mg PO MWF FILIBERTO Stop: 01/04/17 08:59 Last Admin: 11/05/16 09:30 Dose: 1,000 mg Pyridoxine HCl (Vitamin B6) 50 mg PO DAILY FILIBERTO Stop: 12/29/16 08:59 Last Admin: 11/07/16 09:44 Dose: 50 mg Rifampin (Rifadin) 600 mg PO DAILY [facility] Stop: 12/29/16 08:59 Last Admin: 11/07/16 09:46 Dose: 600 mg Senna (Senna) 17.2 mg PO HS [facility] Stop: 12/13/16 20:59 Last Admin: 11/07/16 21:21 Dose: 17.2 mg Vitamin B Complex/Vit C/Folic Acid (Vitamin B Complex W/Vitamin C) 1 tab PO DAILY FILIBERTO Stop: 12/14/16 08:59 Last Admin: 11/07/16 09:46 Dose: 1 tab - Procedures Procedures: Procedures Procedure Code Date ART BYP FEMORAL-FEMORAL 01649 10/13/16 BYPASS L FEM ART TO R FEMOR A WITH SYNTH SUB, OPEN APPROACH [id number] 10/13/16 COMPOSITE BYP GRFT PROS&VEIN 54806 10/13/16 Assessment/Plan - Problem List Patient Problems: All Active Problems dm (Acute) esrd (Acute) h/o chf (Acute) htn (Acute) non healing ulcer (Acute) sepsis (Acute) vascular insuffi (Acute) - Assessment Assessment: 1. Right big toe cellulitis. 2/2 PAD. 2. R pneumonia. 3. CHF. 4. CKD 5 on HD. 5. DM2 - Plan Plan: appreciate consults reccomendation continue ivabx as per id cbc/bmp in am continue current plan of care
[2016-11-08] MEDS: Hydrocodone/APAP 10 mg/325 mg Tab PO PRN ×2 (09:57→19:21)
[2016-11-08] MEDS: Vitamin B Complex w/Vitamin C Tab PO SCH (09:57)
[2016-11-08] MEDS: Menthol/Zinc Oxide Oint 113gm Tube TP PRN (09:57)
[2016-11-08] MEDS: POLYETHYLENE GLYCOL 3350 17 GM PACK PO SCH (09:59)
[2016-11-08] MEDS: Rifampin 300 mg Cap PO SCH (09:59)
[2016-11-08] MEDS: Menthol/Zinc Oxide Oint 113gm Tube TP SCH ×3 (09:59→18:54)
[2016-11-08] MEDS: Pantoprazole 40 mg EC Tab PO SCH (09:59)
--- NOTE | 2016-11-08 12:16 | Diagnostic Imaging Report ---
Portable chest x-ray HISTORY: Shortness of breath Compared with prior exam of 11/06/2016, there are persistent bilateral pleural effusions (left larger than right). Underlying consolidation and/or atelectasis particularly in the left lower lobe cannot be excluded. The heart is enlarged. IMPRESSION: 1. No significant change in the cardiopulmonary status as noted above.
[2016-11-08] MEDS ORDERED: Epoetin Alfa 20000 Units/mL Vial SUBQ SCH (15:50)
--- NOTE | 2016-11-08 17:16 | General Progress Note ---
Subjective - Review of Systems Service Date: 11/08/16 Subjective: awake, less tacypnea, on NC, nonspecific pain Objective - Results Result Diagrams: 11/05/16 06:45 11/06/16 14:18 Recent Labs: Laboratory Last Values WBC 10.2 Th/cmm (4.8-10.8) 11/05/16 06:45 RBC 3.00 Mil/cmm (3.80-5.20) L 11/05/16 06:45 Hgb 9.1 gm/dL (11.7-16.1) L 11/05/16 06:45 Hct 28.5 % (35.0-45.0) L 11/05/16 06:45 MCV 94.8 fl (81-100) 11/05/16 06:45 MCH 30.3 pg (27.0-31.0) 11/05/16 06:45 MCHC Differential 32.0 pg (28.0-36.0) 11/05/16 06:45 RDW 21.2 % (11.5-20.0) H 11/05/16 06:45 Plt Count 145 Th/cmm (150-400) L 11/05/16 06:45 MPV 10.6 fl 11/05/16 06:45 Band Neutrophils % 2 % (0-10) 11/04/16 06:18 Neutrophils (Manual) 92 % (40-80) H 11/05/16 06:45 Lymphocytes 4 % (20-50) L 11/05/16 06:45 Monocytes 4 % (2-10) 11/05/16 06:45 Eosinophils 0 % (0-5) 11/05/16 06:45 Basophils 2 % (0-3) 10/19/16 06:40 Metamyelocytes 1 % (0-0) H 10/27/16 04:52 Nucleated RBCs 1.0 % (0-0) H 11/05/16 06:45 Platelet Estimate ADEQUATE (NORMAL) 11/05/16 06:45 Platelet Morphology GIANT PLATELETS SEEN (NORMAL) 11/05/16 06:45 Polychromasia 1+ 10/25/16 05:20 Anisocytosis 1+ 11/05/16 06:45 RBC Morph Micro Appear ABNORMAL (NORMAL) 11/05/16 06:45 PT 18.3 SECONDS (9.5-11.5) H 10/23/16 04:50 INR 1.78 (0.5-1.4) H 10/23/16 04:50 PTT (Actin FS) 34.8 SECONDS (26.0-38.0) 10/23/16 04:50 Specimen Source Arterial 11/04/16 08:50 Sample Site Right Radial 11/04/16 08:50 pH 7.40 (7.35-7.45) 11/04/16 08:50 pCO2 53.0 mmHg (35.0-45.0) H 11/04/16 08:50 pO2 80.0 mmHg (80.0-100.0) 11/04/16 08:50 HCO3 32.8 mmol/L (20.0-26.0) H 11/04/16 08:50 Base Excess 6.6 mmol/L (-3.0-3.0) H 11/04/16 08:50 O2 Saturation 96.0 % (92.0-100.0) 11/04/16 08:50 Sanjeev Test YES 11/04/16 08:50 Vent Rate NA 11/04/16 08:50 Inspired O2 28 11/04/16 08:50 Tidal Volume NA 11/04/16 08:50 PEEP NA 11/04/16 08:50 Pressure (ins/psv/peep) NA 11/04/16 08:50 Critical Value E.DICKSON 11/04/16 08:50 Sodium 137 mEq/L (136-145) 11/05/16 06:45 Potassium 3.5 mEq/L (3.5-5.1) 11/06/16 14:18 Chloride 104 mEq/L (98-107) 11/05/16 06:45 Carbon Dioxide 27.9 mEq/L (21.0-31.0) 11/05/16 06:45 Anion Gap 8.5 (7.0-16.0) 11/05/16 06:45 BUN 14 mg/dL (7-25) 11/05/16 06:45 Creatinine 1.2 mg/dL (0.6-1.2) 11/05/16 06:45 Est GFR ( Amer) 57.3 ml/min 11/05/16 06:45 Est GFR (Non-Af Amer) 47.3 ml/min 11/05/16 06:45 BUN/Creatinine Ratio 11.7 11/05/16 06:45 Glucose 122 mg/dL (70-105) H 11/05/16 06:45 POC Glucose 138 MG/DL (70 - 105) H 11/08/16 16:21 Hemoglobin A1c % 6.9 % (4.0-6.0) H 10/15/16 05:17 Calcium 8.7 mg/dL (8.6-10.3) 11/05/16 06:45 Magnesium 1.8 mg/dL (1.9-2.7) L 11/06/16 14:18 Total Bilirubin 1.4 mg/dL (0.3-1.0) H 11/04/16 06:18 Direct Bilirubin 0.82 mg/dL (0.0-0.2) H 11/04/16 06:18 AST 23 U/L (13-39) 11/04/16 06:18 ALT 6 U/L (7-52) L 11/04/16 06:18 Alkaline Phosphatase 145 U/L (34-104) H 11/04/16 06:18 Ammonia 50 umol/L (16-53) 10/14/16 10:40 B-Natriuretic Peptide > 5000.0 pg/mL (5.0-100.0) H 10/17/16 06:50 Total Protein 6.3 gm/dL (6.0-8.3) 11/04/16 06:18 Albumin 2.9 gm/dL (3.7-5.3) L 11/04/16 06:18 Globulin 3.4 gm/dL 11/04/16 06:18 Albumin/Globulin Ratio 0.9 (1.0-1.8) L 11/04/16 06:18 Prealbumin 9 mg/dL (10-36) L 11/05/16 06:45 Triglycerides 119 mg/dL (<150) 10/14/16 10:40 Cholesterol 80 mg/dL (<200) 10/14/16 10:40 LDL Cholesterol Direct 26 mg/dL (75-193) L 10/14/16 10:40 HDL Cholesterol 33 mg/dL (23-92) 10/14/16 10:40 TSH 7.87 uIU/ml (0.34-5.60) H 10/14/16 10:40 Urine Source CATH 10/14/16 06:00 Urine Color BROWN 10/14/16 06:00 Urine Clarity SL. CLOUDY (CLEAR) 10/14/16 06:00 Urine pH 5.5 10/14/16 06:00 Ur Specific [place] 1.025 (1.005-1.030) 10/14/16 06:00 Urine Protein 100 mg/dL (NEGATIVE) H 10/14/16 06:00 Urine Glucose (UA) NEGATIVE mg/dL (NEGATIVE) 10/14/16 06:00 Urine Ketones TRACE mg/dL (NEGATIVE) 10/14/16 06:00 Urine Blood TRACE (NEGATIVE) 10/14/16 06:00 Urine Nitrate NEGATIVE (NEGATIVE) 10/14/16 06:00 Urine Bilirubin SMALL (NEGATIVE) H 10/14/16 06:00 Urine Urobilinogen 0.2 E.U./dL (0.2 - 1.0) 10/14/16 06:00 Ur Leukocyte Esterase NEGATIVE (NEGATIVE) 10/14/16 06:00 Urine RBC 0-1 /hpf (0-5) 10/14/16 06:00 Urine WBC 2-5 /hpf (0-5) 10/14/16 06:00 Ur Epithelial Cells OCCASIONAL /lpf (FEW) 10/14/16 06:00 Amorphous Sediment FEW URATES (NONE SEEN) 10/14/16 06:00 Urine Bacteria NONE SEEN /hpf (NONE SEEN) 10/14/16 06:00 Vancomycin Trough 20.0 ug/mL (10-20) 11/07/16 11:12 Random Vancomycin 19.7 ug/mL (5.0-40.0) 11/04/16 06:18 Hepatitis A IgM Ab Negative (Negative) 10/15/16 05:17 Hep Bs Antigen Negative (Negative) 10/15/16 05:17 Hep B Core IgM Ab Negative (Negative) 10/15/16 05:17 Hepatitis C Antibody <0.1 s/co ratio (0.0-0.9) 10/15/16 05:17 HIV 1&2 Antibody Screen NEGATIVE (NEG) 10/27/16 04:52 TB (QFT) Gold In Tube Negative (Negative) 10/24/16 16:00 TB Test (QFT) Mitogen 3.00 IU/mL 10/24/16 16:00 TB Test (QFT) Antigen 0.05 IU/mL 10/24/16 16:00 TB Test Antigen - Nil <0.00 IU/mL 10/24/16 16:00 TB Test TB - Nil 0.06 IU/mL 10/24/16 16:00 TB Test (QFT) Interp (()) 10/24/16 16:00 - Physical Exam Vitals and I&O: Vital Signs Temp 97.9 F 11/08/16 16:00 Pulse 79 11/08/16 16:00 Resp 19 11/08/16 16:00 BP 103/40 11/08/16 16:00 Pulse Ox 99 11/08/16 16:00 Intake & Output 11/07/16 11/08/16 11/08/16 18:59 06:59 18:59 Intake Total 150 Balance 150 Intake: Oral 150 Other: # Voids 0 # Bowel Movements 2 Stool Characteristics Soft Active Medications: Current Medications Acetaminophen (Tylenol) 650 mg PO Q4HR PRN PRN Reason: fever/pain Stop: 12/13/16 01:20 Last Admin: 10/14/16 09:03 Dose: 650 mg Acetaminophen/Hydrocodone Bitart ([place] 5mg/325mg) 1 tab PO Q3H PRN PRN Reason: moderate pain (4-6) Stop: 12/13/16 10:21 Last Admin: 11/07/16 17:08 Dose: 1 tab Acetaminophen/Hydrocodone Bitart ([place] 10 Mg/325 Mg) 1 tab PO Q6H PRN PRN Reason: Pain (Severe) Stop: 12/30/16 12:53 Last Admin: 11/08/16 09:57 Dose: 1 tab Aspirin (Ecotrin) 81 mg PO QAM [facility] Stop: 12/14/16 08:59 Last Admin: 11/08/16 09:58 Dose: 81 mg Calamine/Phenol (Calmoseptine) 1 appl TP QID PRN PRN Reason: Skin Irritation Stop: 01/03/17 18:21 Last Admin: 11/08/16 09:57 Dose: 1 appl Calamine/Phenol (Calmoseptine) 1 appl TP QID [facility] Stop: 01/03/17 20:59 Last Admin: 11/08/16 13:55 Dose: 1 appl Cilostazol (Pletal) 100 mg PO BID [facility] Stop: 12/22/16 16:59 Last Admin: 11/08/16 09:58 Dose: 100 mg Docusate Sodium (Colace) 100 mg PO BID [facility] Stop: 12/13/16 16:59 Last Admin: 11/08/16 09:58 Dose: 100 mg Epoetin [place] (Epogen) 10,000 units SUBQ MoWeFr [facility] Stop: 01/07/17 15:49 Ethambutol HCl (Myambutol) 800 mg PO MWF [facility] Stop: 01/04/17 08:59 Last Admin: 11/08/16 09:57 Dose: 800 mg Folic Acid (Folate) 1 mg PO DAILY [facility] Stop: 12/14/16 08:59 Last Admin: 11/08/16 09:58 Dose: 1 mg Insulin Aspart (Novolog Insulin Sliding Scale) 0 units SUBQ ACHS [facility] PRN Reason: Protocol Stop: 12/13/16 16:29 Last Admin: 11/08/16 16:35 Dose: Not Given Isoniazid (Inh) 300 mg PO DAILY [facility] Stop: 12/29/16 08:59 Last Admin: 11/08/16 09:57 Dose: 300 mg Levothyroxine Sodium (Synthroid) 0.05 mg PO QDAC [facility] Stop: 12/19/16 06:29 Last Admin: 11/08/16 07:38 Dose: 0.05 mg Mirtazapine (Remeron) 15 mg PO HS FILIBERTO PRN Reason: Protocol Stop: 01/04/17 20:59 Last Admin: 11/07/16 21:21 Dose: 15 mg Miscellaneous (Clinical Monitoring) 1 ea MC PRN PRN PRN Reason: RENAL DOSING Stop: 12/13/16 13:45 Morphine Sulfate (Morphine) 1 mg IVP Q4HR PRN PRN Reason: Pain (Moderate) Stop: 12/31/16 00:55 Last Admin: 11/06/16 04:27 Dose: 1 mg Pantoprazole Sodium (Protonix) 40 mg PO DAILY [facility] Stop: 12/14/16 08:59 Last Admin: 11/08/16 09:59 Dose: 40 mg Polyethylene Glycol (Miralax) 17 gm PO DAILY [facility] Stop: 12/28/16 08:59 Last Admin: 11/08/16 09:59 Dose: 17 gm Prochlorperazine Maleate (Compazine) 10 mg PO Q6H PRN PRN Reason: Nausea / Vomiting Stop: 12/13/16 10:39 Last Admin: 10/27/16 13:01 Dose: 10 mg Promethazine HCl/Dextromethorphan (Phenergan Dm 6.25/15mg-5 Ml) 5 ml PO BID PRN PRN Reason: Cough Stop: 12/21/16 15:19 Pyrazinamide (Pza) 1,000 mg PO MWF [facility] Stop: 01/04/17 08:59 Last Admin: 11/08/16 09:57 Dose: 1,000 mg Pyridoxine HCl (Vitamin B6) 50 mg PO DAILY [facility] Stop: 12/29/16 08:59 Last Admin: 11/08/16 09:58 Dose: 50 mg Rifampin (Rifadin) 600 mg PO DAILY [facility] Stop: 12/29/16 08:59 Last Admin: 11/08/16 09:59 Dose: 600 mg Senna (Senna) 17.2 mg PO HS [facility] Stop: 12/13/16 20:59 Last Admin: 11/07/16 21:21 Dose: 17.2 mg Vitamin B Complex/Vit C/Folic Acid (Vitamin B Complex W/Vitamin C) 1 tab PO DAILY [facility] Stop: 12/14/16 08:59 Last Admin: 11/08/16 09:57 Dose: 1 tab General: Alert, Mild distress HEENT: Atraumatic, EOMI, Mucous membr. moist/pink Neck: Supple, +2 carotid pulse wo bruit Cardiovascular: Regular rate, Normal S1, Normal S2 Lungs: Other (scattered rhonchi) Abdomen: Bowel sounds, Soft Extremities: Edema (edema left upper ext) - Procedures Procedures: Procedures Procedure Code Date ART BYP FEMORAL-FEMORAL 29917 10/13/16 BYPASS L FEM ART TO R FEMOR A WITH SYNTH SUB, OPEN APPROACH [id number] 10/13/16 COMPOSITE BYP GRFT PROS&VEIN 23290 10/13/16 Assessment/Plan - Problem List Patient Problems: All Active Problems dm (Acute) esrd (Acute) h/o chf (Acute) htn (Acute) non healing ulcer (Acute) sepsis (Acute) vascular insuffi (Acute) - Assessment Assessment: ESRD on HD acute decomp systolic CHF acute resp failure, hypercapnea; hypoxemia ess htn anemia of ckd LLL HAP hypothyroid PAD w/ right toe discoloration chronic hyponatremia abd. pain better S/P Left Fem-Pop bypass resp acicdosis clotted left avf - Plan Plan: cxr still w/ persistent chf, effusions left > right new left perma cath currently being dialyzed K has corrected possible transfer to divide
--- NOTE | 2016-11-09 01:35 | Progress Notes ---
PULMONARY PROGRESS NOTE PROBLEM LIST: 1. Persistent abnormal chest x-ray with bilateral effusion. 2. Possibly cavity versus fluid surrounding the cavity on the right lower lobe which has obscured because of effusion. 3. Chronic renal failure, on hemodialysis. SYMPTOMS: No specific new symptoms. PHYSICAL EXAMINATION: VITAL SIGNS: The patient's temperature is 98.0. Heart rate is in 70s. Blood pressure 179/67, respirations 20, and saturation 97 on 3 liters of oxygen. ENT: Shows no new changes. NECK: No nodes in the neck could be palpated. CHEST: Shows diminished air entry. No other adventitious breath sounds in the bases. HEART: Regular. ASSESSMENT: The patient is clinically status quo, not significantly changed. PLANS AND SUGGESTIONS: We will go ahead and continue current treatment. We will repeat chest x-ray in the next few days and go from there. JOB# [id number]
--- NOTE | 2016-11-15 19:34 | Discharge Summary ---
This 70-year-old patient is very well known to me. ADMITTING DIAGNOSES: Congestive heart failure, bilateral pleural effusion, renal disease end stage on dialysis, history of hypertension, diabetes, anemia and hypothyroidism. HOSPITAL COURSE: The patient was admitted to [facility] on 10/13/2016 and was discharged on 11/08/2016. The patient had congestive heart failure, pneumonia, continued on dialysis and severe peripheral vascular disease, underwent femoropopliteal ____. The patient had a bypass surgery for the leg and patient improved and the patient was in stable condition, but still needed further care. The patient was sent to [facility] on 11/08/2016 and I will be following the patient there. CONDITION AT THE TIME OF DISCHARGE: Stable. MEDICATIONS: See the reconciliation. JOB# [id number]
== END 2016-11-08 19:20 | DRG 166 ==
LOC: TELE 21:28 → ICU 10-23 09:46 → MSI 10-26 21:15
PROVIDERS: ADMIT Internal Medicine; ATTEND Internal Medicine
PROC: 041L0JH Bypass Left Femoral Artery to Right Femoral Artery with Synthetic Substitute, Open Approach (ICD-10-PCS; principal; 2016-10-23)
PROC: 03CY0ZZ Extirpation of Matter from Upper Artery, Open Approach (ICD-10-PCS; 2016-11-03)
PROC: 0Y6R0Z0 Detachment at Right 2nd Toe, Complete, Open Approach (ICD-10-PCS; 2016-11-03)
PROC: 05H633Z Insertion of Infusion Device into Left Subclavian Vein, Percutaneous Approach (ICD-10-PCS; 2016-11-03)
PROC: B517YZA Fluoroscopy of Left Subclavian Vein using Other Contrast, Guidance (ICD-10-PCS; 2016-11-03)
PROC: 5A1D60Z (ICD-10-PCS; 2016-11-06)
DX: J69.0 Pneumonitis due to inhalation of food and vomit (principal); E43 Unspecified severe protein-calorie malnutrition; I50.43 Acute on chronic combined systolic (congestive) and diastolic (congestive) heart failure; J96.01 Acute respiratory failure with hypoxia; J96.02 Acute respiratory failure with hypercapnia; N18.6 End stage renal disease; I08.3 Combined rheumatic disorders of mitral, aortic and tricuspid valves; E11.52 Type 2 diabetes mellitus with diabetic peripheral angiopathy with gangrene; T82.898A Other specified complication of vascular prosthetic devices, implants and grafts, initial encounter; E87.1 Hypo-osmolality and hyponatremia; I13.2 Hypertensive heart and chronic kidney disease with heart failure and with stage 5 chronic kidney disease, or end stage renal disease; R64 Cachexia; Y83.8 Other surgical procedures as the cause of abnormal reaction of the patient, or of later complication, without mention of misadventure at the time of the procedure; E11.40 Type 2 diabetes mellitus with diabetic neuropathy, unspecified; D63.1 Anemia in chronic kidney disease; E03.9 Hypothyroidism, unspecified; K21.9 Gastro-esophageal reflux disease without esophagitis; I70.208 Unspecified atherosclerosis of native arteries of extremities, other extremity; E11.22 Type 2 diabetes mellitus with diabetic chronic kidney disease; L03.031 Cellulitis of right toe; K56.41 Fecal impaction; I25.5 Ischemic cardiomyopathy; G47.33 Obstructive sleep apnea (adult) (pediatric); Y92.89 Other specified places as the place of occurrence of the external cause; Z99.2 Dependence on renal dialysis; Z68.20 Body mass index [BMI] 20.0-20.9, adult
CPT/HCPCS: 36415-UA; 36600-90; 71010-TC; 71250-TC; 74000-TC; 74020-TC; 74150-TC; 76000-TC; 78315-TC; 80048-TC; 80053-TC; 80061-TC; 80074-90; 80076-TC; 80202-TC; 81001-TC; 82140-TC; 82803-TC; 82948-90; 83036-90; 83735-TC; 83880-TC; 84132-TC; 84134-90; 84443-TC; 85007-TC; 85027-TC; 85610-TC; 86480-90; 86635-90; 86703-TC; 87070; 87086-90; 87116-90; 87206-90; 88304-TC; 90799; 90937; 93005; 93926-RT-TC; 93970-TC-50; 94660; 94760; 97971-TC-LT; A9503; A9540; A9567; C1751; J0696; J0885; J1170; J1644; J1815; J1940; J2001; J2250; J2270; J3370; J7030; J7040; P9045; P9046; P9047; Q0164; Q9967; X5790; X6206; Z7610